=== PATIENT | female | born 1965 ===

== ENCOUNTER 2020-09-26 15:46 | Emergency (ER) | payer MEDICAID, SELFPAY ==
--- NOTE | 2020-09-26 16:50 | XR_ITS ---
EXAMINATION: XR CHEST CLINICAL INFORMATION: Shortness of breath and cough COMPARISON: 09/20/2015 TECHNIQUE: Frontal view of the chest was obtained. FINDINGS: Since the prior study the cardiac silhouette has decreased in size and the heart is now borderline in size. A left chest wall bipolar pacemaker has been placed with one lead in the atria the other near the right ventricular apex. The lungs are clear without effusions, infiltrates or masses. XR/XR chest 1V IMPRESSION: No acute intrathoracic disease.
[2020-09-26 17:06] VITALS: BP 108/60; PULSE 62; RESP 16; TEMP 36.4; O2SAT 100; BMI 37.4
--- NOTE | 2020-09-26 17:07 | ED.GENADULT ---
HPI - General Adult General Chief complaint: Upper Respiratory Symptoms Stated complaint: covid symptoms Time Seen by Provider: 09/26/20 16:33 Source: patient Mode of arrival: ambulatory History of Present Illness HPI narrative: 55-year-old female with a past medical history of hyperlipidemia, hypertension, hypothyroid presenting to the ED complaining of nasal congestion/rhinorrhea, sore throat, dry cough, myalgias/body aches, and SOB times a couple days. Denies chest pain, fever, recent travel, LE edema, sick contacts Onset (ago): day(s) Related Data Previous Rx's Medication Instructions Recorded albuterol sulfate 2 puff INHALATION Q4-6H PRN #6.7 g 09/26/20 benzonatate [Tessalon Perles] 100 mg PO TID PRN #10 cap 09/26/20 Allergies Allergy/AdvReac Type Severity Reaction Status Date / Time No Known Allergies Allergy Unverified 06/01/20 18:51 [No Known Allergies*] lactose Allergy Unknown nausea and Uncoded 10/27/19 00:00 vomiting Review of Systems Review of Systems: Constitutional: No Weight loss, No Fever, + Chills, No Night Sweats, + Fatigue, No Malaise ENT/Mouth: No Hearing loss, No Ear Pain, + Nasal Congestion, No Sinus Pain, No Hoarseness, + sore throat, + Rhinorrhea, No Swallowing Difficulty Cardiovascular: No Chest Pain, + SOB, No Palpitations Respiratory: + Cough, No Sputum, No Wheezing Gastrointestinal: No Nausea, No Vomiting, + Diarrhea, No Constipation, No Abdominal pain Musculoskeletal: No joint pain, + Myalgias, No Joint Swelling Skin: No Skin Lesions, No rash Neuro: No Weakness, No Dizziness, + Headache Yes all other systems are reviewed and are negative [facility] Past Medical History Attestation statement: The following information was validated with the patient. Social History Social History Advance Directives: No Advance Directives Information Provided: Yes Physical Exam Vital Signs: Vital Signs: Last Vital Signs Temp 97.5 F 09/26/20 17:06 Pulse 62 09/26/20 17:06 Resp 16 09/26/20 17:06 BP 108/60 09/26/20 17:06 Pulse Ox 100 09/26/20 17:06 Body Mass Index 37.4 Const: General: cooperative, healthy appearing, comfortable and no acute distress Orientation/consciousness: patient oriented x3 Limitations: no limitations HENMT: Head: Yes normal to inspection Ears: hearing grossly normal bilaterally General nose exam: Normal external nose present Face and sinus: Yes normal facial exam Eyes: General: appearance normal, both eyes and all related structures EOM: EOMs intact bilaterally Neck: Neck: Yes normal visual inspection and Yes no meningeal signs Resp: Effort & Inspection: normal respiratory effort Auscultation: clear to auscultation bilaterally, no rales, no rhonchi and no wheezes Cardio: Rate: regular rate Heart sounds: S1 normal heart sound present and S2 normal heart sound present GI: Inspection: Yes normal to inspection Palpation (GI): Soft to palpation, nontender, no guarding and not rigid Skin: Rashes: no rashes Wounds: no wounds Neuro: General: patient oriented x3 and no meningeal signs Gait exam (Neuro): Normal gait present Extrem: Other: No LE edema or calf tenderness General: Yes normal to inspection Course Course Course Narrative: -1800- ED care transferrd to [place] Bill pending CXR and COVID-19/influenza/RSV Medical Decision Making [facility] Narrative Medical decision making narrative: On exam VSS, NAD/well-appearing, lungs CTA, no LE edema or calf tenderness. Concern for viral syndrome/COVID-19. Low concern for pneumonia/ACS/PE Plan: CXR, COVID-19/influenza/RSV testing Discharge Plan Discharge Clinical Impression: Upper respiratory infection Qualifiers: URI type: unspecified URI Qualified Code(s): J06.9 - Acute upper respiratory infection, unspecified Patient Disposition: Home, Self-Care Instructions: Viral Syndrome (ED) Additional Instructions: Your x-ray was unremarkable You need to stay hydrated at home Albuterol inhaler is for shortness of breath and wheezing Tessalon Perles or for cough, take as needed You need to rest, and stay self isolated Call your doctor for follow-up, if her symptoms persist or worsen, you have fever unresolved with Tylenol or Motrin at home, constant worsening chest pain/shortness of breath return to the ED CDC Guidelines for home isolation: - Stay away from others - WEAR A MASK if you are sick AND STAY HOME - Cover your mouth and nose with a tissue when you cough or sneeze. Dispose of tissues in a lined trash can and wash your hands immediately with soap and water for at least 20 seconds. If soap and water are not available, clean hands with alcohol-based hand director [employer] that contains at least 60% alcohol. - Clean your hands often with soap and water for at least 20 seconds - Avoid touching your eyes, nose and mouth with unwashed hands - Do not share dishes, drinking glasses, cups, eating utensils, towels, or bedding with other people in your home. After using these items, wash them thoroughly with soap and water or put in the design transferrer. - Clean high-touch surfaces in your isolation area ( sick room and bathroom) every day; let a caregiver clean and disinfect high-touch surfaces in other areas of the home. Clean the area or item with soap and water or another detergent if it is dirty. Then, use a household disinfectant. - Limit contact with pets and animals: If you must care for a pet, wash your hands before and after interacting with them) Prescriptions: New albuterol sulfate 90 mcg/actuation HFA aerosol inhaler 2 puff inhalation Q4-6H PRN (Reason: shortness of breath or wheezing) Qty: 6.7 RF: 0 benzonatate [Tessalon Perles] 100 mg capsule 100 mg PO TID PRN (Reason: cough) Qty: 10 RF: 0 Referrals: Physician,Unknown [Primary Care Provider] - 2 days Print Language: Luxembourgish
[2020-09-26 18:51] LABS: Influenza A PCR NEGATIVE (Negative); Influenza B PCR NEGATIVE (Negative); Resp Syncy Virus RNA Qual PCR NEGATIVE (Negative); SARS COV2 PCR INHOUSE NEGATIVE (Negative)
== END 2020-09-26 20:26 | disposition home or self-care (01) ==
PROVIDERS: Physician Assistant; Emergency Provider Internal Medicine
DX: R05 Cough (principal); M79.10 Myalgia, unspecified site; Z20.828 Contact with and (suspected) exposure to other viral communicable diseases
CPT/HCPCS: 0241U; 36415; 71045; 99283; 99284

== ENCOUNTER 2020-09-29 11:54 | Emergency (ER) | payer MEDICAID, SELFPAY ==
--- NOTE | 2020-09-29 12:06 | ED_ITS ---
HPI - URI/Sore Throat General Chief Complaint: General Medical Stated Complaint: covid symptoms Time Seen by Provider: 09/29/20 12:04 Source: patient Mode of arrival: ambulatory Limitations: language barrier History of Present Illness HPI Narrative: 55 yo female with HTN, HLD, hx PPM, and hypothyroidism presenting back to the ER with continued URI symptoms. She reports all over body pain/aches, along with intermittent diarrhea, chest soreness and productive cough. She now has a productive cough with white/yellowish phlegm. She took Tylenol this morning with no improvement in the body pains. She denies SOB, dif ficulty breathing. She has not taken her temperature at home. She was seen here on 09/26 - had a negative Viral PCR and CXR. She was discharged with Tessalon and PRN albuterol MDI. MD elicited complaint: cough and other (body aches) Onset (ago): day(s) (5) Consistency: constant Severity: severe Description of mucous: clear and yellow Able to tolerate fluids by mouth: Yes Exacerbating factors: exertion and deep breaths Relieving factors: nothing Associated symptoms: chills, myalgias, headache, nasal congestion, cough, chest pain, nausea and diarrhea Treatments prior to arrival: acetaminophen Related Data Previous Rx's Medication Instructions Recorded albuterol sulfate 2 puff INHALATION Q4-6H PRN #6.7 g 09/26/20 benzonatate [Tessalon Perles] 100 mg PO TID PRN #10 cap 09/26/20 azithromycin [Zithromax Z-Andre] See Rx Instructions .ROUTE 09/29/20 .COMPLEX #6 tab prednisone 40 mg PO DAILY #10 tab 09/29/20 Allergies Allergy/AdvReac Type Severity Reaction Status Date / Time No Known Allergies Allergy Verified 09/29/20 12:24 [No Known Allergies*] lactose Allergy Unknown nausea and Uncoded 10/27/19 00:00 vomiting Review of Systems Review of Systems: Constitutional: No Fever, + Chills ENT/Mouth: + sore throat, + Rhinorrhea, No Swallowing Difficulty Eyes: No Eye Pain, No Swelling, No Redness Cardiovascular: + Chest Pain, No SOB, No Orthopnea, No Edema Respiratory: + Cough, + Sputum, No Wheezing, No dyspnea Gastrointestinal: + Nausea, No Vomiting, + Diarrhea, No abdominal Pain, No Hematochezia, No Melena Genitourinary: No Dysuria, No Urinary Frequency, No Hematuria Musculoskeletal: No joint pain, + Myalgias Skin: No Skin Lesions, No rash Neuro: + Weakness, No Numbness, No Dizziness, + Headache Psych: + Anxiety/Panic, No Depression Heme/Lymph: No Bruising, No Lymphadenopathy Endocrine: No Polyuria, No Polydipsia PMFSH Past Medical History Attestation statement: The following information was validated with the patient. Medical History High cholesterol HTN (hypertension) Hypothyroid Pacemaker Tumor cells, benign Social History Social History Alcohol intake: never Smoking Status: Never smoker Smoked in Last 30 Days: No Use of substances other than those prescribed or required for medical reasons: No Advance Directives: No Advance Directives Information Provided: No Physical Exam Vital Signs: Vital Signs: Last Vital Signs Temp 98.7 F 09/29/20 14:32 Pulse 78 09/29/20 14:32 Resp 18 09/29/20 14:32 BP 137/89 09/29/20 14:32 Pulse Ox 99 09/29/20 14:33 Body Mass Index 37.4 Appearance: Alert. Oriented X3. Tearful Eyes: Pupils equal, round and reactive to light. ENT: Pharynx normal. Neck: Normal inspection. Neck supple. CVS: Normal heart rate and rhythm. Pulses normal. Respiratory: No respiratory distress. Breath sounds normal. No rhonchi or wheezing. Abdomen: Soft and nontender. +BS x4 Skin: Skin warm and dry. Normal skin color. Normal skin turgor. No rashes. Extremities: No lower extremity edema. Negative Kyra's sign Neuro: Oriented X 3. Non-focal. Steady gait Course Course Course Narrative: 55 y/o presenting with flu/COVID symptoms - seen here 09/26 for the same. Symptoms persist. VSS and lungs are clear, no distress. Given this is her 2nd presentation we will check basic labs to assess for metabolic derangements. Will repeat CXR and Viral PCR given her symptoms are likely viral in etiology. Suspect COVID-19. Reevaluation(s) Reevaluation #1: Viral PCR negative for Flu, COVID and RSV. Lab workup unremarkable including negative troponin, normal electrolytes and procal. She remains hemodynamically stable with no hypoxia or respiratory distress. Body aches and headache slightly improved with Motrin. Patient was counseled on her results and symptomatic management. She is stable for discharge with plan to f/u with her PCP on Friday. MDM - URI/Sore Throat Lab Data Result diagrams: 09/29/20 13:12 09/29/20 13:12 Labs: Lab Results 09/29/20 09/29/20 09/29/20 Range/Units 13:09 13:12 13:12 WBC 10.2 (4.8-10.8) X10*3/uL RBC 5.05 (4.20-5.50) X10*6/uL Hgb 12.4 (12.0-16.0) g/dl Hct 40.8 (37-47) % MCV 80.8 (80-98) fL MCH 24.6 L (27.0-33.0) pg MCHC 30.4 L (31.0-35.0) g/dl RDW 16.3 H (11.0-16.0) % Plt Count 376 (160-400) X10*3/uL MPV 10.4 (9.4-12.3) fL Immature Gran % (Auto) 0.4 (0.0-0.4) % Neut % (Auto) 64.9 (45-73) % Lymph % (Auto) 25.1 (20-40) % Person % (Auto) 6.7 (2-11) % Eos % (Auto) 2.3 (0-4) % Baso % (Auto) 0.6 (0-2) % Lymph # (Auto) 2.6 (1.2-4.9) X10*3/uL Person # (Auto) 0.7 (0.1-1.2) X10*3/uL Eos # (Auto) 0.2 (0.0-0.4) X10*3/uL Baso # (Auto) 0.1 (0.0-0.2) X10*3/uL Abs Immat Gran (auto) 0.04 H (0.00-0.03) X10*3/uL Absolute Neuts (auto) 6.6 (2.0-8.3) X10*3/uL Absolute Nucleated RBC 0.000 (0.0-0.012) X10*3/uL Nucleated RBC % (auto) 0.0 (0.0-0.2) /100WBC Sodium 141 (135-145) mmol/L Potassium 3.5 (3.3-5.1) mmol/l Chloride 102 (96-108) mmol/L Carbon Dioxide 28 (22-29) mmol/L Anion Gap 15 (12-20) BUN 6 L (9-16) mg/dL Creatinine 0.83 (0.5-1.4) mg/dL Estim Creat Clear Calc 89.5 Estimated GFR > 60 Random Glucose 130 H (60-115) mg/dL Calcium 9.6 (8.4-10.2) mg/dL Magnesium 2.0 (1.6-2.6) mg/dL Troponin I High Sens (<3.5-17.0) ng/L Procalcitonin ng/mL Coronavirus (PCR) NEGATIVE (Negative) Influenza Type A (PCR) NEGATIVE (Negative) Influenza Type B (PCR) NEGATIVE (Negative) RSV RNA Qual (PCR) NEGATIVE (Negative) 09/29/20 09/29/20 Range/Units 13:12 13:54 WBC (4.8-10.8) X10*3/uL RBC (4.20-5.50) X10*6/uL Hgb (12.0-16.0) g/dl Hct (37-47) % MCV (80-98) fL MCH (27.0-33.0) pg MCHC (31.0-35.0) g/dl RDW (11.0-16.0) % Plt Count (160-400) X10*3/uL MPV (9.4-12.3) fL Immature Gran % (Auto) (0.0-0.4) % Neut % (Auto) (45-73) % Lymph % (Auto) (20-40) % Person % (Auto) (2-11) % Eos % (Auto) (0-4) % Baso % (Auto) (0-2) % Lymph # (Auto) (1.2-4.9) X10*3/uL Person # (Auto) (0.1-1.2) X10*3/uL Eos # (Auto) (0.0-0.4) X10*3/uL Baso # (Auto) (0.0-0.2) X10*3/uL Abs Immat Gran (auto) (0.00-0.03) X10*3/uL Absolute Neuts (auto) (2.0-8.3) X10*3/uL Absolute Nucleated RBC (0.0-0.012) X10*3/uL Nucleated RBC % (auto) (0.0-0.2) /100WBC Sodium (135-145) mmol/L Potassium (3.3-5.1) mmol/l Chloride (96-108) mmol/L Carbon Dioxide (22-29) mmol/L Anion Gap (12-20) BUN (9-16) mg/dL Creatinine (0.5-1.4) mg/dL Estim Creat Clear Calc Estimated GFR Random Glucose (60-115) mg/dL Calcium (8.4-10.2) mg/dL Magnesium (1.6-2.6) mg/dL Troponin I High Sens < 3.5 (<3.5-17.0) ng/L Procalcitonin 0.06 ng/mL Coronavirus (PCR) (Negative) Influenza Type A (PCR) (Negative) Influenza Type B (PCR) (Negative) RSV RNA Qual (PCR) (Negative) ECG Data Attestation: I personally reviewed and interpreted this ECG as follows: ECG interpretation date: 09/29/20 ECG interpretation time: 13:50 Prior ECG tracings: available for review Interpretation: atrial paced rhythm, HR 70 bpm, non-specific t-wave inversions in lead I, aVL, V2-V5 which are new from prior ECG in 2019 Discharge Plan Discharge Clinical Impression: Acute viral syndrome Patient Disposition: Home, Self-Care Instructions: Acute Bronchitis (ED), Viral Syndrome (ED) Additional Instructions: Your lab workup was normal. Your chest x-ray was normal. Your COVID, influenza and RSV tests were NEGATIVE. Take the prescribed medications for possible bronchitis. Take over the counter cold/flu medications as needed for your symptoms. Alternate Motrin and Tylenol every 4 hours as needed for body aches and fevers. Rest and drink plenty of water. Follow up with your doctor on Friday. If your symptoms worsen come back to the ER for further evaluation. Prescriptions: New prednisone 20 mg tablet 40 mg PO DAILY Qty: 10 RF: 0 azithromycin [Zithromax Z-Andre] 250 mg tablet See Rx Instructions .ROUTE .COMPLEX Qty: 6 RF: 0 No Action albuterol sulfate 90 mcg/actuation HFA aerosol inhaler 2 puff inhalation Q4-6H PRN (Reason: shortness of breath or wheezing) Qty: 6.7 RF: 0 benzonatate [Tessalon Perles] 100 mg capsule 100 mg PO TID PRN (Reason: cough) Qty: 10 RF: 0
[2020-09-29 12:12] VITALS: BP 137/74; PULSE 62; RESP 18; TEMP 37.2; O2SAT 99; BMI 37.4
--- NOTE | 2020-09-29 12:28 | ECG_ITS ---
Test Reason : SOB,CP Blood Pressure : / mmHG Vent. Rate : 070 BPM Atrial Rate : 070 BPM P-R Int : 200 ms QRS Dur : 118 ms QT Int : 444 ms P-R-T Axes : 021 058 113 degrees QTc Int : 479 ms Atrial-paced rhythm Inferior infarct , age undetermined ST & T wave abnormality, consider lateral ischemia Abnormal ECG When compared with ECG of 14-NOV-2018 09:21, Electronic atrial pacemaker has replaced Sinus rhythm Vent. rate has increased BY 24 BPM T wave inversion now evident in Anterolateral leads QT has lengthened Referred By: Ira Alcantara Electronically Signed By:KYLAH AGUAYO MD
--- NOTE | 2020-09-29 12:28 | XR_ITS ---
EXAMINATION: XR CHEST CLINICAL INFORMATION: Shortness of breath and cough COMPARISON: Previous chest x-rays most recent 09/26/2020 TECHNIQUE: Frontal view of the chest was obtained. FINDINGS: The cardiac and mediastinal contours are stable. There is a left subclavian dual chamber pacemaker that appears unchanged. Hilar and mediastinal contours are unremarkable. The lungs are clear. There is no pleural effusion or pneumothorax. Bony structures are unremarkable. XR/XR chest 1V IMPRESSION: No evidence for acute disease in the chest.
[2020-09-29 13:39] LABS: MANUAL DIFF FLAG NO
[2020-09-29 13:47] LABS: Basophils Absolute Auto 0.1 X10*3/uL (0.0-0.2); Basophils Percent Auto 0.6 % (0-2); Eosinophils Absolute Auto 0.2 X10*3/uL (0.0-0.4); Eosinophils Percent Auto 2.3 % (0-4); Hematocrit 40.8 % (37-47); Hemoglobin 12.4 g/dl (12.0-16.0); Imm Gran Abs Auto 0.04 X10*3/uL (0.00-0.03); Imm Gran Pct Auto 0.4 % (0.0-0.4); Lymphocytes Absolute Auto 2.6 X10*3/uL (1.2-4.9); Lymphocytes Percent Auto 25.1 % (20-40); Mean Corpuscular HGB Conc 30.4 g/dl (31.0-35.0); Mean Corpuscular Hemoglobin 24.6 pg (27.0-33.0); Mean Corpuscular Volume 80.8 fL (80-98); Mean Platelet Volume 10.4 fL (9.4-12.3); Monocytes Absolute Auto 0.7 X10*3/uL (0.1-1.2); Monocytes Percent Auto 6.7 % (2-11); Neutrophils Absolute Auto 6.6 X10*3/uL (2.0-8.3); Neutrophils Percent Auto 64.9 % (45-73); Platelet Count 376 X10*3/uL (160-400); Red Blood Count 5.05 X10*6/uL (4.20-5.50); Red Cell Distribution Width 16.3 % (11.0-16.0); White Blood Count 10.2 X10*3/uL (4.8-10.8)
[2020-09-29 14:07] LABS: Anion Gap 15 (12-20); Blood Urea Nitrogen 6 mg/dL (9-16); Calcium 9.6 mg/dL (8.4-10.2); Carbon Dioxide 28 mmol/L (22-29); Chloride 102 mmol/L (96-108); Creatinine Clr Calc Pharmacy 89.5; Estimated Glomerular Filt Rate > 60; Glucose Random 130 mg/dL (60-115); Potassium 3.5 mmol/l (3.3-5.1); Sodium 141 mmol/L (135-145)
[2020-09-29] MEDS: Ibuprofen 600 MG TABLET PO (14:30)
[2020-09-29 14:31] LABS: Procalcitonin 0.06 ng/mL
[2020-09-29 14:32] VITALS: BP 137/89; PULSE 78; RESP 18; TEMP 37.1; O2SAT 99
[2020-09-29 14:33] VITALS: O2SAT 99
[2020-09-29 14:58] LABS: Influenza A PCR NEGATIVE (Negative); Influenza B PCR NEGATIVE (Negative); Resp Syncy Virus RNA Qual PCR NEGATIVE (Negative); SARS COV2 PCR INHOUSE NEGATIVE (Negative)
[2020-09-29 15:21] LABS: Troponin-I High Sensitivity < 3.5 ng/L (<3.5-17.0)
== END 2020-09-29 16:00 | disposition home or self-care (01) ==
PROVIDERS: Physician Assistant; Emergency Provider Emergency Medicine
DX: B34.9 Viral infection, unspecified (principal); Z20.822 Contact with and (suspected) exposure to COVID-19; J20.9 Acute bronchitis, unspecified; I10 Essential (primary) hypertension; Z95.0 Presence of cardiac pacemaker
CPT/HCPCS: 0241U; 36415; 71045; 80048; 83735; 84145; 84484; 85025; 93005; 99283; 99285

== ENCOUNTER 2021-04-12 10:05 | Outpatient (REF) | payer MEDICAID, SELFPAY ==
--- NOTE | 2021-04-12 10:10 | EMG_ITS ---
Right median and ulnar motor and sensory studies were performed. Right radial sensory study was performed and paraspinal muscles were tested. IMPRESSION: [id number] right median neuropathy across carpal tunnel. MD CLEO Mcintyre/KEVIN / [id number]
== END 2021-04-12 10:06 | disposition home or self-care (01) ==
LOC: HO.NEURO 10:05
PROVIDERS: PCP Internal Medicine; Visit Provider Internal Medicine
DX: Z13.89 Encounter for screening for other disorder (principal)

== ENCOUNTER 2021-07-17 13:08 | Outpatient (REF) | payer MEDICAID, SELFPAY ==
--- NOTE | ~2021-07-17 | MM_ITS ---
EXAMINATION: MM DIAGNOSTIC DIGITAL BREAST TOMOSYNTHESIS, BILATERAL US DIAGNOSTIC ULTRASOUND BREAST, LEFT CLINICAL INFORMATION: Left-sided breast pain greatest upper outer quadrant. No mass, no discharge. Due for yearly. The lifetime risk of breast cancer based on the Tyrer-Cuzick Model is 17%. COMPARISON: Mammography: 02/17/2018, 02/03/2017 TECHNIQUE: Digital breast tomosynthesis is performed in both the craniocaudal and mediolateral oblique views along with computer-aided detection (CAD). Synthesized 2D images are generated from the tomosynthesis. Additional left MLO view is provided. Ultrasound left breast is targeted to the area of clinical concern 12:00 through 4:00 position. Grayscale imaging and color Doppler are performed without and with harmonics. FINDINGS: There are scattered areas of fibroglandular density (ACR BI-RADS breast composition Category b). Parenchymal pattern is similar to prior studies. There is no developing density or interval mass or architectural abnormality. No skin thickening or coarsening of the Woody's ligaments. No interval duct ectasia or abnormal calcifications. The axilla are unremarkable. Mild nipple inversion is chronic finding similar to prior studies. No significant changes. Ultrasound demonstrates no cystic or solid mass or architectural abnormality. No focal duct ectasia. No skin thickening or edema tracking in soft tissue planes. Results are discussed with the patient at time of visit. MM/MM tomosynthesis diagnostic BI IMPRESSION: No mammographic evidence of malignancy or inflammatory changes. Unremarkable targeted left breast ultrasound. ASSESSMENT: BI-RADS 2: Benign RECOMMENDATION: 1. Patient's left breast pain should be managed based on the clinical impression. 2. Otherwise, routine annual screening mammography. This patient's information was entered into a reminder system with a target due date for their next mammogram.
== END 2021-07-17 13:09 | disposition home or self-care (01) ==
LOC: HO.MAMMO 13:08
PROVIDERS: Visit Provider Internal Medicine
DX: N64.4 Mastodynia (principal)
CPT/HCPCS: 76642; 77062; 77066

== ENCOUNTER 2021-09-20 11:59 | Outpatient (REF) | payer MEDICAID, SELFPAY ==
[2021-09-20 15:40] LABS: Binax Now Covid-19 Ag Negative (Negative)
[2021-09-20 15:41] LABS: Binax Internal Control QC Valid
== END 2021-09-20 12:00 | disposition home or self-care (01) ==
LOC: HO.LAB 11:59
PROVIDERS: Visit Provider Internal Medicine
DX: Z20.822 Contact with and (suspected) exposure to COVID-19 (principal)
CPT/HCPCS: 36415; C9803

== ENCOUNTER 2022-05-16 10:34 | Outpatient (REF) | payer MEDICAID, SELFPAY ==
[2022-05-16 15:37] LABS: CT PCR NOT DETECTED (Not Detect.); NG PCR NOT DETECTED (Not Detect.)
[2022-05-17 14:28] LABS: BV Int Neg Control Negative (Negative); BV Int Pos Control Positive (Positive)
== END 2022-05-16 10:35 | disposition home or self-care (01) ==
LOC: HO.LAB 10:34
PROVIDERS: Visit Provider Advanced Practice Midwife
DX: Z11.3 Encounter for screening for infections with a predominantly sexual mode of transmission (principal); R10.2 Pelvic and perineal pain; N89.8 Other specified noninflammatory disorders of vagina
CPT/HCPCS: 87480; 87491; 87510; 87591; 87624; 87660; 88142

== ENCOUNTER 2022-05-16 15:38 | Outpatient (REF) | payer MEDICAID, SELFPAY ==
[2022-05-22 00:37] LABS: HPV mRNA E6/E7 rflx Not Detected (Not Detected)
== END 2022-05-16 15:39 | disposition home or self-care (01) ==
LOC: HO.LNP 15:38
PROVIDERS: Visit Provider Advanced Practice Midwife
DX: Z01.419 Encounter for gynecological examination (general) (routine) without abnormal findings (principal)
CPT/HCPCS: 87624; 88142

== ENCOUNTER 2022-07-02 13:37 | Outpatient (REF) | payer MEDICAID, SELFPAY ==
--- NOTE | ~2022-07-02 | US_ITS ---
EXAMINATION: US PELVIS CLINICAL INFORMATION: Pain COMPARISON: Previous CT of the abdomen and pelvis most recent January 2019 TECHNIQUE: Ultrasound of the pelvis is performed using both transabdominal and transvaginal transducers along with Doppler. Transvaginal imaging is performed due to inadequate visualization transabdominally. FINDINGS: The uterus is anteverted and measures 4.1 x 2.6 x 3.7 cm in dimension. No focal uterine lesion. Endometrial thickness is normal measuring 0.4 cm. The ovaries are not seen. No adnexal mass. No fluid in the pelvis. US/US pelvic and transvaginal IMPRESSION: Normal-appearing uterus. Ovaries not seen.
== END 2022-07-02 13:38 | disposition home or self-care (01) ==
LOC: HO.US 13:37
PROVIDERS: Visit Provider Advanced Practice Midwife
DX: R10.2 Pelvic and perineal pain (principal)
CPT/HCPCS: 76830; 76856

== ENCOUNTER 2022-07-17 14:56 | Outpatient (REF) | payer MEDICAID, SELFPAY ==
[2022-07-23 20:52] LABS: HPV mRNA E6/E7 rflx Not Detected (Not Detected)
== END 2022-07-17 14:57 | disposition home or self-care (01) ==
LOC: HO.LNP 14:56
PROVIDERS: Visit Provider Advanced Practice Midwife
DX: Z01.419 Encounter for gynecological examination (general) (routine) without abnormal findings (principal); Z11.51 Encounter for screening for human papillomavirus (HPV); R87.615 Unsatisfactory cytologic smear of cervix; Z71.2 Person consulting for explanation of examination or test findings
CPT/HCPCS: 87624; 88142; 99212

== ENCOUNTER 2023-03-21 14:19 | Outpatient (REF) | payer MEDICAID, SELFPAY ==
--- NOTE | ~2023-03-21 | CT_ITS ---
EXAMINATION: CT CHEST SCREENING CLINICAL INFORMATION: Former smoker. Quit 1 year ago. 40 pack year history. COMPARISON: None available. TECHNIQUE: Multidetector volumetric CT imaging of the chest is performed without contrast using low dose technique. Additional 2D coronal and sagittal reformatted images and axial 3D maximum intensity projection (MIP) images are generated on the CT workstation. This CT examination was performed using dose optimization techniques as appropriate, variously including the following: *Automated exposure control *Adjustment of mA and/or kV according to patient size (this includes techniques or standardized protocols for targeted exams where dose is matched to indication/reason for exam; i.e. extremities or head) *Use of iterative reconstruction technique DLP: 60 mGy-cm FINDINGS: LUNGS: Mild emphysema. MEDIASTINUM: Normal heart size. No pericardial effusion. Left subclavian dual chamber pacemaker with leads projecting over the right atrium and right ventricle. No enlarged hilar or mediastinal lymph nodes. CORONARY ARTERY CALCIFICATION: Mild PLEURA: There is no pleural effusion. No pleural mass or thickening. AXILLA: No lymphadenopathy. UPPER ABDOMEN: Fatty infiltration of the liver. The gallbladder has been removed. OSSEOUS STRUCTURES: Degenerative changes of the spine. CT/CT lung screening IMPRESSION: Mild emphysema. Mild coronary artery calcification. ASSESSMENT: Lung-RADS category 1: Negative RECOMMENDATION: Annual low-dose chest CT follow-up recommended
== END 2023-03-21 14:20 | disposition home or self-care (01) ==
LOC: HO.CT 14:19
PROVIDERS: PCP Internal Medicine; Visit Provider Physician Assistant Medical
DX: Z12.2 Encounter for screening for malignant neoplasm of respiratory organs (principal); Z87.891 Personal history of nicotine dependence
CPT/HCPCS: 71271; G0296

== ENCOUNTER 2023-12-30 10:59 | Outpatient (REF) | payer MEDICAID, SELFPAY ==
[2023-12-30 14:28] LABS: MANUAL DIFF FLAG NO
[2023-12-30 14:42] LABS: Basophils Absolute Auto 0.1 X10*3/uL (0.0-0.2); Basophils Percent Auto 0.7 % (0-2); Eosinophils Absolute Auto 0.1 X10*3/uL (0.0-0.4); Eosinophils Percent Auto 1.3 % (0-4); Hematocrit 41.7 % (37.0-47.0); Hemoglobin 12.6 g/dl (12.0-16.0); Imm Gran Abs Auto 0.05 X10*3/uL (0.00-0.03); Imm Gran Pct Auto 0.6 % (0.0-0.4); Lymphocytes Absolute Auto 2.1 X10*3/uL (1.2-4.9); Lymphocytes Percent Auto 24.1 % (20-40); Mean Corpuscular HGB Conc 30.2 g/dl (31.0-35.0); Mean Corpuscular Hemoglobin 23.8 pg (27.0-33.0); Mean Corpuscular Volume 78.8 fL (80.0-98.0); Mean Platelet Volume 11.4 fL (9.4-12.3); Monocytes Absolute Auto 0.5 X10*3/uL (0.1-1.2); Monocytes Percent Auto 5.7 % (2-11); Neutrophils Absolute Auto 5.8 x10*3/uL (2.0-8.3); Neutrophils Percent Auto 67.6 % (45-73); Platelet Count 332 X10*3/uL (160-400); Red Blood Count 5.29 X10*6/uL (4.20-5.50); Red Cell Distribution Width 17.4 % (11.0-16.0); White Blood Count 8.6 X10*3/uL (4.8-10.8)
[2023-12-30 15:20] LABS: Alanine Aminotransferase 26 U/L (0-31); Albumin Level 3.7 g/dL (3.5-5.0); Alkaline Phosphatase 106 U/L (39-117); Anion Gap 11 (12-20); Aspartate Amino Transferase 21 U/L (5-31); Bilirubin Total 0.4 mg/dL (0.0-1.0); Blood Urea Nitrogen 13 mg/dL (9-16); Calcium 9.4 mg/dL (8.4-10.2); Carbon Dioxide 27 mmol/L (22-29); Chloride 106 mmol/L (96-108); Cholesterol 206 mg/dL (<200); Estimated Glomerular Filt Rate > 60; Glucose Random 86 mg/dL (60-115); HDL Cholesterol 40 mg/dL (>40); LDL Cholesterol Calculated 118 mg/dL (<100); Potassium 3.4 mmol/L (3.3-5.1); Sodium 141 mmol/L (135-145); Total Protein 6.7 g/dL (6.5-8.0); Triglycerides 242 mg/dL (<150)
[2023-12-31 08:29] LABS: ~Hepatitis C Antibody Nonreactive (Nonreactive)
[2024-01-03 08:44] LABS: HIV RNA PCR Qn Copies Not Detected Copies/mL; HIV RNA PCR Qn Log Copies Not Detected Log cps/mL
== END 2023-12-30 11:00 | disposition home or self-care (01) ==
LOC: HO.CHCLDS 10:59
PROVIDERS: Visit Provider Internal Medicine
DX: Z11.59 Encounter for screening for other viral diseases (principal); Z11.4 Encounter for screening for human immunodeficiency virus [HIV]; D35.2 Benign neoplasm of pituitary gland
CPT/HCPCS: 36415; 80053; 80061; 85025; 86803; 87536; 87900

== ENCOUNTER 2024-02-12 | Outpatient (REF) | payer MEDICAID, SELFPAY | END 2024-02-12 00:01 | disposition home or self-care (01) | LOC: CF | PROVIDERS: PCP Internal Medicine; Visit Provider Nurse Practitioner Family | DX: R19.7 Diarrhea, unspecified (principal); K59.00 Constipation, unspecified; K21.9 Gastro-esophageal reflux disease without esophagitis; K59.04 Chronic idiopathic constipation; K58.9 Irritable bowel syndrome, unspecified; R14.0 Abdominal distension (gaseous); R10.13 Epigastric pain; R10.9 Unspecified abdominal pain; R15.9 Full incontinence of feces | CPT/HCPCS: 36415; 86140; 99212 ==

== ENCOUNTER 2024-02-12 14:18 | Outpatient (AMB) | payer MEDICAID, SELFPAY ==
--- NOTE | 2024-02-12 14:26 | MHC.OFFVIS ---
Vital Signs 02/12/24 14:39 Height 5 ft 4 in Weight 210 lb 12.191 oz BMI 36.2 BP 128/70 Pulse 62 Pulse Source Pulse Oximeter Pulse Oximetry (%) 99 Oxygen Delivery Method Room Air Intake Visit Reasons: Colonoscopy/ Diarrhea Intake Note: Sharmila reports to the office today for a colo screening with associated diarrhea CC; Pt reports sx associated with the diarrhea including; constipation. Pt reports onset within the last approximate 4 mos. Pt does report having intermittent dark brown stools. Pt reports having b/l upper quadrant pain. Business Transformation Manager Required: Yes Business Transformation Manager Name: Dwight [id number] Allergies No Known Allergies [No Known Allergies*] Allergy (Verified 02/12/24 14:35) lactose Allergy (Unknown, Uncoded 02/12/24 14:35) nausea and vomiting HPI HPI Colonoscopy/ Diarrhea: Details: 58 year old? female with past medical history of pituitary adenoma, hyperthyroidism, hypertension, hypercholesteremia is here today for pre colonoscopy screening.? Patient was sent to us by her PCP.? Last colonoscopy with Dr. Magdaleno in 2018. Patient had diagnostic colonoscopy as she got admitted to the hospital for colitis. ?Patient reports altered needing stool with diarrhea and constipation. Patient does admit that she has more frequent diarrhea. Reports abdominal bloating. Patient reports that the bloating is there all the time she does not feel like food makes it worse. Patient also reports epigastric pain postprandially. Occasional nausea without vomiting. Patient reports that even though she would have diarrhea few times a day she still feels very full. Patient also reports feeling very gassy. Denies any melena, hematochezia. [facility] Medical History Personal history of nicotine dependence History of pituitary adenoma ERIKA (obstructive sleep apnea) GERD (gastroesophageal reflux disease) History of cancer chemotherapy Pre-diabetes Pacemaker Hypothyroid High cholesterol HTN (hypertension) Surgical History History of pacemaker History of brain surgery History of cholecystectomy History of appendectomy History of colonoscopy Family History Mother Diabetes HTN (hypertension) Father Heart attack Sister HTN (hypertension) Paternal Grandmother Breast cancer Social History Household Members: Spouse Household Members Other:: daughter Housing: House Alcohol intake: former Patient Tobacco Use Status: Former Tobacco user Years Smoked: (onset 11yo, 1-2ppd x 45yrs, 60pyh - quit 2021) Substance Use Type: Crack/Cocaine and Marijuana service: No Current occupational status: unemployed Sexual orientation: Straight/Heterosexual Gender identity: Female Physical Exam Vital Signs: Last Vital Signs Pulse 62 02/12/24 14:39 BP 128/70 02/12/24 14:39 Pulse Ox 99 02/12/24 14:39 Oxygen Delivery Method Room Air 02/12/24 14:39 BMI result Body Mass Index 36.2 Const General: healthy appearing, no acute distress and well developed Nutritional Appearance: well nourished Orientation/consciousness: patient oriented x3 Resp Effort & Inspection: normal respiratory effort, able to speak in complete sentences, no tracheal deviation and symmetric chest movement Auscultation: clear to auscultation bilaterally Cardio Rate: regular rate GI Inspection: Yes normal to inspection and Yes distended Palpation (GI): Soft to palpation, not firm and nontender Auscultation: Hypoactive bowel sounds present General: Yes no CVA tenderness Back/Spine/Pelvis Back: no CVA tenderness Skin General skin exam: elasticity normal, turgor normal and dry skin Neuro General: patient oriented x3 Psych Appearance: grossly normal Mental Status: mental status grossly normal Assessment & Plan Assessment & Plan (1) Screen for colon cancer: Code(s): Z12.11 - Encounter for screening for malignant neoplasm of colon (2) GERD (gastroesophageal reflux disease): Code(s): K21.9 - Gastro-esophageal reflux disease without esophagitis Qualifiers: Esophagitis presence: esophagitis presence not specified Qualified Code(s): K21.9 - Gastro-esophageal reflux disease without esophagitis (3) Constipation: Code(s): K59.00 - Constipation, unspecified Qualifiers: Constipation type: chronic idiopathic constipation Qualified Code(s): K59.04 - Chronic idiopathic constipation (4) Abdominal bloating: Code(s): R14.0 - Abdominal distension (gaseous) (5) Postprandial epigastric pain: Code(s): R10.13 - Epigastric pain Plan Patient was encouraged to avoid dietary triggers and late night snacking. Will be started on pantoprazole in the morning half an hour before breakfast. Avoid laying down for minimum 3 hours after meals. Patient will start to take Citrucel to help her bulk stools and Senokot 2 tablets in the evening to how with constipation. Hypoactive bowels sounds throughout the abdomen, distended abdomen without tenderness. Will send patient for abdominal ultrasound. Will rule out IBD. Check for H pylori and rule out pancreatic insufficiency. Discussed with patient low FODMAP diet. List of food recommended as well as list of food to avoid given to patient. Patient will return in the office in 2 months, sooner on as needed basis. Orders: Orders C Reactive Protein Today K58.9 - Irritable bowel syndrome without diarrhea Pancreatic Elastase-1 Today R10.9 - Unspecified abdominal pain H pylori Ag Stool Today K21.9 - Gastro-esophageal reflux disease without esophagitis Calprotectin, Fecal Today R15.9 - Full incontinence of feces US abdomen complete Today R10.9 - Unspecified abdominal pain Medications: New methylcellulose (laxative) (Citrucel) take it with full glass of water 500 mg PO DAILY 30 tabs 2RF K59.00 - Constipation, unspecified pantoprazole take one tablet half an hour before breakfast 40 mg PO DAILY 30 tabs 2RF K21.9 - Gastro-esophageal reflux disease without esophagitis sennosides (Natural Senna Laxative) 17.2 mg (2 x 8.6 mg) PO BEDTIME 60 tabs 3RF constipation K59.00 - Constipation, unspecified Coding Level of Care Code New Pt Level 4 (78571) Diagnoses Screen for colon cancer Z12.11 Gastroesophageal reflux disease, unspecified whether esophagitis present K21.9 Esophagitis presence: esophagitis presence not specified Chronic idiopathic constipation K59.04 Constipation type: chronic idiopathic constipation Abdominal bloating R14.0 Postprandial epigastric pain R10.13 Time Spent (min) 45 Comment 30 minutes spent with patient and additional 10 minutes spent reviewing her records
[2024-02-12 14:39] VITALS: BP 128/70; PULSE 62; O2SAT 99; BMI 36.2
== END 2024-02-12 15:08 | disposition home or self-care (01) ==
PROVIDERS: PCP Internal Medicine; Visit Provider Nurse Practitioner Family
DX: Z12.11 Encounter for screening for malignant neoplasm of colon (principal); K21.9 Gastro-esophageal reflux disease without esophagitis; K59.04 Chronic idiopathic constipation; R14.0 Abdominal distension (gaseous); R10.13 Epigastric pain; Z01.818 Encounter for other preprocedural examination
CPT/HCPCS: 99204

== ENCOUNTER 2024-02-12 15:15 | Outpatient (REF) | payer MEDICAID, SELFPAY ==
[2024-02-12 16:41] LABS: C Reactive Protein 4.52 mg/dL (< or = 0.50)
== END 2024-02-12 15:16 | disposition home or self-care (01) ==
LOC: HO.LAB 15:15
PROVIDERS: PCP Internal Medicine; Visit Provider Nurse Practitioner Family
DX: K58.9 Irritable bowel syndrome, unspecified (principal)
CPT/HCPCS: 36415; 86140

== ENCOUNTER 2024-03-05 08:48 | Outpatient (REF) | payer MEDICAID, SELFPAY ==
--- NOTE | ~2024-03-05 | US_ITS ---
EXAMINATION: US ABDOMEN COMPLETE CLINICAL INFORMATION: Unspecified abdominal pain. COMPARISON: CT abdomen and pelvis 02/05/2019. Ultrasound abdomen complete 09/20/2015. TECHNIQUE: Real-time imaging of the abdominal viscera. Limited visualization due to bowel gas. FINDINGS: PANCREAS: Limited visualization of pancreatic tail and head. Imaged portion of pancreatic body is unremarkable. ABDOMINAL AORTA: Limited visualization. INFERIOR VENA CAVA: Visualized portions are normal. LIVER: Hepatomegaly, 18.4 cm. Increased hepatic parenchymal heterogeneity and echogenicity could be associated with hepatocellular disease/hepatic steatosis and severely limits visualization. Correlation with liver function tests and clinical exam recommended to determine further management. GALLBLADDER: Surgically absent. COMMON BILE DUCT: Normal in caliber measuring 0.5 cm in diameter. RIGHT KIDNEY: No hydronephrosis. No renal calculi. Limited visualization. The kidney measures 12.5 cm in maximum dimension. LEFT KIDNEY: No hydronephrosis. No renal calculi. Limited visualization. The kidney measures 12.6 cm in maximum dimension. SPLEEN: Normal. The spleen measures 8.7 cm in maximum dimension. FREE FLUID: None. US/US abdomen complete IMPRESSION: 1. Hepatomegaly, 18.4 cm. Increased hepatic parenchymal heterogeneity and echogenicity could be associated with hepatocellular disease/hepatic steatosis and severely limits visualization. Correlation with liver function tests and clinical exam recommended to determine further management. 2. Gallbladder surgically absent.
== END 2024-03-05 08:49 | disposition home or self-care (01) ==
LOC: HO.US 08:48
PROVIDERS: PCP Internal Medicine; Visit Provider Nurse Practitioner Family
DX: R10.9 Unspecified abdominal pain (principal)
CPT/HCPCS: 76700

== ENCOUNTER 2024-04-04 13:56 | Outpatient (REF) | payer MEDICAID, SELFPAY ==
[2024-04-13 19:09] LABS: Pancreatic Elastase-1 >500 mcg/g
[2024-04-14 21:33] LABS: Calprotectin, Fecal 69 mcg/g
== END 2024-04-04 13:57 | disposition home or self-care (01) ==
LOC: HO.LNP 13:56
PROVIDERS: Visit Provider Nurse Practitioner Family
DX: K21.9 Gastro-esophageal reflux disease without esophagitis (principal); R15.9 Full incontinence of feces; R10.9 Unspecified abdominal pain
CPT/HCPCS: 82656; 83993; 87338

== ENCOUNTER → 2024-04-20 11:02 | Outpatient (BNVA) | payer MEDICAID, SELFPAY | PROVIDERS: PCP Internal Medicine; Visit Provider Nurse Practitioner Family | DX: Z12.11 Encounter for screening for malignant neoplasm of colon (principal); K21.9 Gastro-esophageal reflux disease without esophagitis; K59.01 Slow transit constipation; R14.0 Abdominal distension (gaseous); R10.13 Epigastric pain | CPT/HCPCS: 99212 ==

== ENCOUNTER 2024-04-20 11:03 | Outpatient (AMB) | payer MEDICAID, SELFPAY ==
--- NOTE | 2024-04-20 11:07 | MHC.OFFVIS ---
Vital Signs 04/20/24 11:10 Height 5 ft 4 in Weight 205 lb 0.478 oz BMI 35.2 BP 148/78 H Blood Pressure Location Lt brachial Position Sitting Pulse 88 Intake Visit Reasons: 2 month f/u GERD, discuss colo and lab results Intake Note: Sharmila presents in the office as a 2 month follow up for GERD. CC: Here today to discuss lab results and having colonoscopy. She is not having any concerns at this time. Gluing Machine Feeder Required: Yes Gluing Machine Feeder Name: Daughter Allergies No Known Allergies [No Known Allergies*] Allergy (Verified 04/20/24 11:08) lactose Allergy (Unknown, Uncoded 04/20/24 11:08) nausea and vomiting HPI HPI 2 month f/u GERD, discuss colo and lab results: Details: LAST VISIT: Screen for colon cancer GERD (gastroesophageal reflux disease) Constipation Abdominal bloating Postprandial epigastric pain Plan Patient was encouraged to avoid dietary triggers and late night snacking. Will be started on pantoprazole in the morning half an hour before breakfast. Avoid laying down for minimum 3 hours after meals. Patient will start to take Citrucel to help her bulk stools and Senokot 2 tablets in the evening to how with constipation. Hypoactive bowels sounds throughout the abdomen, distended abdomen without tenderness. Will send patient for abdominal ultrasound. Will rule out IBD. Check for H pylori and rule out pancreatic insufficiency. Discussed with patient low FODMAP diet. List of food recommended as well as list of food to avoid given to patient. Patient will return in the office in 2 months, sooner on as needed basis. Orders Orders C Reactive Protein Today K58.9 Pancreatic Elastase-1 Today R10.9 H pylori Ag Stool Today K21.9 Calprotectin, Fecal Today R15.9 US abdomen complete Today R10.9 Medications New methylcellulose (laxative) (Citrucel) take it with full glass of water 500 mg PO DAILY 30 tabs 2RF K59.00 pantoprazole take one tablet half an hour before breakfast 40 mg PO DAILY 30 tabs 2RF K21.9 sennosides (Natural Senna Laxative) 17.2 mg (2 x 8.6 mg) PO BEDTIME 60 tabs 3RF constipation K59.00 TODAY'S VISIT: Patient is here today for follow-up and to discuss going for colonoscopy as well as discussed lab results and ultrasound results. Patient denies any melena, hematochezia, unintentional weight loss or ribbon like stools. Patient reports to be feeling well. No issues with anesthesia in the past. Patient is not on any anticoagulation medication. No history of sleep apnea. Reports that she takes Citrucel in the morning and senna at night time and she is moving her bowels better now. Patient reports that pantoprazole has been working and she no longer has acid reflux. However patient admits that occasionally depending on what she eats she will have epigastric discomfort. Patient reports improvement in postprandial abdominal bloating. [facility] Medical History Personal history of nicotine dependence History of pituitary adenoma ERIKA (obstructive sleep apnea) GERD (gastroesophageal reflux disease) History of cancer chemotherapy Pre-diabetes Pacemaker Hypothyroid High cholesterol HTN (hypertension) Surgical History History of pacemaker History of brain surgery History of cholecystectomy History of appendectomy History of colonoscopy Family History Mother Diabetes HTN (hypertension) Father Heart attack Sister HTN (hypertension) Paternal Grandmother Breast cancer Social History Household Members: Spouse Household Members Other:: daughter Housing: House Alcohol intake: former Patient Tobacco Use Status: Former Tobacco user Years Smoked: (onset 11yo, 1-2ppd x 45yrs, 60pyh - quit 2021) Substance Use Type: Crack/Cocaine and Marijuana service: No Current occupational status: unemployed Sexual orientation: Straight/Heterosexual Gender identity: Female Review of Systems Const Denies weight gain and Denies weight loss ENT Reports no additional complaints, Denies dysphagia and Denies odynophagia Card Reports no additional complaints Resp Reports no additional complaints GI Denies abdominal pain, Denies belching, Denies melena, Denies bloating, Denies change in bowel habits, Denies dysphagia, Denies excessive flatus, Denies dyspepsia, Denies heartburn, Denies diarrhea, Denies loose stools, Denies nausea, Denies odynophagia and Denies vomiting Musc Reports no additional complaints Neuro Reports no additional complaints Psych Reports no additional complaints Endo Reports no additional complaints Physical Exam Vital Signs: Last Vital Signs Pulse 88 04/20/24 11:10 BP 148/78 H 04/20/24 11:10 BMI result Body Mass Index 35.2 Const General: healthy appearing and no acute distress Nutritional Appearance: obese Orientation/consciousness: patient oriented x3 Resp Effort & Inspection: normal respiratory effort, able to speak in complete sentences, no tracheal deviation and symmetric chest movement Auscultation: clear to auscultation bilaterally Cardio Rate: regular rate GI Inspection: Yes normal to inspection, Yes distended and Yes obesity Palpation (GI): Soft to palpation, not firm and nontender Auscultation: Hypoactive bowel sounds present General: Yes no CVA tenderness Back/Spine/Pelvis Back: no CVA tenderness Skin General skin exam: elasticity normal, turgor normal and dry skin Neuro General: patient oriented x3 Psych Appearance: grossly normal Mental Status: mental status grossly normal Results Reviewed Results Reviewed: Laboratory Tests 02/12/24 04/04/24 15:44 16:50 C-Reactive Protein 4.52 H Stool Calprotectin 69 Stool Pancreat Elastase >500 Laboratory Tests 12/30/23 11:01 AST 21 ALT 26 Alkaline Phosphatase 106 Triglycerides 242 H Cholesterol 206 H LDL Cholesterol, Calc 118 H HDL Cholesterol 40 L ABDOMINAL ULTRASOUND FINDINGS: PANCREAS: Limited visualization of pancreatic tail and head. Imaged portion of pancreatic body is unremarkable. ABDOMINAL AORTA: Limited visualization. INFERIOR VENA CAVA: Visualized portions are normal. LIVER: Hepatomegaly, 18.4 cm. Increased hepatic parenchymal heterogeneity and echogenicity could be associated with hepatocellular disease/hepatic steatosis and severely limits visualization. Correlation with liver function tests and clinical exam recommended to determine further management. GALLBLADDER: Surgically absent. COMMON BILE DUCT: Normal in caliber measuring 0.5 cm in diameter. RIGHT KIDNEY: No hydronephrosis. No renal calculi. Limited visualization. The kidney measures 12.5 cm in maximum dimension. LEFT KIDNEY: No hydronephrosis. No renal calculi. Limited visualization. The kidney measures 12.6 cm in maximum dimension. SPLEEN: Normal. The spleen measures 8.7 cm in maximum dimension. FREE FLUID: None. US/US abdomen complete IMPRESSION: 1. Hepatomegaly, 18.4 cm. Increased hepatic parenchymal heterogeneity and echogenicity could be associated with hepatocellular disease/hepatic steatosis and severely limits visualization. Correlation with liver function tests and clinical exam recommended to determine further management. 2. Gallbladder surgically absent. Assessment & Plan Assessment & Plan (1) Screen for colon cancer: Code(s): Z12.11 - Encounter for screening for malignant neoplasm of colon (2) GERD (gastroesophageal reflux disease): Code(s): K21.9 - Gastro-esophageal reflux disease without esophagitis Qualifiers: Esophagitis presence: esophagitis presence not specified Qualified Code(s): K21.9 - Gastro-esophageal reflux disease without esophagitis (3) Constipation: Code(s): K59.00 - Constipation, unspecified Qualifiers: Constipation type: slow transit constipation Qualified Code(s): K59.01 - Slow transit constipation (4) Abdominal bloating: Code(s): R14.0 - Abdominal distension (gaseous) (5) Postprandial epigastric pain: Code(s): R10.13 - Epigastric pain Plan What to expect before during and after procedure discussed with patient. Patient will continue Citrucel and senna. Stop Citrucel few days before the procedure. History of pacemaker no issues with anesthesia in the past. Patient denies any cardiac or respiratory symptoms. Not on any anticoagulation medication. Continue pantoprazole. Patient will be sent for upper endoscopy to rule out gastritis, duodenitis, esophagitis, Mcgregor's. What to expect before during and after procedure discussed with patient. Stressed the importance of good bowel prep and clear liquid diet day before procedure. Both patient and her daughter are agreeable to this plan and verbalizes understanding of instructions. They were given the opportunity to ask questions and all questions answered. Thank you for allowing me to participate in her care Medications: New bisacodyl (Dulcolax (bisacodyl)) take 4 tabs at noon the day before your colonoscopy 20 mg (4 x 5 mg) PO ONCE 1 day PRN 4 tabs 0RF constipation Z12.11 - Encounter for screening for malignant neoplasm of colon polyethylene glycol 3350 (Miralax) As directed by gastroenterology department at [facility] 238 grams PO ONCE 238 grams 0RF Z12.11 - Encounter for screening for malignant neoplasm of colon Refilled sennosides (Natural Senna Laxative) 17.2 mg (2 x 8.6 mg) PO BEDTIME 60 tabs 3RF constipation K59.00 - Constipation, unspecified pantoprazole take one tablet half an hour before breakfast 40 mg PO DAILY 30 tabs 2RF K21.9 - Gastro-esophageal reflux disease without esophagitis pantoprazole take one tablet half an hour before breakfast 40 mg PO DAILY 30 tabs 2RF K21.9 - Gastro-esophageal reflux disease without esophagitis sennosides (Natural Senna Laxative) 17.2 mg (2 x 8.6 mg) PO BEDTIME 60 tabs 3RF constipation K59.00 - Constipation, unspecified Coding Level of Care Code Est Pt Level 4 (78557) Diagnoses Screen for colon cancer Z12.11 Gastroesophageal reflux disease, unspecified whether esophagitis present K21.9 Esophagitis presence: esophagitis presence not specified Slow transit constipation K59.01 Constipation type: slow transit constipation Abdominal bloating R14.0 Postprandial epigastric pain R10.13 Time Spent (min) 35 Comment 20 minutes spent with patient and additional 15 minutes spent reviewing her records
[2024-04-20 11:10] VITALS: BP 148/78; PULSE 88; BMI 35.2
== END 2024-04-20 11:54 | disposition home or self-care (01) ==
PROVIDERS: PCP Internal Medicine; Visit Provider Nurse Practitioner Family
DX: Z12.11 Encounter for screening for malignant neoplasm of colon (principal); K21.9 Gastro-esophageal reflux disease without esophagitis; K59.01 Slow transit constipation; R14.0 Abdominal distension (gaseous); R10.13 Epigastric pain; Z01.818 Encounter for other preprocedural examination
CPT/HCPCS: 99214

== ENCOUNTER 2024-05-24 11:06 | Day surgery (SDC) | payer MEDICAID, SELFPAY ==
[2024-05-24 12:31] VITALS: BP 125/60; PULSE 64; RESP 18; TEMP 36.6; O2SAT 97; BMI 34.8
--- NOTE | 2024-05-24 12:54 | MHC.SHP ---
Pre-Procedural Eval Section A - 24 Hr Update-Section A only Date of Service: 05/24/24 The patient is an INPATIENT: No The patient has been examined within 24 hours of the surgical procedure. The History & Physical has been completed within 30 days and I have reviewed it.: No Section B - Complete if H&P > 30 days Chief Complaint: Colon cancer screening, GERD Relevant Family History (Specify if Yes): No Relevant Social History: Tobacco Use (Former smoker) Present Medications: see Short Stay Collaborative assessment Medical History: Significant History (History of pituitary adenoma ERIKA (obstructive sleep apnea) GERD (gastroesophageal reflux disease) History of cancer chemotherapy Pre-diabetes Pacemaker Hypothyroid High cholesterol HTN (hypertension)) History of Previous Operations: Relevant previous surgery/procedure and date(s) (History of pacemaker History of brain surgery History of cholecystectomy History of appendectomy History of colonoscopy) Allergies: Allergies Allergy/AdvReac Type Severity Reaction Status Date / Time No Known Allergies Allergy Verified 04/20/24 11:08 [No Known Allergies*] lactose Allergy Unknown nausea and Uncoded 04/20/24 11:08 vomiting Review of Systems Sugical H&P ROS: Negative: Constitution, Cardiovascular, Respiratory and Gastrointestinal Exam Surgical H&P Exam: Normal: Heart, Normal: Lungs, Normal: Extremities and Normal: Abdomen Plan Diagnosis/Plan: Unchanged I have reviewed the history and physical and performed a pertinent physical examination on my patient. No changes have occurred unless specified. Time Spent With Patient Time: Total time managing care of this patient today ____ minutes.
--- NOTE | 2024-05-24 13:01 | HO.ANESPROP2 ---
COUNTS INCLUDE 234 BEDS AT THE [facility] Active Problems Active Problems: All Active Problems Personal history of nicotine dependence (Acute) History of pituitary adenoma (Acute) Pacemaker (Acute) Pelvic pain in female (Acute) Past Medical History Medical History Personal history of nicotine dependence History of pituitary adenoma ERIKA (obstructive sleep apnea) GERD (gastroesophageal reflux disease) History of cancer chemotherapy Pre-diabetes Pacemaker Hypothyroid High cholesterol HTN (hypertension) Family History Family History Mother Diabetes HTN (hypertension) Father Heart attack Sister HTN (hypertension) Paternal Grandmother Breast cancer Family history of problems with anesthesia: No Surgical History Surgical History History of pacemaker History of brain surgery History of cholecystectomy History of appendectomy History of colonoscopy History of Problems with Anesthesia: No Social History Social History Household Members: Spouse Household Members Other:: daughter Housing: House Do you presently have visiting nurse or other home services: No Alcohol intake: former Patient Tobacco Use Status: Former Tobacco user Years Smoked: (onset 11yo, 1-2ppd x 45yrs, 60pyh - quit 2021) Use of substances other than those prescribed or required for medical reasons: No Substance Use Type: Crack/Cocaine and Marijuana Have you been hit, kicked, punched, or otherwise hurt by someone within the past year? If so, by whom?: No Are you DNR?: No Advance Directives: No Advance Directives Information Provided: Yes Recently lost weight without trying: No service: No Current occupational status: unemployed Sexual orientation: Straight/Heterosexual Gender identity: Female Meds Allergies Allergy/AdvReac Type Severity Reaction Status Date / Time No Known Allergies Allergy Verified 04/20/24 11:08 [No Known Allergies*] lactose Allergy Unknown nausea and Uncoded 04/20/24 11:08 vomiting Home Medications ?Medication ?Instructions ?Recorded ?Confirmed ?Last Taken ?Type buspirone 5 mg tablet 5 mg PO TID 05/16/22 Unknown History clonazepam 1 mg tablet 1 mg PO DAILY PRN anxiety 05/16/22 Unknown History clonidine HCl 0.1 mg tablet 0.1 mg PO BID 05/16/22 Unknown History hydrocortisone 10 mg tablet 0 mg PO 05/16/22 Unknown History levothyroxine 150 mcg tablet 150 mcg PO DAILY 05/16/22 Unknown History metoprolol tartrate 100 mg tablet 100 mg PO BID 05/16/22 Unknown History quetiapine 50 mg tablet 50 mg PO BID PRN 05/16/22 Unknown History rosuvastatin 40 mg tablet 40 mg PO DAILY 05/16/22 Unknown History tramadol 50 mg tablet 50 mg PO Q12H PRN 05/16/22 Unknown History losartan 25 mg tablet 25 mg PO QAM 02/12/24 Unknown History calcium polycarbophil 625 mg 625 mg PO DAILY 04/20/24 Unknown History tablet (Fiber (calcium polycarbophil)) hydrocortisone 5 mg tablet mg PO DAILY 04/20/24 Unknown History venlafaxine 37.5 mg 37.5 mg PO DAILY 04/20/24 Unknown History capsule,extended release 24 hr Exam Height,Weight and Vital Signs: Height 5 ft 4 in Weight 92.079 kg Last Vital Signs Temp 97.9 F 05/24/24 12:31 Pulse 64 05/24/24 12:31 Resp 18 05/24/24 12:31 BP 125/60 05/24/24 12:31 Pulse Ox 97 05/24/24 12:31 O2 Del Method Room Air 05/24/24 12:31 Airway Mallampati Class: III (caps top) TM Dist: >3cm Neck ROM: Full Partial: Lower Heart: rrr Lungs: cta Assessment and Plan Assessment Anesthesia Assessment: Anesthesia Plan Discussed and Chart Reviewed Final Anesthetic Review Family History of Problems with Anesthesia: No History of Problems with Anesthesia: No NPO: Yes ASA Class: III Final Preanesthetic Review: No Changes in Pt Med Stat, Meds/Allgs Chart Reviewed and Consent Obtained/Reviewed Patient Risk: Intermediate Anesthetic Plan Anesthetic Plan: MAC: Disposition: Standard PACU
[2024-05-24] MEDS: Lactated Ringers 1,000 ML 100 ML IVCONT (13:10)
--- NOTE | 2024-05-24 14:06 | P.OPN-COLO_ITS ---
Colonoscopy Operative Note Operative Note Date of Service: 05/24/24 Narrative: FLEXIBLE TRANSORAL UPPER GASTROINTESTINAL ENDOSCOPY WITH BIOPSIES AND COLONOSCOPY TILL CECUM WITH BIOPSIES AND SNARE POLYPECTOMY Pre-op diagnosis: Colon cancer screening, GERD Post-op diagnosis: GERD, Gastritis, Colon Polyps, Diverticulosis, hemorrhoids Endoscopist:? Librado Mcneal MD Anesthesia:?MAC UPPER ENDOSCOPY Consent: Indications for the procedure and potential complications of bleeding, perforation, reaction to medications and missed diagnosis were discussed with the patient and informed consent was obtained. Instrument: Olympus GIF H 190 mid size upper endoscope Monitoring: Vital signs and clinical assessment, continuous EKG monitoring, Pulse oximetry, Carbon Dioxide monitoring and blood pressure monitoring were done throughout the procedure. Procedure: The patient was placed in the left lateral decubitis position and pre-procedure medications were administered and a bite block was placed. The endoscope was inserted into the mouth and advanced under direct vision to the third part of duodenum. A careful inspection was made as the upper endoscope was withdrawn including a retroflexed examination of the proximal stomach; Findings and interventions are described below. Findings: Larynx: Normal Esophagus: GE junction at 36 cms. No esophagitis or Mcgregor's. Stomach: Moderate diffuse gastric erythema with a few superficial antral erosions - biopsies were obtained from the gastric body and antrum. Grade 2 flap valve on retroflexed examination of the cardia. Duodenum: Normal bulb and descending duodenum Biopsies were obtained from descending duodenum to check for celiac sprue Intervention: Biopsies as noted above COLONOSCOPY PROCEDURE NOTE Instrument: Olympus CF H 190 L variable stiffness adult colonoscope Monitoring: Vital signs and clinical assessment, intermittent blood pressure monitoring, continuous EKG monitoring, Pulse oximetry and Carbon Dioxide monitoring were done throughout the procedure. Please see anesthesia flowsheet. Colon withdrawl time was 15 minutes. Procedure: The patient was placed in the left lateral decubitis position and pre-procedure medications were administered. After a digital rectal examination of the ano-rectum, the video colonoscope was inserted into the rectum and advanced through the colon to the cecum. The colonoscope was slowly withdrawn in a retrograde panoramic fashion and the colon mucosa was carefully examined including a retroflexed view of the rectum. Findings and interventions are described below. Procedure Difficulty: without difficulty Findings: Terminal Ileum: Not evaluated Cecum: Normal Ascending Colon: Normal Transverse Colon: A 15 mm flat polyp at 70 cms. Polyp was raised with 3 cc of Eleview and removed with a hot snare. Polypectomy site was closed with 1 hemoclip Descending Colon: Moderate diverticulosis Sigmoid Colon: Severe diverticulosis with luminal narrowing Rectum: Normal Ano-rectum: Small internal hemorrhoids Colon preparation: Good after copious irrigation. [place] Bowel Preparation Scale Right colon; 2 Transverse colon: 2 Left colon; 2 (0 = Unprepared colon segment with mucosa not seen due to solid stool that cannot be cleared. 1 = Portion of mucosa of the colon segment seen, but other areas of the colon segment not well seen due to staining, residual stool and/or opaque liquid. 2 = Minor amount of residual staining, small fragments of stool and/or opaque liquid, but mucosa of colon segment seen well. 3 = Entire mucosa of colon segment seen well with no residual staining, small fragments of stool or opaque liquid) Impression and Post Procedure Diagnosis: Endoscopy Findings: ESOPHAGUS: Normal STOMACH: Moderate diffuse gastric erythema with a few superficial antral erosions. DUODENUM: Normal - biopsied to check for celiac sprue Colonoscopy Findings: One medium sized polyp was removed Moderate to severe diverticulosis seen in the left colon small hemorrhoids on retroflexed exam. Plan: Pt has a FU appointment on 06/07/24 with Melissa Donis NP Repeat Colonoscopy in 3-5 years if polyps are adenomatous and 10 year if polyps are hyperplastic. Above findings were reviewed with the patient and relevant handouts were given and the discharge area. BIOPSIES SHOWED: A. Small bowel, biopsy: Small intestinal mucosa within normal limits; negative for celiac disease. B. Stomach, antrum, biopsy: Antral-type mucosa with mild chronic inactive inflammation; no Helicobacter organisms seen. C. Stomach, body, biopsy: Oxyntic mucosa with mild chronic inactive inflammation; no Helicobacter organisms seen. D. Colon, transverse, polypectomy: Fragments of tubular adenoma; negative for high-grade dysplasia or carcinoma Letter sent to the patient advising repeat colonoscopy in [address] aced on the colonoscopy recall list.
[2024-05-24 14:38] VITALS: BP 102/51; PULSE 61; RESP 18; TEMP 36.8; O2SAT 99
[2024-05-24 14:53] VITALS: BP 124/61; PULSE 60; RESP 18; O2SAT 99
[2024-05-24 15:08] VITALS: BP 122/53; PULSE 60; RESP 18; TEMP 36.5; O2SAT 98
== END 2024-05-24 15:34 | disposition home or self-care (01) ==
PROVIDERS: PCP Internal Medicine; Visit Provider Internal Medicine Gastroenterology
PROC: (CPT 45385; principal; 2024-05-24 11:50)
DX: Z12.11 Encounter for screening for malignant neoplasm of colon (principal); D12.3 Benign neoplasm of transverse colon; K57.30 Diverticulosis of large intestine without perforation or abscess without bleeding; K64.8 Other hemorrhoids; K59.04 Chronic idiopathic constipation; K21.9 Gastro-esophageal reflux disease without esophagitis; K29.50 Unspecified chronic gastritis without bleeding; I10 Essential (primary) hypertension; E78.00 Pure hypercholesterolemia, unspecified; R73.03 Prediabetes; E03.9 Hypothyroidism, unspecified; G47.33 Obstructive sleep apnea (adult) (pediatric); Z85.841 Personal history of malignant neoplasm of brain; Z92.21 Personal history of antineoplastic chemotherapy; Z79.899 Other long term (current) drug therapy; Z87.891 Personal history of nicotine dependence; Z56.0 Unemployment, unspecified
CPT/HCPCS: 45385; 45380; 45381; 43239; 88305; 88313; 88342; J1596; J2704

== ENCOUNTER → 2024-05-24 11:06 | Outpatient (BNV) | payer MEDICAID, SELFPAY | PROVIDERS: PCP Internal Medicine; Visit Provider Internal Medicine Gastroenterology | DX: Z12.11 Encounter for screening for malignant neoplasm of colon (principal); D12.3 Benign neoplasm of transverse colon; K57.90 Diverticulosis of intestine, part unspecified, without perforation or abscess without bleeding; K64.8 Other hemorrhoids; K21.9 Gastro-esophageal reflux disease without esophagitis; K29.70 Gastritis, unspecified, without bleeding | CPT/HCPCS: 43239; 45385 ==

== ENCOUNTER 2024-06-07 09:38 | Outpatient (AMB) | payer MEDICAID, SELFPAY ==
--- NOTE | 2024-06-07 09:53 | A.OFFVIS_ITS ---
Vital Signs 06/07/24 09:56 Height 5 ft 4 in Weight 208 lb 15.971 oz BMI 35.9 BP 142/90 H Blood Pressure Location Lt brachial Position Sitting Pulse 72 Pulse Source Pulse Oximeter Pulse Oximetry (%) 99 Oxygen Delivery Method Room Air Intake Visit Reasons: s/p egd/colon Intake Note: Sharmila presents in office today for a scheduled s/p FUV. CC; Pt had double procedure. Pt reports that the procedure went as planned and denies any complications or new concerns. Pt did have questions about the clip card that they had received from Dr. Mcneal. Advised pt that it was due to the polypectomy that they had done and that it was not something that they would be aware of the presence of on a day to day basis. Pt is reassured with this information. Pediatric Oncology Nurse Required: Yes Pediatric Oncology Nurse Services: Pediatric Oncology Nurse Offered & Declined Pediatric Oncology Nurse Name: Family Information Interpreted: non-clinical & clinical Accompanied by: Family/Other Allergies lactose Adverse Reaction (Intermediate, Verified 06/07/24 09:55) Gastrointestinal Upset HPI HPI s/p egd/colon: Details: LAST VISIT: Screen for colon cancer GERD (gastroesophageal reflux disease) Constipation Abdominal bloating Postprandial epigastric pain Plan What to expect before during and after procedure discussed with patient. Patient will continue Citrucel and senna. Stop Citrucel few days before the procedure. History of pacemaker no issues with anesthesia in the past. Patient denies any cardiac or respiratory symptoms. Not on any anticoagulation medication. Continue pantoprazole. Patient will be sent for upper endoscopy to rule out gastritis, duodenitis, esophagitis, Mcgregor's. What to expect before during and after procedure discussed with patient. Stressed the importance of good bowel prep and clear liquid diet day before procedure. Both patient and her daughter are agreeable to this plan and verbalizes understanding of instructions. They were given the opportunity to ask questions and all questions answered. ? Thank you for allowing me to participate in her care Medications New bisacodyl (Dulcolax (bisacodyl)) take 4 tabs at noon the day before your colonoscopy 20 mg (4 x 5 mg) PO ONCE 1 day PRN 4 tabs 0RF constipation Z12.11 polyethylene glycol 3350 (Miralax) As directed by gastroenterology department at [facility] 238 grams PO ONCE 238 grams 0RF Z12.11 Refilled sennosides (Natural Senna Laxative) 17.2 mg (2 x 8.6 mg) PO BEDTIME 60 tabs 3RF constipation K59.00 pantoprazole take one tablet half an hour before breakfast 40 mg PO DAILY 30 tabs 2RF K21.9 pantoprazole take one tablet half an hour before breakfast 40 mg PO DAILY 30 tabs 2RF K21.9 sennosides (Natural Senna Laxative) 17.2 mg (2 x 8.6 mg) PO BEDTIME 60 tabs 3RF constipation K59.00 UPPER ENDOSCOPY AND COLONOSCOPY Findings: Larynx: Normal Esophagus: GE junction at 36 cms. No esophagitis or Mcgregor's. Stomach: Moderate diffuse gastric erythema with a few superficial antral erosions - biopsies were obtained from the gastric body and antrum. Grade 2 flap valve on retroflexed examination of the cardia. Duodenum: Normal bulb and descending duodenum Biopsies were obtained from descending duodenum to check for celiac sprue Intervention: Biopsies as noted above Procedure Difficulty: without difficulty Findings: Terminal Ileum: Not evaluated Cecum: Normal Ascending Colon: Normal Transverse Colon: A 15 mm flat polyp at 70 cms. Polyp was raised with 3 cc of Eleview and removed with a hot snare. Polypectomy site was closed with 1 hemoclip Descending Colon: Moderate diverticulosis Sigmoid Colon: Severe diverticulosis with luminal narrowing Rectum: Normal Ano-rectum: Small internal hemorrhoids Colon preparation: Good after copious irrigation. [place] Bowel Preparation Scale Right colon; 2 Transverse colon: 2 Left colon; 2 (0 = Unprepared colon segment with mucosa not seen due to solid stool that cannot be cleared. 1 = Portion of mucosa of the colon segment seen, but other areas of the colon segment not well seen due to staining, residual stool and/or opaque liquid. 2 = Minor amount of residual staining, small fragments of stool and/or opaque liquid, but mucosa of colon segment seen well. 3 = Entire mucosa of colon segment seen well with no residual staining, small fragments of stool or opaque liquid) Impression and Post Procedure Diagnosis: Endoscopy Findings: ESOPHAGUS: Normal STOMACH: Moderate diffuse gastric erythema with a few superficial antral erosions. DUODENUM: Normal - biopsied to check for celiac sprue Colonoscopy Findings: One medium sized polyp was removed Moderate to severe diverticulosis seen in the left colon small hemorrhoids on retroflexed exam. Plan: Repeat Colonoscopy in 3-5 years if polyps are adenomatous and 10 year if polyps are hyperplastic. Above findings were reviewed with the patient and relevant handouts were given and the discharge area. BIOPSIES SHOWED: A. Small bowel, biopsy: Small intestinal mucosa within normal limits; negative for celiac disease. B. Stomach, antrum, biopsy: Antral-type mucosa with mild chronic inactive inflammation; no Helicobacter organisms seen. C. Stomach, body, biopsy: Oxyntic mucosa with mild chronic inactive inflammation; no Helicobacter organisms seen. D. Colon, transverse, polypectomy: Fragments of tubular adenoma; negative for high-grade dysplasia or carcinoma TODAY'S VISIT Patient is here today for follow-up and to discuss upper endoscopy and col onoscopy. Patient denies any ill effects from the prep, anesthesia or procedure itself patient reports that she continues to have epigastric pain no matter what she eats. Sometimes pain is there even before eating a meal. Frequent epigastric pain and reflux at night time. Patient denies eating late at night. Patient is taking senna and reports that her bowels movements got better. Patient denies melena, hematochezia. Upper endoscopy and colonoscopy results as well as biopsy results discussed with patient. One tubular adenoma without high-grade dysplasia or carcinoma found. Colonoscopy will be repeated in 3 years, sooner if clinically necessary. Upper endoscopy shows small mild inactive inflammation without H pylori. [facility] Medical History Personal history of nicotine dependence History of pituitary adenoma ERIKA (obstructive sleep apnea) GERD (gastroesophageal reflux disease) History of cancer chemotherapy Pre-diabetes Pacemaker Hypothyroid High cholesterol HTN (hypertension) Surgical History History of pacemaker History of brain surgery History of cholecystectomy History of appendectomy History of colonoscopy Family History Mother Diabetes HTN (hypertension) Father Heart attack Sister HTN (hypertension) Paternal Grandmother Breast cancer Social History Household Members: Spouse Household Members Other:: daughter Housing: House Do you presently have visiting nurse or other home services: No Alcohol intake: former Patient Tobacco Use Status: Former Tobacco user Years Smoked: (onset 11yo, 1-2ppd x 45yrs, 60pyh - quit 2021) Substance Use Type: Crack/Cocaine and Marijuana service: No Current occupational status: unemployed Sexual orientation: Straight/Heterosexual Gender identity: Female Review of Systems Const Denies weight gain and Denies weight loss ENT Reports no additional complaints, Denies dysphagia and Denies odynophagia Card Reports no additional complaints Resp Reports no additional complaints GI Reports abdominal pain (Epigastric), Denies belching, Denies melena, Reports bloating, Denies change in bowel habits, Denies dysphagia, Denies excessive flatus, Denies dyspepsia, Reports heartburn, Denies diarrhea, Denies loose stools, Denies nausea, Denies odynophagia and Denies vomiting Reports no additional complaints Musc Reports no additional complaints Neuro Reports no additional complaints Psych Reports no additional complaints Endo Reports no additional complaints Physical Exam Vital Signs: Last Vital Signs Pulse 72 06/07/24 09:56 BP 142/90 H 06/07/24 09:56 Pulse Ox 99 06/07/24 09:56 Oxygen Delivery Method Room Air 06/07/24 09:56 BMI result Body Mass Index 35.9 Const General: healthy appearing and no acute distress Nutritional Appearance: obese Orientation/consciousness: patient oriented x3 Resp Effort & Inspection: normal respiratory effort, able to speak in complete sentences, no tracheal deviation and symmetric chest movement Auscultation: clear to auscultation bilaterally Cardio Rate: regular rate GI Inspection: Yes normal to inspection, Yes distended and Yes obesity Palpation (GI): Soft to palpation, not firm and nontender Auscultation: Hypoactive bowel sounds present General: Yes no CVA tenderness Back/Spine/Pelvis Back: no CVA tenderness Skin General skin exam: elasticity normal, turgor normal and dry skin Neuro General: patient oriented x3 Psych Appearance: grossly normal Mental Status: mental status grossly normal Assessment & Plan Assessment & Plan (1) GERD (gastroesophageal reflux disease): Code(s): K21.9 - Gastro-esophageal reflux disease without esophagitis Qualifiers: Esophagitis presence: without esophagitis Qualified Code(s): K21.9 - Gastro-esophageal reflux disease without esophagitis (2) Constipation: Code(s): K59.00 - Constipation, unspecified Qualifiers: Constipation type: slow transit constipation Qualified Code(s): K59.01 - Slow transit constipation (3) Abdominal bloating: Code(s): R14.0 - Abdominal distension (gaseous) (4) Postprandial epigastric pain: Code(s): R10.13 - Epigastric pain (5) Status post colonoscopy: Code(s): Z98.890 - Other specified postprocedural states (6) Tubular adenoma of colon: Code(s): D12.6 - Benign neoplasm of colon, unspecified Plan Tubular adenoma in transverse colon without high-grade dysplasia or carcinoma. Patient denies any melena, hematochezia, unintentional weight loss or ribbon like stools. Patient will follow-up in 3 years for colonoscopy, sooner if clinically necessary. Patient continues to have epigastric pain and no matter what she eats will change PPI to Nexium and will add famotidine at bedtime. Discussed with patient avoiding dietary triggers and late night snacking. Staying upright for minimum 3 hours after meals discussed with patient. Patient will follow-up in 3 months, sooner on as needed basis. She is agreeable to this plan and verbalizes understanding of instructions. She was given the opportunity to ask questions and all questions answered. Thank you for allowing me to participate in her care Medications: New esomeprazole magnesium (Nexium) 40 mg PO DAILY 30 caps 5RF K21.9 - Gastro-esop hageal reflux disease without esophagitis famotidine (Pepcid) 20 mg PO BEDTIME 30 tabs 3RF K21.9 - Gastro-esophageal reflux disease without esophagitis Discontinued metronidazole Take with food, Avoid alcohol and vinegar products Discontinued Reason: Patient no longer taking 500 mg PO BID 7 days 14 tabs 0RF pantoprazole take one tablet half an hour before breakfast Discontinued Reason: Doctor's Order 40 mg PO DAILY 30 tabs 2RF K21.9 - Gastro-esophageal reflux disease without esophagitis Coding Level of Care Code Est Pt Level 4 (75918) Diagnoses Gastroesophageal reflux disease without esophagitis K21.9 Esophagitis presence: without esophagitis Slow transit constipation K59.01 Constipation type: slow transit constipation Abdominal bloating R14.0 Postprandial epigastric pain R10.13 Status post colonoscopy Z98.890 Tubular adenoma of colon D12.6 Time Spent (min) 35 Comment 20 minutes spent with patient and additional 15 minutes spent reviewing her records
[2024-06-07 09:56] VITALS: BP 142/90; PULSE 72; O2SAT 99; BMI 35.9
== END 2024-06-07 10:31 | disposition home or self-care (01) ==
PROVIDERS: PCP Internal Medicine; Visit Provider Nurse Practitioner Family
DX: K21.9 Gastro-esophageal reflux disease without esophagitis (principal); K59.01 Slow transit constipation; D12.3 Benign neoplasm of transverse colon
CPT/HCPCS: 99214

== ENCOUNTER → 2024-06-07 09:38 | Outpatient (BNVA) | payer MEDICAID, SELFPAY | PROVIDERS: PCP Internal Medicine; Visit Provider Nurse Practitioner Family | DX: K21.9 Gastro-esophageal reflux disease without esophagitis (principal); R14.0 Abdominal distension (gaseous); K59.01 Slow transit constipation; R10.13 Epigastric pain; D12.6 Benign neoplasm of colon, unspecified; Z98.890 Other specified postprocedural states | CPT/HCPCS: 99212 ==

== ENCOUNTER 2024-07-21 14:32 | Outpatient (REF) | payer MEDICAID, SELFPAY | END 2024-07-21 14:33 | disposition home or self-care (01) | LOC: HO.CT 14:32 | PROVIDERS: PCP Internal Medicine; Visit Provider Physician Assistant Medical | DX: Z12.2 Encounter for screening for malignant neoplasm of respiratory organs (principal); Z87.891 Personal history of nicotine dependence | CPT/HCPCS: 71271 ==

== ENCOUNTER 2024-09-06 11:43 | Outpatient (AMB) | payer MEDICAID, SELFPAY ==
[2024-09-06 11:46] VITALS: BP 144/82; PULSE 88; O2SAT 97; BMI 35.8
--- NOTE | 2024-09-06 11:46 | A.OFFVIS_ITS ---
Vital Signs 09/06/24 11:46 Height 5 ft 4 in Weight 208 lb 8.917 oz BMI 35.8 BP 144/82 H Blood Pressure Location Rt brachial Position Sitting Pulse 88 Pulse Source Pulse Oximeter Pulse Oximetry (%) 97 Oxygen Delivery Method Room Air Intake Visit Reasons: 3 month follow up Intake Note: ESTABLISHED PATIENT Sharmila presents in office today for a scheduled 3 mos FUV. Meds and Allergies reviewed? Y No recent or relevant surgeries? N Any significant concerns or new changes? Pt has been having GI upset and pain as well as bloating and abd distention regardless of what is consumed. Pharmacy verified? [facility] Information Systems Architect Required: Yes Information Systems Architect Services: Information Systems Architect Present Information Systems Architect Name: Willa Adames Information Interpreted: non-clinical & clinical Accompanied by: Self / Same As Patient Allergies lactose Adverse Reaction (Intermediate, Verified 09/07/24 11:02) Gastrointestinal Upset HPI HPI 3 month follow up: Details: LAST VISIT GERD (gastroesophageal reflux disease) Constipation Abdominal bloating Postprandial epigastric pain Status post colonoscopy Tubular adenoma of colon Plan Tubular adenoma in transverse colon without high-grade dysplasia or carcinoma. Patient denies any melena, hematochezia, unintentional weight loss or ribbon like stools. Patient will follow-up in 3 years for colonoscopy, sooner if clinically necessary. Patient continues to have epigastric pain and no matter what she eats will change PPI to Nexium and will add famotidine at bedtime. Discussed with patient avoiding dietary triggers and late night snacking. Staying upright for minimum 3 hours after meals discussed with patient. Patient will follow-up in 3 months, sooner on as needed basis. She is agreeable to this plan and verbalizes understanding of instructions. She was given the opportunity to ask questions and all questions answered. ? Thank you for allowing me to participate in her care Medications New esomeprazole magnesium (Nexium) 40 mg PO DAILY 30 caps 5RF K21.9 famotidine (Pepcid) 20 mg PO BEDTIME 30 tabs 3RF K21.9 Discontinued metronidazole Take with food, Avoid alcohol and vinegar products Discontinued Reason: Patient no longer taking 500 mg PO BID 7 days 14 tabs 0RF pantoprazole take one tablet half an hour before breakfast Discontinued Reason: Doctor's Order 40 mg PO DAILY 30 tabs 2RF K21.9 TODAY'S VISIT Patient is here today for follow-up. Patient reports that she continues to have abdominal bloating postprandially. Patient reports that does not matter what she eats she feels bloated. Reports epigastric pain postprandially. Patient takes senna on as-needed basis. Patient does admit to feel constipated at times. Currently patient is taking Nexium in the morning and famotidine at bedtime. Patient is not following any particular diet,mostly eats Turkmen food. Patient denies any nausea or vomiting. Denies dyspepsia, dysphagia or odynophagia. Denies melena, hematochezia. Denies diarrhea or rectal discharge. [facility] Medical History Personal history of nicotine dependence History of pituitary adenoma ERIKA (obstructive sleep apnea) GERD (gastroesophageal reflux disease) History of cancer chemotherapy Pre-diabetes Pacemaker Hypothyroid High cholesterol HTN (hypertension) Surgical History History of pacemaker History of brain surgery History of cholecystectomy History of appendectomy History of colonoscopy Family History Mother Diabetes HTN (hypertension) Father Heart attack Sister HTN (hypertension) Paternal Grandmother Breast cancer Social History Household Members: Spouse Household Members Other:: daughter Housing: House Do you presently have visiting nurse or other home services: No Alcohol intake: former Patient Tobacco Use Status: Former Tobacco user Years Smoked: (onset 11yo, 1-2ppd x 45yrs, 60pyh - quit 2021) Substance Use Type: Crack/Cocaine and Marijuana service: No Current occupational status: unemployed Sexual orientation: Straight/Heterosexual Gender identity: Female Review of Systems Const Denies weight gain and Denies weight loss ENT Reports no additional complaints, Denies dysphagia and Denies odynophagia Card Reports no additional complaints Resp Reports no additional complaints GI Reports abdominal pain (Epigastric), Denies belching, Denies melena, Reports bloating, Denies change in bowel habits, Reports constipation, Denies dysphagia, Denies excessive flatus, Denies dyspepsia, Reports heartburn, Denies diarrhea, Denies loose stools, Denies nausea, Denies odynophagia and Denies vomiting Reports no additional complaints Musc Reports no additional complaints Neuro Reports no additional complaints Psych Reports no additional complaints Endo Reports no additional complaints Physical Exam Vital Signs: Last Vital Signs Pulse 88 09/06/24 11:46 BP 144/82 H 09/06/24 11:46 Pulse Ox 97 09/06/24 11:46 Oxygen Delivery Method Room Air 09/06/24 11:46 BMI result Body Mass Index 35.8 Const General: healthy appearing and no acute distress Nutritional Appearance: obese Orientation/consciousness: patient oriented x3 Resp Effort & Inspection: normal respiratory effort, able to speak in complete sentences, no tracheal deviation and symmetric chest movement Auscultation: clear to auscultation bilaterally Cardio Rate: regular rate GI Inspection: Yes normal to inspection, Yes distended and Yes obesity Palpation (GI): Soft to palpation, not firm and nontender Auscultation: Hypoactive bowel sounds present General: Yes no CVA tenderness Back/Spine/Pelvis Back: no CVA tenderness Skin General skin exam: elasticity normal, turgor normal and dry skin Neuro General: patient oriented x3 Psych Appearance: grossly normal Mental Status: mental status grossly normal Assessment & Plan Assessment & Plan (1) GERD (gastroesophageal reflux disease): Code(s): K21.9 - Gastro-esophageal reflux disease without esophagitis Qualifiers: Esophagitis presence: esophagitis presence not specified Qualified Code(s): K21.9 - Gastro-esophageal reflux disease without esophagitis (2) Constipation: Code(s): K59.00 - Constipation, unspecified Qualifiers: Constipation type: slow transit constipation Qualified Code(s): K59.01 - Slow transit constipation (3) Abdominal bloating: Code(s): R14.0 - Abdominal distension (gaseous) (4) Postprandial epigastric pain: Code(s): R10.13 - Epigastric pain (5) Tubular adenoma of colon: Code(s): D12.6 - Benign neoplasm of colon, unspecified Plan Fib 4 score is 0.71. Encouraged patient to lose weight. Avoid food high in fat, high salt, carb diet include protein in her diet. Continue Nexium in the morning and famotidine at bedtime. Patient will avoid dietary triggers and late night snacking. Staying upright for minimum 3 hours after meals discussed with patient. Low FODMAP diet discussed with her. List of food recommended as well as list of food to avoid given to patient. Patient will take senna. Increase fluid intake and activity to promote better bowel motility. Patient will get liver enzymes last ALT mildly elevated. Patient will follow-up in 6 months, sooner on as needed basis. She is agreeable to this plan and verbalizes understanding of instructions. She was given the opportunity to ask questions and all questions answered. Thank you for allowing me to participate in her care Orders: Orders Liver Panel 09/06/24 R74.01 - Elevation of levels of liver transaminase levels Medications: Refilled famotidine (Pepcid) 20 mg PO BEDTIME 90 tabs 3RF K21.9 - Gastro-esophageal reflux disease without esophagitis esomeprazole magnesium (Nexium) 40 mg PO DAILY 90 caps 2RF K21.9 - Gastro- esophageal reflux disease without esophagitis sennosides (Natural Senna Laxative) 17.2 mg (2 x 8.6 mg) PO BEDTIME 180 tabs 3RF constipation K59.00 - Constipation, unspecified Coding Level of Care Code Est Pt Level 3 (73798) Diagnoses Gastroesophageal reflux disease, unspecified whether esophagitis present K21.9 Esophagitis presence: esophagitis presence not specified Slow transit constipation K59.01 Constipation type: slow transit constipation Abdominal bloating R14.0 Postprandial epigastric pain R10.13 Tubular adenoma of colon D12.6 Time Spent (min) 30 Comment 20 minutes spent with patient and additional 10 minutes spent reviewing her records
== END 2024-09-06 13:03 | disposition home or self-care (01) ==
PROVIDERS: PCP Internal Medicine; Visit Provider Nurse Practitioner Family
DX: K21.9 Gastro-esophageal reflux disease without esophagitis (principal); K59.01 Slow transit constipation; R14.0 Abdominal distension (gaseous); R10.13 Epigastric pain; D12.6 Benign neoplasm of colon, unspecified
CPT/HCPCS: 99213

== ENCOUNTER 2024-09-06 11:43 | Outpatient (REF) | payer MEDICAID, SELFPAY ==
[2024-09-06 14:11] LABS: Alanine Aminotransferase 30 U/L (0-31); Alkaline Phosphatase 105 U/L (39-117); Aspartate Amino Transferase 23 U/L (5-31); Bilirubin Direct 0.2 mg/dL (0.0-0.5); Bilirubin Total 0.6 mg/dL (0.0-1.0)
== END 2024-09-06 11:44 | disposition home or self-care (01) ==
LOC: HO.LAB 11:43
PROVIDERS: PCP Internal Medicine; Visit Provider Nurse Practitioner Family
DX: R74.01 Elevation of levels of liver transaminase levels (principal); K21.9 Gastro-esophageal reflux disease without esophagitis; K59.01 Slow transit constipation; R14.0 Abdominal distension (gaseous); R10.10 Upper abdominal pain, unspecified; D12.6 Benign neoplasm of colon, unspecified
CPT/HCPCS: 36415; 80076; 99212

== ENCOUNTER 2024-09-07 10:54 | Outpatient (AMB) | payer MEDICAID, SELFPAY ==
[2024-09-07 11:02] VITALS: BP 122/70; BMI 36.0
--- NOTE | 2024-09-07 11:02 | MHC.OFFVIS ---
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 Information Interpreted: clinical only Wash Tank Tender: Wash Tank Tender Present Allergies lactose Adverse Reaction (Intermediate, Verified 09/07/24 11:02) Gastrointestinal Upset Medication List - Last Reconciled 09/07/24 by Annelise Bagley CNM albuterol sulfate 90 mcg/actuation 2 puffs inhalation Q4-6H PRN buspirone 5 mg PO TID calcium polycarbophil (Fiber (calcium polycarbophil)) 625 mg PO DAILY clonazepam 1 mg PO DAILY PRN clonidine HCl 0.1 mg PO BID esomeprazole magnesium (Nexium) 40 mg PO DAILY famotidine (Pepcid) 20 mg PO BEDTIME hydrocortisone mg PO DAILY levothyroxine 150 mcg PO DAILY losartan 100 mg PO DAILY methylcellulose (laxative) (Citrucel) 500 mg PO DAILY metoprolol tartrate 100 mg PO BID quetiapine 50 mg PO BID PRN rosuvastatin 40 mg PO DAILY sennosides (Natural Senna Laxative) 17.2 mg (2 x 8.6 mg) PO BEDTIME tramadol 50 mg PO Q12H PRN venlafaxine ER 150 mg PO DAILY Is last menstrual period known: No Post menopausal: Yes HPI Comments Details: 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 She has a history of a pituitary adenoma that was treated with chemotherapy and also radiation and surgery 30 years ago she said she stopped getting her periods then and she lost the vision in her right eye she is currently on hydrocortisone pills. She is sexually active with her sometimes. She does complain of a vaginal odor for the last month she would to get checked. It does not cause her any itching or anything else. [facility] Medical History Personal history of nicotine dependence History of pituitary adenoma ERIKA (obstructive sleep apnea) GERD (gastroesophageal reflux disease) History of cancer chemotherapy Pre-diabetes Pacemaker Hypothyroid High cholesterol HTN (hypertension) Surgical History History of pacemaker History of brain surgery History of cholecystectomy History of appendectomy History of colonoscopy Family History Mother Diabetes HTN (hypertension) Father Heart attack Sister HTN (hypertension) Paternal Grandmother Breast cancer Social History Household Members: Spouse Household Members Other:: daughter Housing: House Do you presently have visiting nurse or other home services: No Alcohol intake: former Patient Tobacco Use Status: Former Tobacco user Years Smoked: (onset 11yo, 1-2ppd x 45yrs, 60pyh - quit 2021) Substance Use Type: Crack/Cocaine and Marijuana service: No Current occupational status: unemployed Sexual orientation: Straight/Heterosexual Gender identity: Female Female Reproductive History Menstrual Age of Menarche: 11 control method: none Total pregnancies: 7 Full term: 7 Date of last pap smear: 07/17/22 (negative) History of abnormal pap smear: No Date of Mammogram: 07/17/21 Physical Exam Vital Signs: Last Vital Signs BP 122/70 09/07/24 11:02 BMI result Body Mass Index 36.0 Const General: healthy appearing, comfortable, no acute distress, well developed and alert Nutritional Appearance: average body habitus Orientation/consciousness: patient oriented x3 Limitations: no limitations HEENT Head: Yes normocephalic Eyes Other: Patient has says she has no vision her right eye sclera slightly reddened. Neck Neck: Yes normal visual inspection Chest Chest palpation & inspection: normal inspection of the chest Breast/axilla inspection: normal inspection of the breasts and normal inspection of the axillae Breast/axilla palpation: normal palpation of the breasts and normal palpation of the axillae Resp Effort & Inspection: normal respiratory effort GI Inspection: Yes normal to inspection, No Abdominal wall edema and No distended Palpation (GI): Soft to palpation and nontender Other: Postmenopausal changes evident vagina is atrophic thinned mucosa slightly reddened cervix mobile nontender difficult to fully visualize but smooth. Vagina narrowed. No organomegaly perceived nontender good muscle tone with Kegel. General: Yes bladder normal to palpation External Female Exam: normal external appearance and normal appearance of the urethra Speculum Exam - Vagina: normal appearance of the vagina, normal palpation and normal vaginal discharge Speculum Exam - Cervix: normal appearance of the cervix, normal palpation and nontender Bimanual exam- vagina & uterus: normal bimanual exam, normal palpation, uterine size normal, bladder normal to palpation, consistency normal, normal palpation, uterine mobility normal, uterine shape normal, No Cervical tenderness present, non-tender and no cervical motion tenderness Bimanual Exam- Adnexa, other: normal adnexae, no masses, normal and No adnexal tenderness Neuro General: patient oriented x3 Assessment & Plan Assessment & Plan (1) History of pituitary adenoma: Comment: (completed temozolomide, s/p adenomectomy) Code(s): Z86.018 - Personal history of other benign neoplasm Category: Medical (2) Encounter for annual routine gynecological examination: Code(s): Z01.419 - Encounter for gynecological examination (general) (routine) without abnormal findings Category: Medical (3) Cervical cancer screening: Code(s): Z12.4 - Encounter for screening for malignant neoplasm of cervix Category: Medical (4) Vaginal odor: Code(s): N89.8 - Other specified noninflammatory disorders of vagina Category: Medical Plan -----Discussed in this visit the following: healthy balanced diet, regular and consistent exercise, getting recommended health screens, doing the best she can for her particular health concerns, kegel exercises, pap smear screening and followup recommendations, mammography screening and SBE, normal changes in cycles in her life stage--- . Discussed the postmenopausal changes that occur in are normal and she was quite aware as she has been has essentially amenorrheic for 30 years because of her pituitary adenoma . Testing done for gonorrhea chlamydia trichomoniasis bacterial vaginosis and yeast. Normal postmenopausal atrophic changes noted and discussed with her. We will await to see if Gardnerella/bacterial vaginosis is noted and if so we can offer her treatment whether she prefers gel or pills. She says she remembered being treated by pills for this issue but it was through [facility] in the past and she did not remember much else about it. She said her doctor has ordered her mammogram but she just has to schedule it, so reminded her to do so Orders: Orders CT NG by PCR Today N89.8 - Other specified noninflammatory disorders of vagina, Z20.2 - Contact with and (suspected) exposure to infections with a predominantly sexual mode of transmission Bacterial Vaginosis Panel Today N89.8 - Other specified noninflammatory disorders of vagina Coding Level of Care Code Est Pt Prev Care 40-64y(20571) Diagnoses History of pituitary adenoma Z86.018 Encounter for annual routine gynecological examination Z01.419 Cervical cancer screening Z12.4 Vaginal odor N89.8
== END 2024-09-07 11:55 | disposition home or self-care (01) ==
PROVIDERS: PCP Internal Medicine; Visit Provider Advanced Practice Midwife
DX: Z01.419 Encounter for gynecological examination (general) (routine) without abnormal findings (principal); N89.8 Other specified noninflammatory disorders of vagina
CPT/HCPCS: 99396; 99459

== ENCOUNTER 2024-09-07 10:54 | Outpatient (REF) | payer MEDICAID, SELFPAY ==
[2024-09-07 18:24] LABS: Bacterial Vaginosis PCR POSITIVE (Negative); Candida Group PCR NOT DETECTED (Not Detect); Candida glab krusei PCR NOT DETECTED (Not Detect); Trichomonas vaginalis PCR NOT DETECTED (Not Detect)
[2024-09-07 18:55] LABS: CT PCR NOT DETECTED (Not Detect.); NG PCR NOT DETECTED (Not Detect.)
== END 2024-09-07 10:55 | disposition home or self-care (01) ==
LOC: HO.LAB 10:54
PROVIDERS: PCP Internal Medicine; Visit Provider Advanced Practice Midwife
DX: Z01.419 Encounter for gynecological examination (general) (routine) without abnormal findings (principal); N89.8 Other specified noninflammatory disorders of vagina; Z86.018 Personal history of other benign neoplasm; Z20.2 Contact with and (suspected) exposure to infections with a predominantly sexual mode of transmission
CPT/HCPCS: 0352U; 87491; 87591; 99396; 99459

== ENCOUNTER 2024-10-11 10:56 | Outpatient (REF) | payer MEDICAID, SELFPAY ==
--- OUTSIDE RECORDS SUMMARY | 2024-10-11 15:48 | XMS_ITS | Encounter Summary ---
Author Organization [employer] Address [address] [place] [address] Care Team Providers Care Rail Grinder Name Role Phone Albert Iglesias MD Primary Care Prov ider Encounter Details Date Type Department Care Team (Late st Contact Info) Description 12/26/2023 Orders Only [facility] MEDICINE [address] [place] [address] ProviderFlaco MD Social History Tobacco Use Types Packs/Day Years Used Date Smoking Tobacco: Former Cigarettes 0.5 30 1 992 - 2021 Smokeless Tobacco: Never Alcohol Use Standard Drinks/Week Comments Never 0 (1 standard drink = 0.6 oz pur e alcohol) Depression Answer Date Recorded Patient Health Questionnaire-9 Score 9 12/23/2022 Housing Stability Answer Date Recorded What is your housing situation today? I have rod jensen 07/01/[address] you li ve. Do you have problems with any of the following? None of the above 07/01/2023 Food Insecurity Answer Date Recorded Within the past 12 months, y ou worried that your food would run out before you got money to buy more: Never True 07/01/2023 Within the past 12 months,th e food you bought just didn't last and you didn't have enough money to get more: Never True Transportation Answer Date Recorded In the past 12 months, has l ack of transportation kept you from medical appts, meetings, work or from getting things needed for daily living? No 07/01/2023 Utilities Answer Date Recorded In the past 12 months, has t he electric, gas, oil or water company threatened to shut off services in your home? No 07/01/2023 Depression Answer Date Recorded Patient Health Questionnaire-2 Score 6 12/23/2022 Comments Unknown Sex and Gender Information Value Date Recorded Sex Assigned at Female 07/15/2022 10:24 AM EDT Legal Sex Female 10:24 AM EDT Gender Identity Choose not to disclose 10:24 AM EDT Sexual Orientation Choose not to disclose 2021 10:24 AM EDT documented as of this encounter Plan of Treatment Upcoming Encounters Date Type Department Care Team (Late st Contact Info) Description 11/03/2024 2:45 PM EST Clinical Support [facility] & PEDS [address] [place] [address] Liliane Thomas RN [address] [place] [address] 11/10/2024 3:00 PM EST Office Visit [facility] ADULT DENTAL [address] [place] [address] Eula Arias documented as of this encounter Procedures Procedure Name Priority Date/Time Associated Diagnosis Comments HM COLONOSCOPY Routine 04/03/2017 2:43 PM EDT documented in this encounter Results * Hm Colonoscopy (04/03/2017 2:43 PM EDT) Historical Provider HEALTH MAINTENANCE Final Result documented in this encounter Visit Diagnoses Not on filedocumented in this encounter Additional Health Concerns Assessment Noted Time PHQ-9 Depression Total Score: 9 12/24/19 23 10:49 AM EDT documented as of this encounter Care Teams Rail Grinder Relationship Specialty Start Date End Date Albert Iglesias MD [address] [place] [address] PCP - General Internal Medicine 02/13/20 Panchito Cole Supervisor Sterile ProcessingBit Grinder 06/11/24 documented as of this encounter
--- OUTSIDE RECORDS SUMMARY | 2024-10-11 15:49 | XMS_ITS | Clinical Summary ---
Author Organization [employer] Address [address] [facility] [address] [place] [address] Care Team Providers Care Adhesion Tester Name Role Phone Albert Iglesias MD Primary Care Prov ider Allergies Active Allergy Reactions Criticality Noted Date Comments Lactose 06/12/2022 Medications Emollient (CeraVe Moisturizing) cream apply to affected area BID 09/18/19 22 Active clonazePAM (KlonoPIN) 1 MG tablet take 1 tablet by oral route once daily as needed for severe anxiety Active hydrocortisone (Cortef) 10 MG tablet Tale 1.5 tablets QAM 0.5 QNoon 0.5 Q3PM May take 2-3 times usual daily dose if mild to moderately ill. Active metoprolol tartrate (Lopressor) 100 MG tablet take 1 tablet by oral route 2 times every day with meals Active QUEtiapine (SEROquel) 50 MG tablet take 1 tablet by oral route 2 times every day as needed Active traZODone (Desyrel) 50 MG tablet Take 1 tablet by mouth if needed at bedtime. Active venlafaxine XR (Effexor XR) 150 MG 24 hr tablet take 1 tablet by oral route every day in the morning at the same time each day with food Active Blood Pressure kit Apply 1 not specified by [facility]. ( Non-drug; combo) route every day Active cloNIDine (Catapres) 0.1 MG tabletIndications :Benign essential hypertension TAKE ONE TABLET TWICE DAILY 180 tablet 11 12/05/19 24 Active levothyroxine (Synthroid, Levoxyl) 150 MCG tablet Take 1 tablet (150 mcg) by mouth in the morning. 90 tablet 12/30/19 24 Active omeprazole (PriLOSEC) [address] capsuleIndication s:Gastroesophagea l reflux disease with esophagitis without hemorrhage Take 1 capsule (20 mg) by mouth 2 times daily. 60 capsule 11 12/30/19 24 Active losartan (Cozaar) 100 MG tablet Take 1 tablet (100 mg) by mouth Once per day. 90 tablet 3 01/21/20 24 025 Active rosuvastatin (Crestor) 40 MG tablet Take 1 tablet (40 mg) by mouth Once per day. 90 tablet 1 01/21/20 24 Active acetaminophen (Tylenol) 325 MG tablet Take 650 mg by mouth every 6 (six) hours if needed. 01/24/20 23 Active albuterol 108 (90 Base) MCG/ACT inhaler Inhale 2 puffs every 6 (six) hours if needed. Active Calcium Polycarbophil (fiber) 625 MG tablet TAKE ONE TABLET DAILY WITH WATER 04/16/20 24 Active celecoxib (CeleBREX) 200 MG capsule TOME 1 CAPSULA POR VIA ORAL TODOS [place] 01/08/20 24 Active citalopram (CeleXA) 20 MG tablet Take 20 mg by mouth Once per day. Active cyclobenzaprine (Flexeril) 10 MG tablet TOME RADHA TABLETA POR V A ORAL EN LA NOCHE CUANDO SEA NECESARIO 12/23/19 24 Active dexAMETHasone (Decadron) 1 MG tablet PLEASE SEE ATTACHED FOR DETAILED DIRECTIONS Active dexAMETHasone (Decadron) 2 MG tablet PLEASE SEE ATTACHED FOR DETAILED DIRECTIONS 10/02/19 24 Active Docusate Sodium (DSS) 100 MG capsule Take 100 mg by mouth 2 times daily. 01/24/20 23 Active pantoprazole (ProtoNix) 40 MG EC tablet TAKE ONE TABLET DAILY 30 MINUTES BEFORE BREAKFAST 02/12/20 24 Active senna (Senokot) 8.6 MG tablet TAKE TWO TABLETS AT BEDTIME FOR CONSTIPATION 04/16/20 24 Active Bisacodyl EC 5 MG EC tablet TAKE 4 TABLETS BY MOUTH ONCE AT NOON THE DAY BEFORE YOUR COLONOSCOPY NEEDED FOR CONSTIPATION 05/20/20 24 Active GaviLAX 17 GM/SCOOP powder PLEASE SEE ATTACHED FOR DETAILED DIRECTIONS 04/20/20 24 Active amLODIPine (Norvasc) 5 MG tablet Take 1 tablet (5 mg) by mouth Once per day. 30 tablet 11 06/21/20 24 025 Active traMADol (Ultram) 50 MG tabletIndications :Pituitary adenoma (CMS/HCC) Take 1 tablet (50 mg) by mouth every 12 (twelve) hours if needed for severe pain. 56 tablet 08/09/20 24 Active busPIRone (Buspar) 5 MG tabletIndications :Cognitive disorder TAKE ONE TABLET THREE TIMES DAILY 90 tablet 5 08/17/20 24 Active Active Problems Problem Noted Date Diagnosed Date Dental calculus 05/07/2024 Periodontal disease 05/07/2024 Dental plaque 05/07/2024 Midsternal chest pain 01/21/2024 Assessment & Plan (01/21/2024 3:18 PM EDT): EKG done, no acute st changes, she is following with cardiology, pain was reproducilble to palpation Chronic diarrhea 12/30/2023 Assessment & Plan (12/30/2023 12:29 PM EDT): Patient refer that for over 4 months has been having diarrhea just after having her meal, will refer to GI for evaluation Needle exposure 12/30/2023 Assessment & Plan (12/30/2023 12:34 PM EDT): Refers she accidentally exposed to a needle she was using for her daughter which has a hepatic disease, she could not tell me if she had hepatitis, this occurred 2 days ago, will order hep c titers although is too early, will need to be monitored Physical exam 09/27/2023 Assessment & Plan (09/28/2024 12:47 PM EST): Unremarkable physicla examination, she is being followed for the pituitary adenoma, will send blood work Hospital discharge follow-up 06/03/2023 Assessment & Plan (06/04/2023 9:38 PM EDT): Seen at [facility] on 05/29 with complain of headache. Ct scan was done found with no intracranial bleeding. Neuro onco from [facility] was contacted and plan was to follow up at clinic. Patient headaches has remained although improved, told to contact neurology for further evaluation Cervical radiculopathy 04/21/2023 Assessment & Plan (06/04/2023 9:34 PM EDT): MRI not performed, she continue with cervical pain, will refer to ortho for evaluation Assessment & Plan (04/21/2023 2:26 PM EDT): Patient complkains of upper extremity numbness and pain for the past month, physical exam today was unremarkable, will order a MRI and will refer to ortho Encounter for screening mamm ogram for malignant neoplasm of breast 12/23/2022 Screening for colon cancer 12/23/2022 Assessment & Plan (09/27/2023 2:48 PM EST): Will send cologuard, risk vs benefits discussed Assessment & Plan (12/23/2022 12:28 PM EDT): Patient had colonoscopy done on 2017, per note due in 5 years will refer to GI in [place] for follow up Smoker 09/24/2022 Assessment & Plan (09/24/2022 5:46 PM EST): Will refer for lung cancer screening Cardiac pacemaker in situ 08/28/2022 Cognitive disorder 08/28/2022 Congestive heart failure 08/28/2022 History of cholecystectomy 08/28/2022 Obstructive sleep apnea syndrome 08/28/2022 Prolonged QT interval 08/28/2022 History of surgery 08/28/2022 Overview (08/28/2022): S/p selective transsphenoidal pituitary adeno per previous EHR Acquired hypothyroidism 05/13/2018 Assessment & Plan (09/27/2023 2:50 PM EST): Followed by endocrinology, no clinical sign of hypo/hyperthyroidism Assessment & Plan (09/24/2022 12:56 PM EST): Followed by endocrinology, on oral replacement therapy, clinically euthyroid, no changes will be made Benign essential hypertension 05/13/2018 Assessment & Plan (09/28/2024 12:48 PM EST): Repeated, controlled, at home has remained stable, continue same treatment, continue low sodium diet and exercise as tolerated Assessment & Plan (06/21/2024 2:25 PM EDT): Not at target, will add amlodipine 5mg, continue losartan, keep bp log, target <140/90, follow up in 1 month with new labs Assessment & Plan (01/21/2024 3:16 PM EDT): Not at target, will increase losartan to 100mg, continue bp monitoring, keep low sodiumd diet, follow up in 1 month Assessment & Plan (12/30/2023 12:28 PM EDT): Elevated, will start on losartan 25mg, keep low sodium diet, keep bp log, will follow up in 1 month Dural arteriovenous malformation 05/13/2018 Gastro-esophageal reflux disease with esophagiti s 05/13/2018 Hyperlipidemia 05/13/2018 Assessment & Plan (09/24/2022 12:56 PM EST): On statin therapy, will order new labs for guidance of therapy Obesity 05/13/2018 Pituitary adenoma 05/13/2018 Assessment & Plan (09/27/2023 2:50 PM EST): Followed by neurology and neurosurgery, Assessment & Plan (12/23/2022 12:26 PM EDT): Patient will undergo 4th procedure on january by neurosurgery, will follow up reccomendations Assessment & Plan (09/24/2022 12:57 PM EST): Patient completed temozolomide, has appointment with oncologist and Mri next week to decide plan of action. Encounters Date Type Department Care Team Description 09/28/2024 10:45 AM EST Office Visit [facility] [address] [place] [address] Albert Iglesias MD Mixed hyperlipidemia (Primary Dx); Dietary counseling; Exercise counseling; Benign essential hypertension; Pituitary adenoma (CMS/HCC); Chronic systolic congestive heart failure (CMS/HCC); Dural arteriovenous malformation (CMS/HCC); Physical exam 09/28/2024 Travel 09/21/2024 Patient Outreach [facility] [address] [place] [address] Albert Iglesias MD Pre-visit Planning ([facility] unable to reach [facility]) 09/21/2024 Telephone [facility] [address] [place] [address] Liliane Thomas, VIN 09/21/2024 Travel 09/07/2024 Orders Only GENERIC EXTERNAL DATA DEPARTMENT Provider, Generic External Data 09/06/2024 Orders Only GENERIC EXTERNAL DATA DEPARTMENT Provider, Generic External Data 08/17/2024 Telephone [facility] [address] [place] [address] Liliane Thomas RN 08/15/2024 Refill [facility] [address] [place] [address] Albert Iglesias MD Cognitive disorder 08/06/2024 Refill [facility] [address] [place] [address] Albert Iglesias MD Pituitary adenoma ([facility]) 07/22/2024 Telephone [facility] [address] [place] [address] Albert Iglesias MD APPOINTMENT CX 07/21/2024 10:00 AM EST Office Visit [facility] [address] [place] [address] Hallie Bauman DDS 07/21/2024 Orders Only [facility] External Provider, [facility] 07/19/2024 Telephone [facility] [address] [place] [address] Albert Iglesias MD chart prep 07/19/2024 Telephone [facility] [address] [place] [address] Albert Iglesias MD Care Coordination ([facility]) from Last 3 Months Immunizations Name Administration Dates Next Due Hep B, adult 07/19/2020 Influenza injectable quadriv alent IIV4 with preservative 09/24/2022,06/23/2018,07/15/2017,06/25 Influenza injectable quadriv alent preservative free 05/30/2020,06/08/2019 Influenza, IIV3, injectable 08/20/2014, 2,09/13/2011 PPD Test 09/17/2013 Pneumococcal Polysaccharide PPSV23 10/17/2017, Tdap 06/25/2016,06/03/2007 Zoster, Recombinant 06/15/2019 Social History Tobacco Use Types Packs/Day Years Used Date Smoking Tobacco: Former Cigarettes 0.5 30 1 - 2021 Smokeless Tobacco: Never Tobacco Cessation:Counseling Given: Not Answered Alcohol Use Standard Drinks/Week Comments Never 0 (1 standard drink = 0.6 oz pur e alcohol) Depression Answer Date Recorded Patient Health Questionnaire-9 Score 5 09/28/2024 Patient Health Questionnaire-9 Score 5 09/28/2024 Last PHQ-9: Questionnaire Data Not on file 0 09/28/2024 Housing Stability Answer Date Recorded What is your housing situation today? I have rod jensen 09/28/[address] you li ve. Do you have problems with any of the following? None of the above 09/28/2024 Food Insecurity Answer Date Recorded Within the past 12 months, y ou worried that your food would run out before you got money to buy more: Never True 09/28/2024 Within the past 12 months,th e food you bought just didn't last and you didn't have enough money to get more: Never True Transportation Answer Date Recorded In the past 12 months, has l ack of transportation kept you from medical appts, meetings, work or from getting things needed for daily living? No 09/28/2024 Utilities Answer Date Recorded In the past 12 months, has t he electric, gas, oil or water company threatened to shut off services in your home? No 09/28/2024 Depression Answer Date Recorded Patient Health Questionnaire-2 Score 4 09/28/2024 Internet Access Answer Date Recorded Internet Access Q1 Yes 09/28/2024 Internet Access Q2 Not on file 09/28/2024 Comments Unknown Sex and Gender Information Value Date Recorded Sex Assigned at Female 07/15/2022 10:24 AM EDT Legal Sex Female 10:24 AM EDT Gender Identity Choose not to disclose 10:24 AM EDT Sexual Orientation Choose not to disclose 2021 10:24 AM EDT Last Filed Vital Signs Vital Sign Reading Time Taken Comments Blood Pressure 132/76 09/28/2024 10:56 AM EST Pulse 84 09/28/2024 10:56 AM EST Temperature 36.6 ??C (97.9 ??F) 09/28/2024 10:[address] Respiratory Rate 20 09/28/2024 10:56 AM EST Oxygen Saturation 99% 01/13/2023 10:49 AM EDT Inhaled Oxygen Concentration - - Weight 93.4 kg (206 lb) 09/28/2024 10:56 AM EST Height 160 cm (5' 3 ) 09/28/2024 10:56 AM EST Body Mass Index 36.49 09/28/2024 10:56 AM EST Plan of Treatment Upcoming Encounters Date Type Department Care Team (Late st Contact Info) Description 11/03/2024 2:45 PM EST Clinical Support [facility] [address] [place] [address] Liliane Thomas, RN [address] [place] [address] 11/10/2024 3:00 PM EST Office Visit [facility] [address] [place] [address] Eula Arias Health Maintenance Due Date Last Done Comments CT Colonography 1967 FIT 1967 FOBT 1967 Sigmoidoscopy 1967 Pneumococcal Vaccine: Pediatrics (0 to 5 Years) and At-Risk Patients (6 to 64 Years) (2 of 2 - PCV) 10/17/2018 10/17/2017, 02/26/2011 Zoster Vaccines (2 of 2) 08/10/2019 06/15/2019 Hepatitis B Vaccines (2 of 3 - 19+ 3-dose series) 08/16/2020 07/19/2020 Mammogram 07/17/2023 07/17/2021, 02/19/2018 COVID-19 Vaccine (3 - season) 2024 05/07/2021, 04/09/2021 Influenza Vaccine (#1) 2024 , 05/30/2020, 06/08/2019, Additional history exists Dental Oral Exam 11/08/2024 05/07/2024, , 12/03/2017, Additional history exists Dental Prophylaxis 11/08/2024 05/07/2024, 0 03/05/2019, 04/15/2018, Additional history exists Dental X-Ray: Bitewings 05/08/2025 05/07/20 24, 04/19/2024, 04/15/2018, Additional history exists Tobacco Screening 07/21/2025 07/21/2024 Alcohol/Substance Use Screening 09/28/2025 09/28/2024 Depression Screening 09/28/2025 09/28/2024, 09/28/19 SDOH Screening 09/28/2025 09/28/2024 DTaP/Tdap/Td Vaccines (3 - Td or Tdap) 06/25/2026 06/25/2016, 06/03/2007 FIT DNA/Cologuard 10/20/2026 10/20/2023 Colonoscopy 04/03/2027 04/03/2017 Colorectal Cancer Screening 04/03/2027 Dental X-Ray: Full Mouth 05/08/2027 05/07/2024, 06/17 Cervical Cancer Screening 07/17/2027 HPV/Cotest 07/17/2027 07/17/2022, 10/2021, 2022, Additional history exists Pap Smear 07/17/2027 07/17/2022, 2022 Lipid Panel 09/28/2029 09/28/2024, 0402/2024, 10/09/2022, Additional history exists RSV Patients and Patients Aged 60 years or older (1 - 1-dose 75+ series) 2042 HIV Screening Completed 06/14/2020 Hepatitis C Screening Completed 12/30/2023, 020 HIB Vaccines Aged Out No longer eligi ble based on patient's age to complete this topic HPV Vaccines Aged Out No longer eligi ble based on patient's age to complete this topic Hepatitis A Vaccines Aged Out No long er eligible based on patient's age to complete this topic IPV Vaccines Aged Out No longer eligi ble based on patient's age to complete this topic Meningococcal Vaccine Aged Out No lorna kobe eligible based on patient's age to complete this topic RSV under 20 months Aged Out No longe r eligible based on patient's age to complete this topic Rotavirus Vaccines Aged Out No longer eligible based on patient's age to complete this topic Procedures Procedure Name Priority Date/Time Associated Diagnosis Comments LIPID PANEL, STANDARD Routine 09/28/2024 11:38 AM EST Benign essential hypertension COMPREHENSIVE METABOLIC PANEL Routine 09/28/2024 11:38 AM EST Benign essential hypertension CBC WITH AUTO DIFFERENTIAL Routine 09/28/2024 11:38 AM EST Benign essential hypertension CHLAMYDIA/N. GONORRHOEAE RNA, TMA, UROGENITAL Routine 09/07/2024 12:00 AM EST BACTERIAL VAGINOSIS PANEL Routine 09/07/2024 12:00 AM EST HEPATIC FUNCTION PANEL Routine 09/06/2024 12:31 PM EST LDCT LUNG SCREENING Routine 07/21/2024 2 :47 PM EST 15 EXTRACTION, ERUPTED TOOTH OR EXPOSED ROOT (ELEVATION AND/OR FORCEPS REMOVAL) Routine 07/21/2024 10:00 AM EST 18 EXTRACTION, ERUPTED TOOTH OR EXPOSED ROOT (ELEVATION AND/OR FORCEPS REMOVAL) Routine 07/21/2024 10:00 AM EST PROPHYLAXIS - ADULT Routine 05/07/2024 9 :30 AM EDT DIAGNOSTIC - DIAGNOSTIC IMAGING - INTRAORAL - COMPREHENSIVE SERIES OF RADIOGRAPHIC IMAGES Routine 05/07/2024 9:30 AM EDT PERIODIC ORAL EVALUATION - ESTABLISHED PATIENT Routine 05/07/2024 9:30 AM EDT HEPATITIS C AB W/REFL TO HCV RNA, QN, PCR Routine 12/30/2023 11:01 AM EDT Need for hepatitis C screening test LAB COLOGUARD?? COLON CANCER SCREEN Routine 10/20/2023 10:51 AM EST Screening for colon cancer VERONICA HISTORICAL HPV E6/E7 RFLX KARISSA 16 18/45 Routine 07/17/2022 2:56 PM EDT HM PAP/HPV Routine 07/17/2022 MAMMOGRAM GENERIC Routine 07/17/2021 1:3 0 PM EDT HIV 1/2 ANTIGEN/ANTIBODY, FOURTH GENERATION W/RFL Routine 06/14/2020 10:13 AM EDT HM COLONOSCOPY Routine 04/03/2017 2:43 PM EDT from Last 3 Months or Most Recently Relevant to Health Maintenance Results * (ABNORMAL) CBC auto differential (09/28/2024 11:38 AM EST) White Blood Count 10.3 4.8 - 10.8 X10*3/uL [facility] Red Blood Count 5.36 4.20 - 5.50 X10*6/uL [facility] Hemoglobin 13.8 12.0 - 16.0 g/dl [facility] Hematocrit 43.8 37.0 - 47.0 % [facility] Mean Corpuscular Volume 81.7 80.0 - 98.0 fL [facility] Mean Corpuscular Hemoglobin 25.7(L) 27.0 - 33.0 pg [facility] Mean Corpuscular HGB Conc 31.5 31.0 - 35.0 g/dl [facility] Red Cell Distribution Width 19.5(H) 11.0 - 16.0 % [facility] Platelet Count 317 160 - 400 X10*3/uL [facility] Mean Platelet Volume 10.9 9.4 - 12.3 fL [facility] Neutrophils Percent Auto 72.0 45 - 73 % [facility] Imm Gran Pct Auto 0.7(H) 0.0 - 0.4 % [facility] Lymphocytes Percent Auto 21.0 20 - 40 % [facility] Monocytes Percent Auto 4.6 2 - 11 % [facility] Eosinophils Percent Auto 1.0 0 - 4 % [facility] Basophils Percent Auto 0.7 0 - 2 % [facility] NRBC Pct Auto 0.0 0.0 - 0.2 /100WBC [facility] Neutrophils Absolute Auto 7.4 2.0 - 8.3 x10*3/uL [facility] Imm Gran Abs Auto 0.07(H) 0.00 - 0.03 X10*3/uL [facility] Lymphocytes Absolute Auto 2.2 1.2 - 4.9 X10*3/uL [facility] Monocytes Absolute Auto 0.5 0.1 - 1.2 X10*3/uL [facility] Eosinophils Absolute Auto 0.1 0.0 - 0.4 X10*3/uL [facility] Basophils Absolute Auto 0.1 0.0 - 0.2 X10*3/uL [facility] NRBC Abs Auto 0.000 0.0 - 0.012 X10*3/uL [facility] Blood Venous blood specimen / Unknown 09/28/2024 11:38 AM EST 09/28/2024 1:57 PM EST us Albert Castro MD LAB BLOOD ORDERABL ES Final Result Performing Organization Address City/State/[facility] Co de Phone Number [facility] [address] [place] [phone] * (ABNORMAL) Lipid Panel, Standard (09/28/2024 11:38 AM EST) Triglycerides 200(H) <150 mg/dL [facility] Comment:Desirable Triglyceri de: less than 150 mg/dLBorderline High Triglyceride 150-199 mg/dLHigh Triglyceride: 200-499 mg/dLVery High Triglyceride: greater than or equal to 5OO mg/dL Cholesterol 201(H) <200 mg/dL [facility] Comment:Desirable Cholestero l: less than 200 mg/dLBorderline High Cholesterol: 200-239 mg/dLHigh Cholesterol: greater than 239 mg/dL LDL Cholesterol Calculated 103(H) <100 mg/dL [facility] Comment:Desirable LDL: less than 100 mg/dLNear Optimal/Above Optimal LDL: 110- 129 mg/dLBorderline High LDL: 130-159 mg/dLHigh LDL: 160-189 mg/dLVery High LDL: greater than or equal to 190 mg/dL HDL Cholesterol 58 >40 mg/dL [facility] Comment:Desirable HDL: great er than 40 mg/dL Note: This HDL assay may give artificially low results in patients with liver disease. Blood Venous blood specimen / Unknown 09/28/2024 11:38 AM EST 09/28/2024 1:57 PM EST us Albert Castro MD LAB BLOOD ORDERABL ES Final Result [facility] [address] [place] [address] [phone] * (ABNORMAL) Comprehensive Metabolic Panel (09/28/2024 11:38 AM EST) Sodium 142 135 - 145 mmol/L [facility] Potassium 4.0 3.3 - 5.1 mmol/L [facility] Chloride 106 96 - 108 mmol/L [facility] Carbon Dioxide 32(H) 22 - 29 mmol/L [facility] Anion Gap 8(L) 12 - 20 [facility] Urea Nitrogen (BUN) 11 9 - 16 mg/dL [facility] Creatinine, Serum 1.11 0.5 - 1.4 mg/dL [facility] Estimated Glomerular Filt Rate 51 [facility] Comment:Chronic Kidney Disea se: Estimated GFR < 60 mL/min/[id number] Kidney Disease: Estimated GFR < 15 mL/min/1.73m2 Glucose 83 60 - 115 mg/dL [facility] Calcium 9.6 8.4 - 10.2 mg/dL [facility] Bilirubin, Total 0.6 0.0 - 1.0 mg/dL [facility] Aspartate Amino Transferase 25 5 - 31 U/L [facility] Alanine Aminotransferase 26 0 - 31 U/L [facility] Total Protein 7.5 6.5 - 8.0 g/dL [facility] Albumin Level 4.3 3.5 - 5.0 g/dL [facility] Alkaline Phosphatase 94 39 - 117 U/L [facility] Blood Venous blood specimen / Unknown 09/28/2024 11:38 AM EST 09/28/2024 1:57 PM EST Albert Castro MD LAB BLOOD ORDERABL ES Final Result Performing Organization Address [facility] Co de Phone Number [facility] [address] [place] [phone] * (ABNORMAL) Bacterial Vaginosis (09/07/2024 12:00 AM EST) Pathologist [facility] TRICHOMONAS VAGINALIS DETECTION BY PCR NOT DETECTED Not Detect [facility] BACTERIAL VAGINOSIS DETECTION BY PCR POSITIVE(A) Negative [facility] Comment:The BV organism targ ets of the Xpert Xpress MVP test can becommensal in women; Xpert Xpress MVP positive results forbacterial vaginosis should be considered in conjunction withother clinical and patient information to determine thedisease status. Organisms that are not detected by the XpertXpress MVP test have also been reported to be associatedwith BV and aerobic vaginitis.The Xpert Xpress MVP test performance has not been evaluatedin patients under the age of 14. KIYA GROUP DETECTION BY PCR NOT DETECTED Not Detect [facility] Kiya glab krusei PCR NOT DETECTED Not Detect [facility] 09/07/2024 09/07/2024 us Generic External Data Provider LAB MICROBIOLOGY - GENERAL ORDERABLES Final Result Performing Organization Address [facility] Co de Phone Number [facility] [address] [place] [phone] * Chlamydia/N. Gonorrhoeae RNA, TMA, Urogenitial (09/07/2024 12:00 AM EST) CT PCR NOT DETECTED Not Detect. [facility] Comment:A not detected test result does not exclude the possibilityof infection because test results can be affected byimproper specimen collection, concurrent antibiotic therapy,or the number of organisms in the specimen which may bebelow the sensitivity of the test. As with many diagnostictests, results from the Xpert CT/NG assay should beinterpreted in conjunction with other laboratory andclinical data available to the clinician.Xpert CT/NG performance has not been evaluated in patientsless than 14 years of age. The assay should not be used forthe evaluationof suspected sexual abuse or for other medico-legalindications. Additional testing is recommended in anycircumstance when false positive or false negative resultscould lead to adverse medical, social or psychologicalconsequences. NG PCR NOT DETECTED Not Detect. [facility] Comment:A not detected test result does not exclude the possibilityof infection because test results can be affected byimproper specimen collection, concurrent antibiotic therapy,or the number of organisms in the specimen which may bebelow the sensitivity of the test. As with many diagnostictests, results from the Xpert CT/NG assay should beinterpreted in conjunction with other laboratory andclinical data available to the clinician.Xpert CT/NG performance has not been evaluated in patientsless than 14 years of age. The assay should not be used forthe evaluationof suspected sexual abuse or for other medico-legalindications. Additional testing is recommended in anycircumstance when false positive or false negative resultscould lead to adverse medical, social or psychologicalconsequences. 09/07/2024 09/07/2024 Narrative [facility] - 09/07/2024 6:55 PM EST Vaginal us Generic External Data Provider LAB MICROBIOLOGY - GENERAL ORDERABLES Final Result [facility] [address] [place] [phone] * Hepatic Function Panel (09/06/2024 12:31 PM EST) Bilirubin, Total 0.6 0.0 - 1.0 mg/dL [facility] Bilirubin, Direct 0.2 0.0 - 0.5 mg/dL [facility] Aspartate Amino Transferase 23 5 - 31 U/L [facility] Alanine Aminotransferase 30 0 - 31 U/L [facility] Total Protein 7.0 6.5 - 8.0 g/dL [facility] Albumin Level 4.0 3.5 - 5.0 g/dL [facility] Alkaline Phosphatase 105 39 - 117 U/L [facility] 09/06/2024 12:3 1 PM EST 09/06/2024 12:31 PM EST us Generic External Data Provider LAB BLOOD ORDERAB LES Final Result [facility] [address] [place] [address] [phone] * CT Lung Screening Low dose (07/21/2024 2:47 PM EST) Anatomical Region Laterality Modality Lung Computed Tomogra phy 07/21/2024 2:47 PM EST Narrative 09/03/2024 5:45 PM EST ? [facility] ?[address] ?[place] [address] ? CT Scan Report ? Signed ? Patient: Sharmila Xiao ?MR#: [id number] ?? [id number] ? : 1965 ?Acct:[id number] ? Age/Sex: 59 / F ?ADM Date: 07/21/24 ? Loc: HO.CT ? Attending Dr: Toshia Kilgore PA-C ? Ordering Physician: Toshia Kilgore PA-C ?? Date of Service: 07/21/24 ?? Procedure(s): CT lung screening ?? Accession Number(s): [id number] ? cc: Albert Iglesias MD; Toshia Kilgore PA-C ? EXAMINATION: ?? CT LOW-DOSE SCREENING CHEST WITHOUT CONTRAST ? CLINICAL INFORMATION: ?? Personal history of nicotine dependence. Former smoker. The patient has ?? a 90 pack-year history of smoking, having quit 2 years ago. ? COMPARISON: ?? CT chest March 21, 2023. X-ray chest September 29, 2020. ? TECHNIQUE: ?? Multidetector volumetric CT imaging of the chest is performed on a ?? Siemens SOMATOM Definition scanner without contrast using low dose ?? technique. Additional 2D coronal and sagittal reformatted images and ?? axial 3D maximum intensity projection (MIP) images are generated on the ?? CT workstation. ? This CT examination was performed using dose optimization techniques as ?? appropriate, variously including the following: ?? *Automated exposure control ?? *Adjustment of mA and/or kV according to patient size (this includes ?? techniques or standardized protocols for targeted exams where dose is ?? matched to indication/reason for exam; i.e. extremities or head) ?? *Use of iterative reconstruction technique ? TOTAL EXAM DLP: ?? 55 mGy-cm. ? CTDIvol: ?? 1.69 mGy. ? FINDINGS: ? PULMONARY NODULES: No suspicious pulmonary nodules. ? LUNGS: Lungs bilaterally symmetrically expanded. There is minimal ?? emphysema and bronchial thickening without bronchiectasis. No effusion ?? or pneumothorax. Central airways patent. ? MEDIASTINUM: No mediastinal, hilar or axillary adenopathy or free fluid ?? collection. ? CORONARY ARTERY CALCIFICATION: None visualized on this study. ? THYROID GLAND: Unremarkable to the extent seen. ? CARDIOVASCULAR STRUCTURES: There is a left chest wall dual-lead ?? pacemaker. Aortic and heart size normal. No pericardial effusion. ? CHEST WALL/AXILLA: Unremarkable. ? UPPER ABDOMEN: There is hepatic steatosis. Status post cholecystectomy. ? OSSEOUS STRUCTURES: No suspicious focal findings. ? CT/CT lung screening ?? IMPRESSION: ?? 1. ??No evidence of pulmonary malignancy. ?? 2. ??Incidental note made of minimal emphysema, hepatic steatosis and ?? cholecystectomy. ? ASSESSMENT: ?? 1. Lung-RADS Category 1: Negative. There are no nodules or there are ?? definitely benign nodules. N/A ? 2. Lung-RADS Category S: Negative. There are no clinically significant ?? or potentially clinically significant findings not related to the lungs ?? requiring urgent additional evaluation. ? RECOMMENDATION: ?? Continued routine annual low-dose CT lung screening in 1 year is ?? recommended. An order for CT CHEST LOW DOSE CANCER SCREENING ([id number]) ?? can be placed. ? Electronically signed by: ??Dion Posey MD ??09/03/2024 05:42 PM EST ?? RP ? Dictated By: ?Dion Posey MD ? Signed By: ?<Electronically signed by Dion Posey MD in OV> ? 09/03/24 1742 ? DD/ 1447 ? TD/TT: 07/21/24 1455 ? Fiberglass Product Tester: SS ? Procedure Note D[facility], Image - 09/03/[address] [address] [address] Scan Report Signed Patient: Stevie Xiao#: [id number] : 1965Acct:[id number] Age/Sex: 59 / FADM Date: 07/21/24 Loc: HO.CT Attending Dr: Toshia Kilgore PA-C Ordering Physician: Toshia Kilgore PA-C Date of Service: 07/21/24 Procedure(s): CT lung screening Accession Number(s): [id number] cc: Albert Iglesias MD; Toshia Kilgore PA-C EXAMINATION: CT LOW-DOSE SCREENING CHEST WITHOUT CONTRAST CLINICAL INFORMATION: Personal history of nicotine dependence. Former smoker. The patient has a 90 pack-year history of smoking, having quit 2 years ago. COMPARISON: CT chest March 21, 2023. X-ray chest September 29, 2020. TECHNIQUE: Multidetector volumetric CT imaging of the chest is performed on a Siemens SOMATOM Definition scanner without contrast using low dose technique. Additional 2D coronal and sagittal reformatted images and axial 3D maximum intensity projection (MIP) images are generated on the CT workstation. This CT examination was performed using dose optimization techniques as appropriate, variously including the following: *Automated exposure control *Adjustment of mA and/or kV according to patient size (this includes techniques or standardized protocols for targeted exams where dose is matched to indication/reason for exam; i.e. extremities or head) *Use of iterative reconstruction technique TOTAL EXAM DLP: 55 mGy-cm. CTDIvol: 1.69 mGy. FINDINGS: PULMONARY NODULES: No suspicious pulmonary nodules. LUNGS: Lungs bilaterally symmetrically expanded. There is minimal emphysema and bronchial thickening without bronchiectasis. No effusion or pneumothorax. Central airways patent. MEDIASTINUM: No mediastinal, hilar or axillary adenopathy or free fluid collection. CORONARY ARTERY CALCIFICATION: None visualized on this study. THYROID GLAND: Unremarkable to the extent seen. CARDIOVASCULAR STRUCTURES: There is a left chest wall dual-lead pacemaker. Aortic and heart size normal. No pericardial effusion. CHEST WALL/AXILLA: Unremarkable. UPPER ABDOMEN: There is hepatic steatosis. Status post cholecystectomy. OSSEOUS STRUCTURES: No suspicious focal findings. CT/CT lung screening IMPRESSION: 1. No evidence of pulmonary malignancy. 2. Incidental note made of minimal emphysema, hepatic steatosis and cholecystectomy. ASSESSMENT: 1. Lung-RADS Category 1: Negative. There are no nodules or there are definitely benign nodules. N/A 2. Lung-RADS Category S: Negative. There are no clinically significant or potentially clinically significant findings not related to the lungs requiring urgent additional evaluation. RECOMMENDATION: Continued routine annual low-dose CT lung screening in 1 year is recommended. An order for CT CHEST LOW DOSE CANCER SCREENING ([id number]) can be placed. Electronically signed by: Dion Posey MD 09/03/2024 05:42 PM [facility] Dictated By: Dion Posey MD Signed By: <Electronically signed by Dion Posey MD in OV> 09/03/24 1742 DD/ 1447 TD/TT: 07/21/24 1455 Fiberglass Product Tester: SS [facility] External Provider IMG CT PROCEDURES Final Result * Hepatitis C Antibody with Reflex to HCV, RNA, Quantitative, Real-Time PCR (12/30/2023 11:01 AM EDT) Hepatitis C Antibody Nonreactive Nonreactive [facility] Comment:Antibodies to HCV no t detected; does not exclude early acuteHCV infection. Blood Venous blood specimen / Unknown 12/30/2023 11:01 AM EDT 12/30/2023 2:26 PM EDT Albert Castro MD LAB BLOOD ORDERABL ES Final Result [facility] [address] [place] [address] [phone] * Cologuard?? colon cancer screening (10/20/2023 10:51 AM EST) Cologuard Result Negative Negative 10/31/19 1:56 AM EST [facility] (CLIA #:[id number]) Comment: NEGATIVE TEST RESULT. A negative Cologuard result indicates a low likelihood that a colorectal cancer (CRC) or advanced adenoma (adenomatous polyps with more advanced pre-malignant features) ??is present. The chance that a person with a negative Cologuard test has a colorectal cancer is less than 1 in 1500 (negative predictive value >99.9%) or has an ??advanced adenoma is less than ??5.3% (negative predictive value 94.7%). These data are based on a prospective cross-sectional study of 10,000 individuals at average risk for colorectal cancer who were screened with both Cologuard and colonoscopy. (Nasir Prince et al, N Engl J Med 2014;370(14):1286- 1297) The normal value (reference range) for this assay is negative. COLOGUARD RE-SCREENING RECOMMENDATION: Periodic colorectal cancer screening is an important part of preventive healthcare for asymptomatic individuals at average risk for colorectal cancer. ??Following a negative Cologuard result, the [place] [employer] and U.S. Multi-Society Task Force screening guidelines recommend a Cologuard re-screening interval of 3 years. References: [place] [employer] Guideline for Colorectal Cancer Screening: https://www.cancer.org/cancer/heykj-ovpyhr-xnvvqs/eqdilmsmu-krqjaycpn-lchwfkb/ac s-rec ommendations.html.; Endy DK, Regino CR, Austen DeckerK, Colorectal Cancer Screening: Recommendations for Physicians and Patients from the U.S. Multi-Society Task Force on Colorectal Cancer Screening , Am J Gastroenterology 2017; 112:0641-3710. TEST DESCRIPTION: Composite algorithmic analysis of stool DNA-biomarkers with hemoglobin immunoassay. ?? Quantitative values of individual biomarkers are not reportable and are not associated with individual biomarker result reference ranges. Cologuard is intended for colorectal cancer screening of adults of either sex, 45 years or older, who are at average-risk for colorectal cancer (CRC). Cologuard has been approved for use by the U.S. FDA. The performance of Cologuard was established in a cross sectional study of average-risk adults aged 50-84. Cologuard performance in patients ages 45 to 49 years was estimated by sub-group analysis of near-age groups. Colonoscopies performed for a positive result may find as the most clinically significant lesion: colorectal cancer [4.0%], advanced adenoma (including sessile serrated polyps greater than or equal to 1cm diameter) [20%] or non- advanced adenoma [31%]; or no colorectal neoplasia [45%]. These estimates are derived from a prospective cross-sectional screening study of 10,000 individuals at average risk for colorectal cancer who were screened with both Cologuard and colonoscopy. (Nasir Prince et al, N Engl J Med 2014;370(14):2703-8874.) Cologuard may produce a false negative or false positive result (no colorectal cancer or precancerous polyp present at colonoscopy follow up). A negative Cologuard test result does not guarantee the absence of CRC or advanced adenoma (pre-cancer). The current Cologuard screening interval is every 3 years. ([place] [employer] and U.S. Multi-Society Task Force). Cologuard performance data in a 10,000 patient pivotal study using colonoscopy as the reference method can be accessed at the following location: www.[employer]/results. Additional description of the Cologuard test process, warnings and precautions can be found at www.[employer]Gesplan[employer].com. Stool specimen (specimen) 10/20/2023 10:51 AM EST 10/22/2023 2:46 PM EST Albert Castro MD LAB MOLECULAR DIAG NOSTICS ORDERABLES Final Result [facility] (CLIA #:[id number]) [place] [address], * HPV E6/E7 RFLX KARISSA 16 18/45 (07/17/2022 2:56 PM EDT) HPV mRNA E6/E7 rflx Not Detected Not Detected [facility] Comment: Methodology: Door Framer-Mediated Amplification This assay detects E6/E7 viral messenger RNA (mRNA) from 14 high-risk HPV types (16,18,31,33,35,39,45,51,52,56,58,59,66,68). Cervical sources are required for HPV testing. If a vaginal source from a patient who has had a total hysterectomy with removal of cervix was submitted, please contact the testing laboratory for alternative testing options. For additional information, please refer to http://education.[employer]/faq/ECG603e6 (This link if provided for information/ educational purposes only.) THIS TEST WAS PERFORMED AT: Note [address] [place] [address],[address] [place], [place] ??[phone] MELANIA WASHBURN MD 07/17/2022 2:56 PM EDT Kelsea Smith HISTORICAL/NON ORDERABLE LABS Fi nal Result [facility] * Hm Pap Smear (07/17/2022) Historical Provider HEALTH MAINTENANCE Final Result * Mammography Report 1 (07/17/2021 1:30 PM EDT) Anatomical Region Laterality Modality Breast Bilateral Mammography 07/17/2021 1:30 PM EDT Narrative 07/18/2021 8:37 AM EDT Refer to the Notes tab for result details [facility] Procedure: Mammography Report 1 Procedure Note Provider, MD Flaco - 12/08/2022 Refer to the Notes tab for result details [facility] Procedure: Mammography Report 1 Albert Castro MD IMG BI PROCEDURES Final Result * HIV 1/2 ANTIGEN/ANTIBODY,FOURTH GENERATION W/RFL (06/14/2020 10:13 AM EDT) Pathologist [facility] HIV-1/2 ANTIGEN AND ANTIBODIES, 4TH GENERATION W/ REFLEX NON-REACT [facility] NON-REACT [facility] Comment: HIV-1 antigen and HIV-1/HIV-2 antibodies were not detected. There is no laboratory evidence of HIV infection. ?? PLEASE NOTE: This information has been disclosed to you from records whose confidentiality may be protected by state law. ??If your state requires such protection, then the state law prohibits you from making any further disclosure of the information without the specific written consent of the person to whom it pertains, or as otherwise permitted by law. A general authorization for the release of medical or other information is NOT sufficient for this purpose. ? For additional information please refer to http://[employer]/faq/INZ968 (This link is being provided for informational/ educational purposes only.) ? The performance of this assay has not been clinically validated in patients less than 2 years old. ?? HIV-1/2 ANTIGEN AND ANTIBODIES, 4TH GENERATION W/ REFLEX NON-REACT [facility] NON-REACT [facility] Comment: HIV-1 antigen and HIV-1/HIV-2 antibodies were not detected. There is no laboratory evidence of HIV infection. ?? PLEASE NOTE: This information has been disclosed to you from records whose confidentiality may be protected by state law. ??If your state requires such protection, then the state law prohibits you from making any further disclosure of the information without the specific written consent of the person to whom it pertains, or as otherwise permitted by law. A general authorization for the release of medical or other information is NOT sufficient for this purpose. ? For additional information please refer to http://[employer]/faq/BCQ589 (This link is being provided for informational/ educational purposes only.) ? The performance of this assay has not been clinically validated in patients less than 2 years old. ?? HIV-1/2 ANTIGEN AND ANTIBODIES, 4TH GENERATION W/ REFLEX NON-REACT [facility] NON-[facility]ACT [facility] Comment: HIV-1 antigen and HIV-1/HIV-2 antibodies were not detected. There is no laboratory evidence of HIV infection. ?? PLEASE NOTE: This information has been disclosed to you from records whose confidentiality may be protected by state law. ??If your state requires such protection, then the state law prohibits you from making any further disclosure of the information without the specific written consent of the person to whom it pertains, or as otherwise permitted by law. A general authorization for the release of medical or other information is NOT sufficient for this purpose. ? For additional information please refer to http://[employer]/faq/RWS683 (This link is being provided for informational/ educational purposes only.) ? The performance of this assay has not been clinically validated in patients less than 2 years old. ?? 06/14/2020 10:1 3 AM EDT Romelia ADDISON LAB BLOOD ORDERABLES Shelby pollard Result Performing Organization Address City/State/[facility] [place] Phone Number [facility] [address] * Hm Colonoscopy (04/03/2017 2:43 PM EDT) Historical Provider HEALTH MAINTENANCE Final Result from Last 3 Months or Most Recently Relevant to Health Maintenance Insurance [facility] [id number] [facility]ENT[facility] MEDICAID STAND ADULT Care Teams Adhesion Tester Relationship Specialty Start Date End Date Albert Iglesias MD [address] [place] [address] PCP - General Internal Medicine 02/13/20 Panchito Cole TowermanMachine Operator Assistant 06/11/24
--- OUTSIDE RECORDS SUMMARY | 2024-10-11 15:49 | XMS_ITS | Encounter Summary ---
Author Organization [employer] Address [address] [facility] [address] [place] [address] Care Team Providers Care Imagery Intelligence Name Role Phone Albert Iglesias MD Primary Care Prov ider Encounter Details Date Type Department Care Team (Latest Contact Info) Description 09/28/2024 10:45 AM EST Office Visit [facility] MED & PEDS [address] [place] [address] Albert Iglesias MD [address] [place] [address] Mixed hyperlipidemia (Primary Dx); Dietary counseling; Exercise counseling; Benign essential hypertension; Pituitary adenoma (CMS/HCC); Chronic systolic congestive heart failure (CMS/HCC); Dural arteriovenous malformation (CMS/HCC); Physical exam Social History Tobacco Use Types Packs/Day Years Used Date Smoking Tobacco: Former Cigarettes 0.5 30 1 - 2021 Smokeless Tobacco: Never Alcohol Use [...] AM EDT documented as of this encounter Last Filed Vital Signs Vital Sign Reading Time Taken Comments Blood Pressure 132/76 09/28/2024 10:56 AM EST Pulse 84 09/28/2024 10:56 AM EST Temperature 36.6 ??C (97.9 ??F) 09/28/2024 10:[address] Respiratory Rate 20 09/28/2024 10:56 AM EST Oxygen Saturation - - Inhaled Oxygen Concentration - - Weight 93.4 kg (206 lb) 09/28/2024 10:56 AM EST Height 160 cm (5' 3 ) 09/28/2024 10:56 AM EST Body Mass Index 36.49 09/28/2024 10:56 AM EST documented in this encounter Progress Notes * Albert Castro MD - 09/28/2024 10:45 AM EST Subjective Patient ID: Sharmila Ceballos is a 59 y.o. adult who presents for No chief complaint on file.. Hypertension This is a chronic problem. Pertinent negatives include no chest pain, headaches, palpitations or shortness of breath. Review of Systems Respiratory: Negative for shortness of breath. Cardiovascular: Negative for chest pain and palpitations. Neurological: Negative for headaches. Objective Physical Exam Constitutional: Appearance: Normal appearance. HENT: Right Ear: Tympanic membrane, ear canal and external ear normal. There is no impacted cerumen. Left Ear: Tympanic membrane, ear canal and external ear normal. There is no impacted cerumen. Cardiovascular: Rate and Rhythm: Normal rate and regular rhythm. Pulmonary: Effort: Pulmonary effort is normal. No respiratory distress. Breath sounds: No stridor. No wheezing or rhonchi. Abdominal: General: Abdomen is flat. There is no distension. Palpations: There is no mass. Tenderness: There is no abdominal tenderness. Hernia: No hernia is present. Musculoskeletal: General: Normal range of motion. Cervical back: Normal range of motion. No rigidity or tenderness. Lymphadenopathy: Cervical: No cervical adenopathy. Neurological: General: No focal deficit present. Mental Status: Sharmila is alert and oriented to person, place, and time. Psychiatric: Mood and Affect: Mood normal. Behavior: Behavior normal. Assessment/Plan Problem List Items Addressed This Visit Benign essential hypertension Repeated, controlled, at home has remained stable, continue same treatment, continue low sodium diet and exercise as tolerated Relevant Orders CBC auto differential Comprehensive Metabolic Panel Lipid Panel, Standard Congestive heart failure (CMS/HCC) Dural arteriovenous malformation (CMS/HCC) Hyperlipidemia - Primary Pituitary adenoma (CMS/HCC) Physical exam Unremarkable physicla examination, she is being followed for the pituitary adenoma, will send bloodwork Other Visit Diagnoses Dietary counseling Exercise counseling documented in this encounter Miscellaneous Notes * Assessment & Plan Note - Albert Castro MD - 09/28/2024 12:48 PM ESTAssociated Problem(s): Benign essential hypertension Repeated, controlled, at home has remained stable, continue same treatment, continue low sodium diet and exercise as tolerated * Assessment & Plan Note - Albert Castro MD - 09/28/2024 12:47 PM ESTAssociated Problem(s): Physical exam Unremarkable physicla examination, she is being followed for the pituitary adenoma, will send bloodwork documented in this encounter Plan of Treatment Upcoming Encounters Date Type Department Care Team (Late st Contact Info) Description 11/03/2024 2:45 PM EST Clinical Support [facility] MED & PEDS [address] [place] [address] Liliane Thomas, RN [address] [place] [address] 11/10/2024 3:00 PM EST Office Visit [facility] ADULT DENTAL [address] [place] [address] Eula Arias documented as of this encounter Procedures Procedure Name Priority Date/Time Associated Diagnosis Comments CBC WITH AUTO DIFFERENTIAL Routine 09/28/2024 11:38 AM EST Benign essential hypertension LIPID PANEL, STANDARD Routine 09/28/2024 11:38 AM EST Benign essential hypertension COMPREHENSIVE METABOLIC PANEL Routine 09/28/2024 11:38 AM EST Benign essential hypertension documented in this encounter Results * (ABNORMAL) Lipid Panel, Standard (09/28/2024 11:38 AM EST) Triglycerides 200(H) <150 mg/dL [facility] Comment:Desirable Triglyceri de: less than 150 mg/dLBorderline High Triglyceride 150-199 mg/dLHigh Triglyceride: 200-499 mg/dLVery High Triglyceride: greater than or equal to 5OO mg/dL Cholesterol 201(H) <200 mg/dL [facility] Comment:Desirable Cholestero l: less than 200 mg/dLBorderline High Cholesterol: 200-239 mg/dLHigh Cholesterol: greater than 239 mg/dL LDL Cholesterol Calculated 103(H) <100 mg/dL [facility] Comment:Desirable LDL: less than 100 mg/dLNear Optimal/Above Optimal LDL: 110- 129 mg/dLBorderline High LDL: 130-159 mg/dLHigh LDL: 160-189 mg/dLVery High LDL: greater than or equal to 190 mg/dL HDL Cholesterol 58 >40 mg/dL [facility] Comment:Desirable HDL: great er than 40 mg/dL Note: This HDL assay may give artificially low results in patients with liver disease. Blood Venous blood specimen / Unknown 09/28/2024 11:38 AM EST 09/28/2024 1:57 PM EST us Albert Castro MD LAB BLOOD ORDERABL ES Final Result [facility] [address] [place] [address] [phone] * (ABNORMAL) Comprehensive Metabolic Panel (09/28/2024 11:38 AM EST) Sodium 142 135 - 145 mmol/L [facility] Potassium 4.0 3.3 - 5.1 mmol/L [facility] Chloride 106 96 - 108 mmol/L [facility] Carbon Dioxide 32(H) 22 - 29 mmol/L [facility] Anion Gap 8(L) 12 - 20 [facility] Urea Nitrogen (BUN) 11 9 - 16 mg/dL [facility] Creatinine, Serum 1.11 0.5 - 1.4 mg/dL [facility] Estimated Glomerular Filt Rate 51 [facility] Comment:Chronic Kidney Disea se: Estimated GFR < 60 mL/min/[id number] Kidney Disease: Estimated GFR < 15 mL/min/1.73m2 Glucose 83 60 - 115 mg/dL [facility] Calcium 9.6 8.4 - 10.2 mg/dL [facility] Bilirubin, Total 0.6 0.0 - 1.0 mg/dL [facility] Aspartate Amino Transferase 25 5 - 31 U/L [facility] Alanine Aminotransferase 26 0 - 31 U/L [facility] Total Protein 7.5 6.5 - 8.0 g/dL [facility] Albumin Level 4.3 3.5 - 5.0 g/dL [facility] Alkaline Phosphatase 94 39 - 117 U/L [facility] Blood Venous blood specimen / Unknown 09/28/2024 11:38 AM EST 09/28/2024 1:57 PM EST us Albert Castro MD LAB BLOOD ORDERABL ES Final Result [facility] [address] [place] [phone] [phone] * (ABNORMAL) CBC auto differential (09/28/2024 11:38 AM EST) White Blood Count 10.3 4.8 - 10.8 X10*3/uL [facility] Red Blood Count 5.36 4.20 - 5.50 X10*6/uL [facility] Hemoglobin 13.8 12.0 - 16.0 g/dl [facility] Hematocrit 43.8 37.0 - 47.0 % [facility] Mean Corpuscular Volume 81.7 80.0 - 98.0 fL [facility] Mean Corpuscular Hemoglobin 25.7(L) 27.0 - 33.0 pg [facility] Mean Corpuscular HGB Conc 31.5 31.0 - 35.0 g/dl [facility] Red Cell Distribution Width 19.5(H) 11.0 - 16.0 % [facility] Platelet Count 317 160 - 400 X10*3/uL [facility] Mean Platelet Volume 10.9 9.4 - 12.3 fL [facility] Neutrophils Percent Auto 72.0 45 - 73 % [facility] Imm Gran Pct Auto 0.7(H) 0.0 - 0.4 % [facility] Lymphocytes Percent Auto 21.0 20 - 40 % [facility] Monocytes Percent Auto 4.6 2 - 11 % [facility] Eosinophils Percent Auto 1.0 0 - 4 % [facility] Basophils Percent Auto 0.7 0 - 2 % [facility] NRBC Pct Auto 0.0 0.0 - 0.2 /100WBC [facility] Neutrophils Absolute Auto 7.4 2.0 - 8.3 x10*3/uL [facility] Imm Gran Abs Auto 0.07(H) 0.00 - 0.03 X10*3/uL [facility] Lymphocytes Absolute Auto 2.2 1.2 - 4.9 X10*3/uL [facility] Monocytes Absolute Auto 0.5 0.1 - 1.2 X10*3/uL [facility] Eosinophils Absolute Auto 0.1 0.0 - 0.4 X10*3/uL [facility] Basophils Absolute Auto 0.1 0.0 - 0.2 X10*3/uL [facility] NRBC Abs Auto 0.000 0.0 - 0.012 X10*3/uL [facility] Blood Venous blood specimen / Unknown 09/28/2024 11:38 AM EST 09/28/2024 1:57 PM EST Albert Castro MD LAB BLOOD ORDERABL ES Final Result [facility] [address] [place] [phone] [phone] documented in this encounter Visit Diagnoses Diagnosis Mixed hyperlipidemia- Primary Dietary counseling Dietary surveillance and counseling Exercise counseling Benign essential hypertension Essential hypertension, benign Pituitary adenoma (CMS/HCC) Benign 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) Chronic systolic congestive heart failure (CMS/HCC) Dural arteriovenous malformation (CMS/HCC) Other specified congenital anomalies of brain Physical exam Unspecified general medical examination documented in this encounter Additional Health Concerns Assessment Noted Time PHQ-9 Depression Total Score: 5 09/28/19 25 10:57 AM EST documented as of this encounter Care Teams Imagery Intelligence Relationship Specialty Start Date End Date Albert Iglesias MD [address] [place] [id number] PCP - General Internal Medicine 02/13/20 Panchito Cole Automation Application EngineerDie Cast Operator 06/11/24 documented as of this encounter
--- OUTSIDE RECORDS SUMMARY | 2024-10-11 15:49 | XMS_ITS | Encounter Summary ---
Author Organization [employer] [facility] Address [address] [place] [address] [address] [place] [address] Care Team Providers Care International Controller Name Role Phone Albert Igelsias MD Primary Care Prov ider Encounter Details Date Type Department Care Team (Latest Contact Info) Description 03/05/2019 Abstract [facility] CONVERSIONS Dental, Provider, DDS Social History Tobacco Use Types Packs/Day Years Used Date Smoking Tobacco: Never Assessed Comments Unknown Sex and Gender Information Value [facility] [address] [place] [address] Liliane Thomas RN [address] [place] [address] 11/10/2024 3:00 PM EST Office Visit [facility] ADULT DENTAL [address] [place] [address] Eula Arias documented as of this encounter Visit Diagnoses Not on filedocumented in this encounter Care Teams International Controller Relationship Specialty Start Date End Date Albert Iglesias MD [address] [place] [address] PCP - General Internal Medicine 02/13/20 Panchito Cole Service CleanerReducing Salon Attendant 06/11/24 documented as of this encounter
--- OUTSIDE RECORDS SUMMARY | 2024-10-11 15:49 | XMS_ITS | Encounter Summary ---
Author Organization [employer] Address [address] [facility] [address] [place] [address] Care Team Providers Care Construction Operations Manager Name Role Phone Albert Iglesias MD Primary Care Prov ider Encounter Details Date Type Department Care Team (Latest Contact Info) Description 09/21/2024 Travel Social History Tobacco Use Types Packs/Day Years [...] Description 11/03/2024 2:45 PM EST Clinical Support [facility] MED & PEDS [address] [place] [address] Liliane Thomas, V[place] [address] [place] [address] 11/10/2024 3:00 PM EST Office Visit [facility] ADULT DENTAL [address] [place] [address] Eula rAias documented as of this encounter Visit Diagnoses Not on filedocumented in this encounter Additional Health Concerns Assessment Noted Time PHQ-9 Depression Total Score: 9 12/24/19 23 10:49 AM EDT documented as of this encounter Care Teams Construction Operations Manager Relationship Specialty Start Date End Date Albert Iglesias MD [address] [place] [address] PCP - General Internal Medicine 02/13/20 Panchito Cole Leno SewerChoker Setter 06/11/24 documented as of this encounter
--- OUTSIDE RECORDS SUMMARY | 2024-10-11 15:49 | XMS_ITS | Clinical Summary ---
Author Organization [address] [place] [address] [place] [phone] Phone Care Team Providers Care Support Manager Name Role Phone Ewelina Juan MD Primary Care Prov ider Allergies Active Allergy Reactions Criticality Noted Date Comments Lactose 08/24/2024 Other reaction(s): intolerance Medications Medication Sig Dispensed Refills Start Date End Date Status ibuprofen (ADVIL,MOTRIN) 800 mg tablet Take 1 tablet (800 mg total) by mouth every 8 (eight) hours if needed (PAIN). 10/09/2015 Active busPIRone (BUSPAR) 5 mg tablet 1 tablet (5 mg total) 1 (one) time each day. Active clonazePAM (KlonoPIN) 1 mg tablet Take 1 tablet (1 mg total) by mouth 1 (one) time each day if needed. Max Daily Amount: 1 mg Active cloNIDine (CATAPRES) 0.1 mg tablet Take 1 tablet (0.1 mg total) by mouth 2 (two) times a day. Active hydrocortisone (CORTEF) 10 mg tablet 1 (one) time each day. Active hydrocortisone (CORTEF) 5 mg tablet Take 1 tablet (5 mg total) by mouth 2 (two) times a day. Daily at 1200 and 1500 Active levothyroxine (SYNTHROID, LEVOTHROID) 150 mcg tablet 1 (one) time each day. Active omeprazole (PriLOSEC) [address] capsule Take 1 capsule (20 mg total) by mouth 2 (two) times a day. 10/08/2022 Active pantoprazole (PROTONIX) 20 mg EC tablet Take 1 tablet (20 mg total) by mouth 1 (one) time each day. Active QUEtiapine (SEROquel) 50 mg tablet Take 1 tablet (50 mg total) by mouth 2 (two) times a day. Active rosuvastatin (CRESTOR) 40 mg tablet Take 1 tablet (40 mg total) by mouth 1 (one) time each day. 04/27/2024 Active traMADoL (ULTRAM) 50 mg tablet Take 1 tablet (50 mg total) by mouth every 8 (eight) hours. Max Daily Amount: 150 mg Active venlafaxine XR (EFFEXOR-XR) 150 mg 24 hr capsule Take 1 capsule (150 mg total) by mouth 1 (one) time each day. 08/07/2020 Active metoprolol tartrate (LOPRESSOR) 100 mg tablet Take 1 tablet (100 mg total) by mouth 2 (two) times a day. 180 tablet 3 09/03/2024 Active Active Problems Problem Noted Date Diagnosed Date Sinoatrial node dysfunction 07/31/2022 Overview (08/24/2024): Last Assessment & Plan: Sinus bradycardia treated with a Medtronic dual-chamber permanent pacemaker programmed at 60 bpm. Underlying rhythm is sinus bradycardia in the 40s. She has 10 years of battery longevity remaining an excellent capture thresholds, sensing and lead impedances from and interrogation done today in the office. For her upcoming pituitary surgery I would simply place a magnet over the device in the operating room to force pacing and avoid any inhibition with cautery. Alternatively, she could have short cautery used as she has a clear underlying rhythm. The device would not need to be reprogrammed necessarily. SOB (shortness of breath) 07/31/2022 Adrenal insufficiency 07/30/2022 Anxiety 07/30/2022 Prolonged Q-T interval on ECG 07/30/2022 Pre-syncope 12/18/2020 Nonischemic congestive cardiomyopathy 10/19/2020 Overview (08/24/2024): Nonischemic congestive cardiomyopathy Chest pain at rest 08/23/2020 Lightheadedness 08/23/2020 Overview (08/24/2024): Last Assessment & Plan: Etiology unclear. BP stable. Longstanding history of lightheadness. Will continue to monitor and f/u on holter results. Nonischemic cardiomyopathy 08/23/2020 Overview (08/24/2024): Last Assessment & Plan: LVEF has normalized and she is not having active heart failure symptoms. Continue metoprolol and pacemaker with remote monitoring. I encouraged her to continue a low carbohydrate diet to lower her triglycerides. We talked about possible fish oil supplementation. Palpitations 08/23/2020 Overview (08/24/2024): History of VT in the setting of acute electrolyte disturbances, psychiatric medications, prolonged QT Last Assessment & Plan: She does have a history of VT in the setting of acute electrolyte disturbances and psychiatric medications at the time and intolerant of higher dose beta margie ultimately requiring pacemaker implant. Her QTc is stable on EKG today. She has not had a high burden of PVCs recently on remote device monitoring and no tachy alerts on device interrogation today.PVC burden <0.1 per hour. Previously 0.3 per hour. She is quite symptomatic, however, so I will go ahead and order a 24 hour holter monitor to further assess and correlate symptoms. Continue current b margie dose. Pedal edema 08/23/2020 Overview (08/24/2024): Last Assessment & Plan: She does have mild leg edema on exam today but does not appear to be overtly volume overloaded on exam today. And she has had a slow weight gain this year vs rapid weight gain so I'm not convinced weight gain is related to any CHF. However, it sounds like she did respond to recent short course of lasix 20 mg daily and she does have a history of cardiomyopathy so, in addition to checking echo, I am also sending her for lab work to include a BNP today. If elevated will restart lasix 20 mg daily again. I reviewed CHF education/ lifestyle modifications. Patient will call if any worsening dyspnea or edema or increased weight or abdominal girth. Reviewed importance of a low sodium diet. Will call if weight increases by 2-3 pounds in a 24 hour period or 3-5 pounds in a 5-7 day period. Ventricular tachycardia 08/23/2020 Overview (08/24/2024): Last Assessment & Plan: As below. C. difficile colitis 09/25/2015 Obstructive sleep apnea hypopnea, mild 5 RLS (restless legs syndrome) 05/17/2015 Hypopituitarism 05/08/2015 Multiple pulmonary nodules 03/05/2015 Depression 12/01/2014 H. pylori infection 07/20/2013 Overview (08/24/2024): Positive CLOtest on upper endoscopy in 2005. Successfully treated with a Helidac treatment. Followup stool testing 2007 was negative. Lactose intolerance 07/20/2013 Nonulcer dyspepsia 07/20/2013 Overview (08/24/2024): EGD 2005 - mild gastritis, + H. 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 no improvement after treatment. 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 Kim 1999, post-operative radiation therapy. Hypopituitarism. Reoperation by Dr. Rascon on 07/21/2012. Essential hypertension, benign 10/04/2005 Overview (08/24/2024): Last Assessment & Plan: Hypertension is well-controlled on current medicines and diet. I did encourage a low-sodium diet is much as possible. Hyperlipidemia 08/20/2005 Overview (08/24/2024): Last Assessment & Plan: Currently on Crestor with reasonable LDL based on her absence of coronary disease. Her triglycerides are elevated and encouraged low carbohydrate diet possible eating more oily fish such as salmon or tuna. I generally not a big fan of fish oil supplements but would consider them if she does not enjoy the fish in her diet. No need for pharmacologic suppression. Encounters Date Type Department Care Team Description 08/31/2024 12:05 PM EST Ancillary Procedure [facility] [address] [facility] [address] [place] [address] from Last 3 Months Immunizations Name Administration Dates Next Due Influenza trivalent, 0.5mL, preservative free (Fluarix; FluLaval; Fluzone) ages 6mo and older (Afluria) 3 years and older 08/20/2014,07/23/2012,09/13/2011 Pneumococcal polysaccharide 23 valent (Pneumovax 23) 2yo and older 02/26/2011 Tdap Tetanus diptheria acell ular pertussis (Boostrix; Adacel) 7yo and older 06/03/2007 Surgical History Surgery Date Site/Laterality Comments APPENDECTOMY PROCEDURE: HISTORICAL APPENDECTOMY ESOPHAGOGASTRODUODENOSCOPY 06/10/06 PROCEDURE: WI EGD TRANSORAL BIOPSY SINGLE/MULTIPLE; COMMENT: Normal esophagus, stomach and duodenum on this examination. Meghan+(treated with helidac) FLEXIBLE SIGMOIDOSCOPY 09/21/03 PROCEDURE: WI SIGMOIDOSCOPY FLX DX W/COLLJ SPEC BR/WA IF PFRMD; COMMENT: Normal ESOPHAGOGASTRODUODENOSCOPY 08/29/2010 PROCEDURE: WI EGD TRANSORAL BIOPSY SINGLE/MULTIPLE; COMMENT: gastritis. Duodenal bx: nl. Gastric bx: nl, esophageal biopsy::intraepithelial eosinophils COLONOSCOPY W/ BIOPSIES 08/29/2010 PROCEDURE: WI COLONOSCOPY STOMA W/BIOPSY SINGLE/MULTIPLE; COMMENT: Normal. colon biopsy normal Medical History Medical History Date Comments Other and unspecified hyperlipidemia 08/20/2005 DX:Other and unspecified hyperlipidemia Essential hypertension, benign 10/04/2005 D X:Essential hypertension, benign Benign 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) (CMS/HCC) 10/04/2005 DX:Benign neoplasm of pituit jailyn gland and craniopharyngeal duct (pouch) (HCC) Abdominal pain, epigastric 06/06/2006 DX:Ab dominal pain, epigastric; COMMENT: EGD normal 06.06.2006 Unspecified hypothyroidism 03/25/2007 DX:Un specified hypothyroidism Reactive airway disease 07/17/2012 DX:React alanis airway disease Carpal tunnel syndrome 12/11/2012 DX:Carpal tunnel syndrome Neck pain 02/26/2013 DX:Neck pain Nonulcer dyspepsia 07/20/2013 DX:Nonulcer d yspepsia Lactose intolerance 07/20/2013 DX:Lactose i ntolerance H. pylori infection 07/20/2013 DX:H. pylori infection Family History Medical History Relation Name Comments Other: gallstones Daughter Arthritis Mother Breast cancer Paternal Grandmother 50s Relation Name Status Comments Daughter Mother Paternal Grandmother 50s Social History Tobacco Use Types Packs/Day Years Used Date Smoking Tobacco: Former Cigarettes Q uit: 04/06/2010 Smokeless Tobacco: Former Alcohol Use Standard Drinks/Week Comments No 0 (1 standard drink = 0.6 oz pur e alcohol) Sex and Gender Information Value Date Recorded Sex Assigned at Not on file Gender Identity Not on file Sexual Orientation Not on file Obstetrics History Last Filed Vital Signs Vital Sign Reading Time Taken Comments Blood Pressure 112/70 04/27/2024 10:33 AM EDT Pulse 61 04/27/2024 10:33 AM EDT Temperature - - Respiratory Rate - - Oxygen Saturation - - Inhaled Oxygen Concentration - - Weight 93.9 kg (207 lb) 04/27/2024 10:33 AM EDT Height 162.6 cm (5' 4 ) 04/27/2024 10:33 AM EDT Body Mass Index 35.53 04/27/2024 10:33 AM EDT Plan of Treatment Upcoming Encounters Date Type Department Care Team (Late st Contact Info) Description 12/02/2024 9:30 AM EDT Ancillary Procedure [facility] - [facility] [address] [facility] [address] [place] [address] Health Maintenance Due Date Last Done Comments Pneumococcal Vaccine: Pediatrics (0 to 5 Years) and At-Risk Patients (6 to 64 Years) (2 of 2 - PCV) 10/17/2018 10/17/2017, 02/26/2011 Cervical Cancer Screening: Pap Smear 10/23/2018 10/23/2015, 10/23/2015 Zoster Vaccines (2 of 2) 08/10/2019 06/15/2019 Hepatitis B Vaccines (2 of 3 - 19+ 3-dose series) 08/16/2020 07/19/2020 Social Influencers of Health Screening 08/24/2022 Breast Cancer Screening 07/17/2023 07/17/2021 Depression Screening 12/24/2023 12/23/2022 COVID-19 Vaccine (3 - season) 2024 05/07/2021, 04/09/2021 Influenza Vaccine (#1) 2024 , 05/30/2020, 06/08/2019, Additional history exists Hypertension/CHF/CAD Annual BMP Blood Test 12/29/2024 12/30/2023, 01/17/2023, 10/16/2022, Additional history exists DTaP,Tdap,and Td Vaccines (3 - Td or Tdap) 06/25/2026 06/25/2016, 06/03/2007 Colorectal Cancer Screening: FIT-DNA (Cologuard) 10/20/2026 10/20/2023, 10/20/2023 Cholesterol Screening (Lipid Panel) 12/29/2028 12/30/2023, 12/30/2023, 10/09/2022 HIV Screening Completed 12/30/2023, 06/14/2020 Hepatitis C Screening Completed 12/30/2023, 024 HIB Vaccines Aged Out No longer eligi [...] on patient's age to complete this topic MMR Vaccines Aged Out No longer eligi ble based on patient's age to complete this topic Meningococcal ACWY Vaccine Aged Out N o longer eligible based on patient's age to complete this topic RSV Immunization Patients Under 20 months Aged Out No longer eligible based on patient's age to complete this topic Varicella Vaccines Aged Out No longer eligible based on patient's age to complete this topic Medical Devices Implanted Type Area Director Of Physical Therapy Device Identifier Shelf Expiration Date Model / Serial / Lot Medt-Card Alex Xt Dr Tovar [id number] Implanted:03/2020 (Quantity not on file) Cardiac Pacemaker MEDTRONIC - CARDIAC RHYTH-CRDM ALEX XT DR TOVAR [id number] / [id number] / Procedures Procedure Name Priority Date/Time Associated Diagnosis Comments CARDIAC DEVICE CHECK- REMOTE- MURJ Routine 08/31/2024 12:02 PM EST HEPATITIS C SCREENING Routine 12/30/2023 HIV SCREENING Routine 12/30/2023 ANNUAL BMP BLOOD TEST Routine 12/30/2023 LIPID PANEL Routine 12/30/2023 FIT-DNA Routine 10/20/2023 HPV Routine 10/23/2015 from Last 3 Months or Most Recently Relevant to Health Maintenance Results * Cardiac device check - Remote- MURJ (08/31/2024 12:02 PM EST) Date Time Interrogation Session [id number] CV DEVICE CHECK Type Interrogation Session Remote CV DEVICE CHECK Implantable Pulse Generator Director Of Physical Therapy MDT CV DEVICE CHECK Implantable Pulse Generator Type IPG CV DEVICE CHECK Implantable Pulse Generator Model Alex XT DR TOVAR [id number] CV DEVICE CHECK Implantable Pulse Generator Serial Number [id number] CV DEVICE CHECK Implantable Pulse Generator Implant Date 20191022 CV DEVICE CHECK Battery Remaining Longevity 104.0 CV DEVICE CHECK Battery Voltage 2.990 CV D EVICE CHECK Battery FIRE TECHNOLOGY INSTRUCTOR Trigger 2.625 CV DEVICE CHECK Battery Status Middle of Service CV DEVICE CHECK Дмитрий Statistic RA Percent Paced 99.63 CV DEVICE CHECK Дмитрий Statistic RV Percent Paced 0.04 CV DEVICE CHECK Atrial Tachy Statistic AT/AF [place] Percent 0.00 CV DEVICE CHECK Lead Channel Sensing Intrinsic Amplitude 1.375 CV DEVICE CHECK Lead Channel Setting Sensing Sensitivity 0.45 CV DEVICE CHECK Lead Channel Impedance Value 399 CV DEVICE CHECK Lead Channel Pacing Threshold Amplitude 0.500 CV DEVICE CHECK Lead Channel Pacing Threshold Pulse Width 0.4 CV DEVICE CHECK Lead Channel RA Pacing Threshold Date 2024-08-29 CV DEVICE CHECK Lead Channel Setting Pacing Amplitude 1.500 CV DEVICE CHECK Lead Channel Setting Pacing Pulse Width 0.4 CV DEVICE CHECK Lead Channel Sensing Intrinsic Amplitude 11.500 CV DEVICE CHECK Lead Channel Setting Sensing Sensitivity 0.90 CV DEVICE CHECK Lead Channel Impedance Value 855 CV DEVICE CHECK Lead Channel Pacing Threshold Amplitude 0.500 CV DEVICE CHECK Lead Channel Pacing Threshold Pulse Width 0.4 CV DEVICE CHECK Lead Channel RV Pacing Threshold Date 2024-08-29 CV DEVICE CHECK Lead Channel Setting Pacing Amplitude 2.000 CV DEVICE CHECK Lead Channel Setting Pacing Pulse Width 0.4 CV DEVICE CHECK Дмитрий Setting Mode (NBG Code) AAIR<=>DDDR CV DEVICE CHECK Дмитрий Setting Lower Rate Limit 60 CV DEVICE CHECK Дмитрий Setting AT Mode Switch Rate 150 CV DEVICE CHECK Дмитрий Setting Maximum Tracking Rate 130 CV DEVICE CHECK Дмитрий Setting Maximum Sensor Rate 130 CV DEVICE CHECK Дмитрий Setting PAV Delay 180 CV DEVICE CHECK Дмитрий Setting NICOLAS Delay 150 CV DEVICE CHECK Zone Setting Type Category AT/AF CV DEVICE CHECK Rate 150 CV DEVICE CHECK Therapies All Rx On CV DEVICE CHECK Zone Setting Status Monitor CV DEVICE CHECK Zone ID 2 CV DEVICE CHECK Zone Setting Type Category VT CV DEVICE CHECK Rate 150 CV DEVICE CHECK Zone Setting Status ENABLED CV DEVICE CHECK Zone ID 6 CV DEVICE CHECK Date of Service 2024-09-10 CV DEVICE CHECK Anatomical Region Laterality Modality Device Interroga tion 08/30/2024 12:5 4 AM EST Impressions 08/31/2024 11:56 AM EST Normal Remote: No Events * Normal Device Function * Alerts or events: None * Battery: OK, 8.67 yrs * Sensing, impedance and thresholds reviewed * Programmed parameters reviewed * Presenting rhythm: AP - VS 60 bpm * Heart Rate Histograms reviewed * No significant changes noted Narrative Procedure Note Fuentes Andrade MD - 08/31/2024 IMPRESSION: Normal Remote: No Events * Normal Device Function * Alerts or events: None * Battery: OK, 8.67 yrs * Sensing, impedance and thresholds reviewed * Programmed parameters reviewed * Presenting rhythm: AP - VS 60 bpm * Heart Rate Histograms reviewed * No significant changes noted Fuentes Andrade MD CV IMPLANTABLE CAR DIAC DEVICE PROCEDURES * Annual BMP Blood Test (12/30/2023) [facility] Annual BMP Blood Test Abstracted Historical Provider [facility] * HIV Screening (12/30/2023) [facility] HIV Screening Abstracted [facility] Provider [facility] * Hepatitis C Screening (12/30/2023) [facility] Hepatitis C Screening Abstracted Historical Provider [facility] * Lipid panel (12/30/2023) [facility] LDL/HDL Ratio 0 Comment:No interpretation, a bstracted Triglycerides 0 mg/dL Comment:No interpretation, a bstracted Cholesterol 0 mg/dL Comment:No interpretation, a bstracted HDL 0 mg/dL Comment:No interpretation, a bstracted LDL Cholesterol 0 mg/dL Comment:No interpretation, a bstracted Blood Venous blood specimen / Unknown Historical Provider LAB BLOOD ORDERAB LES * FIT-DNA (Cologuard) (10/20/2023) [facility] Colorectal Cancer Screening: FIT-DNA (Cologuard) No interpretation , abstracted Historical Provider [facility] * Cervical Cancer Screening: HPV (10/23/2015) [facility] Cervical Cancer Screening: HPV Negative, abstracted Historical Provider [facility] from Last 3 Months or Most Recently Relevant to Health Maintenance Advance Directives Documents on File Type Date Recorded Patient Senior Program Planner Expl anation Health Care Decision (hx) 05/05/2021 AD RILEY DIRECTIVE Health Care Decision (hx) 05/05/2021 AD RILEY DIRECTIVE Health Care Decision (hx) 05/05/2021 AD RILEY DIRECTIVE Health Care Decision (hx) 05/05/2021 AD RILEY DIRECTIVE Health Care Decision (hx) 05/05/2021 AD RILEY DIRECTIVE Health Care Decision (hx) 05/05/2021 AD RILEY DIRECTIVE Health Care Decision (hx) 05/05/2021 AD RILEY DIRECTIVE Health Care Decision (hx) 05/05/2021 AD RILEY DIRECTIVE Health Care Decision (hx) 05/05/2021 AD RILEY DIRECTIVE Health Care Decision (hx) 05/05/2021 AD RILEY DIRECTIVE Health Care Decision (hx) 05/05/2021 AD RILEY DIRECTIVE Health Care Decision (hx) 05/05/2021 AD RILEY DIRECTIVE Health Care Decision (hx) 05/05/2021 AD RILEY DIRECTIVE Health Care Decision (hx) 10/15/2019 AD RILEY DIRECTIVE Health Care Decision (hx) 10/15/2019 AD RILEY DIRECTIVE Health Care Decision (hx) 10/15/2019 AD RILEY DIRECTIVE Health Care Decision (hx) 10/15/2019 AD RILEY DIRECTIVE Health Care Decision (hx) 10/15/2019 AD RILEY DIRECTIVE Health Care Decision (hx) 10/15/2019 AD RILEY DIRECTIVE Health Care Decision (hx) 10/15/2019 AD RILEY DIRECTIVE Health Care Decision (hx) 10/15/2019 AD RILEY DIRECTIVE Health Care Decision (hx) 10/15/2019 AD RILEY DIRECTIVE Health Care Decision (hx) 10/15/2019 AD RILEY DIRECTIVE Health Care Decision (hx) 10/15/2019 AD RILEY DIRECTIVE Health Care Decision (hx) 10/15/2019 AD RILEY DIRECTIVE Health Care Decision (hx) 10/15/2019 AD RILEY DIRECTIVE Health Care Decision (hx) 10/15/2019 AD RILEY DIRECTIVE Health Care Decision (hx) 10/15/2019 AD RILEY DIRECTIVE Health Care Decision (hx) 10/15/2019 AD RILEY DIRECTIVE Health Care Decision (hx) 10/15/2019 AD RILEY DIRECTIVE Health Care Decision (hx) 10/15/2019 AD RILEY DIRECTIVE Health Care Decision (hx) 10/15/2019 AD RILEY DIRECTIVE Health Care Decision (hx) 10/15/2019 AD RILEY DIRECTIVE Health Care Decision (hx) 10/15/2019 AD RILEY DIRECTIVE Health Care Decision (hx) 10/15/2019 AD RILEY DIRECTIVE Health Care Decision (hx) 10/15/2019 AD RILEY DIRECTIVE Health Care Decision (hx) 10/15/2019 AD RILEY DIRECTIVE Care Teams Support Manager Relationship Specialty Start Date End Date Ewelina Juan MD PCP - General Internal Medicine 09/03/21
--- OUTSIDE RECORDS SUMMARY | 2024-10-11 15:49 | XMS_ITS | Encounter Summary ---
Author Organization [employer] Address [address] [facility] [address] [address] Care Team Providers Care Resin Filterer Name Role Phone Albert Iglesias MD Primary Care Prov ider Reason for Visit * Reason Comments Pre-visit Planning SDOH unable to reach LVM Encounter Details Date Type Department Care Team ([facility] st Contact Info) Description 09/21/2024 Patient Outreach [facility] [address] [place] [address] Albert Iglesias MD [address] [place] [address] Pre-visit Planning (SDOH unable to reach LVM) Social History Tobacco Use Types Packs/Day Years [...] AM EDT documented as of this encounter Progress Notes * Shelby Somers - 09/21/2024 2:17 PM EST CC Shelby Cabral placed outbound call to patient to complete pre-visit planning. No answer at this time. Patient name and were not confirmed. CC left voicemail requesting return call. Direct contactinformation provided. documented in this encounter Plan of Treatment Upcoming Encounters Date Type Department Care Team ([facility] st Contact Info) Description 11/03/2024 2:45 PM EST Clinical Support [facility] [address] [place] [address] Liliane Thomas RN [address] [place] [address] 11/10/2024 3:00 PM EST Office Visit [facility] [address] [place] [address] Eula Arias documented as of this encounter Visit Diagnoses Not on filedocumented in this encounter Additional Health Concerns Assessment Noted Time PHQ-9 Depression Total Score: 9 12/24/19 23 10:49 AM EDT documented as of this encounter Care Teams Resin Filterer Relationship Specialty Start Date End Date Albert Iglesias MD [address] [place] [address] PCP - General Internal Medicine 02/13/20 Panchito Cole Eth[employer] TeacherAssistant Teaching Professor 06/11/24 documented as of this encounter
--- OUTSIDE RECORDS SUMMARY | 2024-10-11 15:49 | XMS_ITS | Encounter Summary ---
Author Organization [employer] Address [address] [place] [address] 7t [place] [address] Care Team Providers Care Shingler Name Role Phone Albert Iglesias MD Primary Care Prov ider Encounter Details Date Type Department Care Team (Late Contact Info) Description 06/12/2023 Orders Only [facility] MEDICINE [address] [place], [place] [phone] Provider, MD Flaco Social History Tobacco Use Types Packs/Day Years Used Date Smoking Tobacco: Former Cigarettes 0.5 30 1 992 - 2021 Smokeless Tobacco: Never Alcohol Use Standard Drinks/Week Comments Never 0 (1 standard drink = 0.6 oz pur e alcohol) Depression Answer Date Recorded Patient Health Questionnaire-9 Score 9 12/23/2022 Depression Answer Date Recorded Patient Health Questionnaire-2 [...] Description 11/03/2024 2:45 PM EST Clinical Support [facility] MED & PEDS [address] [place] [address] Liliane Thomas, VIN [address] [place] [address] 11/10/2024 3:00 PM EST Office Visit [facility] ADULT DENTAL [address] [place], [place] [phone] Eula Arias documented as of this encounter Procedures Procedure Name Priority Date/Time Associated Diagnosis Comments PAP/HPV Routine 07/17/2022 PAP/HPV Routine 2022 documented in this encounter Results * Pap Smear (07/17/2022) us Historical Provider HEALTH MAINTENANCE Final Result * Pap Smear (2022) Historical Provider HEALTH MAINTENANCE Final Result documented in this encounter Visit Diagnoses Not on filedocumented in this encounter Additional Health Concerns Assessment Noted Time PHQ-9 Depression Total Score: 9 12/24/19 23 10:49 AM EDT documented as of this encounter Care Teams Shingler Relationship Specialty Start Date End Date Albert Iglesias MD [address] [place] [address] PCP - General Internal Medicine 02/13/20 Panchito Cole Escort PatientsLead Etl Developer 06/11/24 documented as of this encounter
--- OUTSIDE RECORDS SUMMARY | 2024-10-11 15:49 | XMS_ITS | Encounter Summary ---
Author Organization [employer] Address [address] [facility] [address]t [place] [address] Care Team Providers Care Medical Billing And Coding Specialist Name Role Phone Albert Iglesias MD Primary Care Prov ider Encounter Details Date Type Department Care Team (Latest Contact Info) Description 09/28/2024 Travel Social History Tobacco Use Types Packs/Day [...] Upcoming Encounters Date Type Department Care Team ([facility] st Contact Info) Description 11/03/2024 2:45 PM EST Clinical Support [facility] MED & PEDS [address] [place] [address] Liliane Thomas RN [address] [place] [address] 11/10/2024 3:00 PM EST Office Visit [facility] ADULT DENTAL [address] [place] [address] Eula Arias documented as of this encounter Visit Diagnoses Not on filedocumented in this encounter Additional Health Concerns Assessment Noted Time PHQ-9 Depression Total Score: 5 09/28/19 25 10:57 AM EST documented as of this encounter Care Teams Medical Billing And Coding Specialist Relationship Specialty Start Date End Date Albert Iglesias MD [address] [place] [address] PCP - General Internal Medicine 02/13/20 Panchito Cole De Icer Kit AssemblerBlanket Inspector 06/11/24 documented as of this encounter
--- OUTSIDE RECORDS SUMMARY | 2024-10-11 15:49 | XMS_ITS | Encounter Summary ---
Author Organization [employer] Address [address] [facility] 7t [place] [address] Care Team Providers Care Recruitment Officer Name Role Phone Albert Iglesias MD Primary Care Prov ider Encounter Details Date Type Department Care Team ([facility] st Contact Info) Description 09/21/2024 Telephone C [facility]EDS [address] [place] [address] Liliane Thomas, RN [address] [place] [address] Social History Tobacco Use Types Packs/Day Years [...] AM EDT documented as of this encounter Miscellaneous Notes * Telephone Encounter - Liliane Thomas RN - 09/21/2024 1:58 PM EST Pt NCNS to initial GAMING [employer] [place] today. TC to pt via S ID# [id number]. Appt r/s to 11/03/24 @2:45pm. documented in this encounter Plan of Treatment Upcoming Encounters Date Type Department Care Team (Late st Contact Info) Description 11/03/2024 2:45 PM EST Clinical Support [facility] MED & PEDS [address] [place] [address] Liliane Thomas, VIN [address] [place] [address] 11/10/2024 3:00 PM EST Office Visit [facility] ADULT DENTAL [address] [place] [address] Eula Arias documented as of this encounter Visit Diagnoses Not on filedocumented in this encounter Additional Health Concerns Assessment Noted Time PHQ-9 Depression Total Score: 9 12/24/19 23 10:49 AM EDT documented as of this encounter Care Teams Recruitment Officer Relationship Specialty Start Date End Date Albert Iglesias MD [address] [place] [address] PCP - General Internal Medicine 02/13/20 Panchito Cole Director Of Spa And Guest ExperienceShift Mechanic 06/11/24 documented as of this encounter
--- OUTSIDE RECORDS SUMMARY | 2024-10-11 15:50 | XMS_ITS | Encounter Summary ---
Author Organization [employer] Address [address] [facility] [address]t [place] [address] Care Team Providers Care Application Counselor Name Role Phone Albert Iglesias MD Primary Care Prov ider Encounter Details Date Type Department Care Team ([facility] st Contact Info) Description 05/21/2023 Telephone C [facility] [address] [place] [address] Albert Iglesias MD [address] [place] [address] Social History Tobacco Use Types Packs/Day Years [...] encounter Miscellaneous Notes * Telephone Encounter - Leydi Krause - 05/21/2023 2:34 PM EDT Tc from Kimberli from [facility] department requesting to speak with someone . Best contact # [phone] documented in this encounter Plan of Treatment Upcoming Encounters Date Type Department Care Team (Late st Contact Info) Description 11/03/2024 2:45 PM EST Clinical Support [facility] MED & PEDS [address] [place] [address] Liliane Thomas, RN [address] [place] [address] 11/10/2024 3:00 PM EST Office Visit [facility] ADULT DENTAL [address] [place] [address] Eula Arias documented as of this encounter Visit Diagnoses Not on filedocumented in this encounter Additional Health Concerns Assessment Noted Time PHQ-9 Depression Total Score: 9 12/24/19 23 10:49 AM EDT documented as of this encounter Care Teams Application Counselor Relationship Specialty Start Date End Date Albert Iglesias MD [address] [place] [address] PCP - General Internal Medicine 02/13/20 Panchito Cole Pneudraulic Systems MechanicBig Data Developer 06/11/24 documented as of this encounter
--- OUTSIDE RECORDS SUMMARY | 2024-10-11 15:50 | XMS_ITS | Encounter Summary ---
Author Organization [employer] Address [address] [facility] [address] [place] [address] Care Team Providers Care Cutting Machine Offbearer Name Role Phone Albert Iglesias MD Primary Care Prov ider Encounter Details Date Type Department Care Team ([facility] st Contact Info) Description 04/19/2024 Orders Only [facility] MED & PEDS [address] [place] [address] Albert Iglesias MD [address] [place] [address] Social History Tobacco Use Types Packs/Day Years [...] [facility] [address] [place] [address] Liliane Thomas RN [address] [place] [address] 11/10/2024 3:00 PM EST Office Visit [facility] ADULT [facility] [address] [place] [address] Eula Arias documented as of this encounter Visit Diagnoses Not on filedocumented in this encounter Additional Health Concerns Assessment Noted Time PHQ-9 Depression Total Score: 9 12/24/19 23 10:49 AM EDT documented as of this encounter Care Teams Cutting Machine Offbearer Relationship Specialty Start Date End Date Albert Iglesias MD [address] [place] [address] PCP - General Internal Medicine 02/13/20 Panchito Cole Optical Systems EngineerShank Cementer Hand 06/11/24 documented as of this encounter
--- OUTSIDE RECORDS SUMMARY | 2024-10-11 15:50 | XMS_ITS | Encounter Summary ---
Author Organization [employer] Address [address] [facility] 7t [place] [address] Care Team Providers Care Syrup Blender Name Role Phone Albert Iglesias MD Primary Care Prov ider Reason for Visit * Reason Comments Med Refill Encounter Details Date Type Department Care Team ([facility] Contact Info) Description 12/05/2022 Refill [facility] & [facility]EDS [address] [place] [address] Albert Iglesias MD [address] [place] [address] Social History Tobacco Use Types Packs/Day Years Used Date Smoking Tobacco: Former Cigarettes 0.5 30 1 2021 Smokeless Tobacco: Never Alcohol Use Standard Drinks/Week Comments Never 0 (1 standard drink = 0.6 oz pur e alcohol) Comments Unknown Sex and Gender Information Value Date Recorded Sex Assigned at Female 07/15/2022 10:24 AM EDT Legal Sex Female 10:24 AM EDT Gender Identity Choose not to disclose 10:24 AM EDT Sexual Orientation Choose not to disclose 2021 10:24 AM EDT documented as of this encounter Plan of Treatment Upcoming Encounters Date Type Department Care Team (Late Contact Info) Description 11/03/2024 2:45 PM EST Clinical Support [facility] MED & PEDS [address] [place] [address] Liliane Thomas RN [address] [place], [place] [phone] 11/10/2024 3:00 PM EST Office Visit [facility] ADULT DENTAL [address] [place] [address] Eula Arias documented as of this encounter Visit Diagnoses Not on filedocumented in this encounter Care Teams Syrup Blender Relationship Specialty Start Date End Date Albert Iglesias MD [address] [place] [address] PCP - General Internal Medicine 02/13/20 Panchito Cole Monkey BreederSalesperson Art Objects 06/11/24 documented as of this encounter
== END 2024-10-11 10:57 | disposition home or self-care (01) ==
LOC: HO.MAMMO 10:56
PROVIDERS: PCP Internal Medicine; Visit Provider Internal Medicine
DX: Z12.31 Encounter for screening mammogram for malignant neoplasm of breast (principal)
CPT/HCPCS: 77063; 77067

== ENCOUNTER → 2024-10-11 11:30 | Outpatient (BNV) | payer MEDICAID, SELFPAY | PROVIDERS: PCP Internal Medicine; Visit Provider Internal Medicine | DX: Z12.31 Encounter for screening mammogram for malignant neoplasm of breast (principal) | CPT/HCPCS: 77063; 77067 ==

== ENCOUNTER 2025-07-13 13:33 | Inpatient (IN) | payer MEDICAID, SELFPAY ==
--- OUTSIDE RECORDS SUMMARY | 2025-07-12 18:51 | XMS_ITS | Encounter Summary ---
[facility] Address [address] [place] [address] Care Team Providers Care Front End Engineer Name Role Phone Albert Iglesias Primary Care Provide r Reason for Visit * Reason Comments Abdominal Pain X2 days with back pa in Encounter Details Date Type Department Care Team (Late st Contact Info) Description 07/12/2025 6:51 PM EDT - 07/12/2025 11:13 PM EDT Emergency [facility] Emergency [address] [place] [address] Acute bilateral low back pain without sciatica (Primary Dx) Discharge Disposition: Home or Self Care Social History Tobacco Use Types Packs/Day Years Used Date Smoking Tobacco: Former Cigarettes Q uit: 04/06/2010 Smokeless Tobacco: Former Alcohol Use Standard Drinks/Week Comments No 0 (1 standard drink = 0.6 oz pur e alcohol) Comments Unknown Sex and Gender Information Value Date Recorded Sex Assigned at Not on file Legal Sex Female 9:05 AM EST Gender Identity Not on file Sexual Orientation Not on file documented as of this encounter Last Filed Vital Signs Vital Sign Reading Time Taken Comments Blood Pressure 102/65 07/12/2025 11:11 PM EDT Pulse 63 07/12/2025 11:11 PM EDT Temperature 37.2 C (99 F) 07/12/2025 11:11 PM EDT Respiratory Rate 18 07/12/2025 11:11 PM EDT Oxygen Saturation 96% 07/12/2025 11:11 PM EDT Inhaled Oxygen Concentration - - Weight - - Height - - Body Mass Index - - documented in this encounter Functional Status * Calculated C-SSRS Risk Score (Lifetime/Recent) Answer Date of Assessment Author No Risk Indicated 07/12/2025 10:11 PM EDT Isela Yang RN * [place] Suicide Severity Rating Scale (Screener/Recent Self-Report) Question Answer Date of Assessment Author 1. Wish to be (Past 1 Month) No 025 10:11 PM EDT Isela Yang RN 2. Non-Specific Active Suici michaela Thoughts (Past 1 Month) No 07/12/2025 10:11 PM EDT Ann Yang RN 6. Suicidal Behavior (Lifetime) No 10:11 PM EDT Isela Yang RN documented as of this encounter Discharge Instructions * Discharge Instructions* LIZETH Lee - 07/12/2025 10:56 PM EDT Take Toradol for pain. Add Tylenol as needed for additional pain control ice the area of discomfort. Return to the emergency department fevers inability to control urine numbness of groin new or concerning symptoms * Attachments The following attachments cannot be sent through Care Everywhere. * Back Pain Needs Time - Activity - and Medicine: Video (Guatemalan) documented in this encounter Medications at Time of Discharge busPIRone (BUSPAR) 5 mg tablet 1 tablet (5 mg total) 1 (one) time each day. clonazePAM (KlonoPIN) 1 mg tablet Take 1 tablet (1 mg total) by mouth 1 (one) time each day if needed. cloNIDine (CATAPRES) 0.1 mg tablet Take 1 tablet (0.1 mg total) by mouth 2 (two) times a day. hydrocortisone (CORTEF) 10 mg tablet 1 (one) time each day. hydrocortisone (CORTEF) 5 mg tablet Take 1 tablet (5 mg total) by mouth 2 (two) times a day. Daily at 1200 and 1500 ibuprofen (ADVIL,MOTRIN) 800 mg tablet Take 1 tablet (800 mg total) by mouth every 8 (eight) hours if needed (PAIN). 10/09/2015 ketorolac (TORADOL) 10 mg tablet Take 1 tablet (10 mg total) by mouth every 6 (six) hours if needed for moderate pain for up to 5 days. 20 tablet 07/12/2025 07/17/2025 levothyroxine (SYNTHROID, LEVOTHROID) 150 mcg tablet 1 (one) time each day. metoprolol tartrate (LOPRESSOR) 100 mg tablet Take 1 tablet (100 mg total) by mouth 2 (two) times a day. 180 tablet 3 09/03/2024 omeprazole (PriLOSEC) [address] capsule Take 1 capsule (20 mg total) by mouth 2 (two) times a day. 10/08/2022 pantoprazole (PROTONIX) 20 mg EC tablet Take 1 tablet (20 mg total) by mouth 1 (one) time each day. QUEtiapine (SEROquel) 50 mg tablet Take 1 tablet (50 mg total) by mouth 2 (two) times a day. rosuvastatin (CRESTOR) 40 mg tablet TOME 1 TABLETA POR VIA ORAL TODOS [place] 90 tablet 3 05/25/2025 traMADoL (ULTRAM) 50 mg tablet Take 1 tablet (50 mg total) by mouth every 8 (eight) hours. venlafaxine XR (EFFEXOR-XR) 150 mg 24 hr capsule Take 1 capsule (150 mg total) by mouth 1 (one) time each day. 08/07/2020 documented as of this encounter Ordered Prescriptions Prescription Sig Dispense Quantity Refills Last Filled Start Date End Date ketorolac (TORADOL) 10 mg tablet Take 1 tablet (10 mg total) by mouth every 6 (six) hours if needed for moderate pain for up to 5 days. 20 tablet 07/12/2025 documented in this encounter Discharge Disposition Disposition Code Departure Means Destination Comment s Home or Self Care Pt provided with discharge instructions, as well as new prescription education. Agreed to plan of care and verbalized understanding. Left ED with even steady gait, picked up by friend. documented in this encounter Progress Notes * Germaine Colmenares RN - 07/12/2025 6:52 PM EDT Patient BIBA from home for left abdominal and back pain x2 days. Denies nausea and vomiting. Reports dark stool. Abdomen rigid per EMS and tender to touch. Mid back swollen. Denies injury and thinners. A&Ox4. * LIZETH Lee - 07/12/2025 6:46 PM EDT HPI Chief Complaint Patient presents with Abdominal Pain X2 days with back pain Patient 60-year-old female past medical history hypertension hyperlipidemia, lactose intolerance H.pylori presents emergency department by ambulance for evaluation of left-sided abdominal pain and back pain over the past 2 days, onset after bending over and lifting heavy item. Patient without nausea vomiting. Patient without diarrhea fevers chills. Patient denies history of urinary symptoms hematuria nephrolithiasis. History provided by: Patient lang interpreter used: No Yaritza Coma Scale Score: 15 Patient History Medical History[1] Surgical History[2] Family History[3] Social History Tobacco Use Smoking status: Former Current packs/day: 0.00 Types: Cigarettes Quit date: 04/06/2010 Years since quittin.2 Smokeless tobacco: Former Substance Use Topics Alcohol use: No Drug use: No Review of Systems Review of Systems All other systems reviewed and are negative. Physical Exam ED Triage Vitals Temp Heart Rate Resp BP 07/12/25190907/12/25190907/12/25190907/12/251909 37 ??C (98.6 ??F) 60 25 116/70 SpO2 Temp src Heart Rate Source Patient Position 07/12/251909 -- 07/12/25201207/12/252012 97 % Monitor Sitting BP Location FiO2 (%) 07/12/252012 -- Right arm Physical Exam Vitals and nursing note reviewed. Constitutional: General: She is not in acute distress. Appearance: Normal appearance. She is normal weight. She is not toxic-appearing or diaphoretic. HENT: Head: Normocephalic and atraumatic. Nose: Nose normal. Mouth/Throat: Mouth: Mucous membranes are moist. Pharynx: No oropharyngeal exudate or posterior oropharyngeal erythema. Eyes: General: No scleral icterus. Extraocular Movements: Extraocular movements intact. Conjunctiva/sclera: Conjunctivae normal. Cardiovascular: Rate and Rhythm: Normal rate and regular rhythm. Pulses: Normal pulses. Heart sounds: Normal heart sounds. Pulmonary: Effort: Pulmonary effort is normal. Breath sounds: Normal breath sounds. Abdominal: Palpations: Abdomen is soft. Tenderness: There is generalized abdominal tenderness. There is no right CVA tenderness, left CVA tenderness, guarding or rebound. Musculoskeletal: General: Normal range of motion. Cervical back: Normal range of motion and neck supple. Skin: General: Skin is warm and dry. Capillary Refill: Capillary refill takes less than 2 seconds. Neurological: General: No focal deficit present. Mental Status: She is alert. Cranial Nerves: No cranial nerve deficit. Motor: No weakness. Gait: Gait normal. ED Course & MDM ED Course as of 07/13/25 0136 [facility] Jul 12, [id number] CBC and differential(!) No clinically significant abnormality. No leukocytosis leukopenia acute anemia platelet abnormality. [AW] 2002 Lactate, with Reflex(!) Mildly elevated, IV fluids ordered [AW] 2002 Magnesium(!) Mildly decreased, replenishment ordered [AW] 2002 Comprehensive Metabolic Panel (CMP)(!) No metabolic derangement, no acidemia, no evidence of hepatic or renal injury Mild hyperglycemia no acidemia [AW] 2002 Lipase Normal [AW] 2226 CT Abdomen Pelvis w Contrast IMPRESSION: 1. Fatty infiltration of the liver. 2. Small hiatal hernia. 3. Fat containing umbilical hernia. This document has been electronically signed by: Indio North MD on 07/12/2025 22:21:24 [AW] 2226 Urinalysis with reflex microscopic ([id number])(!) Leuks present with trace blood suggestive of acute cystitis. [AW] 2244 Lactate, with reflex(!) [AW] 2246 Lactate, Whole Blood(!): 2.7 [MZ] 2255 Attending physician evaluated patient in room. Patient has no abdominal pain. Unclear etiologyfor her elevated lactic however further emergent workup not clinically indicated. [AW] ED Course User Index [AW] LIZETH Lee [MZ] Chaz Black MD Clinical Impressions as of 07/13/25 0136 Acute bilateral low back pain without sciatica Medical Decision Making Differential diagnosis includes biliary tree pathology pancreatitis gastritis gastroenteritis appendicitis. Low suspicion obstruction ischemic bowel. Workup pursued to assess for sepsis severe sepsis. He reported heart abdomen by EMS. Given patient's age, lactic was pursued at initial assessment and elevated. Patient was given IV fluids however mild increase in lactic. CT abdomen pelvis was negative for any acute surgical abnormality or infectious etiology. Given elevated lactic and exam, attending physician evaluated patient in room. See ED course. 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 pylori infection 07/20/2013 DX:H. pylori infection Lactose intolerance 07/20/2013 DX:Lactose intolerance Neck pain 02/26/2013 DX:Neck pain Nonulcer dyspepsia 07/20/2013 DX:Nonulcer dyspepsia Other and unspecified hyperlipidemia 08/20/2005 DX:Other and unspecified hyperlipidemia Reactive airway disease 07/17/2012 DX:Reactive airway disease Unspecified hypothyroidism 03/25/2007 DX:Unspecified hypothyroidism [2] Past Surgical History: Procedure Laterality Date APPENDECTOMY PROCEDURE: HISTORICAL APPENDECTOMY COLONOSCOPY W/ BIOPSIES 08/29/2010 PROCEDURE: [place] COLONOSCOPY STOMA W/BIOPSY SINGLE/MULTIPLE; COMMENT: Normal. colon biopsy normal ESOPHAGOGASTRODUODENOSCOPY 06/10/06 PROCEDURE: [place] EGD TRANSORAL BIOPSY SINGLE/MULTIPLE; COMMENT: Normal esophagus, stomach and duodenumon this examination. Meghan+(treated with helidac) ESOPHAGOGASTRODUODENOSCOPY 08/29/2010 PROCEDURE: [place] EGD TRANSORAL BIOPSY SINGLE/MULTIPLE; COMMENT: gastritis. Duodenal bx: nl. Gastric bx: nl, esophageal biopsy::intraepithelial eosinophils FLEXIBLE SIGMOIDOSCOPY 09/21/03 PROCEDURE: [place] SIGMOIDOSCOPY FLX DX W/COLLJ SPEC BR/WA IF PFRMD; COMMENT: Normal [3] Family History Problem Relation Name Age of Onset Breast cancer Paternal Grandmother 50s Arthritis Mother Other (Other: gallstones) Daughter LIZETH Lee 07/13/25 0136 Cosigned by Chaz Black MD at 07/13/2025 2:53 PM EDT documented in this encounter Plan of Treatment Upcoming Encounters Date Type Department Care Team (Late st Contact Info) Description 12/05/2025 9:30 AM EDT Ancillary Procedure [facility] [address] [facility] [address] [place] [address] documented as of this encounter Procedures Procedure Name Priority Date/Time Associated Diagnosis Comments LACTATE, WITH REFLEX Timed 07/12/2025 10:03 PM EDT URINALYSIS WITH REFLEX MICROSCOPIC STAT 07/12/2025 10:01 PM EDT URINALYSIS WITH REFLEX MICROSCOPIC STAT 07/12/2025 10:[address] ABDOMEN PELVIS W CONTRAST STAT 07/12/2025 9:17 PM EDT LACTATE, WITH REFLEX STAT 07/12/2025 7:32 PM EDT CBC WITH AUTO DIFFERENTIAL STAT 07/12/2025 7:23 PM EDT CBC AND DIFFERENTIAL STAT 07/12/2025 7:23 PM EDT HCG, SERUM, QUALITATIVE STAT Add-on 07/12/2025 7:23 PM EDT MAGNESIUM STAT 07/12/2025 7:23 PM EDT LIPASE STAT 07/12/2025 7:23 PM EDT COMPREHENSIVE METABOLIC PANEL STAT 07/12/2025 7:23 PM EDT GARZA URINE CULTURE TUBE Routine 07/12/2025 12:00 AM EDT EXTRA TUBES Routine 07/12/2025 12:00 AM EDT documented in this encounter Results * (ABNORMAL) Lactate, with reflex (07/12/2025 10:03 PM EDT) Pathologist [facility] LACTIC ACID 2.7(H) 0.4 - 2.0 mmol/L LAB CHEMISTRY METHOD 07/12/2025 10:33 PM EDT [facility] Blood Venous blood specimen / Unknown Venipuncture / Unknown 07/12/2025 10:03 PM EDT 07/12/2025 10:10 PM EDT us Toshia STANLEY LAB BLOOD ORDERABLES Fin al Result [facility] [address] [place] [address], * (ABNORMAL) Urinalysis with reflex microscopic (07/12/2025 10:01 PM EDT) [facility] Specific [place] Urine >1.045(H) 1.003 - 1.030 LAB URINALYSIS - AUTOMATED METHOD 07/12/2025 10:26 PM [facility] pH, Urine 8.0 5.0 - 8.0 pH LAB URINALYSIS - AUTOMATED METHOD 07/12/2025 10:26 PM [facility] Leukocytes, Urine Trace(A) Negative LAB URINALYSIS - AUTOMATED METHOD 07/12/2025 10:26 PM [facility] Nitrite, Urine Negative Negative LAB URINALYSIS - AUTOMATED METHOD 07/12/2025 10:26 PM [facility] Protein, Urine Negative <=Trace mg/dL LAB URINALYSIS - AUTOMATED METHOD 07/12/2025 10:26 PM [facility] Glucose, Urine Negative Negative mg/dL LAB URINALYSIS - AUTOMATED METHOD 07/12/2025 10:26 PM [facility] Ketones, Urine Negative Negative mg/dL LAB URINALYSIS - AUTOMATED METHOD 07/12/2025 10:26 PM T [facility] Urobilinogen , Urine 1.0 0.2 - 1.0 mg/dL LAB URINALYSIS - AUTOMATED METHOD 07/12/2025 10:26 PM [facility] Bilirubin, Urine Negative Negative LAB URINALYSIS - AUTOMATED METHOD 07/12/2025 10:26 PM EDT [facility] Blood, Urine Trace(A) Negative LAB URINALYSIS - AUTOMATED METHOD 07/12/2025 10:26 PM [facility] RBC, Urine 1.1 0 - 4 /HPF LAB URINALYSIS - AUTOMATED METHOD 07/12/2025 10:26 PM [facility] WBC, Urine 2.8 0 - 4 /HPF LAB URINALYSIS - AUTOMATED METHOD 07/12/2025 10:26 PM [facility] Squamous Epithelial, Urine 30 0 - 60 /LPF LAB URINALYSIS - AUTOMATED METHOD 07/12/2025 10:26 PM [facility] Bacteria, Urine Negative Negative /HPF LAB URINALYSIS - AUTOMATED METHOD 07/12/2025 10:26 PM [facility] Hyaline Casts, Urine 0.0 0 - 3 /LPF LAB URINALYSIS - AUTOMATED METHOD 07/12/2025 10:26 PM [facility] Urine Urine specimen obtained by clean catch procedure / Unknown Non-blood Collection / Unknown 07/12/2025 10:01 PM EDT 07/12/2025 10:07 PM EDT us Toshia STANLEY LAB URINE ORDERABLES Fin al Result [facility] [address] [place] [address], * CT Abdomen Pelvis w Contrast (07/12/2025 9:17 PM EDT) Anatomical Region Laterality Modality Body Computed Tomogra phy 07/12/2025 10:2 1 PM EDT Impressions 07/12/2025 10:21 PM EDT 1. Fatty infiltration of the liver. 2. Small hiatal hernia. 3. Fat containing umbilical hernia. This document has been electronically signed by: Indio North MD on 07/12/2025 22:21:24 Narrative 07/12/2025 10:21 PM EDT INDICATION: abdominal pain CT abdomen and pelvis with contrast Comparison: None provided Findings: Small hiatal hernia. Fatty infiltration of the liver. Status post cholecystectomy. The spleen, pancreas, adrenals, kidneys are unremarkable. No bowel obstruction, pneumoperitoneum, or pneumatosis. Fat containing umbilical hernia. Pelvic contents unremarkable. Normal appendix. No acute fracture. Procedure Note Indio North MD - 07/12/2025 INDICATION: abdominal pain CT abdomen and pelvis with contrast Comparison: None provided Findings: Small hiatal hernia. Fatty infiltration of the liver. Status post cholecystectomy. The spleen, pancreas, adrenals, kidneys are unremarkable. No bowel obstruction, pneumoperitoneum, or pneumatosis. Fat containing umbilical hernia. Pelvic contents unremarkable. Normal appendix. No acute fracture. IMPRESSION: 1. Fatty infiltration of the liver. 2. Small hiatal hernia. 3. Fat containing umbilical hernia. This document has been electronically signed by: Indio North MD on 07/12/2025 22:21:24 Toshia STANLEY [facility] CT PROCEDURES Final Result * (ABNORMAL) Lactate, with Reflex (07/12/2025 7:32 PM EDT) LACTIC ACID 2.5(H) 0.4 - 2.0 mmol/L LAB CHEMISTRY METHOD 07/12/2025 7:58 PM EDT [facility] Blood Venous blood specimen / Unknown Venipuncture / Unknown 07/12/2025 7:32 PM EDT 07/12/2025 7:35 PM EDT Toshia STANLEY LAB BLOOD ORDERABLES Fin al Result Performing Organization Address City/[facility]/ZIP Co de Phone Number [facility] [address] [place] [address], [place] [phone] * hCG Qualitative (07/12/2025 7:23 PM EDT) [facility] hCG Qual Negative Negative 07/12/2025 8:01 PM EDT [facility] Blood Venous blood specimen / Unknown Venipuncture / Unknown 07/12/2025 7:23 PM EDT 07/12/2025 7:35 PM EDT Toshia STANLEY LAB BLOOD ORDERABLES Fin al Result Performing Organization Address [facility] de Phone Number [facility] [address] [place] [address], [place] [phone] * (ABNORMAL) CBC auto differential (07/12/2025 7:23 PM EDT) [facility] WBC 10.1 4.8 - 10.8 K/mcL LAB HEMETOLOGY METHOD 07/12/2025 7:41 PM T [facility] RBC 5.00(H) 3.80 - 4.80 M/mcL LAB HEMETOLOGY METHOD 07/12/2025 7:41 PM EDT [facility] Hemoglobin 12.3 11.5 - 16.0 g/dL LAB HEMETOLOGY METHOD 07/12/2025 7:41 PM EDT [facility] Hematocrit 39.7 35.0 - 47.0 % LAB HEMETOLOGY METHOD 07/12/2025 7:41 PM T [facility] MCV 80.0 79.0 - 98.0 FL LAB HEMETOLOGY METHOD 07/12/2025 7:41 PM EDT [facility] MCH 24.8(L) 27.0 - 32.0 pcg LAB HEMETOLOGY METHOD 07/12/2025 7:41 PM [facility] MCHC 31.0(L) 32.0 - 37.0 g/dL LAB HEMETOLOGY METHOD 07/12/2025 7:41 PM [facility] RDW 17.3(H) 11.0 - 15.0 % LAB HEMETOLOGY METHOD 07/12/2025 7:41 PM [facility] Platelets 334 130 - 400 K/mcL LAB HEMETOLOGY METHOD 07/12/2025 7:41 PM [facility] MPV 10.7 7.0 - 11.0 FL LAB HEMETOLOGY METHOD 07/12/2025 7:41 PM [facility] NRBC 0.0 <1.0 % LAB HEMETOLOGY METHOD 07/12/2025 7:41 PM [facility] NRBC Absolute 0.00 <0.10 K/mcL LAB HEMETOLOGY METHOD 07/12/2025 7:41 PM [facility] Neutrophils Relative 71.0 % LAB HEMETOLOGY METHOD 07/12/2025 7:41 PM [facility] Lymphocytes Relative 22.1 % LAB HEMETOLOGY METHOD 07/12/2025 7:41 PM [facility] Monocytes Relative 4.9 % LAB HEMETOLOGY METHOD 07/12/2025 7:41 PM [facility] Eosinophils Relative 1.0 % LAB HEMETOLOGY METHOD 07/12/2025 7:41 PM [facility] Basophils Relative 0.6 % LAB HEMETOLOGY METHOD 07/12/2025 7:41 PM [facility] Immature Granulocytes Relative 0.4 % LAB HEMETOLOGY METHOD 07/12/2025 7:41 PM [facility] Neutrophils Absolute 7.15(H) 1.50 - 7.00 K/mcL LAB HEMETOLOGY METHOD 07/12/2025 7:41 PM EDT [facility] Lymphocytes Absolute 2.23 1.00 - 5.00 K/mcL LAB HEMETOLOGY METHOD 07/12/2025 7:41 PM EDT [facility] Monocytes Absolute 0.49 0.20 - 1.00 K/mcL LAB HEMETOLOGY METHOD 07/12/2025 7:41 PM EDT [facility] Eosinophils Absolute 0.10 0.00 - 0.50 K/[facility] LAB HEMETOLOGY METHOD 07/12/2025 7:41 PM EDT [facility] Basophils Absolute 0.06 0.00 - 0.20 K/mcL LAB HEMETOLOGY METHOD 07/12/2025 7:41 PM EDT [facility] Immature Granulocytes Absolute 0.04(H) 0.00 - 0.03 K/[facility] LAB HEMETOLOGY METHOD 07/12/2025 7:41 PM EDT [facility] Blood Venous blood specimen / Unknown Venipuncture / Unknown 07/12/2025 7:23 PM EDT 07/12/2025 7:35 PM EDT Toshia STANLEY LAB BLOOD ORDERABLES Fin al Result [facility] [address] [place] [address], * (ABNORMAL) Magnesium (07/12/2025 7:23 PM EDT) Magnesium 1.8(L) 1.9 - 2.6 mg/dL LAB CHEMISTRY METHOD 07/12/2025 7:58 PM EDT [facility] Blood Venous blood specimen / Unknown Venipuncture / Unknown 07/12/2025 7:23 PM EDT 07/12/2025 7:35 PM EDT Toshia STANLEY LAB BLOOD ORDERABLES Fin al Result [facility] [address] [place] [address], [place] [phone] * Lipase (07/12/2025 7:23 PM EDT) Pathologist [facility] Lipase 29 13 - 75 unit/L LAB CHEMISTRY METHOD 07/12/2025 7:58 PM EDT [facility] Blood Venous blood specimen / Unknown Venipuncture / Unknown 07/12/2025 7:23 PM EDT 07/12/2025 7:35 PM EDT Toshia STANLEY LAB BLOOD ORDERABLES Fin al Result Performing Organization Address City/[facility]/ZIP Co de Phone Number [facility] [address] [place] [address], [place] [phone] * (ABNORMAL) Comprehensive Metabolic Panel (CMP) (07/12/2025 7:23 PM EDT) Pathologist [facility] Sodium 140 133 - 145 mmol/L LAB CHEMISTRY METHOD 07/12/2025 7:58 PM EDT [facility] Potassium 3.7 3.5 - 5.5 mmol/L LAB CHEMISTRY METHOD 07/12/2025 7:58 PM EDT [facility] Chloride 106 96 - 110 mmol/L LAB CHEMISTRY METHOD 07/12/2025 7:58 PM T [facility] CO2 27 21 - 32 mmol/L LAB CHEMISTRY METHOD 07/12/2025 7:58 PM EDT [facility] Anion Gap 7 3 - 11 LAB CHEMISTRY METHOD 07/12/2025 7:58 PM EDT [facility] Glucose 142(H) 70 - 100 mg/dL LAB CHEMISTRY METHOD 07/12/2025 7:58 PM EDT [facility] BUN 7 5 - 25 mg/dL LAB CHEMISTRY METHOD 07/12/2025 7:58 PM [facility] Creatinine 1.01 0.50 - 1.10 mg/dL LAB CHEMISTRY METHOD 07/12/2025 7:58 PM [facility] eGFR 65 >=60 mL/min/1. 73m2 LAB CHEMISTRY METHOD 07/12/2025 7:58 PM [facility] Comment:Calculation based on the Chronic Kidney Disease Epidemiology Collaboration (CKD-EPI) equation refit without adjustment for race. BUN/Creatinine Ratio 6.9 LAB CHEMISTRY METHOD 07/12/2025 7:58 PM [facility] Calcium 9.5 8.5 - 10.5 mg/dL LAB CHEMISTRY METHOD 07/12/2025 7:58 PM [facility] AST (SGOT) 26 10 - 42 unit/L LAB CHEMISTRY METHOD 07/12/2025 7:58 PM [facility] ALT (SGPT) 29 10 - 60 unit/L LAB CHEMISTRY METHOD 07/12/2025 7:58 PM [facility] Alkaline Phosphatase 101 42 - 121 unit/L LAB CHEMISTRY METHOD 07/12/2025 7:58 PM [facility] Total Protein 6.9 6.0 - 8.0 g/dL LAB CHEMISTRY METHOD 07/12/2025 7:58 PM [facility] Albumin 3.5 3.2 - 5.0 g/dL LAB CHEMISTRY METHOD 07/12/2025 7:58 PM [facility] Total Bilirubin 0.3 0.0 - 1.4 mg/dL LAB CHEMISTRY METHOD 07/12/2025 7:58 PM [facility] Blood Venous blood specimen / Unknown Venipuncture / Unknown 07/12/2025 7:23 PM EDT 07/12/2025 7:35 PM EDT us Toshia STANLEY LAB BLOOD ORDERABLES Fin al Result Performing Organization Address [facility]/ZIP Co de Phone Number [facility] [address] [place] [address], [place] [phone] * Garza urine culture tube (07/12/2025 12:00 AM EDT) Extra Tube Hold for add-ons. 07/13/2025 12:02 AM EDT [facility] Comment:Auto resulted. Urine Urine specimen obtained by clean catch procedure / Unknown 07/12/2025 07/12/2025 10:09 PM EDT Toshia STANLEY LAB URINE ORDERABLES Fin al Result Performing Organization Address [facility] de Phone Number [facility] [address] [place] [address], [place] [phone] documented in this encounter Visit Diagnoses Diagnosis Acute bilateral low back pain without sciatica- Primary Encounter for adjustment or management of cardiac device documented in this encounter Administered Medications Inactive Administered Medications - up to 3 most recent administrations Medication Order MAR Action Action Date Dose Rate Site fentaNYL (PF) (SUBLIMAZE) injection 100 mcg 100 mcg, intravenous, Once, On Fri07/12/25 at 2212, For 1 dose Given 07/12/2025 10:25 PM EDT 100 mcg HYDROmorphone (DILAUDID) injection 1 mg 1 mg, intravenous, Once, On Fri07/12/25 at 2022, For 1 dose Given 07/12/2025 8:34 PM EDT 1 mg iopamidoL (ISOVUE-370) 370 mg iodine /mL (76 %) injection 90 mL 90 mL, intravenous, Once in imaging, Starting on Fri07/12/25 at 2110, For 1 dose Given 07/12/2025 9:12 PM EDT 90 mL ketorolac (TORADOL) injection 15 mg 15 mg, intravenous, Once, On Fri07/12/25 at 3, For 1 dose Given 07/12/2025 10:27 PM EDT 15 mg magnesium sulfate 2 gram/50 mL (4 %) IVPB 2 g 2 g, intravenous, at 25 mL/hr, Administer over 2 Hours, Once, On Fri07/12/25 at 2003, For 1 dose New Bag 07/12/2025 8:10 PM EDT 2 g 25 mL/hr morphine injection 4 mg 4 mg, intravenous, Once, On Fri07/12/25 at 1914, For 1 dose Given 07/12/2025 7:28 PM EDT 4 mg ondansetron (PF) (ZOFRAN) injection 4 mg 4 mg, intravenous, Once, On Fri07/12/25 at 1914, For 1 dose Given 07/12/2025 7:28 PM EDT 4 mg sodium chloride 0.9 % bolus 1,000 mL 1,000 mL, intravenous, at 1,000 mL/hr, Administer over 1 Hours, Once, On Fri07/12/25 at 2003, For 1 dose New Bag 07/12/2025 8:12 PM EDT 1,000 mL 1000 mL/hr sodium chloride 0.9 % bolus 1,000 mL 1,000 mL, intravenous, at 1,000 mL/hr, Administer over 1 Hours, Once, On Fri07/12/25 at 2236, For 1 dose New Bag 07/12/2025 10:38 PM EDT 1,000 mL 1000 mL/hr sodium chloride 0.9 % flush 10 mL 10 mL, intravenous, Once, On Fri07/12/25 at 2111, For 1 dose Given 07/12/2025 9:12 PM EDT 10 mL documented in this encounter Active and Recently Administered Medications Times are shown in EDT. Scheduled Medication Order 07/10/2025 07/11/2025 07/12/2025 fentaNYL (PF) (SUBLIMAZE) injection 100 mcg (COMPLETED) 100 mcg, intravenous, Once, On Fri07/12/25 at 2212, For 1 dose 2224 (Given - Provid er: Isela Yang RN) HYDROmorphone (DILAUDID) injection 1 mg (COMPLETED) 1 mg, intravenous, Once, On Fri07/12/25 at 2022, For 1 dose 2033 (Given - Provid er: Isela Yang RN) iopamidoL (ISOVUE-370) 370 mg iodine /mL (76 %) injection 90 mL (COMPLETED) 90 mL, intravenous, Once in imaging, Starting on Fri07/12/25 at 2110, For 1 dose 2111 (Given - Provid er: Nash Yepez) ketorolac (TORADOL) injection 15 mg (COMPLETED) 15 mg, intravenous, Once, On Fri07/12/25 at 2213, For 1 dose 2226 (Given - Provid er: Isela Yang RN) magnesium sulfate 2 gram/50 mL (4 %) IVPB 2 g (COMPLETED) 2 g, intravenous, at 25 mL/hr, Administer over 2 Hours, Once, On Fri07/12/25 at 2003, For 1 dose 2009 (New Bag - Prov ider: Isela Yang RN)2121 (Stopped - Provider: Isela Yang RN) morphine injection 4 mg (COMPLETED) 4 mg, intravenous, Once, On Fri07/12/25 at 1914, For 1 dose 1927 (Given - Provid er: Isela Yang RN) ondansetron (PF) (ZOFRAN) injection 4 mg (COMPLETED) 4 mg, intravenous, Once, On Fri07/12/25 at 1914, For 1 dose 1927 (Given - Provid er: Isela Yang RN) sodium chloride 0.9 % bolus 1,000 mL (COMPLETED) 1,000 mL, intravenous, at 1,000 mL/hr, Administer over 1 Hours, Once, On Fri07/12/25 at 2003, For 1 dose 2011 (New Bag - Prov ider: Isela Yang RN)2206 (Stopped - Provider: Isela Yang RN) sodium chloride 0.9 % bolus 1,000 mL (COMPLETED) 1,000 mL, intravenous, at 1,000 mL/hr, Administer over 1 Hours, Once, On Fri07/12/25 at 223, For 1 dose 2237 (New Bag - Prov ider: Isela Yang RN)2299 (Stopped - Provider: Isela Yang RN) sodium chloride 0.9 % flush 10 mL (COMPLETED) 10 mL, intravenous, Once, On Fri07/12/25 at 2111, For 1 dose 2111 (Given - Provid er: Nash Yepez) documented in this encounter Orders Medications Ordered That Js ht Not Have Been Administered Count Last Ordered Date First Ordered Date fentaNYL (PF) (SUBLIMAZE) 50 mcg/mL injection - ADS Override Pull 1 07/12/2025 ketorolac (TORADOL) 15 mg/mL injection - ADS Override Pull 1 07/12/2025 sodium chloride 0.9 % infusi on - ADS Override Pull 1 07/12/2025 sodium chloride 0.9% preserv ative free injection - ADS Override Pull 1 07/12/2025 documented in this encounter Care Teams Front End Engineer Relationship Specialty Start Date End Date Albert Iglesias [address] [place] [id number] PCP - General Internal Medicine 04/18/25 documented as of this encounter
--- NOTE | ~2025-07-13 | CT_ITS ---
EXAMINATION: CT ABDOMEN PELVIS WITH IV CONTRAST HISTORY: L abdominal pain, known hernia, R/O incarceration COMPARISON: [facility] CT of the abdomen and pelvis most recent January 2019 TECHNIQUE: CT scan of the abdomen and pelvis was performed following administration of 85 mL Omnipaque 350 using standard departmental protocol. Coronal and sagittal reformatted images were generated and reviewed. This CT exam was performed with one or more of the following dose reduction techniques: automated exposure control, adjustment of the mA and/or kV according to patient size, use of iterative reconstruction technique. DLP: 700 mGy-cm FINDINGS: LOWER CHEST: The visualized lung bases are clear. There is no pleural effusion. CARDIOVASCULATURE: The heart is normal in size. Partially visualized pacemaker leads in the right atrium and right ventricle. There is no pericardial effusion. LIVER: Fatty liver. The liver is highly enlarged right lobe measuring 19 cm in length. The liver is normal in contour. No liver mass is identified. 2The hepatic and portal veins are patent. GALLBLADDER / BILE DUCTS: Cholecystectomy. There is no intra or extrahepatic biliary ductal dilatation. SPLEEN: The spleen is normal in size. 4 mm low-attenuation lesion in the spleen axial image 19 series 3. This is difficult to characterize due to small size but may represent a cyst. PANCREAS: The pancreas is unremarkable in appearance. ADRENAL GLANDS: Within normal limits. KIDNEYS/RETROPERITONEUM: No renal calculi are identified. There is no hydronephrosis. Small bilateral low-attenuation renal lesions. Largest measures 9 mm in the lower pole of the left kidney compatible with a cyst. Smaller lesions difficult to accurately characterize due to small size but may represent small cysts as well. LYMPH NODES: No abdominal or pelvic lymphadenopathy. VASCULATURE: Atherosclerotic disease. No aneurysm.: Varices, left greater than right. MESENTERY/PERITONEUM: No free fluid. No masses. There is no free intraperitoneal gas. STOMACH: Normal SMALL BOWEL: The small bowel is normal in caliber. COLON: Diverticulosis. No evidence of diverticulitis. The colon is otherwise unremarkable. APPENDIX: The appendix is not seen, however no inflammatory changes are seen adjacent to the cecum. URINARY BLADDER/PELVIC ORGANS: The urinary bladder is unremarkable. Uterus and adnexa are unremarkable. There are pelvic varices. BONES / SOFT TISSUES: No suspicious bony or soft tissue abnormalities. Tiny umbilical hernia containing fat. No evidence of inflammation. Mild degenerative changes of the spine and hips. Stable 1 cm lucent lesion in the L1 vertebral body probably representing a benign hemangioma. Stable small sclerotic density in the right superior acetabulum probably representing a bone island. CT/CT abdomen pelvis w IV con IMPRESSION: Tiny umbilical hernia containing fat. No evidence of inflammation. No other hernia seen. Mild diverticulosis of the colon. No evidence of diverticulitis. Small low-attenuation bilateral renal and splenic lesions. These are difficult to characterize due to small size but probably represent small cysts. Slightly enlarged fatty liver. Pelvic varices. Electronically signed by: Darshana Parker MD 07/13/2025 04:31 PM EDT
[2025-07-13 13:37] VITALS: BP 166/90; PULSE 67; O2SAT 98
[2025-07-13 13:43] VITALS: BP 140/74; PULSE 70; RESP 18; TEMP 36.6; O2SAT 98; BMI 36.4
--- NOTE | 2025-07-13 14:40 | ED.ABDPAIN ---
HPI - Abdominal Pain General Chief Complaint: Abdominal Pain Stated Complaint: lower back pain x3 days Time Seen by Provider: 07/13/25 14:28 Source: patient Mode of arrival: ambulatory Limitations: no limitations History of Present Illness ED Provider: DR. Zendejas HPI narrative: 60-year-old female came in for 4 days of left flank/left side abdominal pain, pain is getting severe now it is 10/10 without radiation, no nausea, no vomiting, +nonbloody watery diarrhea, +frequency urination, no dysuria, no hematuria. No fever, no chills, no history of starting new medication. + history of cholecystectomy, +history of appendectomy. Related Data Home Medications ?Medication ?Instructions ?Recorded ?Confirmed buspirone 5 mg tablet 5 mg PO TID 05/16/22 07/13/25 clonazepam 1 mg tablet 1 mg PO DAILY PRN anxiety 05/16/22 07/13/25 clonidine HCl 0.1 mg tablet 0.1 mg PO BID 05/16/22 07/13/25 levothyroxine 150 mcg tablet 150 mcg PO DAILY 05/16/22 07/13/25 metoprolol tartrate 100 mg tablet 100 mg PO BID 05/16/22 07/13/25 quetiapine 50 mg tablet 50 mg PO BID PRN Sleep 05/16/22 07/13/25 rosuvastatin 40 mg tablet 40 mg PO DAILY 05/16/22 07/13/25 tramadol 50 mg tablet 50 mg PO Q12H PRN Pain 05/16/22 07/13/25 hydrocortisone 5 mg tablet 5 mg PO BID@1200,1700 04/20/24 07/13/25 losartan 100 mg tablet 100 mg PO DAILY 06/07/24 07/13/25 venlafaxine 150 mg 150 mg PO DAILY 06/07/24 07/13/25 capsule,extended release 24 hr amlodipine 5 mg tablet 5 mg PO DAILY 07/13/25 07/13/25 cariprazine 1.5 mg capsule 1.5 mg PO QAM 07/13/25 07/13/25 (Vraylar) hydrocortisone 5 mg tablet 15 mg PO DAILY@0800 07/13/25 07/13/25 venlafaxine 37.5 mg 37.5 mg PO DAILY 07/13/25 07/13/25 capsule,extended release 24 hr Previous Rx's ?Medication ?Instructions ?Recorded albuterol sulfate 90 mcg/actuation 2 puff inhalation Q4-6H PRN 09/26/20 aerosol inhaler shortness of breath or wheezing #6.7 grams famotidine 20 mg tablet (Pepcid) 20 mg PO BEDTIME #90 tabs 09/06/24 esomeprazole magnesium 40 mg 40 mg PO DAILY #90 caps 06/20/25 capsule,delayed release cefuroxime axetil 500 mg tablet 500 mg PO BID #20 tabs 07/13/25 Allergies Allergy/AdvReac Type Severity Reaction Status Date / Time lactose AdvReac Intermediate Gastrointestinal Verified 07/13/25 13:48 Upset Review of Systems Review of Systems All other systems are reviewed and are negative Constitutional: Reports as per HPI and Reports no additional constitutional complaints Eyes: Reports as per HPI and Reports no additional eye complaints Reports system reviewed and no additional complaints, except as documented Cardiovascular: Reports as per HPI and Reports no additional cardiovascular complaints Respiratory: Reports as per HPI and Reports no additional respiratory complaints Gastrointestinal: Reports as per HPI and Reports no additional gastrointestinal complaints Genitourinary: Reports no additional female genitourinary complaints Musculoskeletal: Reports no additional musculoskeletal complaints Skin/Breast: Reports system reviewed and no additional complaints, except as docu Psychiatric: Reports no additional psychiatric complaints Endocrine: Reports no additional endocrine complaints Hematologic/Lymphatic: Reports no additional hematologic/lymphatic complaints Allergic/Immunologic: Reports no additional allergic/immunologic complaints Reports system reviewed and no additional complaints, except as documented and Reports Abnormal speech present [facility] Past Medical History Medical History Personal history of nicotine dependence History of pituitary adenoma ERIKA (obstructive sleep apnea) GERD (gastroesophageal reflux disease) History of cancer chemotherapy Pre-diabetes Pacemaker Hypothyroid High cholesterol HTN (hypertension) Surgical History History of pacemaker History of brain surgery History of cholecystectomy History of appendectomy History of colonoscopy Family History Family History Mother Diabetes HTN (hypertension) Father Heart attack Sister HTN (hypertension) Paternal Grandmother Breast cancer Social History Social History Household Members: Spouse Household Members Other:: daughter Housing: House Do you presently have visiting nurse or other home services: No Unable to assess alcohol history related to: Unknown Alcohol intake: former Patient Tobacco Use Status: Former Tobacco user Years Smoked: (onset 11yo, 1-2ppd x 45yrs, 60pyh - quit 2021) Smoked in Last 30 Days: No Use of substances other than those prescribed or required for medical reasons: Unknown Substance Use Type: Crack/Cocaine and Marijuana Advance Directives: No Advance Directives Information Provided: Yes service: No Current occupational status: unemployed Sexual orientation: Straight/Heterosexual Gender identity: Female Physical Exam ED Vital Signs: Vital Signs - 24 hr 07/13/25 13:43 07/13/25 18:00 Temperature 98 F 98.3 F Pulse Rate 70 89 Respiratory Rate 18 16 Blood Pressure 140/74 H 148/71 H Pulse Oximetry 98 99 Oxygen Delivery Method Room Air Room Air BMI result Body Mass Index 36.4 Vital signs have been reviewed and appear to be correct. Blood pressure elevated. Heart rate normal. Respiratory rate normal. Temperature normal. Oxygen saturation normal. Appearance: Alert. Oriented X3. No acute distress. Head: Normal external exam. Normocephalic. Atraumatic. No Benton signs noted. No raccoon eyes noted Eyes: PERRLA. EOMI. Conjunctiva and sclera normal. Eyelids normal. ENT: TM's Normal. Pharynx normal. Uvula midline. Moist mucous membranes. No trismus noted. No drooling noted. No muffled voice noted. Neck: Normal inspection. Neck supple. FROM. No adenopathy. Thyroid Normal. No meningeal signs. No neck mass noted. CVS: Normal heart rate and rhythm. Heart sound normal. No murmurs noted. Pulses normal throughout. Respiratory: No respiratory distress. Painless inspiration. Breath sounds normal. No wheezes/rales/rhonchi noted. Chest nontender. No accessory muscle usage noted or decreased air movement noted. Abdomen: Soft and nontender. Bowel sounds normal in all 4 quadrants. No distention noted. No organomegaly noted. No visible injury noted. Back: Left CVA tenderness. Full range of motion noted. Skin: Skin warm and dry. Normal skin color. Normal skin turgor. No rashes/lesions/lacerations noted. Extremities: No lower extremity edema. Extremities exhibit normal range of motion. Extremities nontender. Neuro: Oriented X 3. Cranial nerve exam: II-XII are grossly intact No motor deficit. No sensory deficit. Reflexes normal. Course Reevaluation(s) Reevaluation #1: CT abdomen pelvis showing no obstructive uropathy. UTI with no severe sepsis or septic shock, received varus dose of IV ceftriaxone will continue with cefuroxime orally b.i.d. for 10 days as an out. Patient was instructed to drink plenty of fluids. CT abdomen pelvis is showing a small umbilical hernia containing fat with no bowel with no concern of strangulation. Time: 17:52 Reevaluation #2: Repeat lactic acid went from 2.1-4.1, patient do not meet SIRS criteria no sepsis or septic shock., will hydrate and repeat lactic acid. Time: 18:42 Reevaluation #3: Repeat lactic acid is 3.7 after 1 L of Ringer's lactate IV hydration, patient do not meet criteria for SIRS or septic shock, will admit for further IV hydration and serial lactic acid.lactic acidosis is not suspected to secondary to septic shock espically patient didn't roll in SIRS initially, preferable reseon for lactic asidosis is dehydration specially with improvement LC from 4.1 to 3.7 after hydration and expected to improve with more gentle hydration and hospitalization. Time: 20:43 Medical Decision Making Differential Diagnosis Differential Diagnoses: The differential diagnosis associated with the presentation includes (Pyelonephritis, obstructive uropathy, colitis, diverticulitis, pancreatitis, UTI, electrolyte derangement, severe anemia.) Admission/Observation Consideration of admission/observation: Escalation of care including admission/observation considered Lab Data MDM Lab Attestation statement: I reviewed the patient's lab results. 07/13/25 14:50 07/13/25 14:50 Labs: Lab Results 07/13/25 07/13/25 07/13/25 Range/Units 14:50 17:01 18:04 WBC 7.3 (4.8-10.8) X10*3/uL RBC 4.80 (4.20-5.50) X10*6/uL Hgb 12.2 (12.0-16.0) g/dl Hct 39.2 (37.0-47.0) % MCV 81.7 (80.0-98.0) fL MCH 25.4 L (27.0-33.0) pg MCHC 31.1 (31.0-35.0) g/dl RDW 17.4 H (11.0-16.0) % Plt Count 311 (160-400) X10*3/uL MPV 10.8 (9.4-12.3) fL Immature Gran % (Auto) 0.6 H (0.0-0.4) % Neut % (Auto) 57.1 (45-73) % Lymph % (Auto) 33.8 (20-40) % Rock % (Auto) 6.2 (2-11) % Eos % (Auto) 1.5 (0-4) % Baso % (Auto) 0.8 (0-2) % Lymph # (Auto) 2.5 (1.2-4.9) X10*3/uL Rock # (Auto) 0.5 (0.1-1.2) X10*3/uL Eos # (Auto) 0.1 (0.0-0.4) X10*3/uL Baso # (Auto) 0.1 (0.0-0.2) X10*3/uL Abs Immat Gran (auto) 0.04 H (0.00-0.03) X10*3/uL Absolute Neuts (auto) 4.2 (2.0-8.3) x10*3/uL Absolute Nucleated RBC 0.000 (0.0-0.012) X10*3/uL Nucleated RBC % (auto) 0.0 (0.0-0.2) /100WBC Sodium 141 (135-145) mmol/L Potassium 3.4 (3.3-5.1) mmol/L Chloride 107 (96-108) mmol/L Carbon Dioxide 27 (22-29) mmol/L Anion Gap 10 L (12-20) BUN 7 L (9-16) mg/dL Creatinine 0.79 (0.5-1.4) mg/dL Estim Creat Clear Calc 87.3 Estimated GFR > 60 Random Glucose 105 (60-115) mg/dL Lactic Acid 2.1 H* (0.5-2.0) mmol/L Lactic Acid F/U @ 2Hr 4.1 H* (0.5-2.0) mmol/L Lactic Acid F/U @ 4Hr (0.5-2.0) mmol/L Calcium 9.0 D (8.4-10.2) mg/dL Total Bilirubin 0.5 (0.0-1.0) mg/dL Direct Bilirubin 0.2 (0.0-0.5) mg/dL AST 46 H (5-31) U/L ALT 33 H (0-31) U/L Alkaline Phosphatase 101 (39-117) U/L Troponin I High Sens < 2.7 (<3.5-17.0) ng/L Total Protein 6.5 (6.5-8.0) g/dL Albumin 4.0 (3.5-5.0) g/dL Lipase 18 (8-78) U/L Urine Color Yellow Urine Appearance Clear Urine pH 7.5 (5.0-9.0) Ur Specific Cushing 1.020 (1.005-1.025) Urine Protein Negative (Neg-Trace) mg/dL Urine Glucose (UA) Negative (Negative) mg/dL Urine Ketones Negative (Negative) mg/dL Urine Blood Trace H (Negative) Urine Nitrite Negative (Negative) Ur Leukocyte Esterase Moderate (2+) H (Negative) Urine RBC 3-5 H (0-2) /HPF Urine WBC >50 H (0-5) /HPF Ur Squamous Epith Cells 0-2 (0-2) /HPF Urine Bacteria None Seen (None Seen) Hyaline Casts 0-2 (0-2) /LPF 07/13/ Range/Units 20:20 WBC (4.8-10.8) X10*3/uL RBC (4.20-5.50) X10*6/uL Hgb (12.0-16.0) g/dl Hct (37.0-47.0) % MCV (80.0-98.0) fL MCH (27.0-33.0) pg MCHC (31.0-35.0) g/dl RDW (11.0-16.0) % Plt Count (160-400) X10*3/uL MPV (9.4-12.3) fL Immature Gran % (Auto) (0.0-0.4) % Neut % (Auto) (45-73) % Lymph % (Auto) (20-40) % Rock % (Auto) (2-11) % Eos % (Auto) (0-4) % Baso % (Auto) (0-2) % Lymph # (Auto) (1.2-4.9) X10*3/uL Rock # (Auto) (0.1-1.2) X10*3/uL Eos # (Auto) (0.0-0.4) X10*3/uL Baso # (Auto) (0.0-0.2) X10*3/uL Abs Immat Gran (auto) (0.00-0.03) X10*3/uL Absolute Neuts (auto) (2.0-8.3) x10*3/uL Absolute Nucleated RBC (0.0-0.012) X10*3/uL Nucleated RBC % (auto) (0.0-0.2) /100WBC Sodium (135-145) mmol/L Potassium (3.3-5.1) mmol/L Chloride (96-108) mmol/L Carbon Dioxide (22-29) mmol/L Anion Gap (12-20) BUN (9-16) mg/dL Creatinine (0.5-1.4) mg/dL Estim Creat Clear Calc Estimated GFR Random Glucose (60-115) mg/dL Lactic Acid (0.5-2.0) mmol/L Lactic Acid F/U @ 2Hr (0.5-2.0) mmol/L Lactic Acid F/U @ 4Hr 3.7 H* (0.5-2.0) mmol/L Calcium (8.4-10.2) mg/dL Total Bilirubin (0.0-1.0) mg/dL Direct Bilirubin (0.0-0.5) mg/dL AST (5-31) U/L ALT (0-31) U/L Alkaline Phosphatase (39-117) U/L Troponin I High Sens (<3.5-17.0) ng/L Total Protein (6.5-8.0) g/dL Albumin (3.5-5.0) g/dL Lipase (8-78) U/L Urine Color Urine Appearance Urine pH (5.0-9.0) Ur Specific Cushing (1.005-1.025) Urine Protein (Neg-Trace) mg/dL Urine Glucose (UA) (Negative) mg/dL Urine Ketones (Negative) mg/dL Urine Blood (Negative) Urine Nitrite (Negative) Ur Leukocyte Esterase (Negative) Urine RBC (0-2) /HPF Urine WBC (0-5) /HPF Ur Squamous Epith Cells (0-2) /HPF Urine Bacteria (None Seen) Hyaline Casts (0-2) /LPF Independent Interpretation I performed an independent interpretation of an: CT Scan (Abdomen pelvis:Tiny umbilical hernia containing fat. No evidence of inflammation. No other hernia seen. Mild diverticulosis of the colon. No evidence of diverticulitis. Small low-attenuation bilateral renal and splenic lesions. These are difficult to characterize due to small size but probably) Radiology Impression Discussion of test interpretation with radiology: I have reviewed the radiologist's reading. Medications Administered Generic Name Dose Route Start Last Admin Trade Name Freq PRN Reason Stop Dose Admin Lactated Ringer's 1,000 mls @ 100 mls/hr 07/13/25 21:15 07/13/25 21:15 Lr IVCONT 07/14/25 07:14 100 mls/hr .Q10H TITI Administration Discontinued Medications Generic Name Dose Route Start Last Admin Trade Name Freq PRN Reason Stop Dose Admin Hydromorphone HCl 1 mg 07/13/25 21:02 07/13/25 21:15 Hydromorphone Hcl 1 Mg/Ml Syringe IVPUSH 07/13/25 21:03 1 mg ONCE STA Administration Protocol Lactated Ringer's 1,000 mls @ 999 mls/hr 07/13/25 15:30 07/13/25 16:39 Lr IV 07/13/25 16:30 Infused .Q1H1M TITI Infusion Ceftriaxone Sodium 1 gm/ 50 mls @ 100 mls/hr 07/13/25 17:51 07/13/25 18:46 Sodium Chloride IV 07/13/25 18:20 Infused ONCE ONE Infusion Sodium Chloride 1,000 mls @ 999 mls/hr 07/13/25 18:41 07/13/25 20:13 Ns IV 07/13/25 19:41 Infused .Q1H1M ONE Infusion Iohexol 100 ml 07/13/25 15:57 07/13/25 15:57 Iohexol 350 Mg/Ml 100 Ml Infus..Btl IV 07/13/25 15:58 85 ml ONCE ONE Administration Ketorolac Tromethamine 15 mg 07/13/25 14:38 07/13/25 14:58 Ketorolac Tromethamine 15 Mg/Ml Vial IVPUSH 07/13/25 14:39 15 mg ONCE ONE Administration Ketorolac Tromethamine 30 mg 07/13/25 21:02 07/13/25 21:15 Ketorolac Tromethamine 30 Mg/Ml Vial IVPUSH 07/13/25 21:03 30 mg ONCE STA Administration Discharge Plan Discharge Clinical Impression: Acute lactic acidosis UTI (urinary tract infection) Qualifiers: Urinary tract infection type: acute pyelonephritis Qualified Code(s): N10 - Acute pyelonephritis Patient Disposition: Admitted As Inpatient
[2025-07-13 14:55] LABS: MANUAL DIFF FLAG NO
[2025-07-13 15:00] LABS: Hematocrit 39.2 % (37.0-47.0); Hemoglobin 12.2 g/dl (12.0-16.0); Imm Gran Abs Auto 0.04 X10*3/uL (0.00-0.03); Imm Gran Pct Auto 0.6 % (0.0-0.4); Lymphocytes Absolute Auto 2.5 X10*3/uL (1.2-4.9); Mean Corpuscular HGB Conc 31.1 g/dl (31.0-35.0); Mean Corpuscular Hemoglobin 25.4 pg (27.0-33.0); Mean Corpuscular Volume 81.7 fL (80.0-98.0); NRBC Abs Auto 0.000 X10*3/uL (0.0-0.012); NRBC Pct Auto 0.0 /100WBC (0.0-0.2); Platelet Count 311 X10*3/uL (160-400); Red Blood Count 4.80 X10*6/uL (4.20-5.50); White Blood Count 7.3 X10*3/uL (4.8-10.8)
[2025-07-13 15:17] LABS: Alanine Aminotransferase 33 U/L (0-31); Albumin Level 4.0 g/dL (3.5-5.0); Alkaline Phosphatase 101 U/L (39-117); Anion Gap 10 (12-20); Aspartate Amino Transferase 46 U/L (5-31); Blood Urea Nitrogen 7 mg/dL (9-16); Calcium 9.0 mg/dL (8.4-10.2); Carbon Dioxide 27 mmol/L (22-29); Chloride 107 mmol/L (96-108); Creatinine Clr Calc Pharmacy 87.3; Estimated Glomerular Filt Rate > 60; Lipase 18 U/L (8-78); Potassium 3.4 mmol/L (3.3-5.1); Sodium 141 mmol/L (135-145); Total Protein 6.5 g/dL (6.5-8.0)
[2025-07-13 15:24] LABS: Troponin-I High Sensitivity < 2.7 ng/L (<3.5-17.0)
[2025-07-13] MEDS: Lactated Ringers 1,000 ML 999 ML IV (15:37)
[2025-07-13] MEDS: iohexoL 350 MG/ML 100 ML INFUS..BTL IV (15:57)
[2025-07-13 16:55] LABS: Reflex Lactate? Lactic Acid Added
[2025-07-13 17:09] LABS: Appearance Urine Clear; Glucose Urine UA Negative (Negative); PH 7.5 (5.0-9.0); Specific Gravity - Urine 1.020 (1.005-1.025); UMIC TRIGGER UACC YES
[2025-07-13 17:12] LABS: UACC Culture Trigger YES
[2025-07-13 18:00] VITALS: BP 148/71; PULSE 89; RESP 16; TEMP 36.8; O2SAT 99
--- OUTSIDE RECORDS SUMMARY | 2025-07-13 18:11 | XMS_ITS | Encounter Summary ---
Author Organization [facility] Address [address] [place] [address] Phone Care Team Providers Care Clinical Research Scientist Name Role Phone Balaji Kim MD Unavailable [phone] Lorri Wick MD Unavailable Albert Iglesias MD Primary Care Prov ider Encounter Details Date Type Department Care Team (Late Contact Info) Description 05/24/2022 Ancillary Orders [facility] [address], [address], [address] [place] [address] Lola Davidson MD, PhD [address] [place] [address] [email or web address] Pituitary adenoma Social History Tobacco Use Types Packs/Day Years Used Date Smoking Tobacco: Former Cigarettes 1 30 0 09/15/1970 - 09/15/2000 Smokeless Tobacco: Never Alcohol Use Standard Drinks/Week Comments No 0 (1 standard drink = 0.6 oz pur e alcohol) Comments No Sex and Gender Information Value Date Recorded Sex Assigned at Not on file Legal Sex Female 2:02 PM EDT Gender Identity Not on file Sexual Orientation Not on file documented as of this encounter Plan of Treatment Upcoming Encounters Date Type Department Care Team (Late Contact Info) Description 09/12/2025 3:40 PM EST Office Visit [facility] Endocrinology [place] [address] [place] [address] Lorri Wick MD [address] [address] [email or web address] documented as of this encounter Visit Diagnoses Diagnosis Pituitary adenoma Benign 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) documented in this encounter Additional Health Concerns Assessment Noted Time PHQ-2 Depression Total Score: 0 09/22/19 21 11:06 AM EST documented as of this encounter Care Teams Clinical Research Scientist Relationship Specialty Start Date End Date Albert Iglesias MD [address] [place] [id number] PCP - General Internal Medicine 03/24/21 Balaji Kim MD [address] [place] [address] Drive [address] [place] [address] Neurosurgery 04/12/16 Lorri Wick MD [address] [address] [email or web address] Medicine 11/06/16 documented as of this encounter Additional Source Comments The information contained in this document represents components of the legal health record. It is not the complete legal health record.[facility]
--- OUTSIDE RECORDS SUMMARY | 2025-07-13 18:11 | XMS_ITS | Encounter Summary ---
Author Organization [facility] Address [address] [place] [address] Care Team Providers Care Lead Programmer Analyst Name Role Phone Suleiman Belle MD Unavailable [phone] Krystin Borjas PA-C Unavailable Juan Juan MD Primary Care Provider [phone] Encounter Details Date Type Department Care Team Description 11/07/2022 [facility] [address] [place] [address] Abstract, Provider Social History Tobacco Use Types Packs/Day Years Used Date Smoking Tobacco: Former Cigarettes 0.3 Q uit: 04/06/2010 Smokeless Tobacco: Former Alcohol Use Standard Drinks/Week Comments No 0 (1 standard drink = 0.6 oz pur e alcohol) Physical Activity Answer Date Recorded On average, how many days pe r week do you engage in moderate to strenuous exercise (like walking fast, running, jogging, dancing, swimming, biking, or other activities that cause a light or heavy sweat)? 0 days 08/22/2020 On average, how many minutes do you engage in exercise at this level? 0 min 08/22/2020 Sex Assigned at Date Recorded Not on file Job Start Date Occupation Industry Not on file Not on file Not on file documented as of this encounter Plan of Treatment Not on file documented as of this encounter Procedures Procedure Name Priority Date/Time Associated Diagnosis Comments OUTSIDE LAB Routine 11/07/2022 documented in this encounter Results * OUTSIDE LAB (11/07/2022) Provider Abstract LAB documented in this encounter Visit Diagnoses Not on filedocumented in this encounter Care Teams Lead Programmer Analyst Relationship Specialty Start Date End Date Juan Juan MD [address] [place] [address] PCP - General Internal Medicine 09/03/21 Suleiman Belle MD Specialist Cardiology 09/22/20 Krystin Borjas PA-C Specialist Cardiology 09/22/20 documented as of this encounter
--- OUTSIDE RECORDS SUMMARY | 2025-07-13 18:11 | XMS_ITS | Clinical Summary ---
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 60 capsule 11 12/30/19 24 Active rosuvastatin (Crestor) 40 MG tablet Take [...] per day. 30 tablet 11 06/21/20 24 Active levothyroxine (Synthroid, Levoxyl) 150 MCG tablet TAKE 1 TABLET BY MOUTH EVERY MORNING 90 tablet 3 01/13/20 25 Active cloNIDine (Catapres) 0.1 MG tabletIndications :Benign essential hypertension TAKE ONE TABLET TWICE DAILY 180 tablet 3 01/20/20 25 Active losartan (Cozaar) 100 MG tablet TAKE ONE TABLET DAILY 90 tablet 3 03/11/20 25 Active naloxone (Narcan) 4 mg/0.1 mL nasal spray Administer 1 spray (4 mg) into affected nostril(s) if needed for opioid reversal. May repeat every 2-3 minutes if needed, alternating nostrils, until medical assistance becomes available. 2 each 2 04/11/20 25 026 Active busPIRone (Buspar) 5 MG tabletIndications :Cognitive disorder TAKE ONE TABLET THREE TIMES DAILY 90 tablet 5 05/04/20 25 Active traMADol (Ultram) 50 MG tabletIndications :Pituitary adenoma (CMS/HCC) (HCC) TAKE ONE TABLET EVERY TWELVE HOURS NEEDED FOR SEVERE PAIN 56 tablet 06/10/20 25 Active Active Problems Problem Noted Date Diagnosed Date Long-term current use of opiate analgesic 2024 Dental calculus 05/07/2024 Periodontal disease 05/07/2024 Dental [...] Plan (06/04/2023 9:38 PM EDT): Seen at [facility] ER on 05/29 with complain of headache. Ct scan was done found with no intracranial bleeding. 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 Gastro-esophageal reflux disease with esophagiti s 05/13/2018 Hyperlipidemia 05/13/2018 Assessment & Plan (09/24/2022 12:56 PM EST): On statin therapy, will order new labs for guidance of therapy Obesity 05/13/2018 Pituitary adenoma (CMS/HCC) 05/13/2018 Assessment & Plan (09/27/2023 2:50 PM EST): Followed by neurology and neurosurgery, Assessment & Plan (12/23/2022 12:26 PM EDT): Patient will undergo 4th procedure on january by neurosurgery, will follow up reccomendations Assessment & Plan (09/24/2022 12:57 PM EST): Patient completed temozolomide, has appointment with oncologist and Mri next week to decide plan of action. Encounters Date Type Department Care Team Description 07/13/2025 Patient Outreach [address] [address] Albert Iglesias MD Care Coordination (C3/W Amari Dutton, initial outreach_requested call back ) 07/13/2025 Orders Only GENERIC EXTERNAL DATA DEPARTMENT Provider, Generic External Data 07/13/[address] [address] Albert Iglesias MD Nurse Triage; ER Follow-up 07/13/2025 Patient Outreach [address] [address] Albert Iglesias MD Care Coordination (C3/W Amari Dutton, Chart review ) 07/13/2025 Patient Outreach [facility] [address] [place] [address] Albert Iglesias MD Care Coordination (C3CM- chart review) 07/13/2025 Patient Outreach [address] [address] Albert Iglesias MD 07/07/2025 Telephone [facility] [address] [place] [address] Liliane Thomas, V[place] 07/05/2025 [facility] Health Information Management [address] [place] [address] Albert Iglesias MD 07/05/2025 Telephone [facility] [address] [place] [address] Jaja Bennett, RN 06/23/2025 2:30 PM EDT Office Visit [facility] [address] [place] [address] Bo Mckeon DDS 06/21/2025 1:30 PM EDT Office Visit [facility] [address] [place] [address] Bo Mckeon DDS 06/08/2025 Refill [facility] [address] [place] [address] Albert Iglesias MD Pituitary adenoma ([facility]) 06/07/2025 Telephone [facility] [address] [place], [place] [phone] Albert Iglesias MD Referral 05/06/2025 2:00 PM EDT Office Visit [facility] [address] [place] [address] Bo Mckeon DDS 05/05/2025 2:30 PM EDT Clinical Support [facility] [address] [place] [address] Liliane Thomas RN MCC (current) use of opiate analgesic 05/05/2025 Travel 05/02/2025 Refill [facility] [address] [place] [address] Albert Iglesias MD Cognitive disorder 04/21/2025 2:30 PM EDT Office Visit [facility] [address] [place] [address] Bo Mckeon DDS 04/12/2025 2:00 PM EDT Office Visit [facility] [address] [place] [address] Bo Mckeon DDS from Last 3 Months Immunizations Immunization Administration Dates Next Due Hep B, adult 07/19/2020 Influenza injectable quadriv alent IIV4 with preservative 09/24/2022,06/23/2018,07/15/2017,06/25 Influenza injectable quadriv alent preservative free 05/30/2020,06/08/2019 Influenza, IIV3, injectable 08/20/2014, 2,09/13/2011 PPD Test 09/17/2013 Pneumococcal Polysaccharide PPSV23 10/17/2017, Tdap 06/25/2016,06/03/2007 Zoster, Recombinant 06/15/2019 Social History Tobacco Use Types Packs/Day Years Used Date Smoking Tobacco: Former Cigarettes 0.5 30 1 992 - 2021 Smokeless Tobacco: Never Tobacco Cessation:Counseling [...] Sign Reading Time Taken Comments Blood Pressure 130/80 05/06/2025 2:19 PM EDT Pulse 84 09/28/2024 10:56 AM EST Temperature 36.6 C (97.9 F) 09/28/2024 10:56 AM EST Respiratory Rate 20 09/28/2024 10:56 AM EST Oxygen Saturation 99% 01/13/2023 10:49 AM EDT Inhaled Oxygen Concentration - - Weight 93.4 kg (206 lb) 09/28/2024 10:56 AM EST Height 160 cm (5' 3 ) 09/28/2024 10:56 AM EST Body Mass Index 36.49 09/28/2024 10:56 AM EST Plan of Treatment Upcoming Encounters Date Type Department Care Team ([facility] st Contact Info) Description 08/03/2025 3:15 PM EST Clinical Support [facility] [address] [place] [address] Liliane Thomas, RN [address] [facility] [place] [address] Health Maintenance Due Date Last Done Comments CT Colonography 1965 FIT 1965 Sigmoidoscopy 1965 Disability Screening 1965 Pneumococcal Vaccine: 50+ Years (2 of 2 - PCV) 10/17/2018 10/17/2017, 02/26/2011 Zoster Vaccines (2 of 2) 08/10/2019 06/15/2019 Hepatitis B Vaccines (2 of 3 - 19+ 3-dose series) 08/16/2020 07/19/2020 FOBT 10/20/2024 10/20/2023 Dental Oral Exam 11/08/2024 05/07/2024, , 12/03/2017, Additional history exists Dental X-Ray: Bitewings 05/08/2025 05/07/20 24, 04/19/2024, 04/15/2018, Additional history exists Dental Prophylaxis 05/11/2025 11/10/2024, 0 05/07/2024, 03/05/2019, Additional history exists COVID-19 Vaccine ( season) 2025 05/07/2021, 04/09/2021 Influenza Vaccine (#1) 2025 , 05/30/2020, 06/08/2019, Additional history exists Alcohol/Substance Use Screening 09/28/2025 09/28/2024 Depression Screening 09/28/2025 09/28/2024, 09/28/19 25 SDOH Screening 09/28/2025 09/28/2024 Tobacco Screening 06/23/2026 06/23/2025 DTaP/Tdap/Td Vaccines (3 - Td or Tdap) 06/25/2026 06/25/2016, 06/03/2007 Mammogram 10/11/2026 10/11/2024, 110 10/2020, 02/19/2018 FIT DNA/Cologuard 10/20/2026 10/20/2023 Colonoscopy 04/03/2027 04/03/2017 Colorectal Cancer Screening 04/03/2027 Dental X-Ray: Full Mouth 05/08/2027 05/07/2024, 1009/2015 Cervical Cancer Screening 07/17/2027 HPV/Cotest 07/17/2027 07/17/2022, 10/2021, 2022, Additional history exists Pap Smear 07/17/2027 07/17/2022, 2022 Lipid Panel 09/28/2029 09/28/2024, 12/14, 10/09/2022, Additional history exists RSV Patients and [...] patient's age to complete this topic Meningococcal B Vaccine Aged Out No l onger eligible based on patient's age to complete [...] Procedure Name Priority Date/Time Associated Diagnosis Comments URINALYSIS, COMPLETE, WITH REFLEX TO CULTURE Routine 07/13/2025 5:[address] ABDOMEN PELVIS W CONTRAST Routine 07/13/2025 3:53 PM EDT HIGH SENSITIVITY TROPONIN I Routine 07/13/2025 2:50 PM EDT LACTIC ACID Routine 07/13/2025 2:50 PM EDT LIPASE Routine 07/13/2025 2:50 PM EDT BASIC METABOLIC PANEL Routine 07/13/2025 2:50 PM EDT HEPATIC FUNCTION PANEL Routine 07/13/2025 2:50 PM EDT CBC WITH AUTO DIFFERENTIAL Routine 07/13/2025 2:50 PM EDT DENTURE FOLLOWUP Routine 06/23/2025 2:30 PM EDT CASE PRESENTATION, DETAILED AND EXTENSIVE TREATMENT PLANNING Routine 06/21/2025 1:30 PM EDT 3,5,15 MAXILLARY PARTIAL DENTURE - RESIN BASE (INCLUDING, RETENTIVE/CLASPING MATERIALS, RESTS, AND TEETH) Routine 06/21/2025 1:30 PM EDT 31,29,23,24,25,26,20, 19 MANDIBULAR PARTIAL DENTURE - RESIN BASE (INCLUDING, RETENTIVE/CLASPING MATERIALS, RESTS, AND TEETH) Routine 06/21/2025 1:30 PM EDT WAX TRY IN Routine 05/06/2025 2:00 PM EDT CASE PRESENTATION, DETAILED AND EXTENSIVE TREATMENT PLANNING Routine 05/06/2025 2:00 PM EDT POCT KIARRA-14 URINE DRUG SCREEN Routine 05/05/2025 2:25 PM EDT 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 BITE REGISTRATION Routine 04/21/2025 2:3 0 PM EDT CASE PRESENTATION, DETAILED AND EXTENSIVE TREATMENT PLANNING Routine 04/21/2025 2:30 PM EDT CASE PRESENTATION, DETAILED AND EXTENSIVE TREATMENT PLANNING Routine 04/12/2025 2:00 PM EDT DENTURE IMPRESSION Routine 04/12/2025 2: 00 PM EDT PROPHYLAXIS - ADULT Routine 11/10/2024 3 :00 PM EST BI MAMMOGRAM SCREENING TOMOSYNTHESIS BILATERAL Routine 10/11/2024 11:30 AM EST LIPID PANEL, STANDARD Routine 09/28/2024 11:38 AM EST Benign essential hypertension INTRAORAL - COMPLETE SERIES OF RADIOGRAPHIC IMAGES Routine 05/07/2024 9:30 AM EDT PERIODIC ORAL EVALUATION - ESTABLISHED PATIENT Routine 05/07/2024 9:30 AM EDT HEPATITIS C AB W/REFL TO HCV RNA, QN, PCR Routine 12/30/2023 11:01 AM EDT Need for hepatitis C screening test LAB COLOGUARD COLON CANCER SCREEN Routine 10/20/2023 10:51 AM EST Screening for colon cancer ZZZ HISTORICAL HPV E6/E7 RFLX KARISSA 16 18/45 Routine 07/17/2022 2:56 PM EDT HM PAP/HPV Routine 07/17/2022 HIV 1/2 ANTIGEN/ANTIBODY, FOURTH GENERATION W/RFL Routine 06/14/2020 10:13 AM EDT HM COLONOSCOPY Routine 04/03/2017 2:43 PM EDT from Last 3 Months or Most Recently Relevant to Health Maintenance Results * (ABNORMAL) Urinalysis, Complete, with Reflex to Culture (07/13/2025 5:01 PM EDT) Color Urine Yellow [facility] Appearance Urine Clear [facility] PH 7.5 5.0 - 9.0 [facility] Glucose Urine UA Negative Negative mg/dL [facility] Urine Blood Trace(A) Negative [facility] Specific [place] - Urine 1.020 1.005 - 1.025 [facility] Urine Protein Negative Neg-Trace mg/dL [facility] Urine Ketones Negative Negative mg/dL [facility] Nitrite Urine Negative Negative [facility] Leukocyte Esterase Urine Moderate (2+)(A) Negative [facility] RBC Urine 3-5(A) 0 - 2 /HPF [facility] Urine WBC >50(A) 0 - 5 /HPF [facility] Urine Squamous Epithelial Cell 0-2 0 - 2 /HPF [facility] Urine Bacteria None Seen None Seen [facility] Hyaline Casts, Urine 0-2 0 - 2 /LPF [facility] 07/13/2025 5:01 PM EDT 07/13/2025 5:05 PM EDT Narrative [facility] - 07/13/2025 5:14 PM EDT [id number], Clean Catch us Generic External Data Provider LAB URINE ORDERAB LES Final Result Performing Organization Address City/State/[facility] Co de Phone Number [facility] [address] [place] [phone] * CT Abdomen Pelvis w/ Contrast (07/13/2025 3:53 PM EDT) Anatomical Region Laterality Modality Body, Pelvis, Abdomen Computed T omography 07/13/2025 3:53 PM EDT Narrative 07/13/2025 4:34 PM EDT [address] [address] [address] Scan Report Signed Patient: Sharmila Xiao MR#: [id number] : 1965 Acct:[id number] Age/Sex: 60 / F ADM Date: 07/13/25 Loc: HO.ED Attending Dr: Ordering Physician: Mino Zendejas MD Date of Service: 07/13/25 Procedure(s): CT abdomen pelvis w IV con Accession Number(s): [id number] cc: Albert Iglesias MD; Mino Zendejas MD Report Number: [id number]: Total DLP = 700.00 mGy-cm Reason for Exam: L abdominal pain, known hernia, R/O incarceration EXAMINATION: CT ABDOMEN PELVIS WITH IV CONTRAST HISTORY: L abdominal pain, known hernia, R/O incarceration COMPARISON: ReVia CT of the abdomen and pelvis most recent January 2019 TECHNIQUE: CT scan of the abdomen and pelvis was performed following administration of 85 mL Omnipaque 350 using standard departmental protocol. Coronal and sagittal reformatted images were generated and reviewed. This CT exam was performed with one or more of the following dose reduction techniques: automated exposure control, adjustment of the mA and/or kV according to patient size, use of iterative reconstruction technique. DLP: 700 mGy-cm FINDINGS: LOWER CHEST: The visualized lung bases are clear. There is no pleural effusion. CARDIOVASCULATURE: The heart is normal in size. Partially visualized pacemaker leads in the right atrium and right ventricle. There is no pericardial effusion. LIVER: Fatty liver. The liver is highly enlarged right lobe measuring 19 cm in length. The liver is normal in contour. No liver mass is identified. 2The hepatic and portal veins are patent. GALLBLADDER / BILE DUCTS: Cholecystectomy. There is no intra or extrahepatic biliary ductal dilatation. SPLEEN: The spleen is normal in size. 4 mm low-attenuation lesion in the spleen axial image 19 series 3. This is difficult to characterize due to small size but may represent a cyst. PANCREAS: The pancreas is unremarkable in appearance. ADRENAL GLANDS: Within normal limits. KIDNEYS/RETROPERITONEUM: No renal calculi are identified. There is no hydronephrosis. Small bilateral low-attenuation renal lesions. Largest measures 9 mm in the lower pole of the left kidney compatible with a cyst. Smaller lesions difficult to accurately characterize due to small size but may represent small cysts as well. LYMPH NODES: No abdominal or pelvic lymphadenopathy. VASCULATURE: Atherosclerotic disease. No aneurysm.: Varices, left greater than right. MESENTERY/PERITONEUM: No free fluid. No masses. There is no free intraperitoneal gas. STOMACH: Normal SMALL BOWEL: The small bowel is normal in caliber. COLON: Diverticulosis. No evidence of diverticulitis. The colon is otherwise unremarkable. APPENDIX: The appendix is not seen, however no inflammatory changes are seen adjacent to the cecum. URINARY BLADDER/PELVIC ORGANS: The urinary bladder is unremarkable. Uterus and adnexa are unremarkable. There are pelvic varices. BONES / SOFT TISSUES: No suspicious bony or soft tissue abnormalities. Tiny umbilical hernia containing fat. No evidence of inflammation. Mild degenerative changes of the spine and hips. Stable 1 cm lucent lesion in the L1 vertebral body probably representing a benign hemangioma. Stable small sclerotic density in the right superior acetabulum probably representing a bone island. CT/CT abdomen pelvis w IV con IMPRESSION: Tiny umbilical hernia containing fat. No evidence of inflammation. No other hernia seen. Mild diverticulosis of the colon. No evidence of diverticulitis. Small low-attenuation bilateral renal and splenic lesions. These are difficult to characterize due to small size but probably represent small cysts. Slightly enlarged fatty liver. Pelvic varices. 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 Procedure Note Donotuseinterpreter, Image - 07/13/[address] [address] [address] Scan Report Signed Patient: Stevie Xiao#: [id number] : 1965Acct:[id number] Age/Sex: 60 / FADM Date: 07/13/25 Loc: HO.ED Attending Dr: Ordering Physician: Mino Zendejas MD Date of Service: 07/13/25 Procedure(s): CT abdomen pelvis w IV con Accession Number(s): [id number] cc: Albert Iglesias MD; Mino Zendejas MD Report Number: [id number]: Total DLP = 700.00 mGy-cm Reason for Exam: L abdominal pain, known hernia, R/O incarceration EXAMINATION: CT ABDOMEN PELVIS WITH IV CONTRAST HISTORY: L abdominal pain, known hernia, R/O incarceration COMPARISON: ReVia CT of the abdomen and pelvis most recent January 2019 TECHNIQUE: CT scan of the abdomen and pelvis was performed following administration of 85 mL Omnipaque 350 using standard departmental protocol. Coronal and sagittal reformatted images were generated and reviewed. This CT exam was performed with one or more of the following dose reduction techniques: automated exposure control, adjustment of the mA and/or kV according to patient size, use of iterative reconstruction technique. DLP: 700 mGy-cm FINDINGS: LOWER CHEST: The visualized lung bases are clear. There is no pleural effusion. CARDIOVASCULATURE: The heart is normal in size. Partially visualized pacemaker leads in the right atrium and right ventricle. There is no pericardial effusion. LIVER: Fatty liver. The liver is highly enlarged right lobe measuring 19 cm in length. The liver is normal in contour. No liver mass is identified. 2The hepatic and portal veins are patent. GALLBLADDER / BILE DUCTS: Cholecystectomy. There is no intra or extrahepatic biliary ductal dilatation. SPLEEN: The spleen is normal in size. 4 mm low-attenuation lesion in the spleen axial image 19 series 3. This is difficult to characterize due to small size but may represent a cyst. PANCREAS: The pancreas is unremarkable in appearance. ADRENAL GLANDS: Within normal limits. KIDNEYS/RETROPERITONEUM: No renal calculi are identified. There is no hydronephrosis. Small bilateral low-attenuation renal lesions. Largest measures 9 mm in the lower pole of the left kidney compatible with a cyst. Smaller lesions difficult to accurately characterize due to small size but may represent small cysts as well. LYMPH NODES: No abdominal or pelvic lymphadenopathy. VASCULATURE: Atherosclerotic disease. No aneurysm.: Varices, left greater than right. MESENTERY/PERITONEUM: No free fluid. No masses. There is no free intraperitoneal gas. STOMACH: Normal SMALL BOWEL: The small bowel is normal in caliber. COLON: Diverticulosis. No evidence of diverticulitis. The colon is otherwise unremarkable. APPENDIX: The appendix is not seen, however no inflammatory changes are seen adjacent to the cecum. URINARY BLADDER/PELVIC ORGANS: The urinary bladder is unremarkable. Uterus and adnexa are unremarkable. There are pelvic varices. BONES / SOFT TISSUES: No suspicious bony or soft tissue abnormalities. Tiny umbilical hernia containing fat. No evidence of inflammation. Mild degenerative changes of the spine and hips. Stable 1 cm lucent lesion in the L1 vertebral body probably representing a benign hemangioma. Stable small sclerotic density in the right superior acetabulum probably representing a bone island. CT/CT abdomen pelvis w IV con IMPRESSION: Tiny umbilical hernia containing fat. No evidence of inflammation. No other hernia seen. Mild diverticulosis of the colon. No evidence of diverticulitis. Small low-attenuation bilateral renal and splenic lesions. These are difficult to characterize due to small size but probably represent small cysts. Slightly enlarged fatty liver. Pelvic varices. 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 07/13/2025 2:50 PM EDT 07/13/2025 2:54 PM EDT Generic External Data Provider LAB BLOOD ORDERAB LES Final Result Performing Organization Address City/State/[facility] Co de Phone Number [facility] [address] [place] [phone] * (ABNORMAL) CBC auto differential (07/13/2025 2:50 PM EDT) [facility] White Blood Count 7.3 4.8 - 10.8 X10*3/uL [facility] Red Blood Count 4.80 4.20 - 5.50 X10*6/uL [facility] Hemoglobin 12.2 12.0 - 16.0 g/dl [facility] Hematocrit 39.2 37.0 - 47.0 % [facility] Mean Corpuscular Volume 81.7 80.0 - 98.0 fL [facility] Mean Corpuscular Hemoglobin 25.4(L) 27.0 - 33.0 pg [facility] Mean Corpuscular HGB Conc 31.1 31.0 - 35.0 g/dl [facility] Red Cell Distribution Width 17.4(H) 11.0 - 16.0 % [facility] Platelet Count 311 160 - 400 X10*3/uL [facility] Mean Platelet Volume 10.8 9.4 - 12.3 fL [facility] Neutrophils Percent Auto 57.1 45 - 73 % [facility] Imm Gran Pct Auto 0.6(H) 0.0 - 0.4 % [facility] Lymphocytes Percent Auto 33.8 20 - 40 % [facility] Monocytes Percent Auto 6.2 2 - 11 % [facility] Eosinophils Percent Auto 1.5 0 - 4 % [facility] Basophils Percent Auto 0.8 0 - 2 % [facility] NRBC Pct Auto 0.0 0.0 - 0.2 /100WBC [facility] Neutrophils Absolute Auto 4.2 2.0 - 8.3 x10*3/uL [facility] Imm Gran Abs Auto 0.04(H) 0.00 - 0.03 X10*3/uL [facility] Lymphocytes Absolute Auto 2.5 1.2 - 4.9 X10*3/uL [facility] Monocytes Absolute Auto 0.5 0.1 - 1.2 X10*3/uL [facility] Eosinophils Absolute Auto 0.1 0.0 - 0.4 X10*3/uL [facility] Basophils Absolute Auto 0.1 0.0 - 0.2 X10*3/uL [facility] NRBC Abs Auto 0.000 0.0 - 0.012 X10*3/uL [facility] 07/13/2025 2:50 PM EDT 07/13/2025 2:54 PM EDT us Generic External Data Provider LAB BLOOD ORDERAB LES Final Result [facility] [address] [place] [phone] * Lipase (07/13/2025 2:50 PM EDT) Lipase 18 8 - 78 U/L [facility] 07/13/2025 2:50 PM EDT 07/13/2025 2:54 PM EDT Generic External Data Provider LAB BLOOD ORDERAB LES Final Result Performing Organization Address [facility] de Phone Number [facility] [address] [place] [phone] * (ABNORMAL) Lactic Acid (07/13/2025 2:50 PM EDT) Pathologist [facility] Lactic Acid 2.1(HH) 0.5 - 2.0 mmol/L [facility] Comment:Critical value for t est(s): LACTA Results called to preet back by: DAXA Person calling: [email or web address] Date: 07/13/25Time:1519 07/13/2025 2:50 PM EDT 07/13/2025 2:54 PM EDT Generic External Data Provider LAB BLOOD ORDERAB LES Final Result Performing Organization Address [facility] de Phone Number [facility] [address] [place] [phone] * (ABNORMAL) Hepatic Function Panel (07/13/2025 2:50 PM EDT) Pathologist [facility] Bilirubin, Total 0.5 0.0 - 1.0 mg/dL [facility] Bilirubin, Direct 0.2 0.0 - 0.5 mg/dL [facility] Aspartate Amino Transferase 46(H) 5 - 31 U/L [facility] Alanine Aminotransferase 33(H) 0 - 31 U/L [facility] Total Protein 6.5 6.5 - 8.0 g/dL [facility] Albumin Level 4.0 3.5 - 5.0 g/dL [facility] Alkaline Phosphatase 101 39 - 117 U/L [facility] 07/13/2025 2:50 PM EDT 07/13/2025 2:54 PM EDT Generic External Data Provider LAB BLOOD ORDERAB LES Final Result Performing Organization Address [facility]/ZIP Co de Phone Number [facility] [address] [place] [address] [phone] * (ABNORMAL) Basic Metabolic Panel (07/13/2025 2:50 PM EDT) Pathologist [facility] Sodium 141 135 - 145 mmol/L [facility] Potassium 3.4 3.3 - 5.1 mmol/L [facility] Chloride 107 96 - 108 mmol/L [facility] Carbon Dioxide 27 22 - 29 mmol/L [facility] Anion Gap 10(L) 12 - 20 [facility] Urea Nitrogen (BUN) 7(L) 9 - 16 mg/dL [facility] Creatinine, Serum 0.79 0.5 - 1.4 mg/dL [facility] Creatinine Clr Calc Pharmacy 87.3 [facility] Comment:Provided height and weight: 162.56 cm,96.162 kg.eGFR (calculated from the MDRD study equation) and eCrCl(calculated from the Cockcroft-Gault equation) are based ondifferent parameters and may not yield comparable results.If eCrCl result is absurd, please check patient'sheight/weight. Estimated Glomerular Filt Rate >60 [facility] Comment:Chronic Kidney Disea se: Estimated GFR < 60 mL/min/1.81w4Nknqvr Kidney Disease: Estimated GFR < 15 mL/min/1.73m2 Glucose 105 60 - 115 mg/dL [facility] Calcium 9.0 8.4 - 10.2 mg/dL [facility] 07/13/2025 2:50 PM EDT 07/13/2025 2:54 PM EDT us Generic External Data Provider LAB BLOOD ORDERAB LES Final Result Performing Organization Address [facility]/ZIP Co de Phone Number [facility] [address] [place] [address] [phone] * POCT KIARRA-14 Urine Drug Screen (05/05/2025 2:25 PM EDT) THC Negative Negative Cocaine Screen, Urine Negative Negative Opiate Screen, Urine Negative Negative Methamphetamine Screen Urine Negative Negative Amphetamine Screen, Urine Negative Negative Benzodiazepines Screen, Urine Negative Negative Barbiturate Screen, Urine Negative Negative Methadone Screen, Urine Negative Negative Buprenophine Screen, Urine Negative Negative TCA, Urine Negative Negative MDMA Urine Negative Negative ng/mL Oxycodone Screen, Urine Negative Negative Phencyclidine (PCP), Urine Negative Negative Propoxyphene, Urine Negative Negative Fentanyl, Urine Negative Negative Urine Urine specimen obtained by clean catch procedure / Unknown 05/05/2025 2:25 PM EDT Narrative Liliane Thomas, RN - 05/05/2025 2:25 PM EDT Internal Pass Control Lot# [id number] Exp: 07-15-26 Albert Castro MD POINT OF CARE TEST ENTER/EDIT ORDERABLES Final Result * BI Mammogram Screening Tomosynthesis Bilateral (10/11/2024 11:30 AM EST) Anatomical Region Laterality Modality Breast Bilateral Mammography 10/11/2024 11:3 0 AM EST Narrative 10/19/2024 4:42 PM EST [facility] [address] [place] [address] Mammography Report Signed Patient: Sharmila Xiao MR#: [id number] : 1965 Acct:[id number] Age/Sex: 59 / F ADM Date: 10/11/24 Loc: HO.MAMMO Attending Dr: Albert Castro MD Ordering Physician: Albert Iglesias MD Res ults: 1Negative Date of Service: 10/11/24 Follow Up: 1 Year From [facility] Mammogram Procedure(s): MM tomosynthesis screening BI Accession Number(s): [id number] cc: Albert Iglesias MD EXAMINATION: MM SCREENING DIGITAL BREAST TOMOSYNTHESIS, BILATERAL CLINICAL INFORMATION: Screening. Asymptomatic. COMPARISON: Mammography: Comparison is made with available priors TECHNIQUE: Digital breast mammography with tomosynthesis is performed in both the craniocaudal and mediolateral oblique views along with computer-aided detection (CAD). FINDINGS: There are scattered areas of fibroglandular density (ACR BI-RADS breast composition Category b). There are no significant masses, abnormal calcifications, or other abnormalities. MM/MM tomosynthesis screening BI IMPRESSION: No mammographic evidence of malignancy. ASSESSMENT: BI-RADS BI-RADS 1 - Negative RECOMMENDATION: Routine annual mammography screening. 1 year F/U This examination should not preclude the clinical evaluation of a suspicious palpable abnormality. This patient's information was entered into a reminder system with a target due date for their next mammogram. Electronically signed by: Verena Harrison DO 10/19/2024 04:39 PM EST Dictated By: Verena Harrison DO Signed By: <Electronically signed by Verena Harrison DO in OV> 10/19/24 1639 DD/ 1130 TD/TT: 10/11/24 1142 Concrete Pipe Making Machine Operator: Procedure Note Donotuseinterpreter, Image - 10/19/2024 [facility] [address] [place] [address] Mammography Report Signed Patient: Sharmila Xiao#: [id number] : 1965Acct:[id number] Age/Sex: 59 / FADM Date: 10/11/24 Loc: HO.MAMMO Attending Dr: Albert Castro MD Ordering Physician: Albert Iglesias ults: 1Negative Date of Service: 10/11/24Follow Up: 1 Year From Orig inal Mammogram Procedure(s): MM tomosynthesis screening BI Accession Number(s): [id number] cc: Albert Iglesias MD EXAMINATION: MM SCREENING DIGITAL BREAST TOMOSYNTHESIS, BILATERAL CLINICAL INFORMATION: Screening. Asymptomatic. COMPARISON: Mammography: Comparison is made with available priors TECHNIQUE: Digital breast mammography with tomosynthesis is performed in both the craniocaudal and mediolateral oblique views along with computer-aided detection (CAD). FINDINGS: There are scattered areas of fibroglandular density (ACR BI-RADS breast composition Category b). There are no significant masses, abnormal calcifications, or other abnormalities. MM/MM tomosynthesis screening BI IMPRESSION: No mammographic evidence of malignancy. ASSESSMENT: BI-RADS BI-RADS 1 - Negative RECOMMENDATION: Routine annual mammography screening. 1 year F/U This examination should not preclude the clinical evaluation of a suspicious palpable abnormality. This patient's information was entered into a reminder system with a target due date for their next mammogram. Electronically signed by: Verena Harrison DO 10/19/2024 04:39 PM EST Dictated By: Verena Harrison DO Signed By: <Electronically signed by Verena Harrison DO in OV> 10/19/24 1639 DD/ 1130 TD/TT: 10/11/24 1142 Concrete Pipe Making Machine Operator: Albert Castro MD IMG BI PROCEDURES Final Result * (ABNORMAL) Lipid Panel, Standard (09/28/2024 11:38 AM EST) Triglycerides 200(H) <150 mg/dL [facility] Comment:Desirable Triglyceri de: less than 150 mg/dLBorderline High Triglyceride 150-199 mg/dLHigh Triglyceride: 200-499 mg/dLVery High Triglyceride: greater than or equal to 5OO mg/dL Cholesterol 201(H) <200 mg/dL [facility] Comment:Desirable Cholestero l: less than 200 mg/dLBorderline High Cholesterol: 200-239 mg/dLHigh Cholesterol: greater than 239 mg/dL LDL Cholesterol Calculated 103(H) <100 mg/dL [facility] Comment:Desirable LDL: less than 100 mg/dLNear Optimal/Above Optimal LDL: 110- 129 mg/dLBorderline High LDL: 130-159 mg/dLHigh LDL: 160-189 mg/dLVery High LDL: greater than or equal to 190 mg/dL HDL Cholesterol 58 >40 mg/dL [facility] Comment:Desirable HDL: great er than 40 mg/dL Note: This HDL assay may give artificially low results in patients with liver disease. Blood Venous blood specimen / Unknown 09/28/2024 11:38 AM EST 09/28/2024 1:57 PM EST Albert Castro MD LAB BLOOD ORDERABL ES Final Result Performing Organization Address [facility] Co de Phone Number [facility] [address] [place] [phone] * Hepatitis C Antibody with Reflex to HCV, RNA, Quantitative, Real-Time PCR (12/30/2023 11:01 AM EDT) Pathologist [facility] Hepatitis C Antibody Nonreactive Nonreactive [facility] Comment:Antibodies to HCV no t detected; does not exclude early acuteHCV infection. Blood Venous blood specimen / Unknown 12/30/2023 11:01 AM EDT 12/30/2023 2:26 PM EDT Albert Castro MD LAB BLOOD ORDERABL ES Final Result Performing Organization Address [facility] de Phone Number [facility] [address] [place] [phone] * Cologuard?? colon cancer screening (10/20/2023 10:51 AM EST) Cologuard Result Negative Negative 10/31/19 1:56 AM EST [facility] (CLIA #:[id number]) Comment: NEGATIVE TEST RESULT. A negative Cologuard result indicates a low likelihood that a colorectal cancer (CRC) or advanced adenoma (adenomatous polyps with more advanced pre-malignant features) is present. The chance that a person with a negative Cologuard test has a colorectal cancer is less than 1 in 1500 (negative predictive value >99.9%) or has an advanced adenoma is less than 5.3% (negative predictive value 94.7%). These data are based on a prospective cross-sectional study of 10,000 individuals at average risk for colorectal cancer who were screened with both Cologuard and colonoscopy. (Nasir Cheung al, N Engl J Med 2014;370(14):8867-1193) The normal value (reference range) for this assay is negative. COLOGUARD RE-SCREENING RECOMMENDATION: Periodic colorectal cancer screening is an important part of preventive healthcare for asymptomatic individuals at average risk for colorectal cancer. Following a negative Cologuard result, the [place] Cancer Society and U.S. Multi-Society Task Force screening guidelines recommend a Cologuard re-screening interval of 3 years. References: [place] [employer] Society Guideline for Colorectal Cancer Screening: https://www.cancer.org/cancer/sejgd-bwzcjl-ifhkro/fubvgffyp-fwwmddpwu-dghlwum/ac s-rec ommendations.html.; Endy DK, Regino COREY, Austen DeckerK, Colorectal Cancer Screening: Recommendations for Physicians and Patients from the U.S. Multi-Society Task Force on Colorectal Cancer Screening , Am J Gastroenterology 2017; 112:0303-5846. TEST DESCRIPTION: Composite algorithmic analysis of stool DNA-biomarkers with hemoglobin immunoassay. Quantitative values of individual biomarkers are not [...] screened with both Cologuard and colonoscopy. (Nasir Cheung al, N Engl J Med 2014;370(14):0986-3720.) Cologuard may produce a false negative or false positive result (no colorectal cancer or precancerous polyp present at colonoscopy follow up). A negative Cologuard test result does not guarantee the absence of CRC or advanced adenoma (pre-cancer). The current Cologuard screening interval is every 3 years. ([place] Cancer Society and U.S. Multi-Society Task Force). Cologuard performance data in a 10,000 patient pivotal study using colonoscopy as the reference method can be accessed at the following location: www.[employer].Element Works/results. Additional description of the Cologuard test process, warnings and precautions can be found at www.cologuard.com. Stool specimen (specimen) 10/20/2023 10:51 AM EST 10/22/2023 2:46 PM EST Albert Castro MD LAB MOLECULAR DIAG NOSTICS ORDERABLES Final Result [facility] (CLIA #:[id number]) [place] [address], * HPV E6/E7 RFLX KARISSA 16 18/45 (07/17/2022 2:56 PM EDT) HPV mRNA E6/E7 rflx Not Detected Not Detected [facility] Comment: Methodology: Watershed Tender-Mediated Amplification This assay detects E6/E7 viral messenger RNA (mRNA) from 14 high-risk HPV types (16,18,31,33,35,39,45,51,52,56,58,59,66,68). Cervical sources are required for HPV testing. If a vaginal source from a patient who has had a total hysterectomy with removal of cervix was submitted, please contact the testing laboratory for alternative testing options. For additional information, please refer to http://education.[employer].Element Works/faq/PTI545p0 (This link if provided for information/ educational purposes only.) THIS TEST WAS PERFORMED AT: [facility] [address] [place] [address],[place] [address] MELANIA WASHBURN MD 07/17/2022 2:56 PM EDT Kelsea Smith HISTORICAL/NON ORDERABLE LABS Fi nal Result [facility] * Hm Pap Smear (07/17/2022) us Historical Provider HEALTH MAINTENANCE Final Result * HIV 1/2 ANTIGEN/ANTIBODY,FOURTH GENERATION W/RFL (06/14/2020 10:13 AM EDT) HIV-1/2 ANTIGEN AND ANTIBODIES, 4TH GENERATION W/ REFLEX NON-REACT [facility] Comment: HIV-1 antigen and HIV-1/HIV-2 antibodies were not detected. There is no laboratory evidence of HIV infection. PLEASE NOTE: This information has been disclosed to you from records whose confidentiality may be protected by state law. If your state requires such protection, then the state law prohibits you from making any further disclosure of the information without the specific written consent of the person to whom it pertains, or as otherwise permitted by law. A general authorization for the release of medical or other information is NOT sufficient for this purpose. For additional information please refer to http://[employer].Global Grind/faq/DDD125 (This link is being provided for informational/ educational purposes only.) The performance of this assay has not been clinically validated in patients less than 2 years old. HIV-1/2 ANTIGEN AND ANTIBODIES, 4TH GENERATION W/ REFLEX NON-REACT [facility]ACT [facility] Comment: HIV-1 antigen and HIV-1/HIV-2 antibodies were not detected. There is no laboratory evidence of HIV infection. PLEASE NOTE: This information has been disclosed to you from records whose confidentiality may be protected by state law. If your state requires such protection, then the state law prohibits you from making any further disclosure of the information without the specific written consent of the person to whom it pertains, or as otherwise permitted by law. A general authorization for the release of medical or other information is NOT sufficient for this purpose. For additional information please refer to http://[employer]ogy.[employer].Element Works/faq/EMT707 (This link is being provided for informational/ educational purposes only.) The performance of this assay has not been clinically validated in patients less than 2 years old. HIV-1/2 ANTIGEN AND ANTIBODIES, 4TH GENERATION W/ REFLEX NON-REACT [facility]ACT [facility] Comment: HIV-1 antigen and HIV-1/HIV-2 antibodies were not detected. There is no laboratory evidence of HIV infection. PLEASE NOTE: This information has been disclosed to you from records whose confidentiality may be protected by state law. If your state requires such protection, then the state law prohibits you from making any further disclosure of the information without the specific written consent of the person to whom it pertains, or as otherwise permitted by law. A general authorization for the release of medical or other information is NOT sufficient for this purpose. For additional information please refer to http://education.[employer] Gr[employer]/faq/BCC313 (This link is being provided for informational/ educational purposes only.) The performance of this assay has not been clinically validated in patients less than 2 years old. 06/14/2020 10:1 3 AM EDT Romelia ADDISON LAB BLOOD ORDERABLES Shelby pollard Result Performing Organization Address City/State/[facility] Co or Phone Number [facility] Anywhere [address] * Hm Colonoscopy (04/03/2017 2:43 PM EDT) Historical Provider HEALTH MAINTENANCE Final Result from Last 3 Months or Most Recently Relevant to Health Maintenance Insurance [facility] C[place] AD[place] Care Teams Auto Damage Insurance Appraiser Relationship Specialty Start Date End Date Albert Iglesias MD [address] [place] [address] PCP - General Internal Medicine 02/13/20 Robert Ramirez, RN [address] [place] [address] Registered Nurse Family Medicine 07/13/25 Amari Dutton 07/13/25 [employer] Sales RepresentativeBaby Formula Worker 06/11/24
--- OUTSIDE RECORDS SUMMARY | 2025-07-13 18:11 | XMS_ITS | Encounter Summary ---
Author Organization [facility] Address [address] [place] [address] Care Team Providers Care Communications Program Manager Name Role Phone Eunice Laureano MD Primary Care Provider Suleiman Hutchison MD Unavailable [phone] Krystin Borjas PA-C Unavailable [facility], Pcp Primary Care Provider Ewelina Juan Ch MD Primary Care Provider [phone] Encounter Details Date Type Department Care Team Description 11/18/2019 [facility] [address] [place] [address] Krystin Borjas PA-C [address] [place] [address] Social History Tobacco Use Types Packs/Day Years Used Date Smoking Tobacco: Former Cigarettes 0.5 Q uit: 04/06/2010 Smokeless Tobacco: Former Alcohol [...] on file documented as of this encounter Visit Diagnoses Not on filedocumented in this encounter Care Teams Communications Program Manager Relationship Specialty Start Date End Date Eunice Laureano MD PCP - General 02/18/19 06/27/21 [facility], [facility] PCP - General Internal Medicine 06/28/21 09/02/21 Juan Juan MD [address] [place] [address] PCP - General Internal Medicine 09/03/21 Suleiman Belle MD Specialist Cardiology 09/22/20 Krystin Borjas PA-C Specialist Cardiology 09/22/20 documented as of this encounter
--- OUTSIDE RECORDS SUMMARY | 2025-07-13 18:11 | XMS_ITS | Encounter Summary ---
Author Organization [facility] Address [address] [place] [address] Care Team Providers Care Import Manager Name Role Phone Eunice Laureano MD Primary Care Provider Suleiman Hutchison MD Unavailable [phone] Krystin Borjas PA-C Unavailable [facility], Pcp Primary Care Provider Ewelina Juan Ch MD Primary Care Provider [phone] Encounter Details Date Type Department Care Team Description 10/22/2019 Hospital Cardio PVC POC [phone] [facility] [address] [place] [address] [facility] Social History Tobacco Use Types Packs/Day Years [...] on filedocumented in this encounter Care Teams Import Manager Relationship Specialty Start Date End Date Eunice Laureano MD PCP - General 02/18/19 06/27/21 [facility], Pcp PCP - General Internal Medicine 06/28/21 09/02/21 Juan Juan, [address] [place] [address] PCP - General Internal Medicine 09/03/21 Suleiman Belle MD Specialist Cardiology 09/22/20 Krystin Borjas PA-C Specialist Cardiology 09/22/20 documented as of this encounter
--- OUTSIDE RECORDS SUMMARY | 2025-07-13 18:11 | XMS_ITS | Encounter Summary ---
Author Organization [facility] Address [address] [place] [address] Phone Care Team Providers Care Senior Mobile Developer Name Role Phone Balaji Kim MD Unavailable [phone] Lorri Wick MD Unavailable Albert Iglesias MD Primary Care Prov ider Encounter Details Date Type Department Care Team (Late Contact Info) Description 05/17/2022 Ancillary Orders [facility] [address] [facility], 9th Floor, [address] [place] [address] Heena Cárdenas, RN [address] [place] [address] [email or web address] Pituitary adenoma Social History Tobacco Use Types [...] Description 09/12/2025 3:40 PM EST Office Visit [facility] Endocrinology [address] [place] [phone] Lorri Wick MD [address] [address] [email or web address] documented as of this encounter Visit Diagnoses Diagnosis Pituitary adenoma Benign 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) documented in this encounter Additional Health Concerns Assessment Noted Time PHQ-2 Depression Total Score: 0 09/22/19 21 11:06 AM EST documented as of this encounter Care Teams Senior Mobile Developer Relationship Specialty Start Date End Date Albert Iglesias MD [address] [place] [address] PCP - General Internal Medicine 03/24/21 Balaji Kim MD [address] [place] [address] Drive [address] [place] [address] Neurosurgery 04/12/16 Lorri Wick MD [address] [address] [email or web address] Internal Medicine 11/06/16 documented as of this encounter Additional Source Comments The information contained in this document represents components of the legal health record. It is not the complete legal health record.[facility]
--- OUTSIDE RECORDS SUMMARY | 2025-07-13 18:11 | XMS_ITS | Encounter Summary ---
Author Organization [facility] Address [address] [place] [address] Care Team Providers Care [place] Name Role Phone Eunice Laureano MD Primary Care Provider Suleiman Hutchison MD Unavailable [phone] Krystin Borjas PA-C Unavailable [facility], Pcp Primary Care Provider Ewelina Juan Ch MD Primary Care Provider [phone] Encounter Details Date Type Department Care Team Description 05/04/2020 [facility] [address] [place] [address] Abstract, Provider Social History Tobacco Use Types [...] on filedocumented in this encounter Care Teams [place] Relationship Specialty Start Date End Date Eunice Laureano MD PCP - General 02/18/19 06/27/21 [facility], Pcp PCP - General Internal Medicine 06/28/21 09/02/21 Juan Juan, [address] [place] [address] PCP - General Internal Medicine 09/03/21 Suleiman Belle MD Specialist Cardiology 09/22/20 Krystin Borjas PA-C Specialist Cardiology 09/22/20 documented as of this encounter
--- OUTSIDE RECORDS SUMMARY | 2025-07-13 18:11 | XMS_ITS | Encounter Summary ---
Author Organization [facility] Address [address] [place] [address] Phone Care Team Providers Care Email Marketing Specialist Name Role Phone Balaji Kim MD Unavailable [phone] Lorri Wick MD Unavailable Albert Iglesias MD Primary Care Prov ider Encounter Details Date Type Department Care Team (Late Contact Info) Description 05/31/2022 Ancillary Orders [facility] [address] [facility], 9th Floor, [address] [place] [address] Heena Cárdenas, RN [address] [place] [address] [email or web address] Pituitary adenoma Social History Tobacco Use Types [...] Description 09/12/2025 3:40 PM EST Office Visit [facility] Endocrinology [address] [place] [phone] Lorri Wick MD [address] [address] [email or web address] documented as of this encounter Visit Diagnoses Diagnosis Pituitary adenoma Benign 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) documented in this encounter Additional Health Concerns Assessment Noted Time PHQ-2 Depression Total Score: 0 09/22/19 21 11:06 AM EST documented as of this encounter Care Teams Email Marketing Specialist Relationship Specialty Start Date End Date Albert Iglesias MD [address] [place] [address] PCP - General Internal Medicine 03/24/21 Balaji Kim MD [address] [place] [address] Drive [address] [place] [address] Neurosurgery 04/12/16 Lorri Wick MD [address] [address] [email or web address] Internal Medicine 11/06/16 documented as of this encounter Additional Source Comments The information contained in this document represents components of the legal health record. It is not the complete legal health record.[facility]
--- OUTSIDE RECORDS SUMMARY | 2025-07-13 18:11 | XMS_ITS | Encounter Summary ---
Author Organization [facility] Address [address] [place] [address] Phone Care Team Providers Care Entry Level Project Coordinator Name Role Phone Balaji Kim MD Unavailable [phone] Lorri Wick MD Unavailable Albert Iglesias MD Primary Care Prov ider Encounter Details Date Type Department Care Team (Late Contact Info) Description 05/31/2022 Ancillary Orders [facility] Neuro Oncology [address] [facility], 9th Floor, [address] [place] [address] Lola Davidson MD, PhD 55 [facility] [address] [place] [address] [email or web address] Pituitary adenoma Social History Tobacco Use [...] Description 09/12/2025 3:40 PM EST Office Visit [facility] Endocrinology [place] [address] [place] [address] Lorri Wick MD [address] [address] [email or web address] documented as of this encounter Visit Diagnoses Diagnosis Pituitary adenoma Benign 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) documented in this encounter Additional Health Concerns Assessment Noted Time PHQ-2 Depression Total Score: 0 09/22/19 21 11:06 AM EST documented as of this encounter Care Teams Entry Level Project Coordinator Relationship Specialty Start Date End Date Albert Iglesias MD [address] [place] [address] PCP - General Internal Medicine 03/24/21 Balaji Kim MD [address] [place] [address] Drive [address] [place] [address] Neurosurgery 04/12/16 Lorri Wick MD [address] [address] [email or web address] Internal Medicine 11/06/16 documented as of this encounter Additional Source Comments The information contained in this document represents components of the legal health record. It is not the complete legal health record.[facility]
--- OUTSIDE RECORDS SUMMARY | 2025-07-13 18:11 | XMS_ITS | Encounter Summary ---
Author Organization [facility] Address [address] [place] [address] Phone Care Team Providers Care Java Developer With Security Clearance Name Role Phone Balaji Kmi MD Unavailable [phone] Lorri Wick MD Unavailable [phone] Albert Iglesias MD Primary Care Prov ider Encounter Details Date Type Department Care Team (Late Contact Info) Description 05/24/2022 Ancillary Orders [facility] Neuro Oncology [address] [facility], 9th Floor, [address] [place] [address] Heena Cárdenas, RN [address] [place] [address] [email or web address] Pituitary adenoma Social History Tobacco Use Types [...] Description 09/12/2025 3:40 PM EST Office Visit [facility] Endocrinology [address] [place] [id number] Lorri Wick MD [address] [address] [email or web address] documented as of this encounter Visit Diagnoses Diagnosis Pituitary adenoma Benign 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) documented in this encounter Additional Health Concerns Assessment Noted Time PHQ-2 Depression Total Score: 0 09/22/19 21 11:06 AM EST documented as of this encounter Care Teams Java Developer With Security Clearance Relationship Specialty Start Date End Date Albert Iglesias MD [address] [place] [address] PCP - General Internal Medicine 03/24/21 Balaji Kim MD [address] [place] [address] Drive [address] [place] [address] Neurosurgery 04/12/16 Lorri Wick MD [address] [address] [email or web address] Internal Medicine 11/06/16 documented as of this encounter Additional Source Comments The information contained in this document represents components of the legal health record. It is not the complete legal health record.[facility]
--- OUTSIDE RECORDS SUMMARY | 2025-07-13 18:11 | XMS_ITS | Encounter Summary ---
Author Organization [facility] Address [address] [place] [address] Care Team Providers Care Biomedical Repair Technician Name Role Phone Suleiman Belle MD Unavailable Krystin Borjas PA-C Unavailable Juan Juan MD Primary Care Provider [phone] Encounter Details Date Type Department Care Team Description 03/31/2023 Orders Only Medical Records [address] [place] [address] Abstract, Provider Social History Tobacco Use Types [...] Name Priority Date/Time Associated Diagnosis Comments OUTSIDE PLAIN FILM Routine 03/31/2023 documented in this encounter Results * OUTSIDE PLAIN FILM (03/31/2023) Provider Abstract RADIOLOGY documented in this encounter Visit Diagnoses Not on filedocumented in this encounter Care Teams Biomedical Repair Technician Relationship Specialty Start Date End Date Juan Juan MD [address] [place] [address] PCP - General Internal Medicine 09/03/21 Suleiman Belle MD Specialist Cardiology 09/22/20 Krystin Borjas PA-C Specialist Cardiology 09/22/20 documented as of this encounter
--- OUTSIDE RECORDS SUMMARY | 2025-07-13 18:11 | XMS_ITS | Encounter Summary ---
Author Organization [facility] Address [address] [place] [address] Phone Care Team Providers Care Supervisor Electric Motor Testing Name Role Phone Balaji Kim MD Unavailable [phone] Lorri Wick MD Unavailable [phone] Albert Iglesias MD Primary Care Prov ider Encounter Details Date Type Department Care Team (Late Contact Info) Description 06/07/2022 Ancillary Orders [facility] for Neuro Oncology 32 [facility], 9th Floor, [address] [place] [address] Lola Davidson MD, PhD 55 [facility] [address] [place] [address] [email or web address] Pituitary adenoma Social History Tobacco Use Types [...] Description 09/12/2025 3:40 PM EST Office Visit [facility] Endocrinology [place] [address] [place] [address] Lorri Wick MD [address] [address] [email or web address] documented as of this encounter Visit Diagnoses Diagnosis Pituitary adenoma Benign 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) documented in this encounter Additional Health Concerns Assessment Noted Time PHQ-2 Depression Total Score: 0 09/22/19 21 11:06 AM EST documented as of this encounter Care Teams Supervisor Electric Motor Testing Relationship Specialty Start Date End Date Albert Iglesias MD [address] [place] [address] PCP - General Internal Medicine 03/24/21 Balaji Kim MD [address] [place] [address] Drive [address] [place] [address] Neurosurgery 04/12/16 Lorri Wick MD [address] [address] [email or web address] Internal Medicine 11/06/16 documented as of this encounter Additional Source Comments The information contained in this document represents components of the legal health record. It is not the complete legal health record.[facility]
--- OUTSIDE RECORDS SUMMARY | 2025-07-13 18:11 | XMS_ITS | Encounter Summary ---
Author Organization [facility] Address [address] [place] [address] Care Team Providers Care First Assistant Manager Name Role Phone Suleiman Belle MD Unavailable [phone] Krystin Borjas PA-C Unavailable Juan Juan MD Primary Care Provider [phone] Encounter Details Date Type Department Care Team Description 11/07/2022 SCAN Medical Records [address] [place] [address] Abstract, Provider Social History Tobacco Use Types [...] on filedocumented in this encounter Care Teams First Assistant Manager Relationship Specialty Start Date End Date Juan Juan MD [address] [place] [address] PCP - General Internal Medicine 09/03/21 Suleiman Belle MD Specialist Cardiology 09/22/20 Krystin Borjas PA-C Specialist Cardiology 09/22/20 documented as of this encounter
--- OUTSIDE RECORDS SUMMARY | 2025-07-13 18:11 | XMS_ITS | Encounter Summary ---
Author Organization [facility] Address [address] [place] [address] Care Team Providers Care Speech And Language Assistant Name Role Phone Eunice Laureano MD Primary Care Provider Suleiman Hutchison MD Unavailable Krystin Borjas PA-C Unavailable [facility], Pcp Primary Care Provider Ewelina Juan Ch MD Primary Care Provider [phone] Encounter Details Date Type Department Care Team Description 06/15/2020 Cheesemaking Laborer Report Medical Records [address] [place] [address] Shonna Najera NP Social History Tobacco Use Types Packs/Day Years [...] on filedocumented in this encounter Care Teams Speech And Language Assistant Relationship Specialty Start Date End Date Eunice Laureano MD PCP - General 02/18/19 06/27/21 [facility], Pcp PCP - General Internal Medicine 06/28/21 09/02/21 Juan Juan, [address] [place] [address] PCP - General Internal Medicine 09/03/21 Suleiman Belle MD Specialist Cardiology 09/22/20 Krystin Borjas PA-C Specialist Cardiology 09/22/20 documented as of this encounter
--- OUTSIDE RECORDS SUMMARY | 2025-07-13 18:11 | XMS_ITS | Encounter Summary ---
Author Organization [email or web address] [facility] Address [address] [place] [address] Care Team Providers Care Concrete Engineer Name Role Phone Suleiman Belle MD Unavailable [phone] Krystin Borjas PA-C Unavailable Juan Juan MD Primary Care Provider [phone] Encounter Details Date Type Department Care Team Description 02/05/2022 SCAN Medical Records [address] [place] [address] Abstract, Provider Social History Tobacco Use Types Packs/Day Years Used Date Smoking Tobacco: Every Day Cigarettes 0.3 Last attempted to quit: 04/06/2010 Smokeless Tobacco: Former Alcohol Use Standard [...] Name Priority Date/Time Associated Diagnosis Comments OUTSIDE CT Routine 02/05/2022 documented in this encounter Results * OUTSIDE CT (02/05/2022) Provider Abstract RADIOLOGY documented in this encounter Visit Diagnoses Not on filedocumented in this encounter Care Teams Concrete Engineer Relationship Specialty Start Date End Date Juan Juan MD [address] [place] [address] PCP - General Internal Medicine 09/03/21 Suleiman Belle MD Specialist Cardiology 09/22/20 Krystin Borjas PA-C Specialist Cardiology 09/22/20 documented as of this encounter
--- OUTSIDE RECORDS SUMMARY | 2025-07-13 18:11 | XMS_ITS | Encounter Summary ---
Author Organization [facility] Address [address] [place] [address] Phone Care Team Providers Care Spinner Cap Frame Name Role Phone Balaji Kim MD Unavailable [phone] Lorri Wick MD Unavailable Albert Iglesias MD Primary Care Prov ider Encounter Details Date Type Department Care Team (Late Contact Info) Description 05/17/2022 Ancillary Orders [facility] Center for Neuro Oncology [address] [facility], 9th Floor, [address] [place] [address] Lola Davidson MD, PhD 55 [facility] [address] [place] [address] [email or web address] Pituitary adenoma Social History Tobacco Use [...] Description 09/12/2025 3:40 PM EST Office Visit [facility] Endocrinology [address] [address] Lorri Wick MD [address] [place] [address] [email or web address] documented as of this encounter Procedures Procedure Name Priority Date/Time Associated Diagnosis Comments COMPREHENSIVE METABOLIC PANEL Routine 05/22/2022 10:44 AM EDT Pituitary adenoma CBC AND DIFFERENTIAL Routine 05/22/2022 10:44 AM EDT Pituitary adenoma documented in this encounter Results * (ABNORMAL) Comprehensive metabolic panel (05/22/2022 10:44 AM EDT) Glucose 92 65 - 139 mg/dL [facility] Comment: Non-fasting reference interval Urea Nitrogen (BUN) 10 7 - 25 mg/dL [facility] Creatinine 0.82 0.50 - 1.03 mg/dL [facility] EGFR 84 > OR = 60 mL/min/1 .73m2 [facility] Comment: The eGFR is based on the CKD-EPI 2020 equation. To calculate the new eGFR from a previous Creatinine or Cystatin C result, go to https://www.kidney.org/professionals/ kdoqi/gfr%5Fcalculator BUN/Creatinine Ratio NOT APPLICABLE 6 - 22 (calc) [facility] Sodium 144 135 - 146 mmol/L [facility] Potassium 4.2 3.5 - 5.3 mmol/L [facility] Chloride 103 98 - 110 mmol/L [facility] Carbon Dioxide 34(H) 20 - 32 mmol/L [facility] Calcium 9.8 8.6 - 10.4 mg/dL [facility] Protein, Total 6.6 6.1 - 8.1 g/dL [facility] Albumin 3.9 3.6 - 5.1 g/dL [facility] Globulin 2.7 1.9 - 3.7 g/dL (calc) [facility] Albumin/Globuli n Ratio 1.4 1.0 - 2.5 (calc) [facility] Bilirubin, Total 0.3 0.2 - 1.2 mg/dL [facility] Alkaline Phosphatase 107 37 - 153 U/L [facility] AST 27 10 - 35 U/L [facility] ALT 35(H) 6 - 29 U/L [facility] Blood 05/22/2022 10:4 4 AM EDT 05/22/2022 10:45 AM EDT Narrative [facility] [[email or web address]] [employer] [facility]-[address] [place] [address] - 05/22/2022 10:11 PM EDT FASTING:NO FASTING: NO Lola Davidson MD, PhD LAB BLOOD KENNETH QUINN Final Result [employer] [address] [address], [facility] [employer] [address], [facility] [place] [address] * (ABNORMAL) CBC and differential (05/22/2022 10:44 AM EDT) WBC 7.8 3.8 - 10.8 Thousand/ uL [facility] Red Blood Cell 4.99 3.80 - 5.10 Million/u L [facility] Hemoglobin 12.2 11.7 - 15.5 g/dL [facility] Hematocrit 39.7 35.0 - 45.0 % [facility] MCV 79.6(L) 80.0 - 100.0 fL [facility] MCH 24.4(L) 27.0 - 33.0 pg [facility] [employer] [facility] MCHC 30.7(L) 32.0 - 36.0 g/dL [facility] RDW 15.6(H) 11.0 - 15.0 % [facility] Platelet Count 247 140 - 400 Thousand/ uL [facility] MPV 10.5 7.5 - 12.5 fL [facility] Absolute Neutrophils 4,267 1,500 - 7,800 cells/uL [facility] Absolute Lymphocytes 2,761 850 - 3,900 cells/uL [facility] Absolute Monocytes 585 200 - 950 cells/uL [facility] Absolute Eosinophils 148 15 - 500 cells/uL [facility] Absolute Basophils 39 0 - 200 cells/uL [facility] Neutrophils 54.7 % [facility] Lymphocytes 35.4 % [facility] Monocytes 7.5 % [facility] Eosinophils 1.9 % [facility] Basophils 0.5 % [facility] Blood 05/22/2022 10:4 4 AM EDT 05/22/2022 10:45 AM EDT Narrative [employer]-[address] [place] [address] - 05/22/2022 10:11 PM EDT FASTING:NO FASTING: NO us Lola Davidson MD, PhD LAB BLOOD KENNETH QUINN Final Result [employer] [facility] [address], [facility] [employer] [facility] [address] [place] [address], [place] [address] documented in this encounter Visit Diagnoses Diagnosis Pituitary adenoma Benign 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) documented in this encounter Additional Health Concerns Assessment Noted Time PHQ-2 Depression Total Score: 0 09/22/19 21 11:06 AM EST documented as of this encounter Care Teams Spinner Cap Frame Relationship Specialty Start Date End Date Albert Iglesias MD [address] [place] [address] PCP - General Internal Medicine 03/24/21 Balaji Kim MD [address] [place] [address] Drive [address] [place] [address] Neurosurgery 04/12/16 Lorri Wick MD [address] [place] [address] [email or web address] Internal Medicine 11/06/16 documented as of this encounter Additional Source Comments The information contained in this document represents components of the legal health record. It is not the complete legal health record.[facility]
--- OUTSIDE RECORDS SUMMARY | 2025-07-13 18:11 | XMS_ITS | Encounter Summary ---
Author Organization [facility] Address [address] [place] [address] Care Team Providers Care Combination Operator Name Role Phone Suleiman Belle MD Unavailable [phone] Krystin Borjas PA-C Unavailable Juan Juan MD Primary Care Provider [phone] Encounter Details Date Type Department Care Team Description 07/06/2022 Hospital Medical Records [address] [place], [place] [id number] [place] [address] Social History Tobacco Use Types Packs/Day Years [...] Date/Time Associated Diagnosis Comments OUTSIDE LAB Routine 07/07/2022 OUTSIDE LAB Routine 07/07/2022 OUTSIDE EKG Routine 07/06/2022 OUTSIDE PLAIN FILM Routine 07/06/2022 documented in this encounter Results * OUTSIDE LAB (07/07/2022) Provider Abstract LAB * OUTSIDE LAB (07/07/2022) Provider Abstract LAB * OUTSIDE PLAIN FILM (07/06/2022) Provider Abstract RADIOLOGY * OUTSIDE EKG (07/06/2022) Provider Abstract CARDIOLOGY documented in this encounter Visit Diagnoses Not on filedocumented in this encounter Care Teams Combination Operator Relationship Specialty Start Date End Date Juan Juan MD [facility] [place] [address] PCP - General Internal Medicine 09/03/21 Suleiman Belle MD Specialist Cardiology 09/22/20 Krystin Borjas PA-C Specialist Cardiology 09/22/20 documented as of this encounter
--- OUTSIDE RECORDS SUMMARY | 2025-07-13 18:11 | XMS_ITS | Encounter Summary ---
Author Organization [facility] Address [address] [place] [address] Care Team Providers Care Warehouse Insulation Worker Name Role Phone Doug Melendez MD Primary Care Provider Unavail [facility], Pcp Primary Care Provider Eunice Stein MD Primary Care Provider UnavailSuleiman Meehan MD Unavailable [phone] Krystin Borjas PA-C Unavailable [facility], Pcp Primary Care Provider Ewelina Juan Ch MD Primary Care Provider [phone] Encounter Details Date Type Department Care Team Description 01/06/2014 Building Custodian Report Medical Records [address] [place] [address] Dinora Doty MD Social History Tobacco Use Types Packs/Day [...] on filedocumented in this encounter Care Teams Warehouse Insulation Worker Relationship Specialty Start Date End Date Doug Melendez MD PCP - General 03/06/05 06/16/16 [facility], Pcp PCP - General Internal Medicine 06/17/16 02/17/19 Eunice Laureano MD PCP - General 02/18/19 06/27/21 [facility], Pcp PCP - General Internal Medicine 06/28/21 09/02/21 Juan Juan, [address] [place] [address] PCP - General Internal Medicine 09/03/21 Suleiman Belle MD Specialist Cardiology 09/22/20 Krystin Borjas PA-C Specialist Cardiology 09/22/20 documented as of this encounter
--- OUTSIDE RECORDS SUMMARY | 2025-07-13 18:11 | XMS_ITS | Encounter Summary ---
Author Organization [facility] Address [address] [place] [address] Care Team Providers Care Substitute Bus Driver Name Role Phone Suleiman Belle MD Unavailable [phone] Krystin Borjas PA-C Unavailable Juan Juan MD Primary Care Provider [phone] Encounter Details Date Type Department Care Team Description 12/01/2023 SCAN Medical Records [address] [place] [address] [facility] Social History Tobacco Use Types Packs/Day [...] on filedocumented in this encounter Care Teams Substitute Bus Driver Relationship Specialty Start Date End Date Juan Juan MD [address] [place] [address] PCP - General Internal Medicine 09/03/21 Suleiman Belle MD Specialist Cardiology 09/22/20 Krystin Borjas PA-C Specialist Cardiology 09/22/20 documented as of this encounter
--- OUTSIDE RECORDS SUMMARY | 2025-07-13 18:12 | XMS_ITS | Encounter Summary ---
Author Organization [facility] Address [address] [place] [address] Phone Care Team Providers Care Business Employment Specialist Name Role Phone Balaji Kim MD Unavailable [phone] Lorri Wick MD Unavailable Albert Iglesias MD Primary Care Prov ider Encounter Details Date Type Department Care Team (Late st Contact Info) Description 05/30/2025 Ancillary Orders [facility] [place] [address] [facility], 5th Floor, [address] [place] [address] Clay Degroot, LACTATION SPECIALIST, DNP [address] [address] [email or web address] Pituitary adenoma (Primary Dx) Social History Tobacco Use Types Packs/Day Years Used Date Smoking Tobacco: Former Cigarettes 1 30 0 09/15/1970 - 09/15/2000 Smokeless Tobacco: Never Alcohol Use Standard Drinks/Week Comments No 0 (1 standard drink = 0.6 oz pur e alcohol) Education Answer Date Recorded Are you interested in more education? Not on lionel e 01/10/2023 Are you concerned about learning? Not on file 01/10/2023 No 01/10/2023 No 01/10/2023 Digital Access Answer Date Recorded No 02/09/2023 No 02/09/2023 Reliable internet access at home? Not on file 02/09/2023 Device with a working camera? Not on file Intimate Partner Violence Answer Date R ecorded Are you denied basic needs s uch as food, clothing, or medical care? No 01/22/2023 In the past 12 months have y ou been in a relationship with a person who hurts, threatens, or tries to control you? No 01/22/2023 Are you denied basic needs s uch as food, clothing, or medical care? No 01/22/2023 In the past 12 months have y ou been in a relationship with a person who hurts, threatens, or tries to control you? No 01/22/2023 Comments No Sex and Gender Information Value Date Recorded Sex Assigned at Not on file Legal Sex Female 2:02 PM EDT Gender Identity Not on file Sexual Orientation Not on file documented as of this encounter Plan of Treatment Upcoming Encounters Date Type Department Care Team (Late st Contact Info) Description 09/12/2025 3:40 PM EST Office Visit [facility] Endocrinology [address] [id number] Lorri Wick MD [address] [place] [id number] [email or web address] documented as of this encounter Results * XR Neck Soft Tissue (05/30/2025 11:47 AM EDT) Anatomical Region Laterality Modality Neck Computed Radiogr aphy 05/30/2025 11:5 0 AM EDT Impressions 05/30/2025 11:52 AM EDT 1. Linear high attenuation material overlying the RIGHT posterior skull. No other metallic foreign body. Narrative 05/30/2025 11:52 AM EDT XR NECK SOFT TISSUE, XR SKULL COMPLETE 4 OR MORE VIEWS Referring clinician's provided indication for this examination in [facility]: * Pituitary adenoma, known or suspected COMPARISON: CT ANGIO HEAD WITH AND WITHOUT CONTRAST FINDINGS: Linear high attenuation material overlying the RIGHT posterior skull, unchanged from prior CT scan, likely embolization material or other postoperative change. No other metallic foreign body overlying the skull or neck. Mild degenerative changes in the cervical spine. Partially visualized pacemaker device. Procedure Note Ramon Worley MD - 05/30/2025 XR NECK SOFT TISSUE, XR SKULL COMPLETE 4 OR MORE VIEWS Referring clinician's provided indication for this examination in [facility]: *Pituitary adenoma, known or suspected COMPARISON: CT ANGIO HEAD WITH AND WITHOUT CONTRAST FINDINGS: Linear high attenuation material overlying the RIGHT posterior skull,unchanged from prior CT scan, likely embolization material or otherpostoperative change. No other metallic foreign body overlying the skullor neck. Mild degenerative changes in the cervical spine. Partiallyvisualized pacemaker device. IMPRESSION: 1. Linear high attenuation material overlying the RIGHT posterior skull.No other metallic foreign body. Clay Degroot LACTATION SPECIALIST, DNP IMG XR CHEST F inal Result documented in this encounter Visit Diagnoses Diagnosis Pituitary adenoma- Primary Benign 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) Pituitary adenoma Benign 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) documented in this encounter Additional Health Concerns Assessment Noted Time PHQ-2 Depression Total Score: 0 09/22/19 21 11:06 AM EST documented as of this encounter Care Teams Business Employment Specialist Relationship Specialty Start Date End Date [facility] Albert Castro MD [address] [place] [id number] PCP - General Internal Medicine 03/24/21 Balaji Kim MD [address] [place] [address] Neurosurgery 04/12/16 Lorri Wick MD [address] [address] [email or web address] Internal Medicine 11/06/16 documented as of this encounter Additional Source Comments The information contained in this document represents components of the legal health record. It is not the complete legal health record.[facility]
--- OUTSIDE RECORDS SUMMARY | 2025-07-13 18:12 | XMS_ITS | Encounter Summary ---
Author Organization [employer] Address [address] [place] [address] [address] [place] [address] Care Team Providers Care Payer Specialist Name Role Phone Albert Iglesias MD Primary Care Prov ider Robert Ramirez RN Unavailable [phone] Amari Dutton Unavailable Reason for Visit * Reason Comments Care Coordination C3CM- chart review Encounter Details Date Type Department Care Team (Latest Contact Info) Description 07/13/2025 Patient Outreach [facility] [address] [place] [address] Albert Iglesias MD [address] [place] [address] Care Coordination (C3CM- chart review) Social History Tobacco Use Types Packs/Day Years [...] your housing situation today? I have rod camila 09/28/[address] you li [...] as of this encounter Progress Notes * Robert Ramirez RN - 07/13/2025 8:15 AM EDT CM Robert Ramirez RN, performed chart review, in anticipation of initial assessment with patient, aspatient has stratified for C3 Adult Complex Care through the ADT feed. History significant for hypothyroidism, hypertension, cardiac pacemaker in situ, cognitive disorder, CHF, GERD w/ esophagitis, hy perlipidemia, obesity, ERIKA, pituitary adenoma, smoker, cervical radiculopathy, chronic diarrhea, periodontal disease. Specialists include GI, [facility] [place], [facility] [place], [facility] dental, [facility] MULTI OPERATION FORMING MACHINE SETTER, [facility] endocrinology, [facility] cardiology. ED visits within the last 12 months include [facility] 07/12/25. Last appointment in PCP office on 06/23/25 ([facility] dental). Next appointment scheduled for 08/03/25 ([employer] [place]). documented in this encounter Plan of Treatment Upcoming Encounters Date Type Department Care Team (Late st Contact Info) Description 08/03/2025 3:15 PM EST Clinical Support [facility] [address] [place] [address] Liliane Thomas, [place] [address] [place] [address] documented as of this encounter Visit Diagnoses Not on filedocumented in this encounter Additional Health Concerns Assessment Noted Time PHQ-9 Depression Total Score: 5 09/28/19 25 10:57 AM EST documented as of this encounter Care Teams Payer Specialist Relationship Specialty Start Date End Date Albert Iglesias MD [address] [place] [address] PCP - General Internal Medicine 02/13/20 Robert Ramirez, [place] [address] [place] [address] Registered Nurse Family Medicine 07/13/25 Amari Dutton 07/13/25 Panchito Cole SommelierLunchroom Monitor 06/11/24 documented as of this encounter
--- OUTSIDE RECORDS SUMMARY | 2025-07-13 18:12 | XMS_ITS ---
Author Organization [employer] Address [address] [place] [address] [address] [place] [address] Care Team Providers Care Paper Rewinder Name Role Phone Albert Iglesias MD Primary Care Prov ider Robert Ramirez RN Unavailable [phone] Amari Dutton Unavailable CHW Complex Status:Outreach In Progress (Enrolling) Start date:07/13/2025 Enrollment reason:ADT Feed Overview ED- Pt went to [facility] ED on 07/12/25. Case Team Name Relationship Phone Amari Dutton(Responsible Staff) [phone] Continued Care and Services Coordination
--- OUTSIDE RECORDS SUMMARY | 2025-07-13 18:12 | XMS_ITS | Clinical Summary ---
Author Organization [facility] Address [address] [place] [address] Phone Care Team Providers Care Manager Of It Name Role Phone Balaji Kim MD Unavailable [phone] Lorri Wick MD Unavailable [phone] AcharyaAlbert Orr MD Primary Care Prov ider Allergies Active Allergy Reactions Criticality Noted Date Comments Lactose Other (See Comments) 06/12/2022 Other reaction(s): intolerance Other reaction(s): intolerance Other Reaction(s): intolerance Medications albuterol (PROVENTIL HFA;VENTOLIN HFA) 90 mcg/actuation inhaler Inhale 2 puffs into the lungs every 6 (six) hours as needed for wheezing. Active omeprazole (PRILOSEC) 40 MG capsule Take 40 mg by mouth daily. Active rosuvastatin (CRESTOR) 20 MG tablet Take 20 mg by mouth daily. Active metoprolol succinate (TOPROL-XL) 50 MG 24 hr tablet Take 50 mg by mouth daily. Active cloNIDine HCL (CATAPRES) 0.2 MG tablet Take 0.2 mg by mouth every 12 (twelve) hours. Active clonazePAM (KLONOPIN) 1 MG tablet Take 1 mg by mouth 2 (two) times a day as needed for anxiety. Active acetaminophen (TYLENOL) 325 mg tablet Take 2 tablets (650 mg total) by mouth every 6 (six) hours as needed. 0 Active Additional Information Patient not taking.Reported on 02/21/2025 docusate sodium (COLACE) 100 MG capsule Take 1 capsule (100 mg total) by mouth 2 (two) times a day. 3 Active Additional Information Patient not taking.Reported on 02/21/2025 busPIRone (BUSPAR) 5 MG tablet Take 5 mg by mouth 3 (three) times a day. 3 Active amLODIPine (NORVASC) 5 MG tablet Take 5 mg by mouth daily. 4 Active esomeprazole (NEXIUM) 40 MG capsule Take 40 mg by mouth daily before breakfast. 5 Active metoprolol tartrate (LOPRESSOR) 100 MG tablet Take 100 mg by mouth 2 (two) times a day. Active pantoprazole (PROTONIX) 20 MG tablet Take 20 mg by mouth daily. Active QUEtiapine (SEROQUEL) 50 MG tablet Take 50 mg by mouth 2 (two) times a day. Active traMADoL (ULTRAM) 50 mg tablet Take 50 mg by mouth. 5 Active venlafaxine (EFFEXOR-XR) 150 MG 24 hr capsule 150 mg daily. 5 Active venlafaxine (EFFEXOR-XR) 37.5 MG 24 hr capsule 37.5 mg daily. 5 Active levothyroxine (SYNTHROID, LEVOTHROID) 150 MCG tabletIndications :Hypopituitarism Take 1 tablet (150 mcg total) by mouth every morning. 90 tablet 3 5 Active hydrocortisone (CORTEF) 5 MG tabletIndications :Hypopituitarism, Adrenal insufficiency Please take 15mg (3 tablets) in the morning, 5mg (1 tablet) in the afternoon, and 5mg (1 tablet) in the evening until otherwise directed. 400 tablet 3 5 Active Active Problems Problem Noted Date Diagnosed Date Hypopituitarism 02/21/2025 Adrenal insufficiency 02/21/2025 Assessment & Plan (02/21/2025 5:11 PM EDT): Consistent taking rx. Aware of need to stress dose. Thyroid nodule 02/21/2025 Assessment & Plan (02/21/2025 5:11 PM EDT): S/p benign FNA 06/2023, will repeat ultrasound. Anxiety 07/30/2022 Cardiac pacemaker in situ 10/11/2021 Sinus node dysfunction 10/11/2021 S/P placement of cardiac pacemaker 10/19/2020 Overview (02/21/2025): Cardiac pacemaker Nonischemic cardiomyopathy 08/23/2020 Overview (02/21/2025): Last Assessment & Plan: LVEF has normalized and she is not having active heart failure symptoms. Continue metoprolol and pacemaker with remote monitoring. I encouraged her to continue a low carbohydrate diet to lower her triglycerides. We talked about possible fish oil supplementation. Ventricular tachycardia 08/23/2020 Overview (02/21/2025): Last Assessment & Plan: As below. 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 Had MRI last 2023, uncertain comparison to previous as @ different facility (measurements smaller per report). Was to see neurosurgery again but does not appear appt was made. Will put in new referral. RLS (restless legs syndrome) 05/17/2015 Depression 12/01/2014 Benign essential hypertension 10/04/2005 Overview (02/21/2025): Last Assessment & Plan: Hypertension is well-controlled on current medicines and diet. I did encourage a low-sodium diet is much as possible. Hypertension GERD (gastroesophageal reflux disease) Hyperlipidemia Hypothyroidism Assessment & Plan (02/21/2025 5:10 PM EDT): Reports good consistency taking rx appropriately. Will check TFTs. Asthma Arthritis AK (myocardial infarction) Overview (05/13/2016): unclear hx, no cath, occurred in [place], [place] Encounters Date Type Department Care Team Description 06/17/2025 9:55 AM EDT - 06/17/2025 11:59 PM EDT Hospital Encounter [facility] Imaging - Xray, [place] [address] [facility], 6th [address], [address] [place] [address] Clay Degroot CNP, ROZ Discharge Disposition: Home or Self Care 06/17/2025 9:41 AM EDT - 06/17/2025 9:54 AM EDT Hospital Encounter [facility] Card Device Check [address] [place] [address] Mario Shaw MD, PhD Discharge Disposition: Home or Self Care 06/17/2025 9:28 AM EDT - 06/17/2025 9:40 AM EDT Hospital Encounter [facility] - MRI [address] [facility], 6th [place] [address] Clay Degroot CNP, ROZ Discharge Disposition: Home or Self Care 06/17/2025 Ancillary Orders [facility] Neurosurgery [address], 5th Floor, [address] [place] [address] Clay Degroot CNP, ROZ (Primary Dx) 06/17/2025 Ancillary Orders [facility] Neurosurgery [address], 5th Floor, [address] [place] [address] Clay Degroot CNP, ROZ Pituitary adenoma (Primary Dx) 06/17/2025 Procedure Pass [facility] Card Device Check [address] [place] [address] 06/17/2025 Orders Only [facility] - MRI [address] [facility], [address] [place] [address] Darrian Samuel Pacemaker (Primary Dx) 06/07/2025 Telephone [facility] Neurosurgery [address], 5th Floor, [address] [place] [address] Matilda Malcolm MD 05/30/2025 11:22 AM EDT - 05/30/2025 11:59 PM EDT Hospital Encounter [facility] Imaging - Xray, [place] [address] [facility], 6th Floor, [address] [place] [address] Clay Degroot CNP, ROZ Discharge Disposition: Home or Self Care 05/30/2025 11:22 AM EDT - 05/30/2025 11:59 PM EDT Hospital Encounter [facility] Imaging - Xray, [place] [address] [facility], 6th Floor, [address] [place] [address] Clay Degroot CNP, ROZ Discharge Disposition: Home or Self Care 05/30/2025 10:30 AM EDT - 05/30/2025 11:21 AM EDT Hospital Encounter [facility] Card Device Check [address] [place] [address] Armando Ponce MD, MPH Discharge Disposition: Home or Self Care 05/30/2025 Ancillary Orders [facility] Neurosurgery [address], 5th Floor, [address] [place] [address] Clay Degroot CNP, ROZ Pituitary adenoma (Primary Dx) 05/30/2025 Ancillary Orders [facility] Neurosurgery [address], 5th [address], [address] [place] [address] Clay Degroot CNP, ROZ Pituitary adenoma (Primary Dx) 05/30/2025 Procedure Pass [facility] Card Device Check [address] [place] [address] 05/30/2025 Orders Only [facility] Cardiac EP [address] [facility], 5th [address], [address] [place] [address] Armando Ponce MD, MPH Cardiac pacemaker in situ (Primary Dx) 03/28/2025 Procedure Pass [facility] - MRI [address] [facility], [address]th [place] [address] from Last 3 Months Family History Medical History Relation Comments Heart attack Father Diabetes Mother Hypertension Mother Thyroid disease Mother Thyroid disease Sister Relation Status Comments Brother Alive Father Maternal Grandfather Maternal Grandmother Mother Alive Paternal Grandfather Paternal Grandmother Sister Social History Tobacco Use Types Packs/Day Years Used Date Smoking Tobacco: Former Cigarettes 1 30 0 09/15/1970 - 09/15/2000 Smokeless Tobacco: Never Tobacco Cessation:Counseling Given: Not Answered Alcohol Use Standard Drinks/Week Comments No 0 [...] on file Sexual Orientation Not on file Last Filed Vital Signs Vital Sign Reading Time Taken Comments Blood Pressure 111/69 05/30/2025 11:20 AM EDT Pulse 75 05/30/2025 11:20 AM EDT Temperature 36.3 C (97.4 F) 02/21/2025 3:20 PM EDT Respiratory Rate 20 05/30/2025 11:20 AM EDT Oxygen Saturation 98% 05/30/2025 11:20 AM EDT Inhaled Oxygen Concentration 50% 05/14/2016 1 1:30 AM EDT Weight 97.6 kg (215 lb 3.2 oz) 02/21/2025 3:20 P M EDT Height 162.6 cm (5' 4.02 ) 02/21/2025 3:20 PM ED T Body Mass Index 36.92 02/21/2025 3:20 PM EDT Plan of Treatment Upcoming Encounters Date Type Department Care Team (Late st Contact Info) Description 09/12/2025 3:40 PM EST Office Visit [facility] Endocrinology [address] [place] [phone] Lorri Wick MD [address] [place] [id number] Health Maintenance Due Date Last Done Comments HEPATITIS C SCREENING 1985 HIV ONE-TIME SCREENING (18-65 YEARS) 1985 PAP SMEAR 1988 COLOGUARD 2012 COLONOSCOPY 2012 COLORECTAL CANCER SCREENING 2012 FIT TEST 2012 FOBT 2012 SIGMOIDOSCOPY 2012 VIRTUAL COLONOSCOPY 2012 RSV VACCINE (1 - Risk 50-74 years 1-dose series) 2017 PNEUMOCOCCAL VACCINES (50+ years) (2 of 2 - PCV) 10/17/2018 10/17/2017, 02/26/2011 ZOSTER VACCINES (2 of 2) 08/10/2019 06/15/2019 DEPRESSION SCREENING 09/22/2021 09/22/2020 MAMMOGRAM 07/17/2023 07/17/2021 INFLUENZA VACCINE (#1) 2025 , 06/08/2019, 06/23/2018, Additional history exists COVID-19 VACCINE ( - 2024- season) 2025 BLOOD PRESSURE 08/23/2025 02/21/2025 TSH LEVEL 03/02/2026 03/02/2025, 0703/2023, 02/12/2022, Additional history exists SCREENING FOR DIABETES 04/10/2026 04/10/2023 Adult Td,Tdap Booster 06/25/2026 06/25/2016, 007 LIPID PANEL 09/28/2029 09/28/2024, 12/14, 10/09/2022, Additional history exists SMOKING STATUS SCREENING (Once After 26 Yrs) Completed 02/21/2025 HEPATITIS A VACCINES Aged Out No long er eligible based on patient's age to complete this topic HIB VACCINES Aged Out No longer eligi ble based on patient's age to complete this topic MENINGOCOCCAL VACCINES (ACWY) Aged Out No longer eligible based on patient's age to complete this topic MENINGOCOCCAL VACCINES (B) Aged Out N o longer eligible based on patient's age to complete this topic Medical Devices Implanted Type Area Multiple Tube Winding Machine Operator Device Identifier Shelf Expiration Date Model / Serial / Lot Medtronic In 5076 Capsurefix Novus [id number] Implanted:10/14 (Quantity not on file) Lead [employer] 5076 CAPSUREFIX NOVUS / [id number] / Medtronic In 5076 Capsurefix Novus [id number] Implanted:10/14 (Quantity not on file) Lead [employer] 5076 CAPSUREFIX NOVUS / [id number] / Medtronic In [id number] Everson Xt Dr Mri [id number] Implanted:10/14 (Quantity not on file) Pacemaker [employer] [id number] ALEX XT DR MRI / [id number] / Transphenoidal [id number] Sellar Implant [id number] - [id number] Implanted:Qty: 1 on 05/14/2016 by Marcial Gage MD at [facility] STANDARD N/A: Cranial AMY CRANIOMAXILLOFACIAL DI 09/14/2020 [id number] / / [id number] Unknown Implant In Skull (Possible Embo Coils) Description:Unknown implant/ fb seen on skull imaging. Sent to safety team at [facility]- confirmed ok to scan up to 3T with consent. -[id number] added 06/09/25. (Patient also has pacer please follow those guidelines from flatwork feeder.) Pacemaker/Lead Mri Info-10/14/2019 Implanted:10/14 (Quantity not on file) Description:EP Device Check 10/02/22 Medtronic Alex [id number] and Capsure fix leads 5076 (52) & (45) implanted 10/14/19 - MRI Conditional per flatwork feeder - needs to be coordinated with Ep and Nursing - follow flatwork feeder guidelines - [id number] 04/01/23 Procedures Procedure Name Priority Date/Time Associated Diagnosis Comments MRI BRAIN (PITUITARY) WITH AND WITHOUT CONTRAST Routine 06/17/2025 11:03 AM EDT Pituitary adenoma DEVICE CHECK: PPM PRE & POST MIGUEL-PROCEDURAL PROGRAMMING Routine 06/17/2025 10:04 AM EDT Pacemaker XR CHEST PA AND LATERAL 2 VIEWS Routine 06/17/2025 10:01 AM EDT Pituitary adenoma XR SKULL COMPLETE 4 OR MORE VIEWS Urgent/patient waiting 05/30/2025 11:47 AM EDT Pituitary adenoma XR NECK SOFT TISSUE Urgent/patient waiting 05/30/2025 11:47 AM EDT Pituitary adenoma DEVICE CHECK: PPM PRE & POST MIGUEL-PROCEDURAL PROGRAMMING Routine 05/30/2025 10:27 AM EDT Cardiac pacemaker in situ TSH Routine 03/02/2025 12:44 PM EDT Hypopituitarism from Last 3 Months or Most Recently Relevant to Health Maintenance Results * MRI BRAIN (PITUITARY) WITH AND WITHOUT CONTRAST (06/17/2025 11:03 AM EDT) Anatomical Region Laterality Modality Head Magnetic Resonan ce 06/17/2025 12:3 5 PM EDT Impressions 06/17/2025 1:10 PM EDT 1. Postsurgical changes related to transsphenoidal approach debulking of the right aspect of the sellar mass with similar size of the residual mass with invasion of the left cavernous sinus and encasement of the left ICA similar to MRI of brain April 2023. No signal abnormality or mass effect on the optic nerves or optic chiasm. 2. Stable 3mm enhancing lesion in the anterior inferior right frontal lobe, compared to prior exams dating back to 2016. This finding is favored to reflect a benign entity such as a vascular malformation. ATTESTATION: I, Dr. Jaja Suazo as teaching physician, have reviewed the images for this case and if necessary edited the report originally created by Madeleine Wade. Narrative 06/17/2025 1:10 PM EDT MRI BRAIN (PITUITARY) WITH AND WITHOUT CONTRAST Referring clinician's provided indication for this examination in Epic: * Pituitary adenoma, known or suspected Review of the Electronic Medical Record reveals an additional history of: 60y.o.female who initially presented in 1999 with persistent headaches and a large suprasellar pituitary adenoma, with recurrent non-functioning pituitary null cell adenoma and multiple endoscopic TSS (1999 followed by postop RT; 2011; 2015; 2022). TECHNIQUE: MRI BRAIN (PITUITARY) WITH AND WITHOUT CONTRAST COMPARISON: MRI pituitary 08/19/2024 and 05/02/2023 FINDINGS: Sella: Postsurgical changes related to transsphenoidal approach debulking of the sellar mass with partial resection of the right aspect of the lesion. The residual right sella mass measures up to 9 mm in craniocaudal dimension, similar as compared to the prior study in August 2024 and April 2023 with unchanged invasion into the most cranial aspect of the clivus. The heterogeneously enhancing mass along the left aspect of the pituitary gland measures 23 x 27 mm (CC AP), similar in size as compared to the prior study dating back to April 2023. The infundibulum is deviated towards right. Similar left suprasellar extension is seen and laterally the mass is invading the left cavernous sinus extending beyond the lateral margin of the interarterial line with encasement of the left ICA (Knosp Grade 3). Along the right lateral aspect of masses abutting the right ICA and reaching up to the medial tangent and the intercarotid line (Knosp Grade 1). The cavernous ICA flow voids are maintained. There is similar soft tissue in the anterior superior aspect of the clivus which measures 14 x 15 x 12 mm (AP transverse cc) and along the posterior superior aspect of the clivus in continuity with the enhancing sellar mass which measures approximately 8 x 6.8 mm (AP cc). No evidence of signal abnormality or mass effect on the optic chiasm, however it appears thinned similar to prior. Brain: Scattered T2/FLAIR hyperintense foci in periventricular and subcortical supratentorial white matter are nonspecific but favored to represent chronic small vessel disease. There is redemonstration of a 3mm focus of enhancement within the anterior inferior right frontal lobe, near the right olfactory groove (series 15, image 2) which is unchanged in appearance when compared to multiple prior exams dating back to 2015. This finding may reflect a small vascular malformation. No evidence of acute infarct, mass lesion, hemorrhage or new areas of abnormal enhancement. There is no evidence of midline shift or hydrocephalus. Extracranial Structures: Paranasal sinuses and mastoids appear clear. Orbits unremarkable. Procedure Note Jaja Suazo MD - 06/17/2025 MRI BRAIN (PITUITARY) WITH AND WITHOUT CONTRAST Referring clinician's provided indication for this examination in [facility]: *Pituitary adenoma, known or suspected Review of the Electronic Medical Record reveals an additional history of:60y.o.female who initially presented in 1999 with persistent headaches alexis large suprasellar pituitary adenoma, with recurrent non-functioningpituitary null cell adenoma and multiple endoscopic TSS (1999 followed bypostop RT; 2011; 2015; 2022). TECHNIQUE: MRI BRAIN (PITUITARY) WITH AND WITHOUT CONTRAST COMPARISON: MRI pituitary 08/19/2024 and 05/02/2023 FINDINGS: Sella: Postsurgical changes related to transsphenoidal approach debulkingof the sellar mass with partial resection of the right aspect of thelesion. The residual right sella mass measures up to 9 mm in craniocaudaldimension, similar as compared to the prior study in August 2024 andApril 2023 with unchanged invasion into the most cranial aspect of theclivus. The heterogeneously enhancing mass along the left aspect of thepituitary gland measures 23 x 27 mm (CC AP), similar in size as comparedto the prior study dating back to April 2023. The infundibulum isdeviated towards right. Similar left suprasellar extension is seen andlaterally the mass is invading the left cavernous sinus extending beyondthe lateral margin of the interarterial line with encasement of the leftICA (Knosp Grade 3). Along the right lateral aspect of masses abutting theright ICA and reaching up to the medial tangent and the intercarotid line(Knosp Grade 1). The cavernous ICA flow voids are maintained. There issimilar soft tissue in the anterior superior aspect of the clivus whichmeasures 14 x 15 x 12 mm (AP transverse cc) and along the posteriorsuperior aspect of the clivus in continuity with the enhancing sellar masswhich measures approximately 8 x 6.8 mm (AP cc). No evidence of signalabnormality or mass effect on the optic chiasm, however it appears thinnedsimilar to prior. Brain: Scattered T2/FLAIR hyperintense foci in periventricular andsubcortical supratentorial white matter are nonspecific but favored torepresent chronic small vessel disease. There is redemonstration of a 3mmfocus of enhancement within the anterior inferior right frontal lobe, nearthe right olfactory groove (series 15, image 2) which is unchanged inappearance when compared to multiple prior exams dating back to 2015. Thisfinding may reflect a small vascular malformation. No evidence of acuteinfarct, mass lesion, hemorrhage or new areas of abnormal enhancement.There is no evidence of midline shift or hydrocephalus. Extracranial Structures: Paranasal sinuses and mastoids appear clear.Orbits unremarkable. IMPRESSION: 1. Postsurgical changes related to transsphenoidal approach debulking ofthe right aspect of the sellar mass with similar size of the residual masswith invasion of the left cavernous sinus and encasement of the left ICAsimilar to MRI of brain April 2023. No signal abnormality or mass effecton the optic nerves or optic chiasm. 2. Stable 3mm enhancing lesion in the anterior inferior right frontallobe, compared to prior exams dating back to 2015. This finding is favoredto reflect a benign entity such as a vascular malformation. ATTESTATION: I, Dr. Jaja Suazo as teaching physician, have reviewed theimages for this case and if necessary edited the report originally createdby Madeleine Wade. Clay Degroot RETAIL SALES TEAMMATE, DNP IMG MR HEAD/NECK Final Result * DEVICE CHECK: PPM PRE & POST MIGUEL-PROCEDURAL PROGRAMMING (06/17/2025 10:04 AM EDT) Only the most recent of2 resultswithin the time period is included. Date Time Interrogation Session [id number] 6+0000 [employer] Implantable Pulse Generator Multiple Tube Winding Machine Operator Medtronic Tacit Software Implantable Pulse Generator Model W1DR01 Everson XT DR TOVAR [employer] Implantable Pulse Generator Serial Number [id number] [facility] Type Interrogation Session In Clinic [facility] Clinic Name Arrhythmia Device Clinic [facility] Implantable Pulse Generator Type Pacemaker [facility] Generator Implant Date 20191014 [facility] Implantable Lead Multiple Tube Winding Machine Operator Medtronic [employer] [facility] Implantable Lead Model 5076 CapSureFix Novus [facility] [employer] Implantable Lead Serial Number [id number] [facility] Implantable Lead Implant Date 20191014 [facility] Implantable Lead Polarity Type Bipolar Lead [facility] Implantable Lead Location Detail 1 UNKNOWN [facility] Implantable Lead Location Right Atrium [facility] Implantable Lead Multiple Tube Winding Machine Operator Medtronic [facility] Implantable Lead Model 5076 CapSureFix Novus [facility] Implantable Lead Serial Number [id number] [facility] Implantable Lead Implant Date 20191014 [facility] Implantable Lead Polarity Type Bipolar Lead [facility] Implantable Lead Location Detail 1 UNKNOWN [facility] Implantable Lead Location Right Ventricle [facility] Дмитрий Setting Mode (NBG Code) MVP AAIR DDDR [facility] Дм[employer]ий Setting Lower Rate Limit 60 {beats}/ min [facility] Дм[employer] Setting Maximum Tracking Rate 130 {beats}/ min [facility] Дм[employer]ий Setting Maximum Sensor Rate 130 {beats}/ min [facility] Дм[employer]ий Setting Hysterisis Rate DISABLED [facility] Дмитрий Setting NICOLAS Delay Low 150 ms [facility] Дмитрий Setting PAV Delay Low 180 ms [facility] Дмитрий Setting AT Mode Switch Rate 150 {beats}/ min [facility] Lead Channel Setting Sensing Polarity Bipolar [facility] Lead Channel Setting Sensing Anode Location Right [facility] Lead Channel Setting Sensing Anode Terminal Ring [facility] Lead Channel Setting Sensing Cathode Location Right [facility] Lead Channel Setting Sensing Cathode Terminal Tip UNITED [facility] [employer] [facility] Lead Channel Setting Sensing Sensitivity 0.45 mV [place] [employer] [facility] Lead Channel Setting Sensing Polarity Bipolar [facility] [place] [employer] [facility] Lead Channel Setting Sensing Anode Location Right Ventricle [facility] Lead Channel Setting Sensing Anode Terminal Ring [facility] Lead Channel Setting Sensing Cathode Location Right Ventricle [facility] Lead Channel Setting Sensing Cathode Terminal Tip [employer] [facility] Lead Channel Setting Sensing Sensitivity 0.9 mV [place] [employer] [facility] Lead Channel Setting Pacing Polarity Bipolar [facility] Lead Channel Setting Pacing Anode Location Right Atrium [facility] Lead Channel Setting Pacing Anode Terminal Ring [facility] [employer] [facility] Lead Channel Setting Sensing Cathode Location Right Atrium [facility] Lead Channel Setting Sensing Cathode Terminal Tip [employer] [place] [employer] [facility] Lead Channel Setting Pacing Pulse Width 0.4 ms [place] [employer] [facility] Lead Channel Setting RA Pacing Amplitude 1.5 V [place] [employer] [facility] Lead Channel Setting Pacing Capture Mode Adaptive [place] [employer] [facility] Lead Channel Setting Pacing Polarity Bipolar [facility] [employer] [facility] [facility] Lead Channel Setting Pacing Anode Location Right Ventricle [facility] Lead Channel Setting Pacing Anode Terminal Ring [facility] [employer] [facility] Lead Channel Setting Sensing Cathode Location Right Ventricle [facility] Lead Channel Setting Sensing Cathode Terminal Tip [employer] [facility] Lead Channel Setting Pacing Pulse Width 0.4 ms [facility] [place] [employer] [facility] Lead Channel Setting Pacing Amplitude 2 V [place] [employer] [facility] Lead Channel Setting Pacing Capture Mode Adaptive [facility] Zone Setting Type Category VF [facility] [place] [employer] [facility] Zone Setting Vendor Type Category V High Rate [facility] [employer] [facility] Zone Setting Type Category VT [facility] [place] [employer] [facility] Zone Setting Vendor Type Category FastVT [facility] Zone Setting Type Category VT [facility] Zone Setting Vendor Type Category VT [facility] Zone Setting Type Category VT [facility] Zone Setting Vendor Type Category MonVT [facility] Zone Setting Status Monitor [facility] Zone Setting Detection Interval 400 ms [facility] Zone Setting Type Category ATRIAL_FIBRIL LATION [facility] Zone Setting Vendor Type Category FastATAF [facility] Zone Setting Status Monitor [facility] Zone Setting Detection Interval 200 ms [facility] Zone Setting Type Category AT/AF [facility] Zone Setting Status Active [facility] Zone Setting Detection Interval 400 ms [facility] Atrial Impedance 399 ohm [facility] Atrial Impedance 361 ohm [facility] P Wave 1.5 mV [facility] P Wave 1.5 mV [facility] RA Threshold 0.5 V [facility] RA Threshold PW 0.4 ms [facility] RV Impedance 893 ohm [facility] RV Impedance 836 ohm [facility] R Wave 13.875 mV [facility] R Wave 11.5 mV [facility] RV Threshold 0.5 V [facility] RV Threshold PW 0.4 ms [facility] Battery Date Time of Measurements +0000 [facility] Battery Status OK [facility] Battery FLY RAIL OPERATOR Trigger 2.625 [facility] Battery Remaining Longevity 92 mo [facility] Battery Voltage 2.98 V [facility] Дмитрий Statistic Date Time Start [facility] Дмитрий Statistic Date Time End 6+0000 [facility] AP (%) 99.38 % [facility] SPORTS MANAGEMENT INTERN (%) 0.05 % [facility] AP/SPORTS MANAGEMENT INTERN % 0.05 % [facility] /SPORTS MANAGEMENT INTERN % 0 % [facility] AP/VS % 99.34 % [facility] /VS % 0.62 % [facility] Atrial Tachy Statistic Date Time Start 9+0000 [facility] Atrial Tachy Statistic Date Time End 6+0000 [facility] Atrial Tachy Statistic AT/AF Fountain Percent 0 % [facility] Therapy Statistic Recent Date Time Start [id number] 9+0000 [facility] Therapy Statistic Recent Date Time End 6+0000 [facility] Therapy Statistic Total Date Time Start 9+0000 [facility] Therapy Statistic Total Date Time End 6+0000 [facility] Episode Statistic Recent Count 0 [facility] Episode Statistic Type Category AT/AF [facility] Episode Statistic Recent Count 0 [facility] Episode Statistic Type Category Patient Activated [facility] Episode Statistic Recent Count 0 [facility] Episode Statistic Type Category SVT [facility] Episode Statistic Recent Count 0 [facility] Episode Statistic Type Category VT [facility] Episode Statistic Recent Count 0 [facility] Episode Statistic Type Category VT [facility] Episode Statistic Recent Date Time Start 9+0000 [facility] Episode Statistic Recent Date Time End 6+0000 [facility] Episode Statistic Recent Date Time Start 9+0000 [facility] Episode Statistic Recent Date Time End 6+0000 [facility] Episode Statistic Recent Date Time Start 9+0000 [facility] Episode Statistic Recent Date Time End 6+0000 [facility] Episode Statistic Recent Date Time Start 9+0000 [facility] Episode Statistic Recent Date Time End 6+0000 [facility] Episode Statistic Recent Date Time Start 9+0000 [facility] Episode Statistic Recent Date Time End 6+0000 [facility] Episode Statistic Total Count 0 [facility] Episode Statistic Type Category AT/AF [facility] Episode Statistic Total Count 0 [facility] Episode Statistic Type Category Patient Activated [facility] Episode Statistic Total Count 0 [facility] Episode Statistic Type Category SVT [facility] Episode Statistic Total Count 0 [facility] Episode Statistic Type Category VT [facility] Episode Statistic Total Count 0 [facility] Episode Statistic Type Category VT [facility] Episode Statistic Total Date Time Start 9+0000 [facility] Episode Statistic Total Date Time End 6+0000 [facility] Episode Statistic Total Date Time Start 9+0000 [facility] Episode Statistic Total Date Time End [id number] 6+0000 [facility] Episode Statistic Total Date Time Start 9+0000 [facility] Episode Statistic Total Date Time End 6+0000 [facility] Episode Statistic Total Date Time Start 9+0000 [facility] Episode Statistic Total Date Time End 6+0000 [facility] Episode Statistic Total Date Time Start 9+0000 [facility] Episode Statistic Total Date Time End 6+0000 [facility] 06/17/2025 10:0 4 AM EDT Narrative [facility] - 06/22/2025 2:38 PM EDT Breezykey 6- MRI programming In person device evaluation: Appropriate PPM function. Battery longevity estimate: 7 yrs 8 mos Episodes: none Underlying Rhythm: AP-VS @ 40 bpm AP 99.4% SPORTS MANAGEMENT INTERN <0.1% Histograms: HR distribution mainly 60s-80s, minimal to 120s bpm Available lead measurements are within normal limits and trends are stable. Changes: MRI SureScan programmed AOO 80s bpm per Follow up: device returned to original settings post-MRI Dear Patient, You may see a lot of technical details in this report. Please be assured that important issues will be identified and someone will contact you if there is any necessary follow up. us Mario Shaw MD, PhD CV CARDIAC SERVICES ORDERAB LES Final Result [facility] [address] [place] [address] * XR CHEST PA AND LATERAL 2 VIEWS (06/17/2025 10:01 AM EDT) Anatomical Region Laterality Modality Chest Computed Radiogr aphy 06/17/2025 10:5 0 AM EDT Impressions 06/17/2025 10:50 AM EDT Lungs are clear. No pulmonary edema. Narrative 06/17/2025 10:50 AM EDT XR CHEST PA AND LATERAL 2 VIEWS Referring clinician's provided indication for this examination in [facility]: Foreign Body COMPARISON: None FINDINGS: Devices/Tubes/Lines: Pacer leads are in the region of the RIGHT atrium and RIGHT ventricle. Lungs: The lungs are clear. No focal consolidation or pulmonary edema. Pleura: No pleural effusion or pneumothorax. Heart/Mediastinum: The heart and mediastinum are normal. Bones/Soft Tissues: No significant skeletal abnormality. Procedure Note Gela Fuentes MD - 06/17/2025 XR CHEST PA AND LATERAL 2 VIEWS Referring clinician's provided indication for this examination in [facility]:Foreign Body COMPARISON: None FINDINGS: Devices/Tubes/Lines: Pacer leads are in the region of the RIGHT atrium andRIGHT ventricle. Lungs: The lungs are clear. No focal consolidation or pulmonary edema. Pleura: No pleural effusion or pneumothorax. Heart/Mediastinum: The heart and mediastinum are normal. Bones/Soft Tissues: No significant skeletal abnormality. IMPRESSION: Lungs are clear. No pulmonary edema. us Clay Degroot RETAIL SALES TEAMMATE, DNP IMG XR CHEST F inal Result * XR SKULL COMPLETE 4 OR MORE VIEWS (05/30/2025 11:47 AM EDT) Anatomical Region Laterality Modality Head Computed Radiogr aphy 05/30/2025 11:5 0 AM EDT Impressions 05/30/2025 11:52 AM EDT 1. Linear high attenuation material overlying the RIGHT posterior skull. No other metallic foreign body. Narrative 05/30/2025 11:52 AM EDT XR NECK SOFT TISSUE, XR SKULL COMPLETE 4 OR MORE VIEWS Referring clinician's provided indication for this examination in [facility]: * Pituitary adenoma, known or suspected [...] clinician's provided indication for this examination in [facility]: *Pituitary adenoma, known or suspected COMPARISON: [...] posterior skull.No other metallic foreign body. Clay eDgroot RETAIL SALES TEAMMATE, DNP IMG XR HEAD AND S JULIAN SERIES Final Result * XR Neck Soft Tissue (05/30/2025 11:47 [...] clinician's provided indication for this examination in [facility]: * Pituitary adenoma, known or suspected [...] clinician's provided indication for this examination in [facility]: *Pituitary adenoma, known or suspected COMPARISON: [...] skull.No other metallic foreign body. Clay Degroot RETAIL SALES TEAMMATE, DNP IMG XR CHEST F inal Result * (ABNORMAL) TSH (03/02/2025 12:44 PM EDT) TSH 0.08(L) 0.27 - 4.20 uIU/mL [facility] Blood 03/02/2025 12:4 4 PM EDT 03/02/2025 12:52 PM EDT Lorri Wick MD LAB BLOOD ORDERABLES F inal Result [facility] [address] [place] [address] from Last 3 Months or Most Recently Relevant to Health Maintenance Insurance [facility] C3 ACO C3 ACO C3 ACO C3 ACO C3 ACO C3 ACO C3 [place] [address] Advance Directives For more information, please contact: [phone] (9AM - 5PM [facility], Friday-Friday) * Full Code (Latest Code Status on File) Date Activated Date Inactivated Comments 01/22/2023 1:06 PM Question Answer Comments Code Status Confirmed With: Other (specify below ) Code Status Communicated To: Other (specify belo w) * Full Code (Presumed) Date Activated Date Inactivated Comments 05/14/2016 10:54 AM 05/18/2016 4:11 PM Care Teams Manager Of It Relationship Specialty Start Date End Date Albert Iglesias MD [address] [place], [place] [address], [place] [address] PCP - General Internal Medicine 03/24/21 Balaji Kim MD [address] [place] [address] Drive [address] [place] [address] Neurosurgery 04/12/16 Lorri Wick MD [address] [place] [address] [email or web address] Internal Medicine 11/06/16 Additional Source Comments The information contained in this document represents components of the legal health record. It is not the complete legal health record.[facility]
--- OUTSIDE RECORDS SUMMARY | 2025-07-13 18:12 | XMS_ITS | Encounter Summary ---
Author Organization [facility] Address [address] [place] [address] Care Team Providers Care Turntable Worker Name Role Phone Doug Melendez MD Primary Care Provider Unavail [facility], Pcp Primary Care Provider Eunice Stein MD Primary Care Provider Suleiman Hutchison MD Unavailable [phone] Krystin Borjas PA-C Unavailable [facility], Pcp Primary Care Provider Ewelina Juan Ch MD Primary Care Provider [phone] Encounter Details Date Type Department Care Team Description 07/17/2011 Hospital Medical Records [address] [place] [address] Sonya Casanova Social History Tobacco Use Types Packs/Day Years [...] on filedocumented in this encounter Care Teams Turntable Worker Relationship Specialty Start Date End Date Doug Melendez MD PCP - General 03/06/05 06/16/16 [facility], Pcp PCP - General Internal Medicine 06/17/16 02/17/19 Eunice Laureano MD PCP - General 02/18/19 06/27/21 [facility], Pcp PCP - General Internal Medicine 06/28/21 09/02/21 Juan Juan, [address] [place] [address] PCP - General Internal Medicine 09/03/21 Suleiman Belle MD Specialist Cardiology 09/22/20 Krystin Borjas PA-C Specialist Cardiology 09/22/20 documented as of this encounter
--- OUTSIDE RECORDS SUMMARY | 2025-07-13 18:12 | XMS_ITS | Encounter Summary ---
Author Organization [facility] Address [address] [facility] 7[address] [place] [address] Care Team Providers Care Production Counter Name Role Phone Albert Iglesias MD Primary Care Prov ider Robert Ramirez RN Unavailable [phone] Amari Dutton Unavailable Encounter Details Date Type Department Care Team (Late st Contact Info) Description 07/13/2025 Patient Outreach [facility] MEDICINE [address] [place] [address] Albert Iglesias MD [address] [place] [address] Social History Tobacco Use Types Packs/Day Years [...] Upcoming Encounters Date Type Department Care Team ([facility] st Contact Info) Description 08/03/2025 3:15 PM EST Clinical Support [facility] [address] [place] [address] Liliane Thomas RN [address] [place] [address] documented as of this encounter Visit Diagnoses Not on filedocumented in this encounter Additional Health Concerns Assessment Noted Time PHQ-9 Depression Total Score: 5 09/28/19 25 10:57 AM EST documented as of this encounter Care Teams Production Counter Relationship Specialty Start Date End Date Albert Iglesias MD [address] [place] [address] PCP - General Internal Medicine 02/13/20 Robert Ramirez, RN [address] [place] [address] Registered Nurse Family Medicine 07/13/25 Amari Dutton 07/13/25 Panchito Cole Loan SupervisorBiometrics Instructor 9/27/24 documented as of this encounter
--- OUTSIDE RECORDS SUMMARY | 2025-07-13 18:12 | XMS_ITS | Encounter Summary ---
Author Organization [facility] Address [address] [place] [address] Care Team Providers Care Crm Developer Name Role Phone Doug Melendez MD Primary Care Provider Unavail [facility], Pcp Primary Care Provider Eunice Stein MD Primary Care Provider UnavailSuleiman Meehan MD Unavailable [phone] Krystin Borjas PA-C Unavailable [facility], Pcp Primary Care Provider Ewelina Juan Ch MD Primary Care Provider [phone] Encounter Details Date Type Department Care Team Description 06/18/2011 Client Application Support Engineer Report Medical Records [address] [place] [address] Steve Castellanos MD Social History Tobacco Use Types Packs/Day [...] on filedocumented in this encounter Care Teams Crm Developer Relationship Specialty Start Date End Date Doug Melendez MD PCP - General 03/06/05 06/16/16 [facility], Pcp PCP - General Internal Medicine 06/17/16 02/17/19 Eunice Laureano MD PCP - General 02/18/19 06/27/21 [facility], Pcp PCP - General Internal Medicine 06/28/21 09/02/21 Juan Juan, [address] [place] [address] PCP - General Internal Medicine 09/03/21 Suleiman Belle MD Specialist Cardiology 09/22/20 Krystin Borjas PA-C Specialist Cardiology 09/22/20 documented as of this encounter
--- OUTSIDE RECORDS SUMMARY | 2025-07-13 18:12 | XMS_ITS | Encounter Summary ---
Author Organization [facility] Address [address] [place] [address] Care Team Providers Care Retail Loss Prevention Investigator Name Role Phone Doug Melendez MD Primary Care Provider Unavail [facility], Pcp Primary Care Provider Eunice Stein MD Primary Care Provider Suleiman Hutchison MD Unavailable Krsytin Borjas PA-C Unavailable [facility], Pcp Primary Care Provider Ewelina Juan Ch MD Primary Care Provider [phone] Encounter Details Date Type Department Care Team Description 12/15/2014 [facility] Medical Records [address] [place] [address] Abstract, Provider Social History Tobacco Use Types [...] on filedocumented in this encounter Care Teams Retail Loss Prevention Investigator Relationship Specialty Start Date End Date Doug Melendez MD PCP - General 03/06/05 06/16/16 [facility], Pcp PCP - General Internal Medicine 06/17/16 02/17/19 Eunice Laureano MD PCP - General 02/18/19 06/27/21 [facility], Pcp PCP - General Internal Medicine 06/28/21 09/02/21 Juan Juan MD [address] [place] [address] PCP - General Internal Medicine 09/03/21 Suleiman Belle MD Specialist Cardiology 09/22/20 Krystin Borjas PA-C Specialist Cardiology 09/22/20 documented as of this encounter
--- OUTSIDE RECORDS SUMMARY | 2025-07-13 18:12 | XMS_ITS | Encounter Summary ---
Author Organization [facility] Address [address] [place] [address] Phone Care Team Providers Care Supervisor Mirror Fabrication Name Role Phone Balaji Kim MD Unavailable [phone] Lorri Wick MD Unavailable Albert Iglesias MD Primary Care Prov ider Encounter Details Date Type Department Care Team (Late st Contact Info) Description 03/28/2025 Procedure Pass [facility] - MRI [address] 6[address] [place] [address] Social History Tobacco Use Types Packs/Day Years [...] EST Office Visit [facility] Endocrinology [address] [address] Lorri Wick MD [address] [address] [email or web address] documented as of this encounter Visit Diagnoses Not on filedocumented in this encounter Additional Health Concerns Assessment Noted Time PHQ-2 Depression Total Score: 0 09/22/19 21 11:06 AM EST documented as of this encounter Care Teams Supervisor Mirror Fabrication Relationship Specialty Start Date End Date Albert Iglesias MD [address] [place] [address] PCP - General Internal Medicine 03/24/21 Balaji Kim MD [address] [place] [address] Drive [address] [place] [address] Neurosurgery 04/12/16 Lorri Wick MD [address] [address] [email or web address] Internal Medicine 11/06/16 documented as of this encounter Additional Source Comments The information contained in this document represents components of the legal health record. It is not the complete legal health record.[facility]
--- OUTSIDE RECORDS SUMMARY | 2025-07-13 18:12 | XMS_ITS | Encounter Summary ---
Author Organization [facility] Address [address] [place] [address] Care Team Providers Care Metal Furniture Panel Coverer Name Role Phone Eunice Laureano MD Primary Care Provider Suleiman Hutchison MD Unavailable [phone] Krystin Borjas PA-C Unavailable [facility], Pcp Primary Care Provider Ewelina Juan Ch MD Primary Care Provider [phone] Encounter Details Date Type Department Care Team Description 04/24/2021 [facility] Medical Records [address] [place] [address] Abstract, Provider Social History Tobacco Use Types [...] Name Priority Date/Time Associated Diagnosis Comments OUTSIDE EKG Routine 04/24/[address] Routine 04/24/2021 documented in this encounter Results * OUTSIDE CT (04/24/2021) Provider Default RADIOLOGY * OUTSIDE EKG (04/24/2021) Provider Default CARDIOLOGY documented in this encounter Visit Diagnoses Not on filedocumented in this encounter Care Teams Metal Furniture Panel Coverer Relationship Specialty Start Date End Date Eunice Laureano MD PCP - General 02/18/19 06/27/21 [facility] PCP - General Internal Medicine 06/28/21 09/02/21 Juan Juan, [address] [place] [address] PCP - General Internal Medicine 09/03/21 Suleiman Belle MD Specialist Cardiology 09/22/20 Krystin Borjas PA-C Specialist Cardiology 09/22/20 documented as of this encounter
--- OUTSIDE RECORDS SUMMARY | 2025-07-13 18:12 | XMS_ITS | Encounter Summary ---
Author Organization [facility] Address [address] [place] [address] Phone Care Team Providers Care Him Specialists Name Role Phone Balaji Kim MD Unavailable [phone] Lorri Wick MD Unavailable Albert Iglesias MD Primary Care Prov ider Encounter Details Date Type Department Care Team (Late Contact Info) Description 05/10/2022 Ancillary Orders [facility] [address] [facility], 9th Floor, [address] [place] [address] Lola Davidson MD, PhD [address] [facility] [address] [place] [address] [email or web address] Pituitary adenoma Social History Tobacco Use [...] Description 09/12/2025 3:40 PM EST Office Visit [facility] Endocrinology [address] [address] Lorri Wick MD [address] [place] [address] [email or web address] documented as of this encounter Procedures Procedure Name Priority Date/Time Associated Diagnosis Comments COMPREHENSIVE METABOLIC PANEL Routine 05/14/2022 10:26 AM EDT Pituitary adenoma CBC AND DIFFERENTIAL Routine 05/14/2022 10:26 AM EDT Pituitary adenoma documented in this encounter Results * Comprehensive metabolic panel (05/14/2022 10:26 AM EDT) Glucose 99 65 - 99 mg/dL [employer] Comment: Fasting reference interval Urea Nitrogen (BUN) 11 7 - 25 mg/dL [employer] Creatinine 0.78 0.50 - 1.03 mg/dL [employer] EGFR 90 > OR = 60 mL/min/1 .73m2 [employer] Comment: The eGFR is based on the CKD-EPI 2020 equation. To calculate the new eGFR from a previous Creatinine or Cystatin C result, go to https://www.kidney.org/professionals/ kdoqi/gfr%5Fcalculator BUN/Creatinine Ratio NOT APPLICABLE 6 - 22 (calc) [employer] Sodium 141 135 - 146 mmol/L [employer] Potassium 4.1 3.5 - 5.3 mmol/L [employer] Chloride 103 98 - 110 mmol/L [employer] Carbon Dioxide 29 20 - 32 mmol/L [employer] Calcium 9.7 8.6 - 10.4 mg/dL [employer] Protein, Total 6.9 6.1 - 8.1 g/dL [employer] Albumin 4.1 3.6 - 5.1 g/dL [employer] Globulin 2.8 1.9 - 3.7 g/dL (calc) [employer] Albumin/Globuli n Ratio 1.5 1.0 - 2.5 (calc) [facility] Bilirubin, Total 0.4 0.2 - 1.2 mg/dL [facility] Alkaline Phosphatase 107 37 - 153 U/L [facility] AST 16 10 - 35 U/L [employer] ALT 22 6 - 29 U/L [employer] Blood 05/14/2022 10:2 6 AM EDT 05/14/2022 10:27 AM EDT us Lola Davidson MD, PhD LAB BLOOD KENNETH QUINN Final Result Natanael Ulien [facility] [address], [facility] [employer] [address] [place] [address], [place] [address] * (ABNORMAL) CBC and differential (05/14/2022 10:26 AM EDT) WBC 8.6 3.8 - 10.8 Thousand/ uL [employer] Red Blood Cell 5.01 3.80 - 5.10 Million/u L [employer] Hemoglobin 12.6 11.7 - 15.5 g/dL [employer] Hematocrit 38.7 35.0 - 45.0 % [facility] MCV 77.2(L) 80.0 - 100.0 fL [facility] MCH 25.1(L) 27.0 - 33.0 pg [facility] MCHC 32.6 32.0 - 36.0 g/dL [facility] RDW 15.8(H) 11.0 - 15.0 % [facility] Platelet Count 346 140 - 400 Thousand/ uL [employer] MPV 10.5 7.5 - 12.5 fL [employer] Absolute Neutrophils 5,375 1,500 - 7,800 cells/uL [facility] Absolute Lymphocytes 2,451 850 - 3,900 cells/uL [facility] Absolute Monocytes 602 200 - 950 cells/uL [facility] Absolute Eosinophils 146 15 - 500 cells/uL [facility] Absolute Basophils 26 0 - 200 cells/uL [facility] Neutrophils 62.5 % [facility] Lymphocytes 28.5 % [facility] Monocytes 7.0 % [facility] Eosinophils 1.7 % [facility] Basophils 0.3 % [facility] Blood 05/14/2022 10:2 6 AM EDT 05/14/2022 10:27 AM EDT Lola Davidson MD, PhD LAB BLOOD KENNETH QUINN Final Result [facility] [address], [facility] [address], [place] [address] documented in this encounter Visit Diagnoses Diagnosis Pituitary adenoma Benign 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) documented in this encounter Additional Health Concerns Assessment Noted Time PHQ-2 Depression Total Score: 0 09/22/19 21 11:06 AM EST documented as of this encounter Care Teams Him Specialists Relationship Specialty Start Date End Date Albert Iglesias MD [address] [place] [address] PCP - General Internal Medicine 03/24/21 Balaji Kim MD [address] [place] [address] Neurosurgery 04/12/16 Lorri Wick MD [address] [address] [email or web address] Internal Medicine 11/06/16 documented as of this encounter Additional Source Comments The information contained in this document represents components of the legal health record. It is not the complete legal health record.[facility]
--- OUTSIDE RECORDS SUMMARY | 2025-07-13 18:12 | XMS_ITS | Encounter Summary ---
Author Organization [email or web address] Address [address] [facility] 7t [place] [address] Care Team Providers Care Track Watchman Name Role Phone Albert Iglesias MD Primary Care Prov ider Robert Ramirez RN Unavailable [phone] Amari Dutton Unavailable Encounter Details Date Type Department Care Team ([facility] st Contact Info) Description 03/02/2025 Orders Only [facility] MED & PEDS [address] [place] [address] Provider, MD Flaco Social History Tobacco Use [...] Upcoming Encounters Date Type Department Care Team ([facility] st Contact Info) Description 08/03/2025 3:15 PM EST Clinical Support [facility] CH[facility] MED & PEDS [address] [place] [address] Liliane Thomas, VIN [address] [place] [address] documented as of this encounter Procedures Procedure Name Priority Date/Time Associated Diagnosis Comments TSH Routine 03/02/2025 3:38 PM EDT T4, FREE Routine 03/02/2025 3:38 PM EDT documented in this encounter Results * T4, Free (03/02/2025 3:38 PM EDT) Blood Venous blood specimen / Unknown Historical Provider LAB BLOOD ORDERABLES Shelby l Result * TSH (03/02/2025 3:38 PM EDT) Blood Venous blood specimen / Unknown Historical Provider LAB BLOOD ORDERABLES Shelby l Result documented in this encounter Visit Diagnoses Not on filedocumented in this encounter Additional Health Concerns Assessment Noted Time PHQ-9 Depression Total Score: 5 09/28/19 25 10:57 AM EST documented as of this encounter Care Teams Track Watchman Relationship Specialty Start Date End Date Albert Iglesias MD [address] [place] [address] PCP - General Internal Medicine 02/13/20 Robert Ramirez, VIN [address] [place] [address] Registered Nurse Family Medicine 07/13/25 Amari Dutton 07/13/25 Panchito Cole Rn Licensed [employer] 06/11/24 documented as of this encounter
--- OUTSIDE RECORDS SUMMARY | 2025-07-13 18:12 | XMS_ITS | Encounter Summary ---
Author Organization [facility] Address [address] [place] [address] Phone Care Team Providers Care Clinical Education Coordinator Name Role Phone Balaji Kim MD Unavailable [phone] Lorri Wick MD Unavailable Albert Iglesias MD Primary Care Prov ider Encounter Details Date Type Department Care Team (Late st Contact Info) Description 06/17/2025 Procedure Pass [facility] Card Device Check [address] [place] [address] Social History Tobacco Use Types Packs/Day Years [...] Description 09/12/2025 3:40 PM EST Office Visit [facility] Endocrinology [address] [address] Lorri Wick MD [address] [place] [address] [email or web address] documented as of this encounter Visit Diagnoses Not on filedocumented in this encounter Additional Health Concerns Assessment Noted Time PHQ-2 Depression Total Score: 0 09/22/19 21 11:06 AM EST documented as of this encounter Care Teams Clinical Education Coordinator Relationship Specialty Start Date End Date Albert Iglesias MD [address] [place] [address] PCP - General Internal Medicine 03/24/21 Balaji Kim MD [address] [place] [address] Drive [address] [place] [address] Neurosurgery 04/12/16 Lorri Wikc MD [address] [address] Internal Medicine 11/06/16 documented as of this encounter Additional Source Comments The information contained in this document represents components of the legal health record. It is not the complete legal health record.[facility]
--- OUTSIDE RECORDS SUMMARY | 2025-07-13 18:12 | XMS_ITS | Encounter Summary ---
Author Organization [facility] Address [address] [place] [address] Care Team Providers Care Transmitter Tester Name Role Phone Doug Melendez MD Primary Care Provider Unavail [facility], Pcp Primary Care Provider Eunice Stein MD Primary Care Provider Suleiman Hutchison MD Unavailable [phone] Krystin Borjas PA-C Unavailable [facility], Pcp Primary Care Provider Ewelina Juan Ch MD Primary Care Provider [phone] Encounter Details Date Type Department Care Team Description 08/19/2014 Telephone Adult Medicine [address] [phone] Doug Melendez MD Social History Tobacco Use Types Packs/Day [...] on filedocumented in this encounter Care Teams Transmitter Tester Relationship Specialty Start Date End Date Doug Melendez MD PCP - General 03/06/05 06/16/16 [facility], Pcp PCP - General Internal Medicine 06/17/16 02/17/19 Eunice Laureano MD PCP - General 02/18/19 06/27/21 [facility], Pcp PCP - General Internal Medicine 06/28/21 09/02/21 Juan Juan, [address] [place] [address] PCP - General Internal Medicine 09/03/21 Suleiman Belle MD Specialist Cardiology 09/22/20 Krystin Borjas PA-C Specialist Cardiology 09/22/20 documented as of this encounter
--- OUTSIDE RECORDS SUMMARY | 2025-07-13 18:12 | XMS_ITS | Encounter Summary ---
Author Organization [employer] Address [address] [facility] 7t [place] [address] Care Team Providers Care Manager Medical Writing Name Role Phone Albert Iglesias MD Primary Care Prov ider Robert Ramirez RN Unavailable [phone] Amari Dutton Unavailable Encounter Details Date Type Department Care Team ([facility] st Contact Info) Description 04/19/2024 Orders Only [facility] CHC MED & PEDS [address] [place] [address] Albert Iglesias MD [address] [place] [address] Social History Tobacco Use Types Packs/Day Years [...] Upcoming Encounters Date Type Department Care Team ([facility] st Contact Info) Description 08/03/2025 3:15 PM EST Clinical Support [facility] MED & PEDS [address] [place] [address] Liliane Thomas RN [address] [place] [address] documented as of this encounter Visit Diagnoses Not on filedocumented in this encounter Additional Health Concerns Assessment Noted Time PHQ-9 Depression Total Score: 9 12/24/19 23 10:49 AM EDT documented as of this encounter Care Teams Manager Medical Writing Relationship Specialty Start Date End Date Albert Iglesias MD [address] [place] [address] PCP - General Internal Medicine 02/13/20 Robert Ramirez, RN [address] [place] [address] Registered Nurse Family Medicine 07/13/25 Amari Dutton 07/13/25 Panchito Cole Relief DrillerDirector Of Hospitality 06/11/24 documented as of this encounter
--- OUTSIDE RECORDS SUMMARY | 2025-07-13 18:12 | XMS_ITS | Encounter Summary ---
Author Organization [facility] Address [address] [place] [address] Care Team Providers Care Internet Assessor Name Role Phone Eunice Laureano MD Primary Care Provider Suleiman Hutchison MD Unavailable [phone] Krystin Borjas PA-C Unavailable [facility], Pcp Primary Care Provider Ewelina Juan Ch MD Primary Care Provider [phone] Encounter Details Date Type Department Care Team Description 09/21/2020 Orders Only Cardio PVC POC [address] [facility] [address] [place] [address] Iveth Elizabeth PA-C [address] [place] [address] [id number] Social History Tobacco Use Types Packs/Day Years [...] file Not on file Not on file COVID-19 Exposure Response Date Recorded In the last month, have you been in contact with someone who was confirmed or suspected to have Coronavirus / COVID-19? No / Unsure 09/20/2020 8:44 AM EST documented as of this encounter Plan of Treatment Not on file documented as of this encounter Visit Diagnoses Not on filedocumented in this encounter Care Teams Internet Assessor Relationship Specialty Start Date End Date Eunice Laureano MD PCP - General 02/18/19 06/27/21 [facility] PCP - General Internal Medicine 06/28/21 09/02/21 Juan Juan MD [address] [place] [address] PCP - General Internal Medicine 09/03/21 Suleiman Belle MD Specialist Cardiology 09/22/20 Krystin Borjas PA-C Specialist Cardiology 09/22/20 documented as of this encounter
--- OUTSIDE RECORDS SUMMARY | 2025-07-13 18:12 | XMS_ITS | Encounter Summary ---
Author Organization [facility] Address [address] [place] [address] Phone Care Team Providers Care Assistant Professor Surgical Technology Name Role Phone Balaji Kim MD Unavailable [phone] Lorri Wick MD Unavailable Albert Iglesias MD Primary Care Prov ider Encounter Details Date Type Department Care Team (Late st Contact Info) Description 04/02/2022 Procedure Pass [facility] [address] [place] [address] Social History Tobacco Use Types Packs/Day Years [...] Description 09/12/2025 3:40 PM EST Office Visit [facility] Endocrinology [address] [address] Lorri Wick MD [address] [place] [address] [email or web address] documented as of this encounter Visit Diagnoses Not on filedocumented in this encounter Additional Health Concerns Assessment Noted Time PHQ-2 Depression Total Score: 0 09/22/19 21 11:06 AM EST documented as of this encounter Care Teams Assistant Professor Surgical Technology Relationship Specialty Start Date End Date Albert Iglesias MD [address] [place] [address] PCP - General Internal Medicine 03/24/21 Balaji Kim MD [address] [place] [address] Drive [address] [place] [address] Neurosurgery 04/12/16 Lorri Wick MD [address] [address] [email or web address] Internal Medicine 11/06/16 documented as of this encounter Additional Source Comments The information contained in this document represents components of the legal health record. It is not the complete legal health record.[facility]
--- OUTSIDE RECORDS SUMMARY | 2025-07-13 18:12 | XMS_ITS | Encounter Summary ---
Author Organization [facility] Address [address] [place] [address] Care Team Providers Care Lastex Thread Winder Name Role Phone Doug Melendez MD Primary Care Provider Unavail [facility], Pcp Primary Care Provider Eunice Stein MD Primary Care Provider Suleiman Hutchison MD Unavailable [phone] Krystin Borjas PA-C Unavailable [facility], Pcp Primary Care Provider Ewelina Juan Ch MD Primary Care Provider [phone] Encounter Details Date Type Department Care Team Description 09/17/2010 Hospital Medical Records [address] [place] [address] John Quezada Social History Tobacco Use Types Packs/Day Years [...] on filedocumented in this encounter Care Teams L[employer]x Thread Winder Relationship Specialty Start Date End Date Doug Melendez MD PCP - General 03/06/05 06/16/16 [facility], Pcp PCP - General Internal Medicine 06/17/16 02/17/19 Eunice Laureano MD PCP - General 02/18/19 06/27/21 [facility], Pcp PCP - General Internal Medicine 06/28/21 09/02/21 Juan Juan, [address] [place] [address] PCP - General Internal Medicine 09/03/21 Suleiman Belle MD Specialist Cardiology 09/22/20 Krystin Borjas PA-C Specialist Cardiology 09/22/20 documented as of this encounter
--- OUTSIDE RECORDS SUMMARY | 2025-07-13 18:12 | XMS_ITS | Encounter Summary ---
Author Organization [facility] Address [address] [place] [address] Care Team Providers Care Gut Dropper Name Role Phone Doug Melendez MD Primary Care Provider Unavail [facility], Pcp Primary Care Provider Eunice Stein MD Primary Care Provider Suleiman Hutchison MD Unavailable [phone] Krystin Borjas PA-C Unavailable [facility], Pcp Primary Care Provider Ewelina Juan Ch MD Primary Care Provider [phone] Encounter Details Date Type Department Care Team Description 03/28/2011 Microbiology Technician Report Medical Records [address] [place] [address] Balaji Kim MD Social History Tobacco Use Types Packs/Day Years Used Date Smoking Tobacco: Former Cigarettes 0.5 Q uit: 04/06/2010 Smokeless Tobacco: Never Alcohol Use Standard Drinks/Week [...] on filedocumented in this encounter Care Teams Gut Dropper Relationship Specialty Start Date End Date Doug Melendez MD PCP - General 03/06/05 06/16/16 [facility], Pcp PCP - General Internal Medicine 06/17/16 02/17/19 Eunice Laureano MD PCP - General 02/18/19 06/27/21 [facility], Pcp PCP - General Internal Medicine 06/28/21 09/02/21 Juan Juan, [address] [place] [address] PCP - General Internal Medicine 09/03/21 Suleiman Belle MD Specialist Cardiology 09/22/20 Krystin Borjas PA-C Specialist Cardiology 09/22/20 documented as of this encounter
--- OUTSIDE RECORDS SUMMARY | 2025-07-13 18:12 | XMS_ITS | Encounter Summary ---
Author Organization [facility] Address [address] [place] [address] Care Team Providers Care Car Cooper Name Role Phone Eunice Laureano MD Primary Care Provider Suleiman Hutchison MD Unavailable [phone] Krystin Borjas PA-C Unavailable [facility], Pcp Primary Care Provider Ewelina Juan Ch MD Primary Care Provider [phone] Encounter Details Date Type Department Care Team Description 01/20/2021 Hospital Medical Records [address] [place] [address] Social History Tobacco Use Types Packs/Day Years [...] Date/Time Associated Diagnosis Comments OUTSIDE LAB Routine 01/22/2021 OUTSIDE EKG Routine 01/20/2021 OUTSIDE LAB Routine 01/20/2021 documented in this encounter Results * OUTSIDE LAB (01/22/2021) Provider Default LAB * OUTSIDE LAB (01/20/2021) Provider Default LAB * OUTSIDE EKG (01/20/2021) Provider Default CARDIOLOGY documented in this encounter Visit Diagnoses Not on filedocumented in this encounter Care Teams Car Cooper Relationship Specialty Start Date End Date Eunice Laureano MD PCP - General 02/18/19 06/27/21 [facility] Pcp PCP - General Internal Medicine 06/28/21 09/02/21 Juan Juan MD [address] [place] [address] PCP - General Internal Medicine 09/03/21 Suleiman Belle MD Specialist Cardiology 09/22/20 Krystin Borjas PA-C Specialist Cardiology 09/22/20 documented as of this encounter
--- OUTSIDE RECORDS SUMMARY | 2025-07-13 18:12 | XMS_ITS | Encounter Summary ---
Author Organization [facility] Address [address] [place] [address] Care Team Providers Care Charm Filter Operator Helper Name Role Phone Doug eMlendez MD Primary Care Provider Unavail [facility], Pcp Primary Care Provider Eunice Stein MD Primary Care Provider Suleiman Hutchison MD Unavailable [phone] Krystin Borjas PA-C Unavailable [facility], [facility] Primary Care Provider Ewelina Juan Ch MD Primary Care Provider [phone] Reason for Visit * Reason Onset Date Comments dizziness 08/18/2014 Encounter Details Date Type Department Care Team Description 08/18/2014 Telephone Adult Medicine [address] [phone] Doug Melendez MD dizziness Social History Tobacco Use Types Packs/Day Years [...] on file documented as of this encounter Miscellaneous Notes * Telephone Encounter - Matilda Gaffney R.N. - 08/18/2014 1:26 PM EST Call #1 placed to dtr Elsa She states yesterday her mother started with a sharp pain in her spine and the pain radiates to her head. She is having this pain now, is in a lot of pain. Dtr states when this happens her R arm and hand arm numb . I advised dtr to take her mother th the Er , she needsto be eval for this pain. She agrees will go to [facility] * Telephone Encounter - Ruben Santillan - 08/18/2014 11:51 AM EST EBOLA: Effective 06/22/14 If patient complains of a temperature greater than 101.5 ask if they have traveled to [place], [place], [place] or [place] or been in contact with anyone who has. Document responses in this message and send to triage. Symptoms patient is presenting: sharp pain in spine, went to her head, patient is dizzy and left side is in pain How long has patient had these symptoms?: Since yesterday PCP: Doug Melendez Payor: [employer] FFS / Plan: FFS HMO $0 [place] [id number] / Product Type: MEDICAID RISK documented in this encounter Plan of Treatment Not on file documented as of this encounter Visit Diagnoses Not on filedocumented in this encounter Care Teams Charm Filter Operator Helper Relationship Specialty Start Date End Date Doug Melendez MD PCP - General 03/06/05 06/16/16 [facility], Pcp PCP - General Internal Medicine 06/17/16 02/17/19 Eunice Laureano MD PCP - General 02/18/19 06/27/21 [facility], Pcp PCP - General Internal Medicine 06/28/21 09/02/21 Juan Juan MD Formerly named [facility] [place] [address] PCP - General Internal Medicine 09/03/21 Suleiman Belle MD Specialist Cardiology 09/22/20 Krystin Borjas PA-C Specialist Cardiology 09/22/20 documented as of this encounter
--- OUTSIDE RECORDS SUMMARY | 2025-07-13 18:12 | XMS_ITS | Encounter Summary ---
Author Organization [facility] Address [address] [place] [address] Phone Care Team Providers Care Manager Of Organizational Development Name Role Phone Balaji Kim MD Unavailable [phone] Lorri Wick MD Unavailable Albert Iglesias MD Primary Care Prov ider Encounter Details Date Type Department Care Team (Late Contact Info) Description 05/03/2022 Ancillary Orders [facility] 32 [facility], 9th Floor, [address] [place] [address] Lola Davidson MD, PhD 55 [facility] [address] [place] [address] [email or web address] Pituitary adenoma Social History Tobacco Use Types [...] Description 09/12/2025 3:40 PM EST Office Visit [facility] Endocrinology [address] [place] [address] Lorri Wick MD [address] [address] [email or web address] documented as of this encounter Visit Diagnoses Diagnosis Pituitary adenoma Benign 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) documented in this encounter Additional Health Concerns Assessment Noted Time PHQ-2 Depression Total Score: 0 09/22/19 21 11:06 AM EST documented as of this encounter Care Teams Manager Of Organizational Development Relationship Specialty Start Date End Date Albert Iglesias MD [address] [place] [address] PCP - General Internal Medicine 03/24/21 Balaji Kim MD [address] [place] [address] Drive [address] [place] [address] Neurosurgery 04/12/16 Lorri Wick MD [address] [address] [email or web address] Internal Medicine 11/06/16 documented as of this encounter Additional Source Comments The information contained in this document represents components of the legal health record. It is not the complete legal health record.[facility]
--- OUTSIDE RECORDS SUMMARY | 2025-07-13 18:12 | XMS_ITS | Encounter Summary ---
Author Organization [facility] Address [address] [place] [address] Phone Care Team Providers Care Care Professional Name Role Phone Balaji Kim MD Unavailable [phone] Lorri Wick MD Unavailable Albert Iglesias MD Primary Care Prov ider Encounter Details Date Type Department Care Team (Late st Contact Info) Description 06/17/2025 Ancillary Orders [facility] 55 [facility], 5th Floor, [address] [place] [address] Clay Degroot, BATH HOUSE ATTENDANT, DNP [address] [address] [email or web address] Pituitary adenoma (Primary Dx) Social History Tobacco [...] Description 09/12/2025 3:40 PM EST Office Visit [facility] Endocrinology [address] [id number] Lorri Wick MD [address] [place] [address] [email or web address] documented as of this encounter Results * XR CHEST PA AND LATERAL 2 VIEWS (06/17/2025 10:01 AM EDT) Anatomical Region Laterality Modality Chest Computed Radiogr aphy 06/17/2025 10:5 0 AM EDT Impressions 06/17/2025 10:50 AM EDT Lungs are clear. No pulmonary edema. Narrative 06/17/2025 10:50 AM EDT XR CHEST PA AND LATERAL 2 VIEWS Referring clinician's provided indication for this examination in Epic: Foreign Body COMPARISON: None FINDINGS: Devices/Tubes/Lines: Pacer [...] clinician's provided indication for this examination in [facility]:Foreign Body COMPARISON: None FINDINGS: Devices/Tubes/Lines: Pacer leads are in the region of the RIGHT atrium andRIGHT ventricle. Lungs: The lungs are clear. No focal consolidation or pulmonary edema. Pleura: No pleural effusion or pneumothorax. Heart/Mediastinum: The heart and mediastinum are normal. Bones/Soft Tissues: No significant skeletal abnormality. IMPRESSION: Lungs are clear. No pulmonary edema. Clay Luishelder Degroot BATH HOUSE ATTENDANT, DNP IMG XR CHEST F inal Result [...] documented as of this encounter Care Teams Care Professional Relationship Specialty Start Date End Date Albert Iglesias MD [address] [place] [address] PCP - General Internal Medicine 03/24/21 Balaji Kim MD [address] [place] [address] Drive [address] [place] [address] Neurosurgery 04/12/16 Lorri Wick MD [address] [address] Internal Medicine 11/06/16 documented as of this encounter Additional Source Comments The information contained in this document represents components of the legal health record. It is not the complete legal health record.[facility]
--- OUTSIDE RECORDS SUMMARY | 2025-07-13 18:12 | XMS_ITS | Encounter Summary ---
Author Organization [facility] Address [address] [place] [address] Care Team Providers Care Network Engineering Advisor Name Role Phone Doug Melendez MD Primary Care Provider Unavail [facility], Pcp Primary Care Provider Eunice Stein MD Primary Care Provider Suleiman Hutchison MD Unavailable [phone] Krystin Borjas PA-C Unavailable [facility], Pcp Primary Care Provider Ewelina Juan Ch MD Primary Care Provider [phone] Encounter Details Date Type Department Care Team Description 11/18/2014 Hospital Medical Records [address] [place] [address] Social History Tobacco Use Types Packs/Day Years [...] on filedocumented in this encounter Care Teams Network Engineering Advisor Relationship Specialty Start Date End Date Doug Melendez MD PCP - General 03/06/05 06/16/16 [facility], Pcp PCP - General Internal Medicine 06/17/16 02/17/19 Eunice Laureano MD PCP - General 02/18/19 06/27/21 [facility], Pcp PCP - General Internal Medicine 06/28/21 09/02/21 Juan Juan MD [address] [place] [address] PCP - General Internal Medicine 09/03/21 Suleiman Belle MD Specialist Cardiology 09/22/20 Krystin Borjas PA-C Specialist Cardiology 09/22/20 documented as of this encounter
--- OUTSIDE RECORDS SUMMARY | 2025-07-13 18:12 | XMS_ITS | Encounter Summary ---
Author Organization [facility] Address [address] [place] [address] Phone Care Team Providers Care Grease Worker Name Role Phone Balaji Kim MD Unavailable Lorri Wick MD Unavailable [phone] Albert Iglesias MD Primary Care Prov ider Encounter Details Date Type Department Care Team (Late st Contact Info) Description 01/13/2025 Telephone [facility] Endocrinology [address] [place], [place] [address] Lorri Wick MD [address] [place] [phone] [email or web address] Social History Tobacco Use Types Packs/Day Years [...] 09/12/2025 3:40 PM EST Office Visit [facility] Endocrinology [address] [address] Lorri Wick MD [address] [address] [email or web address] documented as of this encounter Visit Diagnoses Not on filedocumented in this encounter Additional Health Concerns Assessment Noted Time PHQ-2 Depression Total Score: 0 09/22/19 21 11:06 AM EST documented as of this encounter Care Teams Grease Worker Relationship Specialty Start Date End Date Albert Iglesias MD [address] [place] [address] PCP - General Internal Medicine 03/24/21 Balaji Kim MD [address] [place] [address] Drive [address] [place] [address] Neurosurgery 04/12/16 Lorri Wick MD [address] [address] [email or web address] Internal Medicine 11/06/16 documented as of this encounter Additional Source Comments The information contained in this document represents components of the legal health record. It is not the complete legal health record.[facility]
--- OUTSIDE RECORDS SUMMARY | 2025-07-13 18:12 | XMS_ITS | Encounter Summary ---
Author Organization [facility] Address [address] [place] [address] Care Team Providers Care Printing Mechanist Name Role Phone Doug Melendez MD Primary Care Provider Unavail [facility], Pcp Primary Care Provider Eunice Stein MD Primary Care Provider Suleiman Hutchison MD Unavailable [phone] Krystin Borjas PA-C Unavailable [facility], Pcp Primary Care Provider Ewelina Juan Ch MD Primary Care Provider [phone] Encounter Details Date Type Department Care Team Description 04/08/2011 Eye Early Childhood Coordinator Report Medical Records [address] [place] [address] Poppy Covarrubias Social History Tobacco Use Types Packs/Day Years [...] on filedocumented in this encounter Care Teams Printing Mechanist Relationship Specialty Start Date End Date Doug Melendez MD PCP - General 03/06/05 06/16/16 [facility], Pcp PCP - General Internal Medicine 06/17/16 02/17/19 Eunice Laureano MD PCP - General 02/18/19 06/27/21 Community, Pcp PCP - General Internal Medicine 06/28/21 09/02/21 Juan Juan MD [address] [place] [address] PCP - General Internal Medicine 09/03/21 Suleiman Belle MD Specialist Cardiology 09/22/20 Krystin Borjas PA-C Specialist Cardiology 09/22/20 documented as of this encounter
--- OUTSIDE RECORDS SUMMARY | 2025-07-13 18:12 | XMS_ITS | Encounter Summary ---
Author Organization [facility] Address [address] [place] [address] Phone Care Team Providers Care Actuarial Internship Name Role Phone Balaji Kim MD Unavailable [phone] Lorri Wick MD Unavailable Albert Iglesias MD Primary Care Prov ider Encounter Details Date Type Department Care Team (Late st Contact Info) Description 05/30/2025 Ancillary Orders [facility] Neuro[facility] 55 [facility], 5th Floor, [address] [place] [address] Clay Degroot, DEHORNER, DNP [address] [address] [email or web address] Pituitary adenoma (Primary Dx) Social [...] Description 09/12/2025 3:40 PM EST Office Visit [facility] Endocrinology [address] [phone] Lorri Wick MD [address] [place] [address] [email or web address] documented as of this encounter Results * XR SKULL COMPLETE 4 OR MORE [...] Epic: * Pituitary adenoma, known or suspected COMPARISON: [...] indication for this examination in [facility]: *Pituitary adenoma, known or suspected COMPARISON: CT [...] skull.No other metallic foreign body. 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) documented in this encounter Additional Health Concerns Assessment Noted Time PHQ-2 Depression Total Score: 0 09/22/19 21 11:06 AM EST documented as of this encounter Care Teams Actuarial Internship Relationship Specialty Start Date End Date Albert Iglesias MD [address] [place] [address] PCP - General Internal Medicine 03/24/21 Balaji Kim MD [address] [place] [address] Drive [address] [place] [address] Neurosurgery 04/12/16 Lorri Wick MD [address] [address] [email or web address] Internal Medicine 11/06/16 documented as of this encounter Additional Source Comments The information contained in this document represents components of the legal health record. It is not the complete legal health record.[facility]
--- OUTSIDE RECORDS SUMMARY | 2025-07-13 18:12 | XMS_ITS | Encounter Summary ---
Author Organization [facility] Address [address] [place] [address] Care Team Providers Care Fire Hydrant Mechanic Name Role Phone Doug Melendez MD Primary Care Provider Unavail [facility], Pcp Primary Care Provider Eunice Stein MD Primary Care Provider Suleiman Hutchison MD Unavailable [phone] Krystin Borjas PA-C Unavailable [facility], Pcp Primary Care Provider Ewelina Juna Ch MD Primary Care Provider [phone] Encounter Details Date Type Department Care Team Description 07/17/2011 Hospital Medical Records [address] [place] [address] Kevin Sousa Social History Tobacco Use Types Packs/Day Years [...] on filedocumented in this encounter Care Teams Fire Hydrant Mechanic Relationship Specialty Start Date End Date Doug Melendez MD PCP - General 03/06/05 06/16/16 [facility], Pcp PCP - General Internal Medicine 06/17/16 02/17/19 Eunice Laureano MD PCP - General 02/18/19 06/27/21 [facility], Pcp PCP - General Internal Medicine 06/28/21 09/02/21 Juan Juan MD [address] [place] [address] PCP - General Internal Medicine 09/03/21 Suleiman Belle MD Specialist Cardiology 09/22/20 Krystin Borjas PA-C Specialist Cardiology 09/22/20 documented as of this encounter
--- OUTSIDE RECORDS SUMMARY | 2025-07-13 18:12 | XMS_ITS | Encounter Summary ---
Author Organization [facility] Address [address] [place] [address] Care Team Providers Care Hogshead Hooper Name Role Phone Doug Melendez MD Primary Care Provider Unavail [facility], Pcp Primary Care Provider Eunice Stein MD Primary Care Provider Suleiman Hutchison MD Unavailable [phone] Krystin Borjas PA-C Unavailable [facility], [facility] Primary Care Provider Ewelina Juan Ch MD Primary Care Provider [phone] Encounter Details Date Type Department Care Team Description 08/19/2014 Hospital Medical Records [address] [place] [address] Doug Melendez MD Social History Tobacco Use [...] on filedocumented in this encounter Care Teams Hogshead Hooper Relationship Specialty Start Date End Date Doug Melendez MD PCP - General 03/06/05 06/16/16 [facility], Pcp PCP - General Internal Medicine 06/17/16 02/17/19 Eunice Laureano MD PCP - General 02/18/19 06/27/21 [facility], Pcp PCP - General Internal Medicine 06/28/21 09/02/21 Juan Juan, [address] [place] [address] PCP - General Internal Medicine 09/03/21 Suleiman Belle MD Specialist Cardiology 09/22/20 Krystin Borjas PA-C Specialist Cardiology 09/22/20 documented as of this encounter
--- OUTSIDE RECORDS SUMMARY | 2025-07-13 18:12 | XMS_ITS | Encounter Summary ---
Author Organization [facility] Address [address] [place] [address] Care Team Providers Care State Farm Agent Team Member Name Role Phone Doug Melendez MD Primary Care Provider Unavail [facility], Pcp Primary Care Provider Eunice Stein MD Primary Care Provider Suleiman Hutchison MD Unavailable [phone] Krystin Borjas PA-C Unavailable [facility], Pcp Primary Care Provider Ewelina Juan Ch MD Primary Care Provider [phone] Encounter Details Date Type Department Care Team Description 09/12/2011 Controlled Substance Contract with Plan Medical Records [address] [place] [id number] Abstract, Provider Social History Tobacco Use Types [...] on filedocumented in this encounter Care Teams State Farm Agent Team Member Relationship Specialty Start Date End Date Doug Melendez MD PCP - General 03/06/05 06/16/16 [facility], Pcp PCP - General Internal Medicine 06/17/16 02/17/19 Eunice Laureano MD PCP - General 02/18/19 06/27/21 [facility], Pcp PCP - General Internal Medicine 06/28/21 09/02/21 Juan Juan, [address] [place] [address] PCP - General Internal Medicine 09/03/21 Suleiman Belle MD Specialist Cardiology 09/22/20 Krystin Borjas PA-C Specialist Cardiology 09/22/20 documented as of this encounter
--- OUTSIDE RECORDS SUMMARY | 2025-07-13 18:12 | XMS_ITS | Encounter Summary ---
Author Organization [facility] Address [address] [facility] 7t [place] [address] Care Team Providers Care Student Advisor Name Role Phone Albert Iglesias MD Primary Care Prov ider Robert Ramirez RN Unavailable [phone] Amari [place] Unavailable Reason for Visit * Reason Onset Date Comments Nurse Triage 07/13/2025 ER Follow-up 07/13/2025 Encounter Details Date Type Department Care Team (Late st Contact Info) Description 07/13/2025 Telephone [facility] [address] [place] [address] Albert Iglesias MD [address] [place] [address] Nurse Triage; ER Follow-up Social History Tobacco Use Types Packs/Day Years [...] encounter Miscellaneous Notes * Telephone Encounter - Indiana Lopez RN - 07/13/2025 12:55 PM EDT [facility] ED note reviewed. Pt there yesterday with back and abdominal pain x [address] scan showed hiatal hernia, umbilical hernia, fatty liver. Prescribed toradol q. 6 hours prn. TC returned to daughter (on HIPAA). Daughter reports pain today is worse, rated 20/10. Abdomen and lower back are swollen and hard, daughter reports this initiates in the very lower mid back and wraps around L side of abdomen. More swollen than yesterday. Daughter reports pt. Is unable to walk due to pain. Daughter reports pt. Appears pale and is not eating. Denies N/V. Daughter reports pt. Was discharged while still in severe pain and with no discharge plan other than following up with PCP beba. Daughter is very upset that pt. Was sent home in the state she was in and that [facility] did not help her at all. Daughter is going to take pt. To [facility] ED now and call clinic for f/up upon discharge. Protocol Used: Abdominal Pain - Female (Adult) Protocol-Based Disposition: Go to ED Now Positive Triage Question: * Severe abdominal pain (e.g., excruciating) * All higher-acuity triage questions were negative * Telephone Encounter - Justin Mtz - 07/13/2025 11:36 AM EDT Patient calling to report ED visit on : Date: 07/12/25 Hospital: [facility] Seen for: Lower back pain Symptomatic Yes Symptom: Back Pain - Not From Injury Outcome: Talk to a nurse or provider within 15 minutes Reason: Can't walk (unless normally can't walk) Please contact pt/daughter at [phone]. documented in this encounter Plan of Treatment Upcoming Encounters Date Type Department Care Team (Late st Contact Info) Description 08/03/2025 3:15 PM EST Clinical Support [facility] [address] [place] [address] Liliane Thomas RN [address] [place] [address] documented as of this encounter Visit Diagnoses Not on filedocumented in this encounter Additional Health Concerns Assessment Noted Time PHQ-9 Depression Total Score: 5 09/28/19 10:57 AM EST documented as of this encounter Care Teams Student Advisor Relationship Specialty Start Date End Date Albert Iglesias MD [address] [place] [address] PCP - General Internal Medicine 02/13/20 Robert Ramirez, V[place] [address] [place] [address] Registered Nurse Family Medicine 07/13/25 Amari [place] 07/13/25 Panchito Cole Lawn Service SupervisorCasual Shoe Inspector 06/11/24 documented as of this encounter
--- OUTSIDE RECORDS SUMMARY | 2025-07-13 18:12 | XMS_ITS | Encounter Summary ---
Author Organization [facility] Address [address] [place] [address] Care Team Providers Care Photography Instructor Name Role Phone Doug Melendez MD Primary Care Provider Unavail [facility], Pcp Primary Care Provider Eunice Stein MD Primary Care Provider Suleiman Hutchison MD Unavailable [phone] Krystin Borjas PA-C Unavailable [facility], Pcp Primary Care Provider Ewelina Juan Ch MD Primary Care Provider [phone] Encounter Details Date Type Department Care Team Description 02/25/2011 Hospital Medical Records [address] [place] [address] Rocky Holder Social History Tobacco Use Types Packs/Day Years [...] on filedocumented in this encounter Care Teams Photography Instructor Relationship Specialty Start Date End Date Doug Melendez MD PCP - General 03/06/05 06/16/16 [facility], Pcp PCP - General Internal Medicine 06/17/16 02/17/19 Eunice Laureano MD PCP - General 02/18/19 06/27/21 [facility], Pcp PCP - General Internal Medicine 06/28/21 09/02/21 Juan Juan, [address] [place] [address] PCP - General Internal Medicine 09/03/21 Suleiman Belle MD Specialist Cardiology 09/22/20 Krystin Borjas PA-C Specialist Cardiology 09/22/20 documented as of this encounter
--- OUTSIDE RECORDS SUMMARY | 2025-07-13 18:12 | XMS_ITS | Encounter Summary ---
Author Organization [facility] Address [address] [place] [address] Phone Care Team Providers Care Java Swing Developer Name Role Phone Balaji Kim MD Unavailable [phone] Lorri Wick MD Unavailable [phone] Albert Iglesias MD Primary Care Prov ider Encounter Details Date Type Department Care Team (Late Contact Info) Description 04/26/2022 Ancillary Orders [facility] Center for Neuro Oncology [address] [facility], 9th Floor, [address] [place] [address] Lola Davidson MD, PhD 55 [facility] [address] [place] [address] [email or web address] Pituitary adenoma Social History Tobacco [...] Description 09/12/2025 3:40 PM EST Office Visit [facility] Endocrinology [place] [address] [place] [address] Lorri Wick MD [address] [address] [email or web address] documented as of this encounter Visit Diagnoses Diagnosis Pituitary adenoma Benign 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) documented in this encounter Additional Health Concerns Assessment Noted Time PHQ-2 Depression Total Score: 0 09/22/19 21 11:06 AM EST documented as of this encounter Care Teams Java Swing Developer Relationship Specialty Start Date End Date Albert Iglesias MD [address] [place] [address] PCP - General Internal Medicine 03/24/21 Balaji Kim MD [address] [place] [address] Drive [address] [place] [address] Neurosurgery 04/12/16 Lorri Wick MD [address] [address] [email or web address] Internal Medicine 11/06/16 documented as of this encounter Additional Source Comments The information contained in this document represents components of the legal health record. It is not the complete legal health record.[facility]
--- OUTSIDE RECORDS SUMMARY | 2025-07-13 18:12 | XMS_ITS | Encounter Summary ---
Author Organization [facility] Address [address] [place] [address] Phone Care Team Providers Care Hydraulic Engineer Name Role Phone Balaji Kim MD Unavailable [phone] Lorri Wick MD Unavailable [phone] Albert Iglesias MD Primary Care Prov ider Encounter Details Date Type Department Care Team (Late st Contact Info) Description 06/17/2025 Ancillary Orders [facility] [place] [address] [facility], 5th Floor, [address] [place] [address] Clay Degroot, ASSISTANT REFINERY OPERATOR, DNP 55 [facility] [address] [place] [address] [email or web address] (Primary Dx) Social History Tobacco Use Types [...] Description 09/12/2025 3:40 PM EST Office Visit [facility] Endocrinology [address] [address] Lorri Wick MD [address] [address] [email or web address] documented as of this encounter Visit Diagnoses Not on filedocumented in this encounter Additional Health Concerns Assessment Noted Time PHQ-2 Depression Total Score: 0 09/22/19 21 11:06 AM EST documented as of this encounter Care Teams Hydraulic Engineer Relationship Specialty Start Date End Date Albert Iglesias MD [address] [place] [address] PCP - General Internal Medicine 03/24/21 Balaji Kim MD [address] [place] [address] Drive [address] [place] [address] Neurosurgery 04/12/16 Lorri Wick MD [address] [address] [email or web address] Internal Medicine 11/06/16 documented as of this encounter Additional Source Comments The information contained in this document represents components of the legal health record. It is not the complete legal health record.[facility]
--- OUTSIDE RECORDS SUMMARY | 2025-07-13 18:12 | XMS_ITS | Encounter Summary ---
Author Organization [facility] Address [address] [place] [address] Care Team Providers Care Nascar Driver Name Role Phone Doug Melendez MD Primary Care Provider Unavail [facility], Pcp Primary Care Provider Eunice Stein MD Primary Care Provider UnavailSuleiman Meehan MD Unavailable Krystin Borjas PA-C Unavailable [facility], Pcp Primary Care Provider Ewelina Juan Ch MD Primary Care Provider [phone] Encounter Details Date Type Department Care Team Description 06/13/2014 Residential Aide Report Medical Records [address] [place] [address] Dinora Doty MD Social History Tobacco Use [...] on filedocumented in this encounter Care Teams Nascar Driver Relationship Specialty Start Date End Date Doug Melendez MD PCP - General 03/06/05 06/16/16 [facility], Pcp PCP - General Internal Medicine 06/17/16 02/17/19 Eunice Laureano MD PCP - General 02/18/19 06/27/21 [facility], Pcp PCP - General Internal Medicine 06/28/21 09/02/21 Juan Juan, [address] [place] [address] PCP - General Internal Medicine 09/03/21 Suleiman Belle MD Specialist Cardiology 09/22/20 Krystin Borjas PA-C Specialist Cardiology 09/22/20 documented as of this encounter
--- OUTSIDE RECORDS SUMMARY | 2025-07-13 18:12 | XMS_ITS | Encounter Summary ---
Author Organization [employer] Address [address] [facility] 7t [place] [address] Care Team Providers Care Library Cataloging Technician Name Role Phone Albert Iglesias MD Primary Care Prov ider Robert Ramirez RN Unavailable [phone] Amari Dutton Unavailable Reason for Visit * Reason Comments Care Coordination C3CM/CHW Amari louis, Chart review Encounter Details Date Type Department Care Team (Latest Contact Info) Description 07/13/2025 Patient Outreach [facility] MEDICINE [address] [place] [address] Albert Iglesias MD [address] [place] [address] Care Coordination (C3CM/CARLAW Amari Dutton, Chart review ) Social History Tobacco Use Types Packs/Day Years [...] as of this encounter Progress Notes * Amari Dutton - 07/13/2025 11:19 AM EDT MIHIR Dutton reviewed chart review completed by APRYL Ramirez RN: APRYL Ramirez RN, performed chart review, in anticipation of initial assessment with patient, as patient has stratified for C3 Adult Complex Care through the ADT feed. History significant for hypothyroidism, hypertension,cardiac pacemaker in situ, cognitive disorder, CHF, GERD w/ esophagitis, hyperlipidemia, obesity, ERIKA, pituitary adenoma, smoker, cervical radiculopathy, chronic diarrhea, periodontal disease. Specialists include GI, [facility] [place], [facility] [place] [place], [facility] dental, [facility] GYRO MECHANIC, [facility] [place] [place], [facility] cardiology. ED visits within the last 12 months include [facility] 07/12/25. Last appointment in PCP office on 06/23/25 ([facility] dental). Next appointment scheduled for 08/03/25 ([facility] [place]). documented in this encounter Plan of Treatment Upcoming Encounters Date Type Department Care Team (Late st Contact Info) Description 08/03/2025 3:15 PM EST Clinical Support [facility] MED & PEDS [address] [place] [address] Liliane Thomas, VIN [address] [place] [address] documented as of this encounter Visit Diagnoses Not on filedocumented in this encounter Additional Health Concerns Assessment Noted Time PHQ-9 Depression Total Score: 5 09/28/19 25 10:57 AM EST documented as of this encounter Care Teams Library Cataloging Technician Relationship Specialty Start Date End Date Albert Iglesias MD [address] [place] [address] PCP - General Internal Medicine 02/13/20 Robert Ramirez, VIN [address] [place] [address] Registered Nurse Family Medicine 07/13/25 Amari Dutton 07/13/25 Panchito Cole Scrap CarrierLaundry Tech 06/11/24 documented as of this encounter
--- OUTSIDE RECORDS SUMMARY | 2025-07-13 18:12 | XMS_ITS | Encounter Summary ---
Author Organization [facility] Address [address] [place] [address] Care Team Providers Care Manager Ccu Name Role Phone Doug Melendez MD Primary Care Provider Unavail [facility], Pcp Primary Care Provider Eunice Stein MD Primary Care Provider Suleiman Hutchison MD Unavailable [phone] Krystin Borjas PA-C Unavailable [facility], Pcp Primary Care Provider Ewelina Juan Ch MD Primary Care Provider [phone] Encounter Details Date Type Department Care Team Description 09/12/2011 Hospital Medical Records [address] [place] [address] BharatnandiniAlvin koroma Social History Tobacco Use Types Packs/Day Years [...] on filedocumented in this encounter Care Teams Manager Ccu Relationship Specialty Start Date End Date Doug Melendez MD PCP - General 03/06/05 06/16/16 [facility], Pcp PCP - General Internal Medicine 06/17/16 02/17/19 Eunice Laureano MD PCP - General 02/18/19 06/27/21 [facility], Pcp PCP - General Internal Medicine 06/28/21 09/02/21 Juan Juan MD [address] [place] [address] PCP - General Internal Medicine 09/03/21 Suleiman Belle MD Specialist Cardiology 09/22/20 Krystin Borjas PA-C Specialist Cardiology 09/22/20 documented as of this encounter
--- OUTSIDE RECORDS SUMMARY | 2025-07-13 18:12 | XMS_ITS | Encounter Summary ---
Author Organization [facility] Address [address] [place] [address] Care Team Providers Care Ground Wirer Name Role Phone Doug Melendez MD Primary Care Provider Unavail [facility], Pcp Primary Care Provider Eunice Stein MD Primary Care Provider Suleiman Hutchison MD Unavailable [phone] Krystin Borjas PA-C Unavailable [facility], Pcp Primary Care Provider Ewelina Juan Ch MD Primary Care Provider [phone] Encounter Details Date Type Department Care Team Description 02/28/2011 Hospital Medical Records [address] [place] [address] Ekaterina Sheehan Social History Tobacco Use Types Packs/Day Years [...] on filedocumented in this encounter Care Teams Ground Wirer Relationship Specialty Start Date End Date Doug Melendez MD PCP - General 03/06/05 06/16/16 [facility], Pcp PCP - General Internal Medicine 06/17/16 02/17/19 Eunice Laureano MD PCP - General 02/18/19 06/27/21 [facility], Pcp PCP - General Internal Medicine 06/28/21 09/02/21 Juan Juan, [address] [place] [address] PCP - General Internal Medicine 09/03/21 Suleiman Belle MD Specialist Cardiology 09/22/20 Krystin Borjas PA-C Specialist Cardiology 09/22/20 documented as of this encounter
--- OUTSIDE RECORDS SUMMARY | 2025-07-13 18:12 | XMS_ITS | Encounter Summary ---
Author Organization [facility] Address [address] [place] [address] Care Team Providers Care Payroll Associate Name Role Phone Doug Melendez MD Primary Care Provider Unavail [facility], Pcp Primary Care Provider Eunice Stein MD Primary Care Provider Suleiman Hutchison MD Unavailable [phone] Krystin Borjas PA-C Unavailable [facility], Pcp Primary Care Provider Ewelina Juan Ch MD Primary Care Provider [phone] Encounter Details Date Type Department Care Team Description 02/24/2011 Hospital Medical Records [address] [place] [address] Daniel Beckett Social History Tobacco Use Types Packs/Day Years [...] on filedocumented in this encounter Care Teams Payroll Associate Relationship Specialty Start Date End Date Doug Melendez MD PCP - General 03/06/05 06/16/16 [facility], Pcp PCP - General Internal Medicine 06/17/16 02/17/19 Eunice Laureano MD PCP - General 02/18/19 06/27/21 [facility], Pcp PCP - General Internal Medicine 06/28/21 09/02/21 Juan Juan, [address] [place] [address] PCP - General Internal Medicine 09/03/21 Suleiman Belle MD Specialist Cardiology 09/22/20 Krystin Borjas PA-C Specialist Cardiology 09/22/20 documented as of this encounter
--- OUTSIDE RECORDS SUMMARY | 2025-07-13 18:12 | XMS_ITS | Encounter Summary ---
Author Organization [facility] Address [address] [place] [address] Care Team Providers Care Master Scheduler Name Role Phone Doug Melendez MD Primary Care Provider Unavail [facility], Pcp Primary Care Provider Eunice Stein MD Primary Care Provider Suleiman Hutchison MD Unavailable [phone] Krystin Borjas PA-C Unavailable [facility], Pcp Primary Care Provider Ewelina Juan Ch MD Primary Care Provider [phone] Encounter Details Date Type Department Care Team Description 02/24/2011 Hospital Medical Records [address] [place] [address] Oneal Garibay Social History Tobacco Use Types Packs/Day Years [...] on filedocumented in this encounter Care Teams Master Scheduler Relationship Specialty Start Date End Date Doug Melendez MD PCP - General 03/06/05 06/16/16 [facility], Pcp PCP - General Internal Medicine 06/17/16 02/17/19 Eunice Laureano MD PCP - General 02/18/19 06/27/21 [facility], Pcp PCP - General Internal Medicine 06/28/21 09/02/21 Juan Juan MD [address] [place] [address] PCP - General Internal Medicine 09/03/21 Suleiman Belle MD Specialist Cardiology 09/22/20 Krystin Borjas PA-C Specialist Cardiology 09/22/20 documented as of this encounter
--- OUTSIDE RECORDS SUMMARY | 2025-07-13 18:12 | XMS_ITS | Encounter Summary ---
Author Organization [facility] Address [address] [place] [address] Phone Care Team Providers Care Fuller Brush Man Name Role Phone Balaji Kim MD Unavailable [phone] Lorri Wick MD Unavailable Albert Iglesias MD Primary Care Prov ider Encounter Details Date Type Department Care Team (Late st Contact Info) Description 05/30/2025 Procedure Pass [facility] Card Device Check [address] [place] [address] Social History Tobacco Use Types Packs/Day Years [...] EST Office Visit [facility] Endocrinology [address] [address] Lorri Wick MD [address] [place] [address] [email or web address] documented as of this encounter Visit Diagnoses Not on filedocumented in this encounter Additional Health Concerns Assessment Noted Time PHQ-2 Depression Total Score: 0 09/22/19 21 11:06 AM EST documented as of this encounter Care Teams Fuller Brush Man Relationship Specialty Start Date End Date Albert Iglesias MD [address] [place] [address] PCP - General Internal Medicine 03/24/21 Balaji Kim MD [address] [place] [address] Drive [address] [place] [address] Neurosurgery 04/12/16 Lorri Wick MD [address] [address] Internal Medicine 11/06/16 documented as of this encounter Additional Source Comments The information contained in this document represents components of the legal health record. It is not the complete legal health record.[facility]
--- OUTSIDE RECORDS SUMMARY | 2025-07-13 18:12 | XMS_ITS | Encounter Summary ---
Author Organization [facility] Address [address] [place] [address] Care Team Providers Care Psychiatric Aides Teacher Name Role Phone Doug Melendez MD Primary Care Provider Unavail [facility], Pcp Primary Care Provider Eunice Stein MD Primary Care Provider Suleiman Hutchison MD Unavailable [phone] Krsytin Borjas PA-C Unavailable [facility], Pcp Primary Care Provider Ewelina Juan Ch MD Primary Care Provider [phone] Encounter Details Date Type Department Care Team Description 02/27/2011 Hospital Medical Records [address] [place] [address] Mendoza Rascon MD Social History Tobacco Use Types Packs/Day [...] on filedocumented in this encounter Care Teams Psychiatric Aides Teacher Relationship Specialty Start Date End Date Doug Melendez MD PCP - General 03/06/05 06/16/16 [facility], Pcp PCP - General Internal Medicine 06/17/16 02/17/19 Eunice Laureano MD PCP - General 02/18/19 06/27/21 [facility], Pcp PCP - General Internal Medicine 06/28/21 09/02/21 Juan Juan MD [address] [place] [address] PCP - General Internal Medicine 09/03/21 Suleiman Belle MD Specialist Cardiology 09/22/20 Krystin Borjas PA-C Specialist Cardiology 09/22/20 documented as of this encounter
--- OUTSIDE RECORDS SUMMARY | 2025-07-13 18:12 | XMS_ITS ---
Author Organization [employer] Address [address] [facility] 7t [place] [address] Care Team Providers Care Housekeeping/Laundry Name Role Phone Albert Iglesias MD Primary Care Prov ider Robert Ramirez RN Unavailable [phone] Amari Dutton Unavailable CM Complex Status:Outreach In Progress (Enrolling) Start date:07/13/2025 Enrollment reason:ADT Feed Overview ED- Pt went to [facility] ED on 07/12/25. Case Team Name Relationship Phone Robert Ramirez RN(Responsible Staff) Registered [facility] [phone] Continued Care and Services Coordination
--- OUTSIDE RECORDS SUMMARY | 2025-07-13 18:12 | XMS_ITS | Encounter Summary ---
Author Organization [facility] Address [address] [place] [address] Phone Care Team Providers Care Small Parts Assembler Name Role Phone Balaji Kim MD Unavailable [phone] Lorri Wick MD Unavailable Albert Iglesias MD Primary Care Prov ider Encounter Details Date Type Department Care Team (Late Contact Info) Description 11/12/2021 Procedure Pass [facility] Cardio EP Device Monitoring [address] [place] [address] Social History Tobacco Use Types Packs/Day Years [...] Description 09/12/2025 3:40 PM EST Office Visit [facility] Endocrinology [address] [phone] Lorri Wick MD [address] [place] [address] documented as of this encounter Visit Diagnoses Not on filedocumented in this encounter Additional Health Concerns Assessment Noted Time PHQ-2 Depression Total Score: 0 09/22/19 21 11:06 AM EST documented as of this encounter Care Teams Small Parts Assembler Relationship Specialty Start Date End Date Albert Iglesias MD [address] [place] [address] PCP - General Internal Medicine 03/24/21 Balaji Kim MD [address] [place] [address] Drive [address] [place] [address] Neurosurgery 04/12/16 Lorri Wick MD [address] [address] [email or web address] Internal Medicine 11/06/16 documented as of this encounter Additional Source Comments The information contained in this document represents components of the legal health record. It is not the complete legal health record.[facility]
--- OUTSIDE RECORDS SUMMARY | 2025-07-13 18:12 | XMS_ITS | Encounter Summary ---
Author Organization [facility] Address [address] [place] [address] Care Team Providers Care Food Service Agent Name Role Phone Eunice Laureano MD Primary Care Provider Suleiman Hutchison MD Unavailable [phone] Krystin Borjas PA-C Unavailable [facility], Pcp Primary Care Provider Ewelina Juan Ch MD Primary Care Provider [phone] Encounter Details Date Type Department Care Team Description 10/15/2019 Hospital Medical Records [address] [place] [address] Juan Luis Mota MD [address] [place] [address] Social History Tobacco Use Types Packs/Day Years [...] on filedocumented in this encounter Care Teams Food Service Agent Relationship Specialty Start Date End Date Eunice Laureano MD PCP - General 02/18/19 06/27/21 [facility], Pcp PCP - General Internal Medicine 06/28/21 09/02/21 Juan Juan MD [address] [place] [address] PCP - General Internal Medicine 09/03/21 Suleiman Belle MD Specialist Cardiology 09/22/20 Krystin Borjas PA-C Specialist Cardiology 09/22/20 documented as of this encounter
--- OUTSIDE RECORDS SUMMARY | 2025-07-13 18:13 | XMS_ITS | Encounter Summary ---
Author Organization [facility] Address [address] [place] [address] Care Team Providers Care Clinical Laboratory Medical Director Name Role Phone Doug Melendez MD Primary Care Provider Unavail [facility], Pcp Primary Care Provider Eunice Stein MD Primary Care Provider Suleiman Hutchison MD Unavailable Krystin Borjas PA-C Unavailable [facility], Pcp Primary Care Provider Ewelina Juan Ch MD Primary Care Provider [phone] Encounter Details Date Type Department Care Team Description 10/28/2011 Career Development Specialist Report Medical Records [address] [place] [address] Steve Castellanos MD Social History Tobacco Use [...] on filedocumented in this encounter Care Teams Clinical Laboratory Medical Director Relationship Specialty Start Date End Date Doug Melendez MD PCP - General 03/06/05 06/16/16 [facility], Pcp PCP - General Internal Medicine 06/17/16 02/17/19 Eunice Laureano MD PCP - General 02/18/19 06/27/21 [facility], Pcp PCP - General Internal Medicine 06/28/21 09/02/21 Juan Juan, [address] [place] [address] PCP - General Internal Medicine 09/03/21 Suleiman Belle MD Specialist Cardiology 09/22/20 Krystin Borjas PA-C Specialist Cardiology 09/22/20 documented as of this encounter
--- OUTSIDE RECORDS SUMMARY | 2025-07-13 18:13 | XMS_ITS | Encounter Summary ---
Author Organization [facility] Address [address] [place] [address] Care Team Providers Care Tie In Machine Operator Name Role Phone Doug Melendez MD Primary Care Provider Unavail [facility], Pcp Primary Care Provider Eunice Stein MD Primary Care Provider Suleiman Hutchison MD Unavailable [phone] Krystin Borjas PA-C Unavailable [facility], Pcp Primary Care Provider Ewelina Juan Ch MD Primary Care Provider [phone] Encounter Details Date Type Department Care Team Description 07/21/2012 Hospital Medical Records [address] [place] [address] Umair Whitt MD Social History Tobacco Use Types Packs/Day [...] on filedocumented in this encounter Care Teams Tie In Machine Operator Relationship Specialty Start Date End Date Doug Melendez MD PCP - General 03/06/05 06/16/16 [facility], Pcp PCP - General Internal Medicine 06/17/16 02/17/19 Eunice Laureano MD PCP - General 02/18/19 06/27/21 [facility], Pcp PCP - General Internal Medicine 06/28/21 09/02/21 Juan Juan, [address] [place] [address] PCP - General Internal Medicine 09/03/21 Suleiman Belle MD Specialist Cardiology 09/22/20 Krystin Borjas PA-C Specialist Cardiology 09/22/20 documented as of this encounter
--- OUTSIDE RECORDS SUMMARY | 2025-07-13 18:13 | XMS_ITS | Encounter Summary ---
Author Organization [employer] Address [address] [place] [address] 7t [place] [address] Care Team Providers Care Commercial Representative Name Role Phone Albert Iglesias MD Primary Care Prov ider Robert Ramirez RN Unavailable [phone] Amari Dutton Unavailable Encounter Details Date Type Department Care Team (Late Contact Info) Description 06/12/2023 Orders Only [facility] MEDICINE [address] [place] [address] Provider, MD Flaco Social History Tobacco Use [...] Department Care Team (Late Contact Info) Description 08/03/2025 3:15 PM EST Clinical Support [facility] MED & PEDS [address] [place], [place] [phone] Liliane Thomas, RN [address] [place], [place] [phone] documented as of this encounter Procedures Procedure Name Priority Date/Time Associated Diagnosis Comments PAP/HPV Routine 07/17/2022 PAP/HPV Routine 2022 documented in this encounter Results * Hm Pap Smear (07/17/2022) us Historical Provider HEALTH MAINTENANCE Final Result * Hm Pap Smear (2022) us Historical Provider HEALTH MAINTENANCE Final Result documented in this encounter Visit Diagnoses Not on filedocumented in this encounter Additional Health Concerns Assessment Noted Time PHQ-9 Depression Total Score: 9 12/24/19 23 10:49 AM EDT documented as of this encounter Care Teams Commercial Representative Relationship Specialty Start Date End Date Albert Iglesias MD [address] [place] [address] PCP - General Internal Medicine 02/13/20 Robert Ramirez, VIN [address] [place] [address] Registered Nurse Family Medicine 07/13/25 Amari Dutton 07/13/25 Panchito Cole Developer Programmer AnalystPostmaster 06/11/24 documented as of this encounter
--- OUTSIDE RECORDS SUMMARY | 2025-07-13 18:13 | XMS_ITS | Encounter Summary ---
Author Organization [employer] Address [address] [place] [address] 7t [place] [address] Care Team Providers Care Home Economics Teacher Name Role Phone Albert Iglesias MD Primary Care Prov ider Robert Ramirez RN Unavailable [phone] Amari Dutton Unavailable Encounter Details Date Type Department Care Team (Latest Contact Info) Description 03/05/2019 Abstract [facility] CONVERSIONS Dental, Provider, DDS Social History Tobacco [...] Description 08/03/2025 3:15 PM EST Clinical Support [facility] MED & PEDS [address] [place] [address] Liliane Thomas RN [address] [place] [address] documented as of this encounter Visit Diagnoses Not on filedocumented in this encounter Care Teams Home Economics Teacher Relationship Specialty Start Date End Date Albert Iglesias MD [address] [place] [address] PCP - General Internal Medicine 02/13/20 Robert Ramirez, RN [address] [place] [address] Registered Nurse Family Medicine 07/13/25 Amari Dutton 07/13/25 Panchito Cole Apprentice Plant AttendantHand Upper And Bottom Lacer 06/11/24 documented as of this encounter
--- OUTSIDE RECORDS SUMMARY | 2025-07-13 18:13 | XMS_ITS | Encounter Summary ---
Author Organization [facility] Address [address] [place] [address] Care Team Providers Care Dandy Operator Name Role Phone Doug Melendez MD Primary Care Provider Unavail [facility], Pcp Primary Care Provider Eunice Stein MD Primary Care Provider Suleiman Hutchison MD Unavailable [phone] Krystin Borjas PA-C Unavailable [facility], Pcp Primary Care Provider Ewelina Juan Ch MD Primary Care Provider [phone] Encounter Details Date Type Department Care Team Description 08/16/2013 Fiber Glass Worker Report Medical Records [address] [place] [address] Sheri Bennett Np Social History Tobacco Use Types Packs/Day Years [...] on filedocumented in this encounter Care Teams Dandy Operator Relationship Specialty Start Date End Date Doug Melendez MD PCP - General 03/06/05 06/16/16 [facility], Pcp PCP - General Internal Medicine 06/17/16 02/17/19 Eunice Laureano MD PCP - General 02/18/19 06/27/21 [facility], Pcp PCP - General Internal Medicine 06/28/21 09/02/21 Juan Juan, [address] [place] [address] PCP - General Internal Medicine 09/03/21 Suleiman Belle MD Specialist Cardiology 09/22/20 Krystin Borjas PA-C Specialist Cardiology 09/22/20 documented as of this encounter
--- OUTSIDE RECORDS SUMMARY | 2025-07-13 18:13 | XMS_ITS | Encounter Summary ---
Author Organization [facility] Address [address] [place] [address] Care Team Providers Care Developmental Psychologist Name Role Phone Doug Melendez MD Primary Care Provider Unavail [facility], Pcp Primary Care Provider Eunice Stein MD Primary Care Provider Suleiman Hutchison MD Unavailable [phone] Krystin Borjas PA-C Unavailable [facility], Pcp Primary Care Provider Ewelina Juan Ch MD Primary Care Provider [phone] Encounter Details Date Type Department Care Team Description 06/12/2015 Compact Assembler Report Medical Records [address] [place] [address] David Nolen MD Social History Tobacco Use Types Packs/Day [...] on filedocumented in this encounter Care Teams Developmental Psychologist Relationship Specialty Start Date End Date Doug Melendez MD PCP - General 03/06/05 06/16/16 [facility], Pcp PCP - General Internal Medicine 06/17/16 02/17/19 Eunice Laureano MD PCP - General 02/18/19 06/27/21 [facility], Pcp PCP - General Internal Medicine 06/28/21 09/02/21 Juan Juan, [address] [place] [address] PCP - General Internal Medicine 09/03/21 Suleiman Belle MD Specialist Cardiology 09/22/20 Krystin Borjas PA-C Specialist Cardiology 09/22/20 documented as of this encounter
--- OUTSIDE RECORDS SUMMARY | 2025-07-13 18:13 | XMS_ITS | Encounter Summary ---
Author Organization [employer] Address [address] [facility] 7t [place] [address] Care Team Providers Care Aviation Program Manager Name Role Phone Albert Iglesias MD Primary Care Prov ider Robert Ramirez RN Unavailable [phone] Amari Dutton Unavailable Reason for Visit * Reason Comments Care Coordination C3CM/CHW Amari louis, initial outreach_requested call back Encounter Details Date Type Department Care Team (Latest Contact Info) Description 07/13/2025 Patient Outreach [facility] [address] [place] [address] Albert Iglesias MD [address] [place] [address] Care Coordination (C3CM/CHW Amari Dutton, initial outreach_requested call back ) Social History Tobacco Use Types Packs/Day [...] the past 12 months, has t he [place], gas, oil or water [employer] threatened to shut off services in your [...] Progress Notes * Amari Dutton - 07/13/2025 3:33 PM EDT CHW Amari Dutton, placed outbound call to patient to introduce [facility] Complex [facility] Program. Patient'sname and was confirmed. CHW was connected with patient's daughter which informed that the patient is at [facility] at the time of call. Patient's daughter requested a call back. CHW will re-attempt to contact within 2 days. documented in this encounter Plan of Treatment Upcoming Encounters Date Type Department Care Team ([facility] st Contact Info) Description 08/03/2025 3:15 PM EST Clinical Support [facility] [address] [place] [address] Liliane Thomas, [place] [address] [place] [address] documented as of this encounter Visit Diagnoses Not on filedocumented in this encounter Additional Health Concerns Assessment Noted Time PHQ-9 Depression Total Score: 5 09/28/19 10:57 AM EST documented as of this encounter Care Teams Aviation Program Manager Relationship Specialty Start Date End Date Albert Iglesias MD [address] [place] [address] PCP - General Internal Medicine 02/13/20 Robert Ramirez, [place] [address] [place] [address] Registered Nurse Family Medicine 07/13/25 Amari Dutton 07/13/25 Panchito Cole Mushroom Spawn MakerOiler And Greaser 06/11/24 documented as of this encounter
--- OUTSIDE RECORDS SUMMARY | 2025-07-13 18:13 | XMS_ITS | Encounter Summary ---
Author Organization [facility] Address [address] [place] [address] Care Team Providers Care Digital Account Executive Name Role Phone [facility], Pcp Primary Care Provider Eunice Stein MD Primary Care Provider Suleiman Hutchison MD Unavailable [phone] Krystin Borjas PA-C Unavailable [facility], [facility] Primary Care Provider Ewelina Juan Ch MD Primary Care Provider [phone] Reason for Visit * Reason Onset Date Comments Faxed Order 04/15/2017 Encounter Details Date Type Department Care Team Description 04/15/2017 Telephone Adult Medicine [address] [address] Doug Melendez MD Faxed Order Social History Tobacco Use Types Packs/Day Years [...] encounter Miscellaneous Notes * Telephone Encounter - Ina Ramirez - 04/15/2017 12:03 PM EDT Please date, sign and return faxed order to caregiver homes documented in this encounter Plan of Treatment Not on file documented as of this encounter Visit Diagnoses Not on filedocumented in this encounter Care Teams Digital Account Executive Relationship Specialty Start Date End Date [facility], Pcp PCP - General Internal Medicine 06/17/16 02/17/19 Eunice Laureano MD PCP - General 02/18/19 06/27/21 [facility], Pcp PCP - General Internal Medicine 06/28/21 09/02/21 Juan Juan MD [address] [place] [address] PCP - General Internal Medicine 09/03/21 Suleiman Belle MD Specialist Cardiology 09/22/20 Krystin Borjas PA-C Specialist Cardiology 09/22/20 documented as of this encounter
--- OUTSIDE RECORDS SUMMARY | 2025-07-13 18:13 | XMS_ITS | Encounter Summary ---
Author Organization [facility] Address [address] [place] [address] Phone Care Team Providers Care Paver Layer Name Role Phone Balaji Kim MD Unavailable [phone] Lorri Wick MD Unavailable Albert Iglesias MD Primary Care Prov ider Encounter Details Date Type Department Care Team (Late Contact Info) Description 06/28/2022 Ancillary Orders [facility] [address] [facility], 9th Floor, [address] [place] [address] Lola Davidson MD, PhD [address] [facility] [address] [place] [address] [email or web address] [...] Description 09/12/2025 3:40 PM EST Office Visit [facility]ocr[facility]ology [place] [address] [place] [address] Lorri Wick MD [address] [address] [email or web address] documented as of this encounter Visit Diagnoses Diagnosis Pituitary adenoma Benign 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) documented in this encounter Additional Health Concerns Assessment Noted Time PHQ-2 Depression Total Score: 0 09/22/19 21 11:06 AM EST documented as of this encounter Care Teams Paver Layer Relationship Specialty Start Date End Date Albert Iglesias MD [address] [place] [address] PCP - General Internal Medicine 03/24/21 Balaji Kim MD [address] [place] [address] Drive [address] [place] [address] Neurosurgery 04/12/16 Lorri Wick MD [address] [address] [email or web address] Internal Medicine 11/06/16 documented as of this encounter Additional Source Comments The information contained in this document represents components of the legal health record. It is not the complete legal health record.[facility]
--- OUTSIDE RECORDS SUMMARY | 2025-07-13 18:13 | XMS_ITS | Encounter Summary ---
Author Organization [facility] Address [address] [place] [address] Care Team Providers Care Probe Operator Name Role Phone Doug Melendez MD Primary Care Provider Unavail [facility], Pcp Primary Care Provider Eunice Stein MD Primary Care Provider Suleiman Hutchison MD Unavailable [phone] Krystin Borjas PA-C Unavailable [facility], Pcp Primary Care Provider Ewelina Juan Ch MD Primary Care Provider [phone] Reason for Visit * Reason Onset Date Comments Provider Call Back 05/13/2016 Encounter Details Date Type Department Care Team Description 05/13/2016 Telephone Adult Medicine [address] [address] Doug Melendez MD Provider Call Back Social History Tobacco Use Types Packs/Day Years [...] encounter Miscellaneous Notes * Telephone Encounter - Doug Melendez MD - 05/13/2016 1:28 PM EDT Science Liaison at [facility] will need further information, Amarilis's last name. Thank you * Telephone Encounter - Carmencita Willa - 05/13/2016 11:35 AM EDT Caller requesting call back from provider: Is the caller the patient? NO If caller is not the patient, what is the callers name? 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/ [facility] If person calling is not the patient themselves, is there a verbal release in FYI or permanent comments for this person: NO Reason for call back: Needs to discuss patients surgery on pituatory gland/ Caller offered to speakwith the nurse for assistance: YES Response: Patient offered to speak with nurse to assist them: refused offer documented in this encounter Plan of Treatment Not on file documented as of this encounter Visit Diagnoses Not on filedocumented in this encounter Care Teams Probe Operator Relationship Specialty Start Date End Date Doug Melendez MD PCP - General 03/06/05 06/16/16 [facility], Pcp PCP - General Internal Medicine 06/17/16 02/17/19 Eunice Laureano MD PCP - General 02/18/19 06/27/21 [facility], Pcp PCP - General Internal Medicine 06/28/21 09/02/21 Juan Juan MD [address] [place] [address] PCP - General Internal Medicine 09/03/21 Suleiman Belle MD Specialist Cardiology 09/22/20 Krystin Borjas PA-C Specialist Cardiology 09/22/20 documented as of this encounter
--- OUTSIDE RECORDS SUMMARY | 2025-07-13 18:13 | XMS_ITS | Encounter Summary ---
Author Organization [facility] Address [address] [place] [address] Phone Care Team Providers Care Manager Of Training Name Role Phone Balaji Kim MD Unavailable [phone] Lorri Wick MD Unavailable Albert Iglesias MD Primary Care Prov ider Encounter Details Date Type Department Care Team (Late Contact Info) Description 07/05/2022 Ancillary Orders [facility] [address] [facility], 9th Floor, [address] [place] [address] Heena Cárdenas, RN [address] [place] [address] [email or web address] Pituitary adenoma Social History Tobacco Use Types [...] Description 09/12/2025 3:40 PM EST Office Visit [facility] Endocrinology [address] [place] [id number] Lorri Wick MD [address] [place] [address] [email or web address] documented as of this encounter Procedures Procedure Name Priority Date/Time Associated Diagnosis Comments COMPREHENSIVE METABOLIC PANEL Routine 09/04/2022 2:25 PM EST Pituitary adenoma CBC AND DIFFERENTIAL Routine 09/04/2022 2:25 PM EST Pituitary adenoma documented in this encounter Results * Comprehensive metabolic panel (09/04/2022 2:25 PM EST) Glucose 105 65 - 139 mg/dL [facility] Comment: Non-fasting reference interval Urea Nitrogen (BUN) 11 7 - 25 mg/dL [facility] Creatinine 0.82 0.50 - 1.03 mg/dL [facility] EGFR 84 > OR = 60 mL/min/1 .73m2 [facility] Comment: The eGFR is based on the CKD-EPI 2020 equation. To calculate the new eGFR from a previous Creatinine or Cystatin C result, go to https://www.kidney.org/professionals/ kdoqi/gfr%5Fcalculator BUN/Creatinine Ratio NOT APPLICABLE 6 - 22 (calc) [facility] Sodium 141 135 - 146 mmol/L [facility] Potassium 4.1 3.5 - 5.3 mmol/L [facility] Chloride 103 98 - 110 mmol/L [facility] Carbon Dioxide 28 20 - 32 mmol/L [facility] Calcium 9.6 8.6 - 10.4 mg/dL [facility] Protein, Total 6.6 6.1 - 8.1 g/dL [facility] Albumin 4.1 3.6 - 5.1 g/dL [facility] Globulin 2.5 1.9 - 3.7 g/dL (calc) [facility] Albumin/Globuli n Ratio 1.6 1.0 - 2.5 (calc) [facility] Bilirubin, Total 0.4 0.2 - 1.2 mg/dL [facility] Alkaline Phosphatase 106 37 - 153 U/L [facility] AST 18 10 - 35 U/L [facility] ALT 24 6 - 29 U/L [facility] Blood 09/04/2022 2:25 PM EST 09/04/2022 2:26 PM EST Narrative [employer] [facility] [place] [address] - 09/05/2022 12:49 AM EST FASTING:NO AN UPDATE OR CORRECTION HAS BEEN MADE TO NAME FASTING: NO us Hannah Prajapati [facility] LAB BLOOD ORDERABLES Shelby pollard Result [employer]RD FLOOR,[place] [address], [facility] [employer] [address] [place] [address], (Nl1) [place] [address] * (ABNORMAL) CBC and differential (09/04/2022 2:25 PM EST) WBC 6.0 3.8 - 10.8 Thousand/ uL [facility] Red Blood Cell 4.99 3.80 - 5.10 Million/u L [facility] Hemoglobin 12.7 11.7 - 15.5 g/dL [facility] Hematocrit 39.8 35.0 - 45.0 % [facility] MCV 79.8(L) 80.0 - 100.0 fL [facility] [place] MCH 25.5(L) 27.0 - 33.0 pg [facility] MCHC 31.9(L) 32.0 - 36.0 g/dL [facility] RDW 16.5(H) 11.0 - 15.0 % [facility] Platelet Count 222 140 - 400 Thousand/ uL [facility] MPV 9.9 7.5 - 12.5 fL [facility] Absolute Neutrophils 3,576 1,500 - 7,800 cells/uL [facility] Absolute Lymphocytes 1,818 850 - 3,900 cells/uL [facility] Absolute Monocytes 456 200 - 950 cells/uL [facility] Absolute Eosinophils 132 15 - 500 cells/uL [facility] Absolute Basophils 18 0 - 200 cells/uL [facility] Neutrophils 59.6 % [facility] Lymphocytes 30.3 % [facility] Monocytes 7.6 % [facility] Eosinophils 2.2 % [facility] Basophils 0.3 % [facility] Blood 09/04/2022 2:25 PM EST 09/04/2022 2:26 PM EST Narrative [employer] [facility] - 09/05/2022 12:49 AM EST FASTING:NO AN UPDATE OR CORRECTION HAS BEEN MADE TO NAME FASTING: NO us Hannah Parjapati ACCOUNTANT SUPERVISOR LAB BLOOD ORDERABLES Shelby pollard Result [employer] [address], [facility] [employer] 200 [facility], (Nl1) [place] [address] documented in this encounter Visit Diagnoses Diagnosis Pituitary adenoma Benign 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) documented in this encounter Additional Health Concerns Assessment Noted Time PHQ-2 Depression Total Score: 0 09/22/19 21 11:06 AM EST documented as of this encounter Care Teams Manager Of Training Relationship Specialty Start Date End Date Albert Iglesias MD [address] [place] [address] PCP - General Internal Medicine 03/24/21 Balaji Kim MD [address] [place] [address] Neurosurgery 04/12/16 Lorri Wick MD [address] [address] [email or web address] Internal Medicine 11/06/16 documented as of this encounter Additional Source Comments The information contained in this document represents components of the legal health record. It is not the complete legal health record.[facility]"
--- OUTSIDE RECORDS SUMMARY | 2025-07-13 18:13 | XMS_ITS | Encounter Summary ---
Author Organization [facility] Address [address] [place] [address] Care Team Providers Care Injection Operator Name Role Phone [facility], Pcp Primary Care Provider Eunice Stein MD Primary Care Provider Suleiman Hutchison MD Unavailable [phone] Krystin Borjas PA-C Unavailable [facility], Pcp Primary Care Provider Ewelina Juan Ch MD Primary Care Provider [phone] Encounter Details Date Type Department Care Team Description 07/04/2016 Hospital Medical Records [address] [place] [address] Yolanda Barajas MD Social History Tobacco Use Types Packs/Day [...] on filedocumented in this encounter Care Teams Injection Operator Relationship Specialty Start Date End Date [facility], Pcp PCP - General Internal Medicine 06/17/16 02/17/19 Eunice Laureano MD PCP - General 02/18/19 06/27/21 [facility], Pcp PCP - General Internal Medicine 06/28/21 09/02/21 Juan Juan, [address] [place] [address] PCP - General Internal Medicine 09/03/21 Suleiman Belle MD Specialist Cardiology 09/22/20 Krystin Borjas PA-C Specialist Cardiology 09/22/20 documented as of this encounter
--- OUTSIDE RECORDS SUMMARY | 2025-07-13 18:13 | XMS_ITS | Encounter Summary ---
Author Organization [facility] Address [address] [place] [address] Care Team Providers Care Bench Worker Apprentice Name Role Phone Doug Melendez MD Primary Care Provider Unavail able [facility], Pcp Primary Care Provider Eunice Stein MD Primary Care Provider Suleiman Hutchison MD Unavailable [phone] Krystin Borjas PA-C Unavailable [facility], Pcp Primary Care Provider Ewelina Juan Ch MD Primary Care Provider [phone] Reason for Visit * Reason Onset Date Comments Flexographic Printing Machinist Feedback 04/01/2016 Dr Too Diamond Encounter Details Date Type Department Care Team Description 04/01/2016 Telephone Adult Medicine [address] [address] Doug Melendez MD Flexographic Printing Machinist Feedback ( Dr Too Diamond) Social History Tobacco Use Types Packs/Day Years [...] Telephone Encounter - Doug Melendez MD - 04/09/2016 3:48 PM EDT Thank you. * Telephone Encounter - Kimberli Johnson M.A. - 04/09/2016 10:56 AM EDT I called the pt, spoke with Fadi her daughter, pt was seen in [place] (they changed her insurance plan) she has surgery 04/23/2016 [address] [place]. Pt saw Dr. Rocha. NASEEMI * Telephone Encounter - Yelitza Frederick - 04/09/2016 9:40 AM EDT We submitted Dr Kim's clinicals and this was still denied. Patient will have to call the back of their insurance card to determine who accepts their insurance. Thank you, Viri Referrals Coordinator * Telephone Encounter - Doug Melendez MD - 04/07/2016 10:04 AM EDT Please advise, who are in network providers ? Dr. Kim wanted patient to see Dr. Gage. Please sentto referrals. * Telephone Encounter - Shruthi Akhtar MD - 04/01/2016 4:32 PM EDT This will need to wait for Dr Melendez's input * Telephone Encounter - Myriam Harrington L.P.N. - 04/01/2016 4:03 PM EDT Please review. * Telephone Encounter - Krystin Galicia - 04/01/2016 3:[address] Melendez, You recently placed an order for this patient to see Dr Too Diamond, I submitted an outof network with the patients insurance today and received a call from Vanessa Lucio stating this has been Denied and there are other in network providers. Thank you, Krystin Referrals Coordinator [facility] documented in this encounter Plan of Treatment Not on file documented as of this encounter Visit Diagnoses Not on filedocumented in this encounter Care Teams Bench Worker Apprentice Relationship Specialty Start Date End Date Doug Melendez MD PCP - General 03/06/05 06/16/16 [facility], Pcp PCP - General Internal Medicine 06/17/16 02/17/19 Eunice Laureano MD PCP - General 02/18/19 06/27/21 [facility], Pcp PCP - General Internal Medicine 06/28/21 09/02/21 Jaun Juan MD [facility] [place] [address] PCP - General Internal Medicine 09/03/21 Suleiman Belle MD Specialist Cardiology 09/22/20 Krystin Borajs PA-C Specialist Cardiology 09/22/20 documented as of this encounter
--- OUTSIDE RECORDS SUMMARY | 2025-07-13 18:13 | XMS_ITS | Encounter Summary ---
Author Organization [facility] Address [address] [place] [address] Care Team Providers Care House Shorer Name Role Phone Doug Melendez MD Primary Care Provider Unavail [facility], Pcp Primary Care Provider Eunice Stein MD Primary Care Provider Suleiman Hutchison MD Unavailable [phone] Krystin Borjas PA-C Unavailable [facility], Pcp Primary Care Provider Ewelina Juan Ch MD Primary Care Provider [phone] Encounter Details Date Type Department Care Team Description 09/22/2015 Chair Pad Maker Report Medical Records [address] [place] [address] Nasreen Dasilva NP Social History Tobacco Use Types Packs/Day [...] on filedocumented in this encounter Care Teams House Shorer Relationship Specialty Start Date End Date Doug Melendez MD PCP - General 03/06/05 06/16/16 [facility], Pcp PCP - General Internal Medicine 06/17/16 02/17/19 Eunice Laureano MD PCP - General 02/18/19 06/27/21 [facility], Pcp PCP - General Internal Medicine 06/28/21 09/02/21 Juan Juan MD [address] [place] [address] PCP - General Internal Medicine 09/03/21 Suleiman Belle MD Specialist Cardiology 09/22/20 Krystin Borjas PA-C Specialist Cardiology 09/22/20 documented as of this encounter
--- OUTSIDE RECORDS SUMMARY | 2025-07-13 18:13 | XMS_ITS | Encounter Summary ---
Author Organization [facility] Address [address] [place] [address] Phone Care Team Providers Care Driver Engineer Name Role Phone Balaji Kim MD Unavailable [phone] Lorri Wick MD Unavailable [phone] Albert Iglesias MD Primary Care Prov ider Encounter Details Date Type Department Care Team (Late Contact Info) Description 01/16/2023 Procedure Pass [facility], Ct Scan - [address] [address] Social History Tobacco Use Types Packs/Day Years [...] on file 01/10/2023 No 01/10/2023 No 01/10/2023 Comments No Sex and Gender Information Value Date Recorded Sex Assigned at Not on file Legal Sex Female 2:02 PM EDT Gender Identity Not on file Sexual Orientation Not on file documented as of this encounter Plan of Treatment Upcoming Encounters Date Type Department Care Team (Late Contact Info) Description 09/12/2025 3:40 PM EST Office Visit [facility] Endocrinology [address] [place] [address] Lorri Wick MD [address] [address] [email or web address] documented as of this encounter Visit Diagnoses Not on filedocumented in this encounter Additional Health Concerns Assessment Noted Time PHQ-2 Depression Total Score: 0 09/22/19 21 11:06 AM EST documented as of this encounter Care Teams Driver Engineer Relationship Specialty Start Date End Date Albert Iglesias MD [address] [place] [address] PCP - General Internal Medicine 03/24/21 Balaji Kim MD [address] [place] [address] Drive [address] [place] [address] Neurosurgery 04/12/16 Lorri Wick MD [address] [address] [email or web address] Internal Medicine 11/06/16 documented as of this encounter Additional Source Comments The information contained in this document represents components of the legal health record. It is not the complete legal health record.[facility]
--- OUTSIDE RECORDS SUMMARY | 2025-07-13 18:13 | XMS_ITS | Encounter Summary ---
Author Organization [facility] Address [address] [place] [address] Care Team Providers Care Software Test Analyst Name Role Phone [place], Pcp Primary Care Provider Eunice Stein MD Primary Care Provider Suleiman Hutchison MD Unavailable [phone] Krystin Borjas PA-C Unavailable [facility], Pcp Primary Care Provider Ewelina Juan Ch MD Primary Care Provider [phone] Encounter Details Date Type Department Care Team Description 02/15/2018 Hospital Medical Records [address] [place] [address] Rico Armstrong Social History Tobacco Use Types Packs/Day Years [...] on filedocumented in this encounter Care Teams Software Test Analyst Relationship Specialty Start Date End Date Community, Pcp PCP - General Internal Medicine 06/17/16 02/17/19 Eunice Laureano MD PCP - General 02/18/19 06/27/21 [facility], Pcp PCP - General Internal Medicine 06/28/21 09/02/21 Juan Juan, [address] [place] [address] PCP - General Internal Medicine 09/03/21 Suleiman Belle MD Specialist Cardiology 09/22/20 Krystin Borjas PA-C Specialist Cardiology 09/22/20 documented as of this encounter
--- OUTSIDE RECORDS SUMMARY | 2025-07-13 18:13 | XMS_ITS | Encounter Summary ---
Author Organization [facility] Address [address] [place] [address] Phone Care Team Providers Care Slitter Helper Name Role Phone Balaji Kim MD Unavailable [phone] Lorri Wick MD Unavailable Albert Iglesias MD Primary Care Prov ider Encounter Details Date Type Department Care Team (Late Contact Info) Description 06/21/2022 Ancillary Orders [facility] Neuro Oncology [address] [facility], 9th Floor, [address] [place] [address] Heena Cárdenas, RN [address] [place] [address] [email or web address] Pituitary adenoma Social History Tobacco Use Types [...] Description 09/12/2025 3:40 PM EST Office Visit [facility] Endocrinology [address] [place] [id number] Lorri Wick MD [address] [place] [address] [email or web address] documented as of this encounter Procedures Procedure Name Priority Date/Time Associated Diagnosis Comments COMPREHENSIVE METABOLIC PANEL Routine 06/24/2022 2:23 PM EDT Pituitary adenoma CBC AND DIFFERENTIAL Routine 06/24/2022 2:23 PM EDT Pituitary adenoma documented in this encounter Results * (ABNORMAL) Comprehensive metabolic panel (06/24/2022 2:23 PM EDT) Glucose 122(H) 65 - 99 mg/dL [facility] Comment: Fasting reference interval For someone without known diabetes, a glucose value between 100 and 125 mg/dL is consistent with prediabetes and should be confirmed with a follow-up test. Urea Nitrogen (BUN) 10 7 - 25 mg/dL [facility] Creatinine 0.91 0.50 - 1.03 mg/dL [facility] EGFR 75 > OR = 60 mL/min/1 .73m2 [facility] Comment: The eGFR is based on the CKD-EPI 2020 equation. To calculate the new eGFR from a previous Creatinine or Cystatin C result, go to https://www.kidney.org/professionals/ kdoqi/gfr%5Fcalculator BUN/Creatinine Ratio NOT APPLICABLE 6 - 22 (calc) [facility] Sodium 141 135 - 146 mmol/L [facility] Potassium 4.4 3.5 - 5.3 mmol/L [facility] Chloride 105 98 - 110 mmol/L [facility] Carbon Dioxide 31 20 - 32 mmol/L [facility] Calcium 9.4 8.6 - 10.4 mg/dL [facility] Protein, Total 6.8 6.1 - 8.1 g/dL [facility] Albumin 4.0 3.6 - 5.1 g/dL [facility] Globulin 2.8 1.9 - 3.7 g/dL (calc) [facility] Albumin/Globuli n Ratio 1.4 1.0 - 2.5 (calc) [facility] Bilirubin, Total 0.3 0.2 - 1.2 mg/dL [facility] Alkaline Phosphatase 102 37 - 153 U/L [facility] AST 25 10 - 35 U/L [facility] ALT 21 6 - 29 U/L [facility] Blood 06/24/2022 2:23 PM EDT 06/24/2022 2:24 PM EDT us Hannah Prajapati [facility] LAB BLOOD ORDERABLES Shelby pollard Result [employer] [facility] [address], [facility] [address] [place] [address], [facility] [place] [address] * (ABNORMAL) CBC and differential (06/24/2022 2:23 PM EDT) WBC 7.0 3.8 - 10.8 Thousand/ uL [facility] Red Blood Cell 5.15(H) 3.80 - 5.10 Million/u L [facility] Hemoglobin 12.7 11.7 - 15.5 g/dL [facility] Hematocrit 40.5 35.0 - 45.0 % [facility] MCV 78.6(L) 80.0 - 100.0 fL [facility] MCH 24.7(L) 27.0 - 33.0 pg [facility] MCHC 31.4(L) 32.0 - 36.0 g/dL [facility] RDW 15.1(H) 11.0 - 15.0 % [facility] Platelet Count 247 140 - 400 Thousand/ uL [facility] MPV 11.1 7.5 - 12.5 fL [facility] Absolute Neutrophils 3,955 1,500 - 7,800 cells/uL [facility] Absolute Lymphocytes 2,268 850 - 3,900 cells/uL [facility] Absolute Monocytes 567 200 - 950 cells/uL [facility] Absolute Eosinophils 161 15 - 500 cells/uL [facility] Absolute Basophils 49 0 - 200 cells/uL [facility] Neutrophils 56.5 % [facility] Lymphocytes 32.4 % [facility] Monocytes 8.1 % [facility] Eosinophils 2.3 % [facility] Basophils 0.7 % [facility] Blood 06/24/2022 2:23 PM EDT 06/24/2022 2:24 PM EDT Hannah Prajapati PHARMACEUTICAL SCIENTIST LAB BLOOD ORDERABLES Shelby l Result [facility]-[address],[facility] [place] [address], [facility] [address] [place] [address] documented in this encounter Visit Diagnoses Diagnosis Pituitary adenoma Benign 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) documented in this encounter Additional Health Concerns Assessment Noted Time PHQ-2 Depression Total Score: 0 09/22/19 21 11:06 AM EST documented as of this encounter Care Teams Slitter Helper Relationship Specialty Start Date End Date Albert Iglesias MD [address] [place] [address] PCP - General Internal Medicine 03/24/21 Balaji Kim MD [address] [facility] [address] [place] [address] Neurosurgery 04/12/16 Lorri Wick MD [address] [address] Internal Medicine 11/06/16 documented as of this encounter Additional Source Comments The information contained in this document represents components of the legal health record. It is not the complete legal health record.[facility]
--- OUTSIDE RECORDS SUMMARY | 2025-07-13 18:13 | XMS_ITS | Encounter Summary ---
Author Organization [facility] Address [address] [place] [address] Care Team Providers Care Library Helper Name Role Phone Doug Melendez MD Primary Care Provider Unavail [facility], Pcp Primary Care Provider Eunice Stein MD Primary Care Provider Suleiman Hutchison MD Unavailable [phone] Krystin Borjas PA-C Unavailable [facility], Pcp Primary Care Provider Ewelina Juan Ch MD Primary Care Provider [phone] Encounter Details Date Type Department Care Team Description 07/21/2012 Hospital Medical Records [address] [place] [address] Dmitry Carlos Social History Tobacco Use Types Packs/Day Years [...] on filedocumented in this encounter Care Teams Library Helper Relationship Specialty Start Date End Date Doug Melendez MD PCP - General 03/06/05 06/16/16 Community, Pcp PCP - General Internal Medicine 06/17/16 02/17/19 Eunice Laureano MD PCP - General 02/18/19 06/27/21 Community, Pcp PCP - General Internal Medicine 06/28/21 09/02/21 Juan Juan, [address] [place] [address] PCP - General Internal Medicine 09/03/21 Suleiman Belle MD Specialist Cardiology 09/22/20 Krystin Borjas PA-C Specialist Cardiology 09/22/20 documented as of this encounter
--- OUTSIDE RECORDS SUMMARY | 2025-07-13 18:13 | XMS_ITS | Encounter Summary ---
Author Organization [facility] Address [address] [place] [address] Phone Care Team Providers Care Consulting Business Developer Name Role Phone Balaji Kim MD Unavailable [phone] Lorri Wick MD Unavailable Albert Iglesias MD Primary Care Prov ider Encounter Details Date Type Department Care Team (Late Contact Info) Description 07/12/2022 Ancillary Orders [facility] Center for Neuro Oncology [address] [facility], 9th Floor, [address] [place] [address] Heena Cárdenas, RN [address] [place] [address] [email or web address] Pituitary adenoma Social History Tobacco Use Types [...] Description 09/12/2025 3:40 PM EST Office Visit [facility] Endocrinology [address] [place] [phone] Lorri Wick MD [address] [place] [address] [email or web address] documented as of this encounter Procedures Procedure Name Priority Date/Time Associated Diagnosis Comments COMPREHENSIVE METABOLIC PANEL Routine 07/16/2022 10:53 AM EDT Pituitary adenoma CBC AND DIFFERENTIAL Routine 07/16/2022 10:53 AM EDT Pituitary adenoma documented in this encounter Results * Comprehensive metabolic panel (07/16/2022 10:53 AM EDT) Glucose 94 65 - 99 mg/dL [facility] Comment: Fasting reference interval Urea Nitrogen (BUN) 9 7 - 25 mg/dL [facility] Creatinine 0.93 0.50 - 1.03 mg/dL [facility] EGFR 73 > OR = 60 mL/min/1 .73m2 [facility] Comment: The eGFR is based on the CKD-EPI 2020 equation. To calculate the new eGFR from a previous Creatinine or Cystatin C result, go to https://www.kidney.org/professionals/ kdoqi/gfr%5Fcalculator BUN/Creatinine Ratio NOT APPLICABLE 6 - 22 (calc) [facility] Sodium 142 135 - 146 mmol/L [facility] Potassium 3.8 3.5 - 5.3 mmol/L [facility] Chloride 102 98 - 110 mmol/L [facility] Carbon Dioxide 32 20 - 32 mmol/L [facility] Calcium 9.5 8.6 - 10.4 mg/dL [facility] Protein, Total 6.9 6.1 - 8.1 g/dL [facility] Albumin 4.0 3.6 - 5.1 g/dL [facility] Globulin 2.9 1.9 - 3.7 g/dL (calc) [facility] Albumin/Globuli n Ratio 1.4 1.0 - 2.5 (calc) [facility] Bilirubin, Total 0.5 0.2 - 1.2 mg/dL [facility] [employer] Alkaline Phosphatase 109 37 - 153 U/L [facility] [employer] AST 19 10 - 35 U/L [facility] [employer] ALT 24 6 - 29 U/L [facility] [employer] Blood 07/16/2022 10:5 3 AM EDT 07/16/2022 10:53 AM EDT Narrative [facility] - 07/16/2022 8:35 PM EDT FASTING:YES FASTING: YES Hannah Prajapati [facility] LAB BLOOD ORDERABLES Shelby pollard Result [employer] [address], [facility] [address], [facility] [place] [address] * (ABNORMAL) CBC and differential (07/16/2022 10:53 AM EDT) WBC 6.0 3.8 - 10.8 Thousand/ uL [facility] Red Blood Cell 5.42(H) 3.80 - 5.10 Million/u L [facility] [employer] Hemoglobin 13.5 11.7 - 15.5 g/dL [facility] [employer] Hematocrit 42.3 35.0 - 45.0 % [facility] [employer] MCV 78.0(L) 80.0 - 100.0 fL [facility] MCH 24.9(L) 27.0 - 33.0 pg [facility] [employer] MCHC 31.9(L) 32.0 - 36.0 g/dL [facility] [employer] RDW 16.3(H) 11.0 - 15.0 % [facility] Platelet Count 212 140 - 400 Thousand/ uL [facility] MPV 10.3 7.5 - 12.5 fL [facility] [employer] Absolute Neutrophils 3,366 1,500 - 7,800 cells/uL [facility] [employer] Absolute Lymphocytes 1,998 850 - 3,900 cells/uL [facility] Absolute Monocytes 480 200 - 950 cells/uL [facility] Absolute Eosinophils 138 15 - 500 cells/uL [facility] Absolute Basophils 18 0 - 200 cells/uL [facility] Neutrophils 56.1 % [facility] Lymphocytes 33.3 % [facility] Monocytes 8.0 % [facility] Eosinophils 2.3 % [facility] Basophils 0.3 % [facility] Blood 07/16/2022 10:5 3 AM EDT 07/16/2022 10:53 AM EDT Narrative [facility] - 07/16/2022 8:35 PM EDT FASTING:YES FASTING: YES us Hannah Prajapati KNOWLEDGE MANAGEMENT ADVISOR LAB BLOOD ORDERABLES Shelby l Result Performing Organization Address City/State/[facility] Co de Phone Number [facility],[facility] [place] [address], [facility] [employer] [address] [place] [address] [place] [address] documented in this encounter Visit Diagnoses Diagnosis Pituitary adenoma Benign 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) documented in this encounter Additional Health Concerns Assessment Noted Time PHQ-2 Depression Total Score: 0 09/22/19 21 11:06 AM EST documented as of this encounter Care Teams Consulting Business Developer Relationship Specialty Start Date End Date Albert Iglesias MD [address] [place] [address] PCP - General Internal Medicine 03/24/21 Balaji Kim MD [address] [place] [address] [address] [place] [address] Neurosurgery 04/12/16 Lorri Wick MD [address] [address] [email or web address] Internal Medicine 11/06/16 documented as of this encounter Additional Source Comments The information contained in this document represents components of the legal health record. It is not the complete legal health record.[facility]
--- OUTSIDE RECORDS SUMMARY | 2025-07-13 18:13 | XMS_ITS | Encounter Summary ---
Author Organization [facility] Address [address] [place] [address] Care Team Providers Care Bag Machine Tender Name Role Phone Doug Melendez MD Primary Care Provider Unavail [facility], Pcp Primary Care Provider Eunice Stein MD Primary Care Provider Suleiman Hutchison MD Unavailable [phone] Krystin Borjas PA-C Unavailable [facility], Pcp Primary Care Provider Ewelina Juan Ch MD Primary Care Provider [phone] Encounter Details Date Type Department Care Team Description 06/14/2016 Telephone Adult Medicine [address] [id number] Doug Melendez MD Social History Tobacco Use [...] encounter Miscellaneous Notes * Telephone Encounter - Kimberli Johnson M.A. - 06/17/2016 10:30 AM EDT I called [phone]-I left a message with medical records * Telephone Encounter - Doug Melendez MD - 06/14/2016 5:33 PM EDT The patient saw Dr. Marcial Gage. * Telephone Encounter - Myriam Harrington LMariP.NMari - 06/14/2016 4:43 PM EDT Do you happen to know who the patient see at [facility]? * Telephone Encounter - Doug Melendez MD - 06/14/2016 4:38 PM EDT Please get me records from [facility], thank you. documented in this encounter Plan of Treatment Not on file documented as of this encounter Visit Diagnoses Not on filedocumented in this encounter Care Teams Bag Machine Tender Relationship Specialty Start Date End Date Doug Melendez MD PCP - General 03/06/05 06/16/16 [facility], Pcp PCP - General Internal Medicine 06/17/16 02/17/19 Eunice Laureano MD PCP - General 02/18/19 06/27/21 [facility], Pcp PCP - General Internal Medicine 06/28/21 09/02/21 Juan Juan MD [address] [place] [address] PCP - General Internal Medicine 09/03/21 Suleiman Belle MD Specialist Cardiology 09/22/20 Krystin Borjas PA-C Specialist Cardiology 09/22/20 documented as of this encounter
--- OUTSIDE RECORDS SUMMARY | 2025-07-13 18:13 | XMS_ITS | Encounter Summary ---
Author Organization [employer] Address [address] [place] [address] 7t [place] [address] Care Team Providers Care Human Service Worker Name Role Phone Albert Iglseias MD Primary Care Prov ider Robert Ramirez RN Unavailable [phone] Amari Dutton Unavailable Encounter Details Date Type Department Care Team ([facility] st Contact Info) Description 05/21/2023 Telephone [facility] MED & PEDS [address] [place] [address] Albert Iglesias MD [address] [place] [address] Social History Tobacco Use Types Packs/Day Years [...] Miscellaneous Notes * Telephone Encounter - Leydi Nelida - 05/21/2023 2:34 PM EDT Tc iván Ag from [facility] department requesting to speak with someone . Best contact # [phone] documented in this encounter Plan of Treatment Upcoming Encounters Date Type Department Care Team ([facility] st Contact Info) Description 08/03/2025 3:15 PM EST Clinical Support [facility] MED & PEDS [address] [place] [address] Liliane Thomas, [place] [address] [place] [address] documented as of this encounter Visit Diagnoses Not on filedocumented in this encounter Additional Health Concerns Assessment Noted Time PHQ-9 Depression Total Score: 9 12/24/19 23 10:49 AM EDT documented as of this encounter Care Teams Human Service Worker Relationship Specialty Start Date End Date Albert Iglesias MD [address] [place] [address] PCP - General Internal Medicine 02/13/20 Robert Ramirez, [place] [address] [place] [address] Registered Nurse Family Medicine 07/13/25 Amari Dutton 07/13/25 Panchito Cole Paradi TenderEmergency Registrar 06/11/24 documented as of this encounter
--- OUTSIDE RECORDS SUMMARY | 2025-07-13 18:13 | XMS_ITS | Encounter Summary ---
Author Organization [facility] Address [address] [place] [address] Care Team Providers Care Psychiatric Clinical Nurse Specialist Name Role Phone Doug Melendez MD Primary Care Provider Unavail [facility], Pcp Primary Care Provider Eunice Stein MD Primary Care Provider Suleiman Hutchison MD Unavailable [phone] Krystin Borjas PA-C Unavailable [facility], Pcp Primary Care Provider Ewelina Juan Ch MD Primary Care Provider [phone] Encounter Details Date Type Department Care Team Description 02/15/2013 Marketing Campaign Analyst Report Medical Records [address] [place] [address] Mendoza Rascon MD Social History Tobacco Use [...] filedocumented in this encounter Care Teams Psychiatric Clinical Nurse Specialist Relationship Specialty Start Date End Date Doug Melendez MD PCP - General 03/06/05 06/16/16 [facility], Pcp PCP - General Internal Medicine 06/17/16 02/17/19 Eunice Laureano MD PCP - General 02/18/19 06/27/21 Community, Pcp PCP - General Internal Medicine 06/28/21 09/02/21 Juan Juan, [address] [place] [address] PCP - General Internal Medicine 09/03/21 Suleiman Belle MD Specialist Cardiology 09/22/20 Krystin Borjas PA-C Specialist Cardiology 09/22/20 documented as of this encounter
--- OUTSIDE RECORDS SUMMARY | 2025-07-13 18:13 | XMS_ITS | Encounter Summary ---
Author Organization [facility] Address [address] [place] [address] Phone Care Team Providers Care Oral Surgery Physician Name Role Phone Balaji Kim MD Unavailable [phone] Lorri Wick MD Unavailable Albert Iglesias MD Primary Care Prov ider Encounter Details Date Type Department Care Team (Late st Contact Info) Description 08/05/2022 Procedure Pass [facility] [address] [place] [address] Social History Tobacco Use Types Packs/Day Years [...] Description 09/12/2025 3:40 PM EST Office Visit [facility] Endocrinology [address] [address] Lorri Wick MD [address] [place] [address] [email or web address] documented as of this encounter Visit Diagnoses Not on filedocumented in this encounter Additional Health Concerns Assessment Noted Time PHQ-2 Depression Total Score: 0 09/22/19 21 11:06 AM EST documented as of this encounter Care Teams Oral Surgery Physician Relationship Specialty Start Date End Date Albert Iglesias MD [address] [place] [address] PCP - General Internal Medicine 03/24/21 Balaji Kim MD [address] [place] [address] Drive [address] [place] [address] Neurosurgery 04/12/16 Lorri Wick MD [address] [address] [email or web address] Internal Medicine 11/06/16 documented as of this encounter Additional Source Comments The information contained in this document represents components of the legal health record. It is not the complete legal health record.[facility]
--- OUTSIDE RECORDS SUMMARY | 2025-07-13 18:13 | XMS_ITS | Encounter Summary ---
Author Organization [employer] Address [address] [facility] 7t [place] [address] Care Team Providers Care Machine Clothing Man Name Role Phone Albert Iglesias MD Primary Care Prov ider Robert Ramirez RN Unavailable [phone] Amari Dutton Unavailable Encounter Details Date Type Department Care Team (Late st Contact Info) Description 07/13/2025 Orders Only GENERIC EXTERNAL DATA DEPARTMENT Provider, Generic External Data Social History Tobacco Use Types Packs/Day Years [...] Upcoming Encounters Date Type Department Care Team ([facility] st Contact Info) Description 08/03/2025 3:15 PM EST Clinical Support [facility] [address] [place] [address] Liliane Thomas, RN [address] [place] [address] documented as of this encounter Procedures Procedure Name Priority Date/Time Associated Diagnosis Comments URINALYSIS, COMPLETE, WITH REFLEX TO CULTURE Routine 07/13/2025 5:[address] ABDOMEN PELVIS W CONTRAST Routine 07/13/2025 3:53 PM EDT HIGH SENSITIVITY TROPONIN I Routine 07/13/2025 2:50 PM EDT CBC WITH AUTO DIFFERENTIAL Routine 07/13/2025 2:50 PM EDT LIPASE Routine 07/13/2025 2:50 PM EDT LACTIC ACID Routine 07/13/2025 2:50 PM EDT HEPATIC FUNCTION PANEL Routine 07/13/2025 2:50 PM EDT BASIC METABOLIC PANEL Routine 07/13/2025 2:50 PM EDT documented in this encounter Results * (ABNORMAL) Urinalysis, Complete, with Reflex to Culture (07/13/2025 5:01 PM EDT) Color Urine Yellow [facility] Appearance Urine Clear [facility] PH 7.5 5.0 - 9.0 [facility] Glucose Urine UA Negative Negative mg/dL [facility] Urine Blood Trace(A) Negative [facility] Specific [place] - Urine 1.020 1.005 - 1.025 [facility] Urine Protein Negative Neg-Trace mg/dL [facility] Urine Ketones Negative Negative mg/dL [facility] Nitrite Urine Negative Negative [facility] Leukocyte Esterase Urine Moderate (2+)(A) Negative [facility] RBC Urine 3-5(A) 0 - 2 /HPF [facility] Urine WBC >50(A) 0 - 5 /HPF [facility] Urine Squamous Epithelial Cell 0-2 0 - 2 /HPF [facility] Urine Bacteria None Seen None Seen [facility] Hyaline Casts, Urine 0-2 0 - 2 /LPF [facility] 07/13/2025 5:01 PM EDT 07/13/2025 5:05 PM EDT Narrative [facility] - 07/13/2025 5:14 PM EDT [id number], Clean Catch us Generic External Data Provider LAB URINE ORDERAB LES Final Result [facility] [address] [place] [phone] * CT Abdomen Pelvis w/ Contrast (07/13/2025 3:53 PM EDT) Anatomical Region Laterality Modality Body, Pelvis, Abdomen Computed T omography 07/13/2025 3:53 PM EDT Narrative 07/13/2025 4:34 PM EDT [address] [address] [address] Scan Report Signed Patient: Sharmila Xiao MR#: [id number] : 1965 Acct:[id number] Age/Sex: 60 / F ADM Date: 07/13/25 Loc: HO.ED Attending Dr: Ordering Physician: Mino Zendejas MD Date of Service: 07/13/25 Procedure(s): CT abdomen pelvis w IV con Accession Number(s): [id number] cc: Albert Iglesias MD; Mino Zendejas MD Report Number: [id number]: Total DLP = 700.00 mGy-cm Reason for [...] 07/13/25 1631 DD/ 1553 TD/TT: 07/13/25 1616 Paperhanger Apprentice: GREGORY Procedure Note Donotuseinterpreter, Image - 07/13/[address] [address] [address] Scan Report Signed Patient: Stevie Xiao#: [id number] : 1965Acct:[id number] Age/Sex: 60 / FADM Date: 07/13/25 Loc: HO.ED Attending Dr: Ordering Physician: Mino Zendejas MD Date of Service: 07/13/25 Procedure(s): CT abdomen pelvis w IV con Accession Number(s): [id number] cc: Albert Iglesias MD; Mino Zendejas MD Report Number: [id number]: Total DLP = 700.00 mGy-cm Reason for [...] 07/13/25 1631 DD/ 1553 TD/TT: 07/13/25 1616 Paperhanger Apprentice: GREGORY [facility] External Provider IMG CT PROCEDURES Final Result * High Sensitivity Troponin I (07/13/2025 2:50 PM EDT) TROPONIN I HIGH SENSITIVITY <2.7 <3.5 - 17.0 ng/L [facility] Comment:The Steiner high sens itivity Troponin-I results should beused in conjunction with other diagnostic information suchas ECG, clinical observations and information, and patientsymptoms to aid in the diagnosis of IL. 07/13/2025 2:50 PM EDT 07/13/2025 2:54 PM EDT Generic External Data Provider LAB BLOOD ORDERAB LES Final Result [facility] [address] [place] [address] [phone] * (ABNORMAL) Lactic Acid (07/13/2025 2:50 PM EDT) Pathologist [facility] Lactic Acid 2.1(HH) 0.5 - 2.0 mmol/L [facility] Comment:Critical value for t est(s): LACTA Results called to preet back by: DAXA Person calling: [email or web address] Date: 07/13/25Time:1519 07/13/2025 2:50 PM EDT 07/13/2025 2:54 PM EDT Generic External Data Provider LAB BLOOD ORDERAB LES Final Result Performing Organization Address [facility] Co de Phone Number [facility] [address] [place] [address] [phone] * Lipase (07/13/2025 2:50 PM EDT) [facility] Lipase 18 8 - 78 U/L [facility] 07/13/2025 2:50 PM EDT 07/13/2025 2:54 PM EDT Generic External Data Provider LAB BLOOD ORDERAB LES Final Result Performing Organization Address [facility] de Phone Number [facility] [address] [place] [address] [phone] * (ABNORMAL) Basic Metabolic Panel (07/13/2025 2:50 PM EDT) [facility] Sodium 141 135 - 145 mmol/L [facility] Potassium 3.4 3.3 - 5.1 mmol/L [facility] Chloride 107 96 - 108 mmol/L [facility] Carbon Dioxide 27 22 - 29 mmol/L [facility] Anion Gap 10(L) 12 - 20 [facility] Urea Nitrogen (BUN) 7(L) 9 - 16 mg/dL [facility] Creatinine, Serum 0.79 0.5 - 1.4 mg/dL [facility] Creatinine Clr Calc Pharmacy 87.3 [facility] Comment:Provided height and weight: 162.56 cm,96.162 kg.eGFR (calculated from the MDRD study equation) and eCrCl(calculated from the Cockcroft-Gault equation) are based ondifferent parameters and may not yield comparable results.If eCrCl result is absurd, please check patient'sheight/weight. Estimated Glomerular Filt Rate >60 [facility] Comment:Chronic Kidney Disea se: Estimated GFR < 60 mL/min/1.25w3Cocwpo Kidney Disease: Estimated GFR < 15 mL/min/1.73m2 Glucose 105 60 - 115 mg/dL [facility] Calcium 9.0 8.4 - 10.2 mg/dL [facility] 07/13/2025 2:50 PM EDT 07/13/2025 2:54 PM EDT us Generic External Data Provider LAB BLOOD ORDERAB LES Final Result [facility] [address] [place] [phone] * (ABNORMAL) Hepatic Function Panel (07/13/2025 2:50 PM EDT) Bilirubin, Total 0.5 0.0 - 1.0 mg/dL [facility] Bilirubin, Direct 0.2 0.0 - 0.5 mg/dL [facility] Aspartate Amino Transferase 46(H) 5 - 31 U/L [facility] Alanine Aminotransferase 33(H) 0 - 31 U/L [facility] Total Protein 6.5 6.5 - 8.0 g/dL [facility] Albumin Level 4.0 3.5 - 5.0 g/dL [facility] Alkaline Phosphatase 101 39 - 117 U/L [facility] 07/13/2025 2:50 PM EDT 07/13/2025 2:54 PM EDT us Generic External Data Provider LAB BLOOD ORDERAB LES Final Result [facility] [address] [place] [address] [phone] * (ABNORMAL) CBC auto differential (07/13/2025 2:50 PM EDT) White Blood Count 7.3 4.8 - 10.8 X10*3/uL [facility] Red Blood Count 4.80 4.20 - 5.50 X10*6/uL [facility] Hemoglobin 12.2 12.0 - 16.0 g/dl [facility] Hematocrit 39.2 37.0 - 47.0 % [facility] Mean Corpuscular Volume 81.7 80.0 - 98.0 fL [facility] Mean Corpuscular Hemoglobin 25.4(L) 27.0 - 33.0 pg [facility] Mean Corpuscular HGB Conc 31.1 31.0 - 35.0 g/dl [facility] Red Cell Distribution Width 17.4(H) 11.0 - 16.0 % [facility] Platelet Count 311 160 - 400 X10*3/uL [facility] Mean Platelet Volume 10.8 9.4 - 12.3 fL [facility] Neutrophils Percent Auto 57.1 45 - 73 % [facility] Imm Gran Pct Auto 0.6(H) 0.0 - 0.4 % [facility] Lymphocytes Percent Auto 33.8 20 - 40 % [facility] Monocytes Percent Auto 6.2 2 - 11 % [facility] Eosinophils Percent Auto 1.5 0 - 4 % [facility] Basophils Percent Auto 0.8 0 - 2 % [facility] NRBC Pct Auto 0.0 0.0 - 0.2 /100WBC [facility] Neutrophils Absolute Auto 4.2 2.0 - 8.3 x10*3/uL [facility] Imm Gran Abs Auto 0.04(H) 0.00 - 0.03 X10*3/uL [facility] Lymphocytes Absolute Auto 2.5 1.2 - 4.9 X10*3/uL [facility] Monocytes Absolute Auto 0.5 0.1 - 1.2 X10*3/uL [facility] Eosinophils Absolute Auto 0.1 0.0 - 0.4 X10*3/uL [facility] Basophils Absolute Auto 0.1 0.0 - 0.2 X10*3/uL [facility] NRBC Abs Auto 0.000 0.0 - 0.012 X10*3/uL [facility] 07/13/2025 2:50 PM EDT 07/13/2025 2:54 PM EDT us Generic External Data Provider LAB BLOOD ORDERAB LES Final Result Performing Organization Address City/State/[facility] Co de Phone Number [facility] [address] [place] [address] [phone] documented in this encounter Visit Diagnoses Not on filedocumented in this encounter Additional Health Concerns Assessment Noted Time PHQ-9 Depression Total Score: 5 09/28/19 25 10:57 AM EST documented as of this encounter Care Teams Machine Clothing Man Relationship Specialty Start Date End Date Albert Iglesias MD [address] [place] [address] PCP - General Internal Medicine 02/13/20 Robert Ramirez, VIN [address] [place] [address] Registered Nurse Family Medicine 07/13/25 Amari Dutton 07/13/25 Panchito Cole Macaroni Press OperatorLarge Animal Husbandry Technician 06/11/24 documented as of this encounter
--- OUTSIDE RECORDS SUMMARY | 2025-07-13 18:13 | XMS_ITS | Encounter Summary ---
Author Organization [facility] Address [address] [place] [address] Phone Care Team Providers Care Owner Name Role Phone Balaji Kim MD Unavailable [phone] Lorri Wick MD Unavailable Albert Iglesias MD Primary Care Prov ider Encounter Details Date Type Department Care Team (Late Contact Info) Description 06/21/2022 Ancillary Orders [facility] [address] [facility], 9th Floor, [address] [place] [address] Lola Davidson MD, PhD [address] [facility] [address] [place] [address] [email or web address] Pituitary adenoma Social History Tobacco Use Types [...] Description 09/12/2025 3:40 PM EST Office Visit [facility] [address] [place] [address] Lorri Wick MD [address] [address] [email or web address] documented as of this encounter Visit Diagnoses Diagnosis Pituitary adenoma Benign 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) documented in this encounter Additional Health Concerns Assessment Noted Time PHQ-2 Depression Total Score: 0 09/22/19 21 11:06 AM EST documented as of this encounter Care Teams Owner Relationship Specialty Start Date End Date Albert Iglesias MD [address] [place] [phone] PCP - General Internal Medicine 03/24/21 Balaji Kim MD [address] [place] [address] Drive [address] [place] [address] Neurosurgery 04/12/16 Lorri Wick MD [address] [address] [email or web address] Internal Medicine 11/06/16 documented as of this encounter Additional Source Comments The information contained in this document represents components of the legal health record. It is not the complete legal health record.[facility]
--- OUTSIDE RECORDS SUMMARY | 2025-07-13 18:13 | XMS_ITS | Encounter Summary ---
Author Organization [facility] Address [address] [place] [address] Care Team Providers Care Doping Supervisor Name Role Phone Doug Melendez MD Primary Care Provider Unavail [facility], Pcp Primary Care Provider Eunice Stein MD Primary Care Provider Suleiman Hutchison MD Unavailable Krystin Borjas PA-C Unavailable [facility], Pcp Primary Care Provider Ewelina Juan Ch MD Primary Care Provider [phone] Encounter Details Date Type Department Care Team Description 10/11/2015 Firefighter Marine Report Medical Records [address] [place] [phone] Nasreen Dasilva NP Social History Tobacco Use [...] on filedocumented in this encounter Care Teams Doping Supervisor Relationship Specialty Start Date End Date Doug Melendez MD PCP - General 03/06/05 06/16/16 [facility], Pcp PCP - General Internal Medicine 06/17/16 02/17/19 Eunice Laureano MD PCP - General 02/18/19 06/27/21 [facility], Pcp PCP - General Internal Medicine 06/28/21 09/02/21 Juan Juan MD [address] [place] [address] PCP - General Internal Medicine 09/03/21 Suleiman Belle MD Specialist Cardiology 09/22/20 Krystin Borjas PA-C Specialist Cardiology 09/22/20 documented as of this encounter
--- OUTSIDE RECORDS SUMMARY | 2025-07-13 18:13 | XMS_ITS | Encounter Summary ---
Author Organization [facility] Address [address] [place] [address] Phone Care Team Providers Care Marine Cargo Specialist Name Role Phone Balaji Kim MD Unavailable [phone] Lorri Wick MD Unavailable Albert Iglesias MD Primary Care Prov ider Encounter Details Date Type Department Care Team (Late Contact Info) Description 06/14/2022 Ancillary Orders [facility] [address] [facility], 9th Floor, [address] [place] [address] Heena Cárdenas, RN [address] [place] [address] [email or web address] Pituitary adenoma Social History Tobacco Use Types [...] Description 09/12/2025 3:40 PM EST Office Visit [facility] Endocrinology [address] [place] [phone] Lorri Wick MD [address] [place] [phone] [email or web address] documented as of this encounter Procedures Procedure Name Priority Date/Time Associated Diagnosis Comments COMPREHENSIVE METABOLIC PANEL Routine 06/19/2022 10:25 AM EDT Pituitary adenoma CBC AND DIFFERENTIAL Routine 06/19/2022 10:25 AM EDT Pituitary adenoma documented in this encounter Results * Comprehensive metabolic panel (06/19/2022 10:25 AM EDT) Glucose 89 65 - 99 mg/dL [facility] Comment: Fasting reference interval Urea Nitrogen (BUN) 9 7 - 25 mg/dL [facility] Creatinine 0.83 0.50 - 1.03 mg/dL [facility] EGFR 83 > OR = 60 mL/min/1 .73m2 [facility] Comment: The eGFR is based on the CKD-EPI 2020 equation. To calculate the new eGFR from a previous Creatinine or Cystatin C result, go to https://www.kidney.org/professionals/ kdoqi/gfr%5Fcalculator BUN/Creatinine Ratio NOT APPLICABLE 6 - 22 (calc) [facility] Sodium 141 135 - 146 mmol/L [facility] Potassium 4.5 3.5 - 5.3 mmol/L [facility] Chloride 103 98 - 110 mmol/L [facility] Carbon Dioxide 31 20 - 32 mmol/L [facility] Calcium 10.1 8.6 - 10.4 mg/dL [facility] Protein, Total 6.5 6.1 - 8.1 g/dL [facility] Albumin 4.0 3.6 - 5.1 g/dL [facility] Globulin 2.5 1.9 - 3.7 g/dL (calc) [facility] Albumin/Globuli n Ratio 1.6 1.0 - 2.5 (calc) [facility] Bilirubin, Total 0.5 0.2 - 1.2 mg/dL [facility] [employer] Alkaline Phosphatase 95 37 - 153 U/L [facility] [employer] AST 21 10 - 35 U/L [facility] [employer] ALT 23 6 - 29 U/L [facility] [employer] Blood 06/19/2022 10:2 5 AM EDT 06/19/2022 10:26 AM EDT Hannah Prajapati [facility] LAB BLOOD ORDERABLES Shelby pollard Result [facility] [facility] [address] [facility] [address] [facility],[place] [address], [facility] [address], [place] [address] * (ABNORMAL) CBC and differential (06/19/2022 10:25 AM EDT) WBC 6.5 3.8 - 10.8 Thousand/ uL [facility] [employer] Red Blood Cell 5.20(H) 3.80 - 5.10 Million/u L [facility] [employer] Hemoglobin 13.1 11.7 - 15.5 g/dL [facility] [employer] Hematocrit 41.2 35.0 - 45.0 % [facility] [employer] MCV 79.2(L) 80.0 - 100.[address] [facility] [employer] MCH 25.2(L) 27.0 - 33.0 pg [facility] [employer] MCHC 31.8(L) 32.0 - 36.0 g/dL [facility] [employer] RDW 15.4(H) 11.0 - 15.0 % [facility] [employer] Platelet Count 274 140 - 400 Thousand/ uL [facility] [employer] MPV 10.5 7.5 - 12.[address] fL [facility] [employer] Absolute Neutrophils 3,543 1,500 - 7,800 cells/uL [facility] [employer] Absolute Lymphocytes 2,256 850 - 3,900 cells/uL [facility] [employer] Absolute Monocytes 520 200 - 950 cells/uL [facility] Absolute Eosinophils 150 15 - 500 cells/uL [facility] Absolute Basophils 33 0 - 200 cells/uL [facility] Neutrophils 54.5 % [facility] Lymphocytes 34.7 % [facility] Monocytes 8.0 % [facility] Eosinophils 2.3 % [facility] Basophils 0.5 % [facility] Blood 06/19/2022 10:2 5 AM EDT 06/19/2022 10:26 AM EDT us Hannah Prajapati STORE ADMINISTRATIVE ASSISTANT LAB BLOOD ORDERABLES Shleby pollard Result [facility],[facility] [place] [place] [address], [facility] [address], [facility] [place] [place] [address] documented in this encounter Visit Diagnoses Diagnosis Pituitary adenoma Benign 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) documented in this encounter Additional Health Concerns Assessment Noted Time PHQ-2 Depression Total Score: 0 09/22/19 21 11:06 AM EST documented as of this encounter Care Teams Marine Cargo Specialist Relationship Specialty Start Date End Date Albert Iglesias MD [address] [place] [address] PCP - General Internal Medicine 03/24/21 Balaji Kim MD [address] [place] [address] Neurosurgery 04/12/16 Lorri Wick MD [address] [address] [email or web address] Internal Medicine 11/06/16 documented as of this encounter Additional Source Comments The information contained in this document represents components of the legal health record. It is not the complete legal health record.[facility]
--- OUTSIDE RECORDS SUMMARY | 2025-07-13 18:13 | XMS_ITS | Encounter Summary ---
Author Organization [facility] Address [address] [place] [address] Phone Care Team Providers Care Machine Bookkeeper Name Role Phone Balaji Kim MD Unavailable [phone] Lorri Wick MD Unavailable Albert Iglesias MD Primary Care Prov ider Encounter Details Date Type Department Care Team (Late Contact Info) Description 07/19/2022 Ancillary Orders [facility] Oncology [address] [facility], 9th Floor, [address] [place] [address] Heena Cárdenas, RN [address] [place] [address] [email or web address] Pituitary adenoma Social History Tobacco Use Types [...] Description 09/12/2025 3:40 PM EST Office Visit [facility] Endocrinology [address] [place] [phone] Lorri Wick MD [address] [place] [address] [email or web address] documented as of this encounter Procedures Procedure Name Priority Date/Time Associated Diagnosis Comments COMPREHENSIVE METABOLIC PANEL Routine 07/23/2022 12:07 PM EST Pituitary adenoma CBC AND DIFFERENTIAL Routine 07/23/2022 12:07 PM EST Pituitary adenoma documented in this encounter Results * Comprehensive metabolic panel (07/23/2022 12:07 PM EST) Glucose 90 65 - 99 mg/dL [facility] Comment: Fasting reference interval Urea Nitrogen (BUN) 12 7 - 25 mg/dL [facility] Creatinine 0.76 0.50 - 1.03 mg/dL [facility] EGFR 92 > OR = 60 mL/min/1 .73m2 [facility] Comment: The eGFR is based on the CKD-EPI 2020 equation. To calculate the new eGFR from a previous Creatinine or Cystatin C result, go to https://www.kidney.org/professionals/ kdoqi/gfr%5Fcalculator BUN/Creatinine Ratio NOT APPLICABLE 6 - 22 (calc) [facility] Sodium 140 135 - 146 mmol/L [facility] Potassium 4.0 3.5 - 5.3 mmol/L [facility] Chloride 102 98 - 110 mmol/L [facility] Carbon Dioxide 27 20 - 32 mmol/L [facility] Calcium 9.4 8.6 - 10.4 mg/dL [facility] Protein, Total 7.0 6.1 - 8.1 g/dL [facility] Albumin 4.1 3.6 - 5.1 g/dL [facility] Globulin 2.9 1.9 - 3.7 g/dL (calc) [facility] Albumin/Globuli n Ratio 1.4 1.0 - 2.5 (calc) [facility] Bilirubin, Total 0.4 0.2 - 1.2 mg/dL [facility] Alkaline Phosphatase 112 37 - 153 U/L [facility] AST 17 10 - 35 U/L [facility] ALT 22 6 - 29 U/L [facility] Blood 07/23/2022 12:0 7 PM EST 07/23/2022 12:08 PM EST Narrative [facility] - 07/23/2022 11:59 PM EST FASTING:YES FASTING: YES us Hannah Prajapati [facility] LAB BLOOD ORDERABLES Shelby pollard Result [facility] AB[address] [address], [facility] YR Free [address] [place] [address], [facility] [place] [address] * (ABNORMAL) CBC and differential (07/23/2022 12:07 PM EST) WBC 8.5 3.8 - 10.8 Thousand/ uL [facility] Red Blood Cell 5.13(H) 3.80 - 5.10 Million/u L [facility] Hemoglobin 13.0 11.7 - 15.5 g/dL [facility] Hematocrit 40.9 35.0 - 45.0 % [facility] MCV 79.7(L) 80.0 - 100.0 fL [facility] MCH 25.3(L) 27.0 - 33.0 pg [facility] MCHC 31.8(L) 32.0 - 36.0 g/dL [facility] RDW 17.1(H) 11.0 - 15.0 % [facility] Platelet Count 216 140 - 400 Thousand/ uL [facility] MPV 10.3 7.5 - 12.5 fL [facility] Absolute Neutrophils 6,384 1,500 - 7,800 cells/uL [facility] Absolute Lymphocytes 1,488 850 - 3,900 cells/uL [facility] Absolute Monocytes 485 200 - 950 cells/uL [facility] Absolute Eosinophils 102 15 - 500 cells/uL [facility] Absolute Basophils 43 0 - 200 cells/uL [facility] Neutrophils 75.1 % [facility] Lymphocytes 17.5 % [facility] Monocytes 5.7 % [facility] Eosinophils 1.2 % [facility] Basophils 0.5 % [facility] Blood 07/23/2022 12:0 7 PM EST 07/23/2022 12:08 PM EST Narrative [facility] [facility] - 07/23/2022 11:59 PM EST FASTING:YES FASTING: YES Hannah Prajapati [employer] LAB BLOOD ORDERABLES Shelby l Result [facility] AB-[address],[facility] [address], [facility] YR Free [address] [place] [address] [place] [address] documented in this encounter Visit Diagnoses Diagnosis Pituitary adenoma Benign 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) documented in this encounter Additional Health Concerns Assessment Noted Time PHQ-2 Depression Total Score: 0 09/22/19 21 11:06 AM EST documented as of this encounter Care Teams Machine Bookkeeper Relationship Specialty Start Date End Date Albert Iglesias MD [address] [place] [address] PCP - General Internal Medicine 03/24/21 Balaji Kim MD [address] [place] [address] Neurosurgery 04/12/16 Lorri Wick MD [address] [address] [email or web address] Internal Medicine 11/06/16 documented as of this encounter Additional Source Comments The information contained in this document represents components of the legal health record. It is not the complete legal health record.[facility]
--- OUTSIDE RECORDS SUMMARY | 2025-07-13 18:13 | XMS_ITS | Encounter Summary ---
Author Organization [facility] Address [address] [place] [address] Phone Care Team Providers Care Addiction Therapist Name Role Phone Balaji Kim MD Unavailable [phone] Lorri Wick MD Unavailable [phone] Albert Iglesias MD Primary Care Prov ider Encounter Details Date Type Department Care Team (Late Contact Info) Description 04/10/2022 Procedure Pass [facility] Cardio EP Device Monitoring [address] [place] [address] Social History Tobacco Use Types Packs/Day Years [...] PM EST Office Visit [facility] Endocrinology [address] [phone] Lorri Wick MD [address] [place] [address] documented as of this encounter Visit Diagnoses Not on filedocumented in this encounter Additional Health Concerns Assessment Noted Time PHQ-2 Depression Total Score: 0 09/22/19 21 11:06 AM EST documented as of this encounter Care Teams Addiction Therapist Relationship Specialty Start Date End Date Albert Iglesias MD [address] [place] [address] PCP - General Internal Medicine 03/24/21 Balaji Kim MD [address] [place] [address] Drive [address] [place] [address] Neurosurgery 04/12/16 Lorri Wick MD [address] [address] [email or web address] Internal Medicine 11/06/16 documented as of this encounter Additional Source Comments The information contained in this document represents components of the legal health record. It is not the complete legal health record.[facility]
--- OUTSIDE RECORDS SUMMARY | 2025-07-13 18:13 | XMS_ITS | Encounter Summary ---
Author Organization [facility] Address [address] [place] [address] Phone Care Team Providers Care Structural Iron Erector Name Role Phone Balaji Kim MD Unavailable [phone] Lorri Wick MD Unavailable Albert Iglesias MD Primary Care Prov ider Encounter Details Date Type Department Care Team (Late Contact Info) Description 06/07/2022 Ancillary Orders [facility] Center for Neuro Oncology [address] [facility], 9th Floor, [address] [place] [address] Heena Cárdenas, RN [address] [place] [address] [email or web address] Pituitary adenoma Social History Tobacco Use Types [...] Description 09/12/2025 3:40 PM EST Office Visit [facility] Endocrinology [address] [place] [phone] Lorri Wick MD [address] [address] [email or web address] documented as of this encounter Visit Diagnoses Diagnosis Pituitary adenoma Benign 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) documented in this encounter Additional Health Concerns Assessment Noted Time PHQ-2 Depression Total Score: 0 09/22/19 21 11:06 AM EST documented as of this encounter Care Teams Structural Iron Erector Relationship Specialty Start Date End Date Albert Iglesias MD [address] [place] [address] PCP - General Internal Medicine 03/24/21 Balaji Kim MD [address] [place] [address] Drive [address] [place] [address] Neurosurgery 04/12/16 Lorri Wick MD [address] [address] [email or web address] Internal Medicine 11/06/16 documented as of this encounter Additional Source Comments The information contained in this document represents components of the legal health record. It is not the complete legal health record.[facility]
--- OUTSIDE RECORDS SUMMARY | 2025-07-13 18:13 | XMS_ITS | Encounter Summary ---
Author Organization [facility] Address [address] [place] [address] Care Team Providers Care Mat Man Name Role Phone Doug Melendez MD Primary Care Provider Unavail [facility], Pcp Primary Care Provider Eunice Stein MD Primary Care Provider Suleiman Hutchison MD Unavailable [phone] Krystin Borjas PA-C Unavailable [facility], Pcp Primary Care Provider Ewelina Juan Ch MD Primary Care Provider [phone] Encounter Details Date Type Department Care Team Description 06/24/2012 Nurse Wound Report Medical Records [address] [place] [address] [place] Social History Tobacco Use Types Packs/Day Years [...] on filedocumented in this encounter Care Teams Mat Man Relationship Specialty Start Date End Date Doug Mleendez MD PCP - General 03/06/05 06/16/16 [facility], Pcp PCP - General Internal Medicine 06/17/16 02/17/19 Eunice Laureano MD PCP - General 02/18/19 06/27/21 [facility], Pcp PCP - General Internal Medicine 06/28/21 09/02/21 Juan Juan, [address] [place] [address] PCP - General Internal Medicine 09/03/21 Suleiman Belle MD Specialist Cardiology 09/22/20 Krystin Borjas PA-C Specialist Cardiology 09/22/20 documented as of this encounter
--- OUTSIDE RECORDS SUMMARY | 2025-07-13 18:13 | XMS_ITS | Encounter Summary ---
Author Organization [facility] Address [address] [place] [address] Phone Care Team Providers Care Computer Assembler Name Role Phone Balaji Kim MD Unavailable Lorri Wick MD Unavailable Albert Iglesias MD Primary Care Prov ider Encounter Details Date Type Department Care Team (Late st Contact Info) Description 04/23/2022 Procedure Pass [facility] [address] [place] [address] Social History Tobacco Use Types Packs/Day Years [...] Description 09/12/2025 3:40 PM EST Office Visit [facility] Endocrinology [address] [phone] Lorri Wick MD [address] [place] [address] [email or web address] documented as of this encounter Visit Diagnoses Not on filedocumented in this encounter Additional Health Concerns Assessment Noted Time PHQ-2 Depression Total Score: 0 09/22/19 21 11:06 AM EST documented as of this encounter Care Teams Computer Assembler Relationship Specialty Start Date End Date Albert Iglesias MD [address] [place] [address] PCP - General Internal Medicine 03/24/21 Balaji Kim MD [address] [place] [address] Drive [address] [place] [address] Neurosurgery 04/12/16 Lorri Wick MD [address] [address] [email or web address] Internal Medicine 11/06/16 documented as of this encounter Additional Source Comments The information contained in this document represents components of the legal health record. It is not the complete legal health record.[facility]
--- OUTSIDE RECORDS SUMMARY | 2025-07-13 18:13 | XMS_ITS | Encounter Summary ---
Author Organization [facility] Address [address] [place] [address] Phone Care Team Providers Care Tin Pot Operator Name Role Phone Balaji Kim MD Unavailable [phone] Lorri Wick MD Unavailable [phone] Albert Iglesias MD Primary Care Prov ider Encounter Details Date Type Department Care Team (Late Contact Info) Description 07/26/2022 Ancillary Orders [facility] Center for Neuro Oncology [address] [facility], 9th Floor, [address] [place] [address] Heena Cárdenas, RN [address] [place] [address] [email or web address] Pituitary adenoma Social History Tobacco Use Types [...] Description 09/12/2025 3:40 PM EST Office Visit [facility] Endocrinology [address] [place] [phone] Lorri Wick MD [address] [place] [address] [email or web address] documented as of this encounter Procedures Procedure Name Priority Date/Time Associated Diagnosis Comments COMPREHENSIVE METABOLIC PANEL Routine 08/27/2022 2:35 PM EST Pituitary adenoma CBC AND DIFFERENTIAL Routine 08/27/2022 2:35 PM EST Pituitary adenoma documented in this encounter Results * (ABNORMAL) Comprehensive metabolic panel (08/27/2022 2:35 PM EST) Glucose 80 65 - 139 mg/dL [facility] Comment: Non-fasting reference interval Urea Nitrogen (BUN) 11 7 - 25 mg/dL [facility] Creatinine 0.82 0.50 - 1.03 mg/dL [facility] EGFR 84 > OR = 60 mL/min/1 .73m2 [facility] Comment: The eGFR is based on the CKD-EPI 2020 equation. To calculate the new eGFR from a previous Creatinine or Cystatin C result, go to https://www.kidney.org/professionals/ kdoqi/gfr%5Fcalculator BUN/Creatinine Ratio NOT APPLICABLE 6 - 22 (calc) [facility] Sodium 140 135 - 146 mmol/L [facility] Potassium 4.1 3.5 - 5.3 mmol/L [facility] Chloride 104 98 - 110 mmol/L [facility] Carbon Dioxide 31 20 - 32 mmol/L [facility] Calcium 9.8 8.6 - 10.4 mg/dL [facility] Protein, Total 6.9 6.1 - 8.1 g/dL [facility] Albumin 4.3 3.6 - 5.1 g/dL [facility] Globulin 2.6 1.9 - 3.7 g/dL (calc) [facility] Albumin/Globuli n Ratio 1.7 1.0 - 2.5 (calc) [facility] Bilirubin, Total 0.4 0.2 - 1.2 mg/dL [facility] Alkaline Phosphatase 108 37 - 153 U/L [facility] AST 22 10 - 35 U/L [facility] ALT 37(H) 6 - 29 U/L [facility] Blood 08/27/2022 2:35 PM EST 08/27/2022 2:35 PM EST Narrative [facility] - 08/28/2022 2:13 AM EST FASTING:NO FASTING: NO Hannah Prajapati [facility] LAB BLOOD ORDERABLES Shelby pollard Result [employer] [facility] [address], [facility] Stat [address], [facility] [place] [address] * (ABNORMAL) CBC and differential (08/27/2022 2:35 PM EST) WBC 7.1 3.8 - 10.8 Thousand/ uL [facility] Red Blood Cell 4.91 3.80 - 5.10 Million/u L [facility] Hemoglobin 12.4 11.7 - 15.5 g/dL [facility] Hematocrit 38.9 35.0 - 45.0 % [facility] MCV 79.2(L) 80.0 - 100.0 fL [facility] MCH 25.3(L) 27.0 - 33.0 pg [facility] MCHC 31.9(L) 32.0 - 36.0 g/dL [facility] RDW 16.3(H) 11.0 - 15.0 % [facility] Platelet Count 240 140 - 400 Thousand/ uL [facility] MPV 10.3 7.5 - 12.5 fL [facility] Absolute Neutrophils 3,635 1,500 - 7,800 cells/uL [facility] Absolute Lymphocytes 2,677 850 - 3,900 cells/uL [facility] Absolute Monocytes 653 200 - 950 cells/uL [facility] Absolute Eosinophils 128 15 - 500 cells/uL [facility] Absolute Basophils 7 0 - 200 cells/uL [facility] Neutrophils 51.2 % [facility] Lymphocytes 37.7 % [facility] Monocytes 9.2 % [facility] Eosinophils 1.8 % [facility] Basophils 0.1 % [facility] Blood 08/27/2022 2:35 PM EST 08/27/2022 2:35 PM EST Narrative [facility] - 08/28/2022 2:13 AM EST FASTING:NO FASTING: NO Hannah Prajapati [employer]PER[employer] LAB BLOOD ORDERABLES Shelby l Result [facility]-[address],[facility] [place] [address], [facility] [address] [place] [address] [place] [address] documented in this encounter Visit Diagnoses Diagnosis Pituitary adenoma Benign 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) documented in this encounter Additional Health Concerns Assessment Noted Time PHQ-2 Depression Total Score: 0 09/22/19 21 11:06 AM EST documented as of this encounter Care Teams Tin Pot Operator Relationship Specialty Start Date End Date Albert Iglesias MD [address] [place] [address] PCP - General Internal Medicine 03/24/21 Balaji Kim MD [address] [place] [address] Neurosurgery 04/12/16 Lorri Wick MD [address] [address] [email or web address] Internal Medicine 11/06/16 documented as of this encounter Additional Source Comments The information contained in this document represents components of the legal health record. It is not the complete legal health record.[facility]
--- OUTSIDE RECORDS SUMMARY | 2025-07-13 18:13 | XMS_ITS | Encounter Summary ---
Author Organization [facility] Address [address] [place] [address] Care Team Providers Care Special Warfare Boat Operator Name Role Phone Doug Melendez MD Primary Care Provider Unavail [facility], Pcp Primary Care Provider Eunice Stein MD Primary Care Provider Suleiman Hutchison MD Unavailable [phone] Krystin Borjas PA-C Unavailable [facility] Primary Care Provider Ewelina Juan Ch MD Primary Care Provider [phone] Reason for Visit * Reason Onset Date Comments Medication 04/19/2015 Encounter Details Date Type Department Care Team Description 04/19/2015 Telephone Adult Medicine [address] [phone] Doug Melendez MD Medication Social History Tobacco Use Types Packs/Day Years [...] encounter Miscellaneous Notes * Telephone Encounter - Ashley Kirk - 04/19/2015 1:41 PM EDT Who is calling? Other: Name of caller: N/a Relationship to patient: daughter Name of the medication See encounter from 04/18 refills What is the specific problem or interaction? Daughter states patient was seen today and dr melendez said he had not heard from the pharmacy to fill her meds, please see encounter 04/18 refills If the patient is having a problem with taking the med - how long has the problem been going on? N/A documented in this encounter Plan of Treatment Not on file documented as of this encounter Visit Diagnoses Not on filedocumented in this encounter Care Teams Special Warfare Boat Operator Relationship Specialty Start Date End Date Doug Melendez MD PCP - General 03/06/05 06/16/16 [facility], Pcp PCP - General Internal Medicine 06/17/16 02/17/19 Eunice Laureano MD PCP - General 02/18/19 06/27/21 [facility], Pcp PCP - General Internal Medicine 06/28/21 09/02/21 Juan Juan MD [address] [place] [address] PCP - General Internal Medicine 09/03/21 Suleiman Belle MD Specialist Cardiology 09/22/20 Krystin Borjas PA-C Specialist Cardiology 09/22/20 documented as of this encounter
--- OUTSIDE RECORDS SUMMARY | 2025-07-13 18:13 | XMS_ITS | Encounter Summary ---
Author Organization [facility] Address [address] [place] [address] Phone Care Team Providers Care Bellows Tester Name Role Phone Balaji Kim MD Unavailable [phone] Lorri Wick MD Unavailable Albert Iglesias MD Primary Care Prov ider Encounter Details Date Type Department Care Team (Late st Contact Info) Description 01/15/2023 Procedure Pass [facility], [facility] [address] [facility], 2nd [place] [address] Social History Tobacco Use Types Packs/Day Years [...] Description 09/12/2025 3:40 PM EST Office Visit [facility] Endocrinology [address] [place] [address] [place] [address] Lorri Wick MD [address] [address] [email or web address] documented as of this encounter Visit Diagnoses Not on filedocumented in this encounter Additional Health Concerns Assessment Noted Time PHQ-2 Depression Total Score: 0 09/22/19 21 11:06 AM EST documented as of this encounter Care Teams Bellows Tester Relationship Specialty Start Date End Date Albert Iglesias MD [address] [place] [address] PCP - General Internal Medicine 03/24/21 Balaji Kim MD [address] [place] [address] Drive [address] [place] [address] Neurosurgery 04/12/16 Lorri Wick MD [address] [address] [email or web address] Internal Medicine 11/06/16 documented as of this encounter Additional Source Comments The information contained in this document represents components of the legal health record. It is not the complete legal health record.[facility]
--- OUTSIDE RECORDS SUMMARY | 2025-07-13 18:13 | XMS_ITS | Encounter Summary ---
Author Organization [facility] Address [address] [place] [address] Care Team Providers Care Outcomes Specialist Name Role Phone Eunice Laureano MD Primary Care Provider Suleiman Hutchison MD Unavailable [phone] Krystin Borjas PA-C Unavailable [facility], Pcp Primary Care Provider Ewelina Juan Ch MD Primary Care Provider [phone] Encounter Details Date Type Department Care Team Description 08/31/2019 Hospital Medical Records [address] [place] [address] Social History Tobacco Use Types Packs/Day Years [...] on filedocumented in this encounter Care Teams Outcomes Specialist Relationship Specialty Start Date End Date Eunice Laureano MD PCP - General 02/18/19 06/27/21 [facility], Pcp PCP - General Internal Medicine 06/28/21 09/02/21 Juan Juan MD [address] [place] [address] PCP - General Internal Medicine 09/03/21 Suleiman Belle MD Specialist Cardiology 09/22/20 Krystin Borjas PA-C Specialist Cardiology 09/22/20 documented as of this encounter
--- OUTSIDE RECORDS SUMMARY | 2025-07-13 18:13 | XMS_ITS | Encounter Summary ---
Author Organization [facility] Address [address] [place] [address] Phone Care Team Providers Care Photocopier Technician Name Role Phone Balaji Kim MD Unavailable Lorri Wick MD Unavailable Albert Iglesias MD Primary Care Prov ider Encounter Details Date Type Department Care Team (Late Contact Info) Description 07/29/2022 Procedure Pass [facility] Cardio EP Device Monitoring [address] [place] [address] Social History Tobacco Use Types Packs/Day Years [...] PM EST Office Visit [facility] Endocrinology [address] [phone] Lorri Wick MD [address] [place] [address] documented as of this encounter Visit Diagnoses Not on filedocumented in this encounter Additional Health Concerns Assessment Noted Time PHQ-2 Depression Total Score: 0 09/22/19 21 11:06 AM EST documented as of this encounter Care Teams Photocopier Technician Relationship Specialty Start Date End Date Albert Iglesias MD [address] [place] [address] PCP - General Internal Medicine 03/24/21 Balaji Kim MD [address] [place] [address] Drive [address] [place] [address] Neurosurgery 04/12/16 Lorri Wick MD [address] [address] [email or web address] Internal Medicine 11/06/16 documented as of this encounter Additional Source Comments The information contained in this document represents components of the legal health record. It is not the complete legal health record.[facility]
--- OUTSIDE RECORDS SUMMARY | 2025-07-13 18:13 | XMS_ITS | Encounter Summary ---
Author Organization [employer] Address [address] [place] [address] 7t [place] [address] Care Team Providers Care Auto Damage Trainee Name Role Phone Albert Iglesias MD Primary Care Prov ider Robert Ramirez RN Unavailable [phone] Amari Dutton Unavailable Reason for Visit * Reason Comments Med Refill Encounter Details Date Type Department Care Team (Late Contact Info) Description 12/05/2022 Refill [facility] [address] [place] [address] Albert Iglesias MD [address] [place], [place] [phone] Social History Tobacco Use Types Packs/Day Years [...] Description 08/03/2025 3:15 PM EST Clinical Support [facility] [address] [place] [address] Liliane Thomas RN [address] [place] [address] documented as of this encounter Visit Diagnoses Not on filedocumented in this encounter Care Teams Auto Damage Trainee Relationship Specialty Start Date End Date Albert Iglesias MD [address] [place] [address] PCP - General Internal Medicine 02/13/20 Robert Ramirez RN [address] [place] [address] Registered Nurse Family Medicine 07/13/25 Amari Dutton 07/13/25 Panchito Cole Carpentry ForemanPrincipal Bioinformatics Specialist 06/11/24 documented as of this encounter
--- OUTSIDE RECORDS SUMMARY | 2025-07-13 18:13 | XMS_ITS | Encounter Summary ---
Author Organization [employer] Address [address] [facility] 7t [place] [address] Care Team Providers Care Client Services Account Manager Name Role Phone Albert Iglesias MD Primary Care Prov ider Robert Ramirez RN Unavailable [phone] Amari Dutton Unavailable Encounter Details Date Type Department Care Team (Late st Contact Info) Description 12/26/2023 Orders Only [facility] MEDICINE [address] [place] [address] Provider, MD Flaco Social History Tobacco Use Types Packs/Day Years Used Date Smoking Tobacco: Former Cigarettes 0.5 30 1 - 2021 Smokeless Tobacco: Never Alcohol Use Standard Drinks/Week Comments Never 0 (1 standard drink = 0.6 oz pur e alcohol) Depression Answer Date Recorded Patient Health Questionnaire-9 Score 9 12/23/2022 Housing Stability Answer Date Recorded What is your housing situation today? I have rodanup jensen 07/01/[address] you [...] Upcoming Encounters Date Type Department Care Team ([facility] st Contact Info) Description 08/03/2025 3:15 PM EST Clinical Support [facility] P[facility]S [address] [place] [address] Liliane Thomas RN [address] [place] [address] documented as of this encounter Procedures Procedure Name Priority Date/Time Associated Diagnosis Comments HM COLONOSCOPY Routine 04/03/2017 2:43 PM EDT documented in this encounter Results * Hm Colonoscopy (04/03/2017 2:43 PM EDT) us Historical Provider HEALTH MAINTENANCE Final Result documented in this encounter Visit Diagnoses Not on filedocumented in this encounter Additional Health Concerns Assessment Noted Time PHQ-9 Depression Total Score: 9 12/24/19 23 10:49 AM EDT documented as of this encounter Care Teams Client Services Account Manager Relationship Specialty Start Date End Date Albert Iglesias MD [address] [place] [address] PCP - General Internal Medicine 02/13/20 Robert Ramirez, [place] [address] [place] [address] Registered Nurse Family Medicine 07/13/25 Amari Dutton 07/13/25 Panchito Cole Vp [employer]ovascularCommercial Lines Account Manager 06/11/24 documented as of this encounter
--- OUTSIDE RECORDS SUMMARY | 2025-07-13 18:13 | XMS_ITS | Encounter Summary ---
Author Organization [facility] Address [address] [place] [address] Care Team Providers Care Able Bodied Seaman Name Role Phone Doug Melendez MD Primary Care Provider Unavail [facility], Pcp Primary Care Provider Eunice Stein MD Primary Care Provider Suleiman Hutchison MD Unavailable [phone] Krystin Borjas PA-C Unavailable [facility], Pcp Primary Care Provider Ewelina Juan Ch MD Primary Care Provider [phone] Encounter Details Date Type Department Care Team Description 07/21/2012 Hospital Medical Records [address] [place] [address] Laura Meyer Social History Tobacco Use Types Packs/Day Years [...] on filedocumented in this encounter Care Teams Able Bodied Seaman Relationship Specialty Start Date End Date Doug Melendez MD PCP - General 03/06/05 06/16/16 [facility], Pcp PCP - General Internal Medicine 06/17/16 02/17/19 Eunice Laureano MD PCP - General 02/18/19 06/27/21 [facility], Pcp PCP - General Internal Medicine 06/28/21 09/02/21 Juan Juan, [address] [place] [address] PCP - General Internal Medicine 09/03/21 Suleiman Belle MD Specialist Cardiology 09/22/20 Krystin Borjas PA-C Specialist Cardiology 09/22/20 documented as of this encounter
--- OUTSIDE RECORDS SUMMARY | 2025-07-13 18:13 | XMS_ITS | Encounter Summary ---
Author Organization [facility] Address [address] [place] [address] Phone Care Team Providers Care Curing Room Supervisor Name Role Phone Balaji Kim MD Unavailable [phone] Lorri Wick MD Unavailable [phone] Albert Iglesias MD Primary Care Prov ider Encounter Details Date Type Department Care Team (Late Contact Info) Description 07/05/2022 Ancillary Orders [facility] [address] [facility], 9th Floor, [address] [place] [address] Lola Davidson MD, PhD 55 [facility] [place] [facility] [address] [place] [address] [email or web address] Pituitary adenoma Social History Tobacco Use Types [...] 3:40 PM EST Office Visit [facility] Endocrinology [address] [address] Lorri Wick MD [address] [place] [address] [email or web address] documented as of this encounter Procedures Procedure Name Priority Date/Time Associated Diagnosis Comments COMPREHENSIVE METABOLIC PANEL Routine 09/24/2022 11:46 AM EST Pituitary adenoma CBC AND DIFFERENTIAL Routine 09/24/2022 11:46 AM EST Pituitary adenoma documented in this encounter Results * Comprehensive metabolic panel (09/24/2022 11:46 AM EST) Glucose 91 65 - 99 mg/dL [facility] Apart Comment: Fasting reference interval Urea Nitrogen (BUN) 18 7 - 25 mg/dL [facility] Creatinine 0.87 0.50 - 1.03 mg/dL [facility] EGFR 79 > OR = 60 mL/min/1 .73m2 [facility] Apart Comment: The eGFR is based on the CKD-EPI 2020 equation. To calculate the new eGFR from a previous Creatinine or Cystatin C result, go to https://www.kidney.org/professionals/ kdoqi/gfr%5Fcalculator BUN/Creatinine Ratio NOT APPLICABLE 6 - 22 (calc) [facility] Sodium 139 135 - 146 mmol/L [facility] Potassium 3.6 3.5 - 5.3 mmol/L [facility] Chloride 102 98 - 110 mmol/L [facility] Carbon Dioxide 30 20 - 32 mmol/L [facility] Calcium 9.7 8.6 - 10.4 mg/dL [facility] Protein, Total 7.5 6.1 - 8.1 g/dL [facility] Albumin 4.5 3.6 - 5.1 g/dL [facility] Globulin 3.0 1.9 - 3.7 g/dL (calc) [facility] Apart Albumin/Globuli n Ratio 1.5 1.0 - 2.5 (calc) [facility] Bilirubin, Total 0.5 0.2 - 1.2 mg/dL [facility] Alkaline Phosphatase 109 37 - 153 U/L [facility] AST 19 10 - 35 U/L [facility] ALT 24 6 - 29 U/L [facility] [employer] Blood 09/24/2022 11:4 6 AM EST 09/24/2022 11:47 AM EST Narrative [facility] - 09/24/2022 9:48 PM EST AN UPDATE OR CORRECTION HAS BEEN MADE TO NAME us Lola Davidson MD, PhD LAB BLOOD [place]DE [place] Final Result [employer] [facility]-[address] FLOOR,[place] [address], [facility] Team Apart [address] [facility], (Nl1) [place] [address] * (ABNORMAL) CBC and differential (09/24/2022 11:46 AM EST) WBC 11.2(H) 3.8 - 10.8 Thousand/ uL [facility] [employer] Red Blood Cell 5.19(H) 3.80 - 5.10 Million/u L [facility] [employer] Hemoglobin 13.4 11.7 - 15.5 g/dL [facility] Hematocrit 41.0 35.0 - 45.0 % [facility] MCV 79.0(L) 80.0 - 100.0 fL [facility] MCH 25.8(L) 27.0 - 33.0 pg [facility] MCHC 32.7 32.0 - 36.0 g/dL [facility] RDW 17.4(H) 11.0 - 15.0 % [facility] Platelet Count 275 140 - 400 Thousand/ uL [facility] MPV 10.7 7.5 - 12.5 fL [facility] Absolute Neutrophils 8,221(H) 1,500 - 7,800 cells/uL [facility] Absolute Lymphocytes 1,994 850 - 3,900 cells/uL [facility] Absolute Monocytes 885 200 - 950 cells/uL [facility] Absolute Eosinophils 45 15 - 500 cells/uL [facility] Absolute Basophils 56 0 - 200 cells/uL [facility] Neutrophils 73.4 % [facility] Lymphocytes 17.8 % [facility] Monocytes 7.9 % [facility] Eosinophils 0.4 % [facility] Basophils 0.5 % [facility] Blood 09/24/2022 11:4 6 AM EST 09/24/2022 11:47 AM EST Narrative [facility]-[address] [place] [address] - 09/24/2022 9:48 PM EST AN UPDATE OR CORRECTION HAS BEEN MADE TO NAME Lola Davidson MD, PhD LAB BLOOD KENNETH QUINN Final Result [facility] [facility] [address] [facility] 3RD FLOOR,[place] [address], [facility] [address] [facility], (Nl1) [place] [address] documented in this encounter Visit Diagnoses Diagnosis Pituitary adenoma Benign 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) documented in this encounter Additional Health Concerns Assessment Noted Time PHQ-2 Depression Total Score: 0 09/22/19 21 11:06 AM EST documented as of this encounter Care Teams Curing Room Supervisor Relationship Specialty Start Date End Date Albert Iglesias MD [address] [place] [address] PCP - General Internal Medicine 03/24/21 Balaji Kim MD [address] [place] [address] Drive [address] [place] [address] Neurosurgery 04/12/16 Lorri Wick MD [address] [place] [address] [email or web address] Internal Medicine 11/06/16 documented as of this encounter Additional Source Comments The information contained in this document represents components of the legal health record. It is not the complete legal health record.[facility]
--- OUTSIDE RECORDS SUMMARY | 2025-07-13 18:13 | XMS_ITS | Encounter Summary ---
Author Organization [facility] Address [address] [place] [address] Care Team Providers Care Molder Apprentice Name Role Phone Doug Melendez MD Primary Care Provider Unavail [facility], Pcp Primary Care Provider Eunice Stein MD Primary Care Provider Suleiman Hutchison MD Unavailable [phone] Krystin Borjas PA-C Unavailable [facility], Pcp Primary Care Provider Ewelina Juan Ch MD Primary Care Provider [phone] Encounter Details Date Type Department Care Team Description 12/03/2015 Hospital Medical Records [address] [place] [address] Marvel Ludwig MD Social History Tobacco Use Types Packs/Day [...] on filedocumented in this encounter Care Teams Molder Apprentice Relationship Specialty Start Date End Date Doug Melendez MD PCP - General 03/06/05 06/16/16 [facility], Pcp PCP - General Internal Medicine 06/17/16 02/17/19 Eunice Laureano MD PCP - General 02/18/19 06/27/21 [facility], Pcp PCP - General Internal Medicine 06/28/21 09/02/21 Juan Juan MD [address] [place] [address] PCP - General Internal Medicine 09/03/21 Suleiman Belle MD Specialist Cardiology 09/22/20 Krystin Borjas PA-C Specialist Cardiology 09/22/20 documented as of this encounter
--- OUTSIDE RECORDS SUMMARY | 2025-07-13 18:13 | XMS_ITS | Encounter Summary ---
Author Organization [facility] Address [address] [place] [address] Care Team Providers Care Community Service Officer Coordinator Name Role Phone Doug Melendez MD Primary Care Provider Unavail [facility], Pcp Primary Care Provider Eunice Stein MD Primary Care Provider UnavailSuleiman Meehan MD Unavailable [phone] Krystin Borjas PA-C Unavailable [facility], Pcp Primary Care Provider Ewelina Juan Ch MD Primary Care Provider [phone] Encounter Details Date Type Department Care Team Description 10/22/2011 Eye Senior Cytotechnologist Report Medical Records [address] [place] [address] Poppy Covarrubias Social History Tobacco Use Types [...] on filedocumented in this encounter Care Teams Community Service Officer Coordinator Relationship Specialty Start Date End Date Doug Melendez MD PCP - General 03/06/05 06/16/16 [facility], Pcp PCP - General Internal Medicine 06/17/16 02/17/19 Eunice Laureano MD PCP - General 02/18/19 06/27/21 [facility], Pcp PCP - General Internal Medicine 06/28/21 09/02/21 Juan Juan MD [address] [place] [address] PCP - General Internal Medicine 09/03/21 Suleiman Belle MD Specialist Cardiology 09/22/20 Krystin Borjas PA-C Specialist Cardiology 09/22/20 documented as of this encounter
--- OUTSIDE RECORDS SUMMARY | 2025-07-13 18:13 | XMS_ITS | Encounter Summary ---
Author Organization [facility] Address [address] [place] [address] Care Team Providers Care Mold Sander Name Role Phone Doug Melendez MD Primary Care Provider Unavail [facility], Pcp Primary Care Provider Eunice Stein MD Primary Care Provider UnavailSuleiman Meehan MD Unavailable [phone] Krystin Borjas PA-C Unavailable [facility], Pcp Primary Care Provider Ewelina Juan Ch MD Primary Care Provider [phone] Encounter Details Date Type Department Care Team Description 11/01/2015 Phone Circuit Operator Report Medical Records [address] [place] [address] Dinora Doty MD Social History Tobacco Use [...] on filedocumented in this encounter Care Teams Mold Sander Relationship Specialty Start Date End Date Doug Melendez MD PCP - General 03/06/05 06/16/16 [facility], Pcp PCP - General Internal Medicine 06/17/16 02/17/19 Eunice Laureano MD PCP - General 02/18/19 06/27/21 [facility], Pcp PCP - General Internal Medicine 06/28/21 09/02/21 Juan Juan, [address] [place] [address] PCP - General Internal Medicine 09/03/21 Suleiman Belle MD Specialist Cardiology 09/22/20 Krystin Borjas PA-C Specialist Cardiology 09/22/20 documented as of this encounter
--- OUTSIDE RECORDS SUMMARY | 2025-07-13 18:13 | XMS_ITS | Encounter Summary ---
Author Organization [facility] Address [address] [place] [address] Phone Care Team Providers Care Ecologist Name Role Phone Balaji Kim MD Unavailable Lorri Wick MD Unavailable Albert Iglesias MD Primary Care Prov ider Encounter Details Date Type Department Care Team (Late Contact Info) Description 06/28/2022 Ancillary Orders [facility] [address] [facility], 9th Floor, [address] [place] [address] Heena Cárdenas, RN [address] [place] [address] [email or web address] Pituitary adenoma Social History Tobacco Use Types [...] Description 09/12/2025 3:40 PM EST Office Visit [facility] Endocrinology [address] [place] [phone] Lorri Wick MD [address] [place] [address] [email or web address] documented as of this encounter Procedures Procedure Name Priority Date/Time Associated Diagnosis Comments COMPREHENSIVE METABOLIC PANEL Routine 10/16/2022 2:57 PM EST Pituitary adenoma CBC AND DIFFERENTIAL Routine 10/16/2022 2:57 PM EST Pituitary adenoma documented in this encounter Results * (ABNORMAL) Comprehensive metabolic panel (10/16/2022 2:57 PM EST) Glucose 103 65 - 139 mg/dL [facility] Comment: Non-fasting reference interval Urea Nitrogen (BUN) 12 7 - 25 mg/dL [facility] Creatinine 0.82 0.50 - 1.03 mg/dL [facility] EGFR 84 > OR = 60 mL/min/1 .73m2 [facility] Comment: The eGFR is based on the CKD-EPI 2020 equation. To calculate the new eGFR from a previous Creatinine or Cystatin C result, go to https://www.kidney.org/professionals/ kdoqi/gfr%5Fcalculator BUN/Creatinine Ratio NOT APPLICABLE 6 - 22 (calc) [facility] Sodium 141 135 - 146 mmol/L [facility] Potassium 4.7 3.5 - 5.3 mmol/L [facility] Chloride 104 98 - 110 mmol/L [facility] Carbon Dioxide 29 20 - 32 mmol/L [facility] Calcium 9.2 8.6 - 10.4 mg/dL [facility] Protein, Total 6.6 6.1 - 8.1 g/dL [facility] Albumin 4.0 3.6 - 5.1 g/dL [facility] Globulin 2.6 1.9 - 3.7 g/dL (calc) [facility] Albumin/Globuli n Ratio 1.5 1.0 - 2.5 (calc) [facility] Bilirubin, Total 0.4 0.2 - 1.2 mg/dL [facility] [employer] Alkaline Phosphatase 104 37 - 153 U/L [facility] AST 21 10 - 35 U/L [facility] ALT 33(H) 6 - 29 U/L [facility] Blood 10/16/2022 2:57 PM EST 10/16/2022 2:58 PM EST Narrative [facility]-[address] [facility] - 10/17/2022 2:07 AM EST FASTING:NO AN UPDATE OR CORRECTION HAS BEEN MADE TO NAME FASTING: NO us Hannah Prajapati [facility] LAB BLOOD ORDERABLES Shelby pollard Result [facility] [address] FLO[address],[place] [address], [facility] [address] [place] [address], (Nl1) [place] [address] * (ABNORMAL) CBC and differential (10/16/2022 2:57 PM EST) WBC 9.9 3.8 - 10.8 Thousand/ uL [facility] [employer] Red Blood Cell 4.91 3.80 - 5.10 Million/u L [facility] [employer] Hemoglobin 13.0 11.7 - 15.5 g/dL [facility] [employer] Hematocrit 40.4 35.0 - 45.0 % [facility] [employer] MCV 82.3 80.0 - 100.0 fL [facility] [employer] MCH 26.5(L) 27.0 - 33.0 pg [facility] [employer] MCHC 32.2 32.0 - 36.0 g/dL [facility] [employer] RDW 16.9(H) 11.0 - 15.0 % [facility] [employer] Platelet Count 139(L) 140 - 400 Thousand/ uL [facility] [employer] MPV 10.6 7.5 - 12.5 fL [facility] Absolute Neutrophils 7,207 1,500 - 7,800 cells/uL [facility] Absolute Lymphocytes 1,990 850 - 3,900 cells/uL [facility] Absolute Monocytes 584 200 - 950 cells/uL [facility] Absolute Eosinophils 99 15 - 500 cells/uL [facility] Absolute Basophils 20 0 - 200 cells/uL [facility] Neutrophils 72.8 % [facility] Lymphocytes 20.1 % [facility] Monocytes 5.9 % [facility] Eosinophils 1.0 % [facility] Basophils 0.2 % [facility] Blood 10/16/2022 2:57 PM EST 10/16/2022 2:58 PM EST Narrative [facility]-[address] [place] [address] - 10/17/2022 2:07 AM EST FASTING:NO AN UPDATE OR CORRECTION HAS BEEN MADE TO NAME FASTING: NO us Hannah Prajapati [employer] LAB BLOOD ORDERABLES Shelby l Result [email or web address] [address], [facility] [address] [facility], (Nl1) [place] [address] documented in this encounter Visit Diagnoses Diagnosis Pituitary adenoma Benign 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) documented in this encounter Additional Health Concerns Assessment Noted Time PHQ-2 Depression Total Score: 0 09/22/19 21 11:06 AM EST documented as of this encounter Care Teams Ecologist Relationship Specialty Start Date End Date Albert Iglesisa MD [address] [place] [address] PCP - General Internal Medicine 03/24/21 Balaji Kim MD [address] [facility] [address] [place] [address] Neurosurgery 04/12/16 Lorri Wick MD [address] [address] [email or web address] Internal Medicine 11/06/16 documented as of this encounter Additional Source Comments The information contained in this document represents components of the legal health record. It is not the complete legal health record.[facility]
--- OUTSIDE RECORDS SUMMARY | 2025-07-13 18:13 | XMS_ITS | Encounter Summary ---
Author Organization Formerly [facility] Address [address] [place] [address] Phone Care Team Providers Care Car Inspection And Repair Manager Name Role Phone Balaji Kim MD Unavailable [phone] Lorri Wick MD Unavailable Albert Iglesias MD Primary Care Prov ider Encounter Details Date Type Department Care Team (Late Contact Info) Description 06/14/2022 Ancillary Orders [facility] [address] [facility], 9th Floor, [address] [place] [address] Lola Davidson MD, PhD [address] [facility] [address] [place] [address] [email or web address] Pituitary adenoma Social History Tobacco [...] EST Office Visit [facility] Endocrinology [place] [address] [place] [address] Lorri Wcik MD [address] [address] [email or web address] documented as of this encounter Visit Diagnoses Diagnosis Pituitary adenoma Benign 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) documented in this encounter Additional Health Concerns Assessment Noted Time PHQ-2 Depression Total Score: 0 09/22/19 21 11:06 AM EST documented as of this encounter Care Teams Car Inspection And Repair Manager Relationship Specialty Start Date End Date Albert Iglesias MD [address] [place] [address] PCP - General Internal Medicine 03/24/21 Balaji Kim MD [address] [place] [address] Drive [address] [place] [address] Neurosurgery 04/12/16 Lorri Wick MD [address] [address] [email or web address] Internal Medicine 11/06/16 documented as of this encounter Additional Source Comments The information contained in this document represents components of the legal health record. It is not the complete legal health record.[facility]
--- OUTSIDE RECORDS SUMMARY | 2025-07-13 18:13 | XMS_ITS | Encounter Summary ---
Author Organization [facility] Address [address] [place] [address] Care Team Providers Care Web Designer Name Role Phone Doug Melendez MD Primary Care Provider Unavail [facility], Pcp Primary Care Provider Eunice Stein MD Primary Care Provider Suleiman Hutchison MD Unavailable [phone] Krystin Borjas PA-C Unavailable [facility], Pcp Primary Care Provider Ewelina Juan Ch MD Primary Care Provider [phone] Encounter Details Date Type Department Care Team Description 02/27/2015 Hospital Medical Records [address] [place] [address] Oneal Ferrari Social History Tobacco Use Types Packs/Day Years [...] on filedocumented in this encounter Care Teams Web Designer Relationship Specialty Start Date End Date Doug Melendez MD PCP - General 03/06/05 06/16/16 [facility], Pcp PCP - General Internal Medicine 06/17/16 02/17/19 Eunice Laureano MD PCP - General 02/18/19 06/27/21 [facility], Pcp PCP - General Internal Medicine 06/28/21 09/02/21 Juan Juan MD [address] [place] [address] PCP - General Internal Medicine 09/03/21 Suleiman Belle MD Specialist Cardiology 09/22/20 Krystin Borjas PA-C Specialist Cardiology 09/22/20 documented as of this encounter
--- OUTSIDE RECORDS SUMMARY | 2025-07-13 18:13 | XMS_ITS | Encounter Summary ---
Author Organization [facility] Address [address] [place] [address] Care Team Providers Care Brass Finisher Name Role Phone Doug Melendez MD Primary Care Provider Unavail [facility], Pcp Primary Care Provider Eunice Stein MD Primary Care Provider UnavailSuleiman Meehan MD Unavailable [phone] Krystin Borjas PA-C Unavailable [facility], Pcp Primary Care Provider Ewelina Juan Ch MD Primary Care Provider [phone] Encounter Details Date Type Department Care Team Description 08/03/2015 [facility] Report Medical Records [address] [place] [address] Yuval Tsang MD [address] [place] [address] Social History Tobacco Use Types Packs/Day Years [...] on filedocumented in this encounter Care Teams Brass Finisher Relationship Specialty Start Date End Date Doug Melendez MD PCP - General 03/06/05 06/16/16 [facility], Pcp PCP - General Internal Medicine 06/17/16 02/17/19 Eunice Laureano MD PCP - General 02/18/19 06/27/21 [facility], Pcp PCP - General Internal Medicine 06/28/21 09/02/21 Juan Juan MD [address] [place] [address] PCP - General Internal Medicine 09/03/21 Suleiman Belle MD Specialist Cardiology 09/22/20 Krystin Borjas PA-C Specialist Cardiology 09/22/20 documented as of this encounter
--- OUTSIDE RECORDS SUMMARY | 2025-07-13 18:14 | XMS_ITS | Encounter Summary ---
Author Organization [facility] Address [address] [place] [address] Phone Care Team Providers Care Enterprise Analyst Name Role Phone Balaji Kim MD Unavailable Nyla Jacobson MD Primary Care Provider [phone] Lorri Wick MD Unavailable Albert Iglesias MD Primary Care Prov ider Encounter Details Date Type Department Care Team (Late st Contact Info) Description 09/25/2016 Procedure Pass [facility] [address] [place] [address] Social History Tobacco Use Types Packs/Day Years [...] 3:40 PM EST Office Visit [facility] Endocrinology [address] [phone] Lorri Wick MD [address] [place] [address] [email or web address] documented as of this encounter Visit Diagnoses Not on filedocumented in this encounter Care Teams Enterprise Analyst Relationship Specialty Start Date End Date Nyla Jacobson MD [address] [place] [address] PCP - General 05/14/16 03/23/21 Albert Iglesias MD [address] [place] [address] PCP - General Internal Medicine 03/24/21 Balaji Kim MD [address] [place] [address] Drive [address] [place] [address] Neurosurgery 04/12/16 Lorri Wick MD [address] [place] [address] [email or web address] Internal Medicine 11/06/16 documented as of this encounter Additional Source Comments The information contained in this document represents components of the legal health record. It is not the complete legal health record.[facility]
--- OUTSIDE RECORDS SUMMARY | 2025-07-13 18:14 | XMS_ITS | Encounter Summary ---
Author Organization [facility] Address [address] [place] [address] Phone Care Team Providers Care 3Rd Mate Name Role Phone Balaji Kim MD Unavailable Nyla Jacobson MD Primary Care Provider [phone] Lorri Wick MD Unavailable Albert Iglesias MD Primary Care Prov ider Encounter Details Date Type Department Care Team (Late st Contact Info) Description 12/22/2017 Procedure Pass [facility] MR Imaging, [place] [address] [place] [address] Social History Tobacco Use Types Packs/Day Years [...] Office Visit [facility] Endocrinology [address] [phone] Lorri Wick MD [address] [place] [phone] [email or web address] documented as of this encounter Visit Diagnoses Not on filedocumented in this encounter Care Teams 3Rd Mate Relationship Specialty Start Date End Date Nyla Jacobson MD [address] [place] [address] PCP - General 05/14/16 03/23/21 Albert Iglesias MD [address] [place] [address] PCP - General Internal Medicine 03/24/21 Balaji Kim MD [address] [place] [address] Drive [address] [place] [address] Neurosurgery 04/12/16 Lorri Wick MD [address] [place] [address] [email or web address] Internal Medicine 11/06/16 documented as of this encounter Additional Source Comments The information contained in this document represents components of the legal health record. It is not the complete legal health record.[facility]
--- OUTSIDE RECORDS SUMMARY | 2025-07-13 18:14 | XMS_ITS | Encounter Summary ---
Author Organization [facility] Address [address] [place] [address] Phone Care Team Providers Care Lidar Technician Name Role Phone Balaji Kim MD Unavailable [phone] Nyla Jacobson MD Primary Care Provider [phone] Lorri Wcik MD Unavailable Albert Iglesias MD Primary Care Prov ider Reason for Referral * MRI/CAT Scan - Closed Specialty Diagnoses / Procedures Referred By Contac t Referred To Contact Procedures MRI Brain Outside (No Interpretation) Yfn Mary MD Phone: tel: fax: mailto:[email or web address] Referral ID Status Reason Start Date Expiration Date Visits Re quested Visits Authorized [id number] Closed 09/25/2016 09/25/2017 1 1 * MRI/CAT Scan - Closed Specialty Diagnoses / Procedures Referred By Contac t Referred To Contact Procedures MRI Brain Outside (No Interpretation) Yfn Mary MD Phone: tel: fax: mailto:[email or web address] Referral ID Status Reason Start Date Expiration Date Visits Re quested Visits Authorized [id number] Closed 09/25/2016 09/25/2017 1 1 * MRI/CAT Scan - Closed Specialty Diagnoses / Procedures Referred By Contac t Referred To Contact Procedures MRI Brain Outside (No Interpretation) Yfn Mary MD Phone: tel: fax: mailto:[email or web address] Referral ID Status Reason Start Date Expiration Date Visits Re quested Visits Authorized [id number] Closed 09/25/2016 09/25/2017 1 1 * MRI/CAT Scan - Closed Specialty Diagnoses / Procedures Referred By Contac t Referred To Contact Procedures MRI Brain Outside (No Interpretation) Yfn Mary MD Phone: tel: fax: mailto:[email or web address] Referral ID Status Reason Start Date Expiration Date Visits Re quested Visits Authorized [id number] Closed 09/25/2016 09/25/2017 1 1 * MRI/CAT Scan - Closed Specialty Diagnoses / Procedures Referred By Contac t Referred To Contact Procedures MRI Brain Outside (No Interpretation) Yfn Mary MD Phone: tel: fax: mailto:[email or web address] Referral ID Status Reason Start Date Expiration Date Visits Re quested Visits Authorized [id number] Closed 09/25/2016 09/25/2017 1 1 * MRI/CAT Scan - Closed Specialty Diagnoses / Procedures Referred By Contac t Referred To Contact Procedures MRI Brain Outside (No Interpretation) Yfn Mary MD Phone: tel: fax: mailto:[email or web address] Referral ID Status Reason Start Date Expiration Date Visits Re quested Visits Authorized [id number] Closed 09/25/2016 09/25/2017 1 1 * MRI/CAT Scan - Closed Specialty Diagnoses / Procedures Referred By Contac t Referred To Contact Procedures MRI Brain Outside (No Interpretation) Yfn Mary MD Phone: tel: fax: mailto:[email or web address] Referral ID Status Reason Start Date Expiration Date Visits Re quested Visits Authorized [id number] Closed 09/25/2016 09/25/2017 1 1 * MRI/CAT Scan - Closed Specialty Diagnoses / Procedures Referred By Contac t Referred To Contact Procedures MRI Brain Outside (No Interpretation) Yfn Mary MD Phone: tel: fax: mailto:[email or web address] Referral ID Status Reason Start Date Expiration Date Visits Re quested Visits Authorized [id number] Closed 09/25/2016 09/25/2017 1 1 * MRI/CAT Scan - Closed Specialty Diagnoses / Procedures Referred By Contac t Referred To Contact Procedures MRI Brain Outside (No Interpretation) Yfn Mary MD Phone: tel: fax: mailto:[email or web address] Referral ID Status Reason Start Date Expiration Date Visits Re quested Visits Authorized [id number] Closed 09/25/2016 09/25/2017 1 1 * MRI/CAT Scan - Closed Specialty Diagnoses / Procedures Referred By Contac t Referred To Contact Procedures MRI Brain Outside (No Interpretation) Yfn Mary MD Phone: tel: fax: mailto:[email or web address] Referral ID Status Reason Start Date Expiration Date Visits Re quested Visits Authorized [id number] Closed 09/25/2016 09/25/2017 1 1 * MRI/CAT Scan - Closed Specialty Diagnoses / Procedures Referred By Contac t Referred To Contact Procedures MRI Brain Outside (No Interpretation) Yfn Mary MD Phone: tel: fax: mailto:[email or web address] Referral ID Status Reason Start Date Expiration Date Visits Re quested Visits Authorized [id number] Closed 09/25/2016 09/25/2017 1 1 * MRI/CAT Scan - Closed Specialty Diagnoses / Procedures Referred By Contac t Referred To Contact Procedures MRI Brain Outside (No Interpretation) Yfn Mary MD Phone: tel: fax: mailto:[email or web address] Referral ID Status Reason Start Date Expiration Date Visits Re quested Visits Authorized [id number] Closed 09/25/2016 09/25/2017 1 1 * MRI/CAT Scan - Closed Specialty Diagnoses / Procedures Referred By Contac t Referred To Contact Procedures MRI Vascular Outside (No Interpretation) Yfn Mary MD Phone: tel: fax: mailto:[email or web address] Referral ID Status Reason Start Date Expiration Date Visits Re quested Visits Authorized [id number] Closed 09/25/2016 09/25/2017 1 1 * MRI/CAT Scan - Closed Specialty Diagnoses / Procedures Referred By Contac t Referred To Contact Procedures MRI Vascular Outside (No Interpretation) Yfn Mary MD Phone: tel: fax: mailto:[email or web address] Referral ID Status Reason Start Date Expiration Date Visits Re quested Visits Authorized [id number] Closed 09/25/2016 09/25/2017 1 1 * MRI/CAT Scan - Closed Specialty Diagnoses / Procedures Referred By Contac t Referred To Contact Procedures MRI Vascular Outside (No Interpretation) Yfn Mary MD Phone: tel: fax: mailto:[email or web address] Referral ID Status Reason Start Date Expiration Date Visits Re quested Visits Authorized [id number] Closed 09/25/2016 09/25/2017 1 1 * MRI/CAT Scan - Closed Specialty Diagnoses / Procedures Referred By Contac t Referred To Contact Procedures MRI Vascular Outside (No Interpretation) Yfn Mary MD Phone: tel: fax: mailto:[email or web address] Referral ID Status Reason Start Date Expiration Date Visits Re quested Visits Authorized [id number] Closed 09/25/2016 09/25/2017 1 1 Encounter Details Date Type Department Care Team (Late st Contact Info) Description 09/25/2016 Transcribe Orders [facility] [address] [address] Francisco J Yoon [address] [place] [phone] [email or web address] Social History Tobacco Use Types Packs/Day Years [...] Description 09/12/2025 3:40 PM EST Office Visit [facility] Endocrinology [place] [address] [facility] [place] [address] Lorri Wick MD [address] [place] [address] [email or web address] documented as of this encounter Results * MRI Brain Outside (No Interpretation) (09/25/2016 3:45 AM EST) Narrative [facility] - 09/25/2016 10:59 AM EST This study is for PACS storage only and not for interpretation. Yfn Mary MD IMG OUTSIDE IMAGING W/OUT I NTERPRETATION Final Result Performing Organization Address [facility] de Phone Number [facility] * MRI Brain Outside (No Interpretation) (09/25/2016 3:30 AM EST) Narrative [facility] - 09/25/2016 10:59 AM EST This study is for PACS storage only and not for interpretation. Yfn Mary MD IMG OUTSIDE IMAGING W/OUT I NTERPRETATION Final Result Performing Organization Address [facility] Co de Phone Number [email or web address] * MRI Brain Outside (No Interpretation) (09/25/2016 3:15 AM EST) Narrative [facility] - 09/25/2016 10:59 AM EST This study is for PACS storage only and not for interpretation. us Yfn Mary MD IMG OUTSIDE IMAGING W/OUT I NTERPRETATION Final Result Performing Organization Address [facility] de Phone Number [facility] * MRI Brain Outside (No Interpretation) (09/25/2016 3:00 AM EST) Narrative [facility] - 09/25/2016 10:59 AM EST This study is for PACS storage only and not for interpretation. us Yfn Mary MD IMG OUTSIDE IMAGING W/OUT I NTERPRETATION Final Result Performing Organization Address [facility]/ZIP Co de Phone Number [facility] * MRI Brain Outside (No Interpretation) (09/25/2016 2:45 AM EST) Narrative [facility] - 09/25/2016 10:59 AM EST This study is for PACS storage only and not for interpretation. us Yfn Mary MD IMG OUTSIDE IMAGING W/OUT I NTERPRETATION Final Result Performing Organization Address [facility] Co de Phone Number [facility] * MRI Brain Outside (No Interpretation) (09/25/2016 2:30 AM EST) Narrative [facility] - 09/25/2016 10:59 AM EST This study is for PACS storage only and not for interpretation. us Yfn Mary MD IMG OUTSIDE IMAGING W/OUT I NTERPRETATION Final Result Performing Organization Address [facility] Co de Phone Number [facility] * MRI Brain Outside (No Interpretation) (09/25/2016 2:15 AM EST) Narrative [facility] - 09/25/2016 10:59 AM EST This study is for PACS storage only and not for interpretation. us Yfn Mary MD IMG OUTSIDE IMAGING W/OUT I NTERPRETATION Final Result Performing Organization Address [facility] Co de Phone Number [facility] * MRI Brain Outside (No Interpretation) (09/25/2016 2:00 AM EST) Narrative [facility] - 09/25/2016 10:59 AM EST This study is for PACS storage only and not for interpretation. Yfn Mary MD IMG OUTSIDE IMAGING W/OUT I NTERPRETATION Final Result Performing Organization Address [facility] Co de Phone Number [facility] * MRI Brain Outside (No Interpretation) (09/25/2016 1:45 AM EST) Narrative [facility] - 09/25/2016 10:59 AM EST This study is for PACS storage only and not for interpretation. Yfn Mary MD IMG OUTSIDE IMAGING W/OUT I NTERPRETATION Final Result Performing Organization Address [facility] Co de Phone Number [facility] * MRI Brain Outside (No Interpretation) (09/25/2016 1:30 AM EST) [facility]ative [facility] - 09/25/2016 10:59 AM EST This study is for PACS storage only and not for interpretation. Yfn Mary MD IMG OUTSIDE IMAGING W/OUT I NTERPRETATION Final Result Performing Organization Address [facility] Co de Phone Number [facility] * MRI Brain Outside (No Interpretation) (09/25/2016 1:15 AM EST) Narrative [facility] - 09/25/2016 10:59 AM EST This study is for PACS storage only and not for interpretation. Yfn Mary MD IMG OUTSIDE IMAGING W/OUT I NTERPRETATION Final Result Performing Organization Address [facility] Co de Phone Number [facility] * MRI Brain Outside (No Interpretation) (09/25/2016 1:00 AM EST) Narrative [facility] - 09/25/2016 10:59 AM EST This study is for PACS storage only and not for interpretation. us Yfn Mary MD IMG OUTSIDE IMAGING W/OUT I NTERPRETATION Final Result Performing Organization Address [facility] Co de Phone Number [facility] * MRI Vascular Outside (No Interpretation) (09/25/2016 12:45 AM EST) Narrative [facility] - 09/25/2016 10:59 AM EST This study is for PACS storage only and not for interpretation. us Yfn Mary MD IMG OUTSIDE IMAGING W/OUT I NTERPRETATION Final Result Performing Organization Address [facility] Co de Phone Number [facility] * MRI Vascular Outside (No Interpretation) (09/25/2016 12:30 AM EST) Narrative [facility] - 09/25/2016 10:59 AM EST This study is for PACS storage only and not for interpretation. Yfn Mary MD IMG OUTSIDE IMAGING W/OUT I NTERPRETATION Final Result Performing Organization Address [facility] Co de Phone Number [email or web address] * MRI Vascular Outside (No Interpretation) (09/25/2016 12:15 AM EST) Narrative [facility] - 09/25/2016 10:59 AM EST This study is for PACS storage only and not for interpretation. us Yfn Mary MD IMG OUTSIDE IMAGING W/OUT I NTERPRETATION Final Result Performing Organization Address [facility] Co de Phone Number [facility] * MRI Vascular Outside (No Interpretation) (09/25/2016 12:00 AM EST) Narrative [facility] - 09/25/2016 10:58 AM EST This study is for PACS storage only and not for interpretation. us Yfn Mary MD IMG OUTSIDE IMAGING W/OUT I NTERPRETATION Final Result Performing Organization Address [facility] Co de Phone Number [facility] documented in this encounter Visit Diagnoses Not on filedocumented in this encounter Care Teams Lidar Technician Relationship Specialty Start Date End Date Nyla Jacobson MD [address] [place] [address] PCP - General 05/14/16 03/23/21 Albert Iglesias MD [address] [place] [address] PCP - General Internal Medicine 03/24/21 Balaji Kim MD [address] [place] [address] Drive [address] [place] [address] Neurosurgery 04/12/16 Lorri Wick MD [address] [address] Internal Medicine 11/06/16 documented as of this encounter Additional Source Comments The information contained in this document represents components of the legal health record. It is not the complete legal health record.[facility]
--- OUTSIDE RECORDS SUMMARY | 2025-07-13 18:14 | XMS_ITS | Encounter Summary ---
Author Organization [facility] Address [address] [place] [address] Phone Care Team Providers Care Heel Sander Name Role Phone Balaji Kim MD Unavailable Nyla Jacobson MD Primary Care Provider [phone] Lorri Wick MD Unavailable Albert Iglesias MD Primary Care Prov ider Encounter Details Date Type Department Care Team (Late st Contact Info) Description 09/25/2016 Procedure Pass [facility] Radiology [address] [place] [address] Social History Tobacco Use Types Packs/Day Years [...] Office Visit [facility] Endocrinology [address] [phone] Lorri Wick MD [address] [place] [address] [email or web address] documented as of this encounter Visit Diagnoses Not on filedocumented in this encounter Care Teams Heel Sander Relationship Specialty Start Date End Date Nyla Jacobson MD [address] [place] [address] PCP - General 05/14/16 03/23/21 Albert Iglesias MD [address] [place] [address] PCP - General Internal Medicine 03/24/21 Balaji Kim MD [address] [place] [address] Drive [address] [place] [address] Neurosurgery 04/12/16 Lorri Wick MD [address] [place] [address] [email or web address] Internal Medicine 11/06/16 documented as of this encounter Additional Source Comments The information contained in this document represents components of the legal health record. It is not the complete legal health record.[facility]
--- OUTSIDE RECORDS SUMMARY | 2025-07-13 18:14 | XMS_ITS | Encounter Summary ---
Author Organization [facility] Address [address] [place] [address] Phone Care Team Providers Care Physical Testing Supervisor Name Role Phone Balaji Kim MD Unavailable Nyla Jacobson MD Primary Care Provider [phone] Lorri Wick MD Unavailable Albert Iglesias MD Primary Care Prov ider Encounter Details Date Type Department Care Team (Late st Contact Info) Description 09/25/2016 Procedure Pass [facility] [address] [place] [address] Social History Tobacco Use Types Packs/Day Years [...] Office Visit [facility] Endocrinology [address] [phone] Lorri Wick MD [address] [place] [address] [email or web address] documented as of this encounter Visit Diagnoses Not on filedocumented in this encounter Care Teams Physical Testing Supervisor Relationship Specialty Start Date End Date Nyla Jacobson MD [address] [place] [address] PCP - General 05/14/16 03/23/21 Albert Iglesias MD [address] [place] [address] PCP - General Internal Medicine 03/24/21 Balaji Kim MD [address] [place] [address] Drive [address] [place] [address] Neurosurgery 04/12/16 Lorri Wick MD [address] [place] [address] [email or web address] Internal Medicine 11/06/16 documented as of this encounter Additional Source Comments The information contained in this document represents components of the legal health record. It is not the complete legal health record.[facility]
--- OUTSIDE RECORDS SUMMARY | 2025-07-13 18:14 | XMS_ITS | Encounter Summary ---
Author Organization [facility] Address [address] [place] [address] Phone Care Team Providers Care Length Control Tester Name Role Phone Balaji Kim MD Unavailable Lorri Wick MD Unavailable Albert Iglesias MD Primary Care Prov ider Encounter Details Date Type Department Care Team (Late st Contact Info) Description 10/23/2021 Procedure Pass [facility] [address] [place] [address] Social History Tobacco Use Types Packs/Day Years [...] Description 09/12/2025 3:40 PM EST Office Visit [facility] Endocrinology [address] [phone] Lorri Wick MD [address] [place] [address] [email or web address] documented as of this encounter Visit Diagnoses Not on filedocumented in this encounter Additional Health Concerns Assessment Noted Time PHQ-2 Depression Total Score: 0 09/22/19 21 11:06 AM EST documented as of this encounter Care Teams Length Control Tester Relationship Specialty Start Date End Date Albert Iglesias MD [address] [place] [address] PCP - General Internal Medicine 03/24/21 Balaji Kim MD [address] [place] [address] Drive [address] [place] [address] Neurosurgery 04/12/16 Lorri Wick MD [address] [address] [email or web address] Internal Medicine 11/06/16 documented as of this encounter Additional Source Comments The information contained in this document represents components of the legal health record. It is not the complete legal health record.[facility]
--- OUTSIDE RECORDS SUMMARY | 2025-07-13 18:14 | XMS_ITS | Encounter Summary ---
Author Organization [facility] Address [address] [place] [address] Phone Care Team Providers Care It Corporate Recruiter Name Role Phone Balaji Kim MD Unavailable Nyla Jacobson MD Primary Care Provider [phone] Lorri Wick MD Unavailable [phone] Albert Iglesias MD Primary Care Prov ider Encounter Details Date Type Department Care Team (Late st Contact Info) Description 06/02/2020 Procedure Pass [facility] [address] [place] [address] Social History Tobacco Use Types Packs/Day Years [...] 09/12/2025 3:40 PM EST Office Visit [facility] Endocrinology [address] [phone] Lorri Wick MD [address] [place] [address] [email or web address] documented as of this encounter Visit Diagnoses Not on filedocumented in this encounter Additional Health Concerns Assessment Noted Time PHQ-2 Depression Total Score: 0 09/22/19 21 11:06 AM EST documented as of this encounter Care Teams It Corporate Recruiter Relationship Specialty Start Date End Date Nyla Jacobson MD [address] [place] [address] PCP - General 05/14/16 03/23/21 Albert Iglesias MD [address] [place] [address] PCP - General Internal Medicine 03/24/21 Balaji Kim MD [address] [place] [address] Drive [address] [place] [address] Neurosurgery 04/12/16 Lorri Wick MD [address] [address] [email or web address] Internal Medicine 11/06/16 documented as of this encounter Additional Source Comments The information contained in this document represents components of the legal health record. It is not the complete legal health record.[facility]
--- OUTSIDE RECORDS SUMMARY | 2025-07-13 18:14 | XMS_ITS | Encounter Summary ---
Author Organization [facility] Address [address] [place] [address] Phone Care Team Providers Care Strategic Planning Specialist Name Role Phone Balaji Kim MD Unavailable Nyla Jacobson MD Primary Care Provider [phone] Lorri Wick MD Unavailable Albert Iglesias MD Primary Care Prov ider Encounter Details Date Type Department Care Team (Late st Contact Info) Description 06/15/2018 Procedure Pass [facility] MR Imaging, [place] [address] [place] [address] Social History Tobacco Use Types Packs/Day Years [...] Office Visit [facility] Endocrinology [address] [phone] Lorri Wick MD [address] [place] [phone] [email or web address] documented as of this encounter Visit Diagnoses Not on filedocumented in this encounter Care Teams Strategic Planning Specialist Relationship Specialty Start Date End Date Nyla Jacobson MD [address] [place] [address] PCP - General 05/14/16 03/23/21 Albert Iglesias MD [address] [place] [address] PCP - General Internal Medicine 03/24/21 Balaji Kim MD [address] [place] [address] Drive [address] [place] [address] Neurosurgery 04/12/16 Lorri Wick MD [address] [place] [address] [email or web address] Internal Medicine 11/06/16 documented as of this encounter Additional Source Comments The information contained in this document represents components of the legal health record. It is not the complete legal health record.[facility]
--- OUTSIDE RECORDS SUMMARY | 2025-07-13 18:14 | XMS_ITS | Encounter Summary ---
Author Organization [facility] Address [address] [place] [address] Phone Care Team Providers Care Twisting Operator Name Role Phone Balaji Kim MD Unavailable Nyla Jacobson MD Primary Care Provider [phone] Lorri Wick MD Unavailable [phone] Albert Iglesias MD Primary Care Prov ider Encounter Details Date Type Department Care Team (Late st Contact Info) Description 09/25/[address] [facility] [address] [place] [address] Social History Tobacco Use Types Packs/Day Years [...] Office Visit [facility] Endocrinology [address] [phone] Lorri Wick MD [address] [place] [address] [email or web address] documented as of this encounter Visit Diagnoses Not on filedocumented in this encounter Care Teams Twisting Operator Relationship Specialty Start Date End Date Nyla Jacobson MD [address] [place] [address] PCP - General 05/14/16 03/23/21 Albert Iglesias MD [address] [place] [address] PCP - General Internal Medicine 03/24/21 Balaji Kim MD [address] [place] [address] Drive [address] [place] [address] Neurosurgery 04/12/16 Lorri Wick MD [address] [place] [address] [email or web address] Internal Medicine 11/06/16 documented as of this encounter Additional Source Comments The information contained in this document represents components of the legal health record. It is not the complete legal health record.[facility]
--- OUTSIDE RECORDS SUMMARY | 2025-07-13 18:14 | XMS_ITS | Encounter Summary ---
Author Organization [facility] Address [address] [place] [address] Phone Care Team Providers Care Workforce Staffing Advisor Name Role Phone Balaji Kim MD Unavailable [phone] Lorri Wick MD Unavailable Albert Iglesias MD Primary Care Prov ider Encounter Details Date Type Department Care Team (Late Contact Info) Description 11/12/2021 Procedure Pass [facility] Cardio EP Device Monitoring [address] [place] [address] Social History Tobacco Use Types Packs/Day Years [...] Description 09/12/2025 3:40 PM EST Office Visit [facility] Endocrinology [address] [phone] Lorri Wick MD [address] [place] [address] documented as of this encounter Visit Diagnoses Not on filedocumented in this encounter Additional Health Concerns Assessment Noted Time PHQ-2 Depression Total Score: 0 09/22/19 21 11:06 AM EST documented as of this encounter Care Teams Workforce Staffing Advisor Relationship Specialty Start Date End Date Albert Iglesias MD [address] [place] [address] PCP - General Internal Medicine 03/24/21 Balaji Kim MD [address] [place] [address] Drive [address] [place] [address] Neurosurgery 04/12/16 Lorri Wick MD [address] [address] [email or web address] Internal Medicine 11/06/16 documented as of this encounter Additional Source Comments The information contained in this document represents components of the legal health record. It is not the complete legal health record.[facility]
--- OUTSIDE RECORDS SUMMARY | 2025-07-13 18:14 | XMS_ITS | Encounter Summary ---
Author Organization [facility] Address [address] [place] [address] Phone Care Team Providers Care Software Architect Name Role Phone Balaji Kim MD Unavailable Nyla Jacobson MD Primary Care Provider [phone] Lorri Wick MD Unavailable Albert Iglesias MD Primary Care Prov ider Encounter Details Date Type Department Care Team (Late st Contact Info) Description 12/05/2016 Procedure Pass [facility] Department [address] [place] [address] Social History Tobacco Use Types Packs/Day Years [...] Description 09/12/2025 3:40 PM EST Office Visit [facility] Endocrinology [address] [phone] Lorri Wick MD [address] [place] [address] [email or web address] documented as of this encounter Visit Diagnoses Not on filedocumented in this encounter Care Teams Software Architect Relationship Specialty Start Date End Date Nyla Jacobson MD [address] [place] [address] PCP - General 05/14/16 03/23/21 Albert Iglesias MD [address] [place] [address] PCP - General Internal Medicine 03/24/21 Balaji Kim MD [address] [place] [address] Drive [address] [place] [address] Neurosurgery 04/12/16 Lorri Wick MD [address] [place] [address] [email or web address] Internal Medicine 11/06/16 documented as of this encounter Additional Source Comments The information contained in this document represents components of the legal health record. It is not the complete legal health record.[facility]
--- OUTSIDE RECORDS SUMMARY | 2025-07-13 18:14 | XMS_ITS | Encounter Summary ---
Author Organization [facility] Address [address] [place] [address] Phone Care Team Providers Care Income Tax Analyst Name Role Phone Balaji Kim MD Unavailable Nyla Jacobson MD Primary Care Provider [phone] Lorri Wick MD Unavailable [phone] Albert Iglesias MD Primary Care Prov ider Encounter Details Date Type Department Care Team (Late st Contact Info) Description 09/25/2016 Procedure Pass [facility] [address] [place] [address] Social History Tobacco Use Types Packs/Day Years [...] Visit [facility] Endocrinology [address] [phone] Lorri Wick MD [address] [place] [address] [email or web address] documented as of this encounter Visit Diagnoses Not on filedocumented in this encounter Care Teams Income Tax Analyst Relationship Specialty Start Date End Date Nyla Jacobson MD [address] [place] [address] PCP - General 05/14/16 03/23/21 Albert Iglesias MD [address] [place] [address] PCP - General Internal Medicine 03/24/21 Balaji Kim MD [address] [place] [address] Drive [address] [place] [address] Neurosurgery 04/12/16 Lorri Wick MD [address] [place] [address] [email or web address] Internal Medicine 11/06/16 documented as of this encounter Additional Source Comments The information contained in this document represents components of the legal health record. It is not the complete legal health record.[facility]
--- OUTSIDE RECORDS SUMMARY | 2025-07-13 18:14 | XMS_ITS | Encounter Summary ---
Author Organization [facility] Address [address] [place] [address] Phone Care Team Providers Care Senior Java Ui Developer Name Role Phone Balaji Kim MD Unavailable Nyla Jacobson MD Primary Care Provider [phone] Lorri Wick MD Unavailable Albert Iglesias MD Primary Care Prov ider Encounter Details Date Type Department Care Team (Late st Contact Info) Description 09/25/2016 Procedure Pass [facility] [address] [place] [address] Social History Tobacco Use Types Packs/Day Years [...] Office Visit [facility] Endocrinology [address] [phone] Lorri Wick MD [address] [place] [address] [email or web address] documented as of this encounter Visit Diagnoses Not on filedocumented in this encounter Care Teams Senior Java Ui Developer Relationship Specialty Start Date End Date Nyla Jacobson MD [address] [place] [address] PCP - General 05/14/16 03/23/21 Albert Iglesias MD [address] [place] [address] PCP - General Internal Medicine 03/24/21 Balaji Kim MD [address] [place] [address] Drive [address] [place] [address] Neurosurgery 04/12/16 Lorri Wick MD [address] [place] [address] [email or web address] Internal Medicine 11/06/16 documented as of this encounter Additional Source Comments The information contained in this document represents components of the legal health record. It is not the complete legal health record.[facility]
--- OUTSIDE RECORDS SUMMARY | 2025-07-13 18:14 | XMS_ITS | Encounter Summary ---
Author Organization [facility] Address [address] [place] [address] Phone Care Team Providers Care Stogy Maker Name Role Phone Balaji Kim MD Unavailable Nyla Jacobson MD Primary Care Provider [phone] Lorri Wick MD Unavailable Albert Iglesias MD Primary Care Prov ider Encounter Details Date Type Department Care Team (Late st Contact Info) Description 09/25/2016 Procedure Pass [facility] [address] [place] [address] Social History Tobacco Use Types Packs/Day Years [...] Office Visit [facility] Endocrinology [address] [phone] Lorri Wick MD [address] [place] [address] [email or web address] documented as of this encounter Visit Diagnoses Not on filedocumented in this encounter Care Teams Stogy Maker Relationship Specialty Start Date End Date Nyla Jacobson MD [address] [place] [address] PCP - General 05/14/16 03/23/21 Albert Iglesias MD [address] [place] [address] PCP - General Internal Medicine 03/24/21 Balaji Kim MD [address] [place] [address] Drive [address] [place] [address] Neurosurgery 04/12/16 Lorri Wick MD [address] [place] [address] [email or web address] Internal Medicine 11/06/16 documented as of this encounter Additional Source Comments The information contained in this document represents components of the legal health record. It is not the complete legal health record.[facility]
--- OUTSIDE RECORDS SUMMARY | 2025-07-13 18:14 | XMS_ITS | Clinical Summary ---
Author Organization [address] [facility] Address [address] [place] [address] Phone Care Team Providers Care Child Care Assistant Name Role Phone Albert Iglesias Primary Care Provide r Allergies Active Allergy Reactions Criticality Noted Date Comments Lactose Other 06/12/2022 Other reaction(s): intolerance Other Reaction(s): intolerance Medications ibuprofen (ADVIL,MOTRIN) 800 mg tablet Take 1 tablet (800 mg total) by mouth every 8 (eight) hours if needed (PAIN). 10/09/2015 Active busPIRone (BUSPAR) 5 mg tablet 1 tablet (5 mg total) 1 (one) time each day. Active clonazePAM (KlonoPIN) 1 mg tablet Take 1 tablet (1 mg total) by mouth 1 (one) time each day if needed. Active cloNIDine (CATAPRES) 0.1 mg tablet Take [...] total) by mouth every 8 (eight) hours. Active venlafaxine XR (EFFEXOR-XR) 150 mg 24 hr capsule Take 1 capsule (150 mg total) by mouth 1 (one) time each day. 08/07/2020 Active metoprolol tartrate (LOPRESSOR) 100 mg tablet Take 1 tablet (100 mg total) by mouth 2 (two) times a day. 180 tablet 3 09/03/2024 Active rosuvastatin (CRESTOR) 40 mg tablet TOME 1 TABLETA POR VIA ORAL TODOS [place] 90 tablet 3 05/25/2025 Active ketorolac (TORADOL) 10 mg tablet Take 1 tablet (10 mg total) by mouth every 6 (six) hours if needed for moderate pain for up to 5 days. 20 tablet 07/12/2025 07/17/20 25 Active Active Problems Problem Noted Date Diagnosed Date Pacemaker 12/16/2024 Sinoatrial node dysfunction ([facility] V24, CMS/ C V28) 07/31/2022 Overview (08/24/2024): Last Assessment & Plan: [...] SOB (shortness of breath) 07/31/2022 Adrenal insufficiency (CMS/HCC V24) 07/30/2022 Anxiety 07/30/2022 Prolonged Q-T interval on ECG 07/30/2022 Pre-syncope 12/18/2020 Nonischemic congestive cardi omyopathy (CMS/HCC V24, CMS/[facility] V28) 10/19/2020 Overview (08/24/2024): Nonischemic congestive cardiomyopathy Chest pain at rest 08/23/2020 Lightheadedness 08/23/2020 Overview (08/24/2024): Last Assessment & Plan: Etiology unclear. BP stable. Longstanding history of lightheadness. Will continue to monitor and f/u on holter results. Nonischemic cardiomyopathy ([facility] V24, [facility] V28) 08/23/2020 Overview (08/24/2024): Last Assessment & Plan: [...] in a 5-7 day period. Ventricular tachycardia ([facility] V24, [facility] V2 8) 08/23/2020 Overview (08/24/2024): Last Assessment & Plan: As below. C. 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 no improvement after treatment. Benign 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) ([facility] V24, [facility] V28) 10/04/2005 Overview (08/24/2024): Partial resection by Dr. [...] Encounters Date Type Department Care Team Description 07/12/2025 6:51 PM EDT - 07/12/2025 11:13 PM EDT Emergency [facility] Emergency [address] [place] [id number] Acute bilateral low back pain without sciatica (Primary Dx) Discharge Disposition: Home or Self Care 06/06/2025 11:40 AM EDT Ancillary Procedure [facility] - [facility] [address] [facility] [address] [place] [phone] from Last 3 Months Immunizations Immunization Administration Dates Next Due Influenza trivalent, 0.5mL, preservative free (Fluarix; FluLaval; Fluzone) ages 6mo and older (Afluria) 3 years and older 08/20/2014,07/23/2012,09/13/2011 Pneumococcal polysaccharide 23 valent (Pneumovax 23) 2yo and older 02/26/2011 Tdap Tetanus diptheria acell ular pertussis (Boostrix; Adacel) 7yo and older 06/03/2007 Surgical History Surgery Date Site/Laterality Comments APPENDECTOMY PROCEDURE: HISTORICAL APPENDECTOMY ESOPHAGOGASTRODUODENOSCOPY 06/10/06 PROCEDURE: SD EGD TRANSORAL BIOPSY SINGLE/MULTIPLE; COMMENT: Normal esophagus, stomach and duodenum on this examination. Meghan+(treated with helidac) FLEXIBLE SIGMOIDOSCOPY 09/21/03 PROCEDURE: SD SIGMOIDOSCOPY FLX DX W/COLLJ SPEC BR/WA IF PFRMD; COMMENT: Normal ESOPHAGOGASTRODUODENOSCOPY 08/29/2010 PROCEDURE: SD EGD TRANSORAL BIOPSY SINGLE/MULTIPLE; COMMENT: gastritis. Duodenal bx: nl. Gastric bx: nl, esophageal biopsy::intraepithelial eosinophils COLONOSCOPY W/ BIOPSIES 08/29/2010 PROCEDURE: SD COLONOSCOPY STOMA W/BIOPSY SINGLE/MULTIPLE; COMMENT: Normal. colon biopsy normal Medical History Medical History Date Comments Other and unspecified hyperlipidemia 08/20/2005 DX:Other and unspecified hyperlipidemia Essential hypertension, benign 10/04/2005 D X:Essential hypertension, benign Benign 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) (CMS/HCC V24, CMS/HCC V28) 10/04/2005 DX:Benign neoplasm of pituit jailyn gland and craniopharyngeal duct (pouch) ([facility]) Abdominal pain, epigastric 06/06/2006 DX:Ab dominal pain, [...] Cigarettes Q uit: 04/06/2010 Smokeless Tobacco: Former Tobacco Cessation:Counseling Given: Not Answered Alcohol Use [...] EDT Inhaled Oxygen Concentration - - Weight 97.1 kg (214 lb) 03/21/2025 11:01 AM EDT Height 162.6 cm (5' 4 ) 03/21/2025 11:01 AM EDT Body Mass Index 36.73 03/21/2025 11:01 AM EDT Plan of Treatment Upcoming Encounters Date Type Department Care Team (Late st Contact Info) Description 12/05/2025 9:30 AM EDT Ancillary Procedure [facility] - [address] [facility] [address] [place] [address] Health Maintenance Due Date Last Done Comments RSV Immunization Adult Patients (1 - Risk 50-74 years 1-dose series) 2017 Pneumococcal Vaccine: 50+ Years (2 of 2 - PCV) 10/17/2018 10/17/2017, 02/26/2011 Cervical Cancer Screening: Pap Smear 10/23/2018 10/23/2015, 10/23/2015 Zoster Vaccines (2 of 2) 08/10/2019 06/15/2019 Hepatitis B Vaccines (2 of 3 - 19+ 3-dose series) 08/16/2020 07/19/2020 Social Influencers of Health Screening 08/24/2022 Breast Cancer Screening 07/17/2023 07/17/2021 Depression Screening 09/15/2024 COVID-19 Vaccine (3 - 2024- season) 2025 05/07/2021, 04/09/2021 Influenza Vaccine (#1) 2025 3, 05/30/2020, 06/08/2019, Additional history exists DTaP,Tdap,and Td Vaccines (3 - Td or Tdap) 06/25/2026 06/25/2016, 06/03/2007 Hypertension/CHF/CAD Annual BMP Blood Test 07/12/2026 07/12/2025, 09/28/2024, 12/30/2023, Additional history exists Colorectal Cancer Screening: FIT-DNA (Cologuard) 10/20/2026 10/20/2023, 10/20/2023 Cholesterol Screening (Lipid Panel) 09/28/2029 09/28/2024, 12/30/2023, 12/30/2023, Additional history exists HIV Screening Completed 12/30/2023, 06/14/2020 Hepatitis C [...] this topic Medical Devices Implanted Type Area Brick Paver Device Identifier Shelf Expiration Date Model / Serial / Lot Medt-Card Alex Xt Dr Tovar [id number] Implanted:03/2020 (Quantity not on file) Cardiac Pacemaker [employer] - CARDIAC RHYTH-CRDM ALEX XT DR TOVAR [id number] / [id number] / Medt-Card Alex Xt Dr Tovar [id number] Implanted:03/2020 (Quantity not on file) Cardiac Pacemaker [employer] - CARDIAC RHYTH-CRDM ALEX XT DR TOVAR / [id number] / Procedures Procedure Name Priority Date/Time Associated Diagnosis Comments LACTATE, WITH REFLEX Timed 07/12/2025 10:03 PM EDT URINALYSIS WITH REFLEX MICROSCOPIC STAT 07/12/2025 10:01 PM EDT URINALYSIS WITH REFLEX MICROSCOPIC STAT 07/12/2025 10:[address] ABDOMEN PELVIS W CONTRAST STAT 07/12/2025 9:17 PM EDT LACTATE, WITH REFLEX STAT 07/12/2025 7:32 PM EDT HCG, SERUM, QUALITATIVE STAT Add-on 07/12/2025 7:23 PM EDT CBC WITH AUTO DIFFERENTIAL STAT 07/12/2025 7:23 PM EDT CBC AND DIFFERENTIAL STAT 07/12/2025 7:23 PM EDT MAGNESIUM STAT 07/12/2025 7:23 PM EDT LIPASE STAT 07/12/2025 7:23 PM EDT COMPREHENSIVE METABOLIC PANEL STAT 07/12/2025 7:23 PM EDT GARZA URINE CULTURE TUBE Routine 07/12/2025 12:00 AM EDT EXTRA TUBES Routine 07/12/2025 12:00 AM EDT CARDIAC DEVICE CHECK- REMOTE- MURJ Routine 06/06/2025 11:35 AM EDT HEPATITIS C SCREENING Routine 12/30/2023 HIV SCREENING Routine 12/30/2023 LIPID PANEL Routine 12/30/2023 HM FIT-DNA Routine 10/20/2023 HM HPV Routine 10/23/2015 from Last 3 Months or Most Recently Relevant to Health Maintenance Results * (ABNORMAL) Lactate, with reflex (07/12/2025 10:03 PM EDT) Only the most recent of2 resultswithin the time period is included. [facility] LACTIC ACID 2.7(H) 0.4 - 2.0 mmol/L LAB CHEMISTRY METHOD 07/12/2025 10:33 PM EDT [facility] Blood Venous blood specimen / Unknown Venipuncture / Unknown 07/12/2025 10:03 PM EDT 07/12/2025 10:10 PM EDT Toshia STANLEY LAB BLOOD ORDERABLES Fin al Result [facility] [address] [place] [address], [place] [phone] * (ABNORMAL) Urinalysis with reflex microscopic (07/12/2025 10:01 PM EDT) [facility] Specific [place] Urine >1.045(H) 1.003 - 1.030 LAB URINALYSIS - AUTOMATED METHOD 07/12/2025 10:26 PM [facility] pH, Urine 8.0 5.0 - 8.0 pH LAB URINALYSIS - AUTOMATED METHOD 07/12/2025 10:26 PM [facility] Leukocytes, Urine Trace(A) Negative LAB URINALYSIS - AUTOMATED METHOD 07/12/2025 10:26 PM [facility] Nitrite, Urine Negative Negative LAB URINALYSIS - AUTOMATED METHOD 07/12/2025 10:26 PM T [facility] Protein, Urine Negative <=Trace mg/dL LAB URINALYSIS - AUTOMATED METHOD 07/12/2025 10:26 PM [facility] Glucose, Urine Negative Negative mg/dL LAB URINALYSIS - AUTOMATED METHOD 07/12/2025 10:26 PM [facility] Ketones, Urine Negative Negative mg/dL LAB URINALYSIS - AUTOMATED METHOD 07/12/2025 10:26 PM EDT [facility] Urobilinogen , Urine 1.0 0.2 - 1.0 mg/dL LAB URINALYSIS - AUTOMATED METHOD 07/12/2025 10:26 PM T [facility] Bilirubin, Urine Negative Negative LAB URINALYSIS - AUTOMATED METHOD 07/12/2025 10:26 PM [facility] Blood, Urine Trace(A) Negative LAB URINALYSIS - AUTOMATED METHOD 07/12/2025 10:26 PM T [facility] RBC, Urine 1.1 0 - 4 /HPF LAB URINALYSIS - AUTOMATED METHOD 07/12/2025 10:26 PM [facility] WBC, Urine 2.8 0 - 4 /HPF LAB URINALYSIS - AUTOMATED METHOD 07/12/2025 10:26 PM [facility] Squamous Epithelial, Urine 30 0 - 60 /LPF LAB URINALYSIS - AUTOMATED METHOD 07/12/2025 10:26 PM [facility] Bacteria, Urine Negative Negative /HPF LAB URINALYSIS - AUTOMATED METHOD 07/12/2025 10:26 PM [facility] Hyaline Casts, Urine 0.0 0 - 3 /LPF LAB URINALYSIS - AUTOMATED METHOD 07/12/2025 10:26 PM [facility] Urine Urine specimen obtained by clean catch procedure / Unknown Non-blood Collection / Unknown 07/12/2025 10:01 PM EDT 07/12/2025 10:07 PM EDT us Toshia STANLEY LAB URINE ORDERABLES Fin al Result [facility] [address] [place] [address], [place] [phone] * CT Abdomen Pelvis w Contrast (07/12/2025 [...] North MD on 07/12/2025 22:21:24 Toshia STANLEY [facility] CT PROCEDURES Final Result * (ABNORMAL) CBC auto differential (07/12/2025 7:23 PM EDT) WBC 10.1 4.8 - 10.8 K/[facility] LAB HEMETOLOGY METHOD 07/12/2025 7:41 PM EDT [facility] RBC 5.00(H) 3.80 - 4.80 M/mcL LAB HEMETOLOGY METHOD 07/12/2025 7:41 PM EDT [facility] Hemoglobin 12.3 11.5 - 16.0 g/dL LAB HEMETOLOGY METHOD 07/12/2025 7:41 PM [facility] Hematocrit 39.7 35.0 - 47.0 % LAB HEMETOLOGY METHOD 07/12/2025 7:41 PM [facility] MCV 80.0 79.0 - 98.0 FL LAB HEMETOLOGY METHOD 07/12/2025 7:41 PM [facility] MCH 24.8(L) 27.0 - 32.0 pcg LAB HEMETOLOGY METHOD 07/12/2025 7:41 PM [facility] MCHC 31.0(L) 32.0 - 37.0 g/dL LAB HEMETOLOGY METHOD 07/12/2025 7:41 PM [facility] RDW 17.3(H) 11.0 - 15.0 % LAB HEMETOLOGY METHOD 07/12/2025 7:41 PM [facility] Platelets 334 130 - 400 K/mcL LAB HEMETOLOGY METHOD 07/12/2025 7:41 PM [facility] MPV 10.7 7.0 - 11.0 FL LAB HEMETOLOGY METHOD 07/12/2025 7:41 PM [facility] NRBC 0.0 <1.0 % LAB HEMETOLOGY METHOD 07/12/2025 7:41 PM [facility] NRBC Absolute 0.00 <0.10 K/mcL LAB HEMETOLOGY METHOD 07/12/2025 7:41 PM [facility] Neutrophils Relative 71.0 % LAB HEMETOLOGY METHOD 07/12/2025 7:41 PM [facility] Lymphocytes Relative 22.1 % LAB HEMETOLOGY METHOD 07/12/2025 7:41 PM [facility] Monocytes Relative 4.9 % LAB HEMETOLOGY METHOD 07/12/2025 7:41 PM [facility] Eosinophils Relative 1.0 % LAB HEMETOLOGY METHOD 07/12/2025 7:41 PM EDT [facility] Basophils Relative 0.6 % LAB HEMETOLOGY METHOD 07/12/2025 7:41 PM EDT [facility] Immature Granulocytes Relative 0.4 % LAB HEMETOLOGY METHOD 07/12/2025 7:41 PM EDT [facility] Neutrophils Absolute 7.15(H) 1.50 - 7.00 K/mcL LAB HEMETOLOGY METHOD 07/12/2025 7:41 PM EDT [facility] Lymphocytes Absolute 2.23 1.00 - 5.00 K/mcL LAB HEMETOLOGY METHOD 07/12/2025 7:41 PM EDT [facility] Monocytes Absolute 0.49 0.20 - 1.00 K/mcL LAB HEMETOLOGY METHOD 07/12/2025 7:41 PM EDT [facility] Eosinophils Absolute 0.10 0.00 - 0.50 K/mcL LAB HEMETOLOGY METHOD 07/12/2025 7:41 PM EDT [facility] Basophils Absolute 0.06 0.00 - 0.20 K/mcL LAB HEMETOLOGY METHOD 07/12/2025 7:41 PM EDT [facility] Immature Granulocytes Absolute 0.04(H) 0.00 - 0.03 K/mcL LAB HEMETOLOGY METHOD 07/12/2025 7:41 PM EDT [facility] Blood Venous blood specimen / Unknown Venipuncture / Unknown 07/12/2025 7:23 PM EDT 07/12/2025 7:35 PM EDT us Toshia STANLEY LAB BLOOD ORDERABLES Fin al Result [facility] [address] [place] [address], * hCG Qualitative (07/12/2025 7:23 PM EDT) [facility] hCG Qual Negative Negative 07/12/2025 8:01 PM EDT [facility] Blood Venous blood specimen / Unknown Venipuncture / Unknown 07/12/2025 7:23 PM EDT 07/12/2025 7:35 PM EDT Toshia STANLEY LAB BLOOD ORDERABLES Fin al Result Performing Organization Address City/[facility]/ZIP Co de Phone Number [facility] [address] [place] [address], [place] [phone] * (ABNORMAL) Magnesium (07/12/2025 7:23 PM EDT) [facility] Magnesium 1.8(L) 1.9 - 2.6 mg/dL LAB CHEMISTRY METHOD 07/12/2025 7:58 PM EDT [facility] Blood Venous blood specimen / Unknown Venipuncture / Unknown 07/12/2025 7:23 PM EDT 07/12/2025 7:35 PM EDT Toshia STANLEY LAB BLOOD ORDERABLES Fin al Result Performing Organization Address [facility] de Phone Number [facility] [address] [place] [address], [place] [phone] * Lipase (07/12/2025 7:23 PM EDT) [facility] Lipase 29 13 - 75 unit/L LAB CHEMISTRY METHOD 07/12/2025 7:58 PM EDT [facility] Blood Venous blood specimen / Unknown Venipuncture / Unknown 07/12/2025 7:23 PM EDT 07/12/2025 7:35 PM EDT Toshia STANLEY LAB BLOOD ORDERABLES Fin al Result [facility] [address] [place] [address], * (ABNORMAL) Comprehensive Metabolic Panel (CMP) (07/12/2025 7:23 PM EDT) Sodium 140 133 - 145 mmol/L LAB CHEMISTRY METHOD 07/12/2025 7:58 PM EDT [facility] Potassium 3.7 3.5 - 5.5 mmol/L LAB CHEMISTRY METHOD 07/12/2025 7:58 PM EDT [facility] Chloride 106 96 - 110 mmol/L LAB CHEMISTRY METHOD 07/12/2025 7:58 PM [facility] CO2 27 21 - 32 mmol/L LAB CHEMISTRY METHOD 07/12/2025 7:58 PM [facility] Anion Gap 7 3 - 11 LAB CHEMISTRY METHOD 07/12/2025 7:58 PM [facility] Glucose 142(H) 70 - 100 mg/dL LAB CHEMISTRY METHOD 07/12/2025 7:58 PM [facility] BUN 7 5 - 25 mg/dL LAB CHEMISTRY METHOD 07/12/2025 7:58 PM [facility] Creatinine 1.01 0.50 - 1.10 mg/dL LAB CHEMISTRY METHOD 07/12/2025 7:58 PM [facility] eGFR 65 >=60 mL/min/1. 73m2 LAB CHEMISTRY METHOD 07/12/2025 7:58 PM [facility] Comment:Calculation based on the Chronic Kidney Disease Epidemiology Collaboration (CKD-EPI) equation refit without adjustment for race. BUN/Creatinine Ratio 6.9 LAB CHEMISTRY METHOD 07/12/2025 7:58 PM [facility] Calcium 9.5 8.5 - 10.5 mg/dL LAB CHEMISTRY METHOD 07/12/2025 7:58 PM [facility] AST (SGOT) 26 10 - 42 unit/L LAB CHEMISTRY METHOD 07/12/2025 7:58 PM EDT [facility] ALT (SGPT) 29 10 - 60 unit/L LAB CHEMISTRY METHOD 07/12/2025 7:58 PM EDT [facility] Alkaline Phosphatase 101 42 - 121 unit/L LAB CHEMISTRY METHOD 07/12/2025 7:58 PM EDT [facility] Total Protein 6.9 6.0 - 8.0 g/dL LAB CHEMISTRY METHOD 07/12/2025 7:58 PM EDT [facility] Albumin 3.5 3.2 - 5.0 g/dL LAB CHEMISTRY METHOD 07/12/2025 7:58 PM EDT [facility] Total Bilirubin 0.3 0.0 - 1.4 mg/dL LAB CHEMISTRY METHOD 07/12/2025 7:58 PM EDT [facility] Blood Venous blood specimen / Unknown Venipuncture / Unknown 07/12/2025 7:23 PM EDT 07/12/2025 7:35 PM EDT Toshia STANLEY LAB BLOOD ORDERABLES Fin al Result Performing Organization Address City/[facility]/ZIP Co de Phone Number [facility] [address] [place] [address], * Garza urine culture tube (07/12/2025 12:00 AM EDT) Extra Tube Hold for add-ons. 07/13/2025 12:02 AM EDT [facility] Comment:Auto resulted. Urine Urine specimen obtained by clean catch procedure / Unknown 07/12/2025 07/12/2025 10:09 PM EDT Toshia STANLEY LAB URINE ORDERABLES Fin al Result [facility] [address] [place] [address], * Cardiac device check - Remote- MURJ (06/06/2025 11:35 AM EDT) Date Time Interrogation Session [id number] CV DEVICE CHECK Type Interrogation Session Remote CV DEVICE CHECK Implantable Pulse Generator Brick Paver MDT CV DEVICE CHECK Implantable Pulse Generator Type IPG CV DEVICE CHECK Implantable Pulse Generator Model Jenks XT DR MRI [id number] CV DEVICE CHECK Implantable Pulse Generator Serial Number [id number] CV DEVICE CHECK Implantable Pulse Generator Implant Date 20191022 CV DEVICE CHECK Battery Remaining Longevity 93.0 CV DEVICE CHECK Battery Voltage 2.970 CV D EVICE CHECK Battery CLUB [employer] ATTENDANT Trigger 2.625 CV DEVICE CHECK Battery Status Middle of Service CV DEVICE CHECK Дмитрий Statistic RA Percent Paced 99.99 CV DEVICE CHECK Дмитрий Statistic RV Percent Paced 0.04 CV DEVICE CHECK Atrial Tachy Statistic AT/AF Tower Percent 0.00 CV DEVICE CHECK Lead Channel Sensing Intrinsic Amplitude 3.125 CV DEVICE CHECK Lead Channel Setting Sensing Sensitivity 0.45 CV DEVICE CHECK Lead Channel Impedance Value 380 CV DEVICE CHECK Lead Channel Pacing Threshold Amplitude 0.500 CV DEVICE CHECK Lead Channel Pacing Threshold Pulse Width 0.4 CV DEVICE CHECK Lead Channel RA Pacing Threshold Date 2025-06-01 CV DEVICE CHECK Lead Channel Setting Pacing Amplitude 1.500 CV DEVICE CHECK Lead Channel Setting Pacing Pulse Width 0.4 CV DEVICE CHECK Lead Channel Sensing Intrinsic Amplitude 11.500 CV DEVICE CHECK Lead Channel Setting Sensing Sensitivity 0.90 CV DEVICE CHECK Lead Channel Impedance Value 836 CV DEVICE CHECK Lead Channel Pacing Threshold Amplitude 0.500 CV DEVICE CHECK Lead Channel Pacing Threshold Pulse Width 0.4 CV DEVICE CHECK Lead Channel RV Pacing Threshold Date 2025-06-01 CV DEVICE CHECK Lead Channel Setting Pacing [...] 6 CV DEVICE CHECK Date of Service 2025-06-14 CV DEVICE CHECK Anatomical Region Laterality Modality Device Interroga tion 06/01/2025 1:59 PM EDT Impressions 06/06/2025 11:22 AM EDT Normal Remote: No Events * Normal Device Function * Alerts or events: None * Battery: OK, 7.75 yrs * Sensing, impedance and thresholds reviewed * Programmed parameters reviewed * Presenting rhythm reviewed * Heart Rate Histograms reviewed * No significant changes noted Narrative Procedure Note Fuentes Andrade MD - 06/06/2025 IMPRESSION: Normal Remote: No Events * Normal Device Function * Alerts or events: None * Battery: OK, 7.75 yrs * Sensing, impedance and thresholds reviewed * Programmed parameters reviewed * Presenting rhythm reviewed * Heart Rate Histograms reviewed * No significant changes noted Result [facility] Fuentes Andrade MD CV IMPLANTABLE CARDIAC DEV ICE PROCEDURES Final Result * HIV Screening (12/30/2023) [facility] HIV Screening Abstracted Result [facility] Provider HEALTH MAINTENANCE Final Result * Hepatitis C Screening (12/30/2023) [facility] Hepatitis C Screening Abstracted Result [facility] Provider HEALTH MAINTENANCE Final Result * Lipid panel (12/30/2023) [facility] LDL/HDL Ratio 0 Comment:No interpretation, a bstracted Triglycerides 0 mg/dL Comment:No interpretation, a bstracted Cholesterol 0 mg/dL Comment:No interpretation, a bstracted HDL 0 mg/dL Comment:No interpretation, a bstracted LDL Cholesterol 0 mg/dL Comment:No interpretation, a bstracted Blood Venous blood specimen / Unknown Result [facility] Historical Provider LAB BLOOD ORDERABLES Shelby l Result * FIT-DNA (Cologuard) (10/20/2023) [facility] Colorectal Cancer Screening: FIT-DNA (Cologuard) No interpretation , abstracted Historical Provider HEALTH MAINTENANCE Final Result * Cervical Cancer Screening: HPV (10/23/2015) [facility] Cervical Cancer Screening: HPV Negative, abstracted Historical Provider HEALTH MAINTENANCE Final Result from Last 3 Months or Most Recently Relevant to Health Maintenance Insurance MEDICA[place] - [place] Advance Directives Documents on File Type Date Recorded Patient Net Application Support Specialist Expl anation Health Care Decision (hx) 05/05/2021 [...] (hx) 10/15/2019 AD RILEY DIRECTIVE Care Teams Child Care Assistant Relationship Specialty Start Date End Date Albert Iglesias [address] [place] [phone] PCP - General Internal Medicine 04/18/25
--- OUTSIDE RECORDS SUMMARY | 2025-07-13 18:14 | XMS_ITS | Encounter Summary ---
Author Organization [facility] Address [address] [place] [address] Phone Care Team Providers Care Hospice Administrator Name Role Phone Balaji Kim MD Unavailable Nyla Jacobson MD Primary Care Provider [phone] Lorri Wick MD Unavailable Albert Iglesias MD Primary Care Prov ider Encounter Details Date Type Department Care Team (Late st Contact Info) Description 09/25/2016 Procedure Pass [facility] Rad[facility] [address] [place] [address] Social History Tobacco Use Types Packs/Day Years [...] Office Visit [facility] Endocrinology [address] [phone] Lorri Wick MD [address] [place] [address] [email or web address] documented as of this encounter Visit Diagnoses Not on filedocumented in this encounter Care Teams Hospice Administrator Relationship Specialty Start Date End Date Nyla Jacobson MD [address] [place] [address] PCP - General 05/14/16 03/23/21 Albert Iglesias MD [address] [place] [address] PCP - General Internal Medicine 03/24/21 Balaji Kim MD [address] [place] [address] Drive [address] [place] [address] Neurosurgery 04/12/16 Lorri Wick MD [address] [place] [address] [email or web address] Internal Medicine 11/06/16 documented as of this encounter Additional Source Comments The information contained in this document represents components of the legal health record. It is not the complete legal health record.[facility]
--- OUTSIDE RECORDS SUMMARY | 2025-07-13 18:14 | XMS_ITS | Encounter Summary ---
Author Organization [facility] Address [address] [place] [address] Phone Care Team Providers Care Accounting Assistant Name Role Phone Balaji Kim MD Unavailable Nyla Jacobson MD Primary Care Provider [phone] Lorri Wick MD Unavailable Albert Iglesias MD Primary Care Prov ider Encounter Details Date Type Department Care Team (Late st Contact Info) Description 12/18/2018 Procedure Pass [facility] MR Imaging, [place] [address] [place] [address] Social History Tobacco Use Types Packs/Day Years [...] Office Visit [facility] Endocrinology [address] [phone] Lorri Wick MD [address] [place] [address] [phone] [email or web address] documented as of this encounter Visit Diagnoses Not on filedocumented in this encounter Care Teams Accounting Assistant Relationship Specialty Start Date End Date Nyla Jacobson MD [address] [place] [address] PCP - General 05/14/16 03/23/21 Albert Iglesias MD [address] [place] [address] PCP - General Internal Medicine 03/24/21 Balaji Kim MD [address] [place] [address] Drive [address] [place] [address] Neurosurgery 04/12/16 Lorri Wick MD [address] [place] [address] [email or web address] Internal Medicine 11/06/16 documented as of this encounter Additional Source Comments The information contained in this document represents components of the legal health record. It is not the complete legal health record.[facility]
--- OUTSIDE RECORDS SUMMARY | 2025-07-13 18:14 | XMS_ITS | Encounter Summary ---
Author Organization [facility] Address [address] [place] [address] Phone Care Team Providers Care Gold Miner Name Role Phone Balaji Kim MD Unavailable [phone] Lorri Wick MD Unavailable Albert Iglesias MD Primary Care Prov ider Encounter Details Date Type Department Care Team (Late st Contact Info) Description 05/02/2023 Procedure Pass [facility] Cardiac EP [address] [facility], 5th Floor, [address] [place] [address] Social History Tobacco Use Types Packs/Day Years [...] Description 09/12/2025 3:40 PM EST Office Visit [facility] Endocrinology [address] [address] Lorri Wick MD [address] [place] [address] [email or web address] documented as of this encounter Visit Diagnoses Not on filedocumented in this encounter Additional Health Concerns Assessment Noted Time PHQ-2 Depression Total Score: 0 09/22/19 21 11:06 AM EST documented as of this encounter Care Teams Gold Miner Relationship Specialty Start Date End Date Albert Iglesias MD [address] [place] [address] PCP - General Internal Medicine 03/24/21 Balaji Kim MD [address] [place] [address] Drive [address] [place] [address] Neurosurgery 04/12/16 Lorri Wick MD [address] [address] [email or web address] Internal Medicine 11/06/16 documented as of this encounter Additional Source Comments The information contained in this document represents components of the legal health record. It is not the complete legal health record.[facility]
--- OUTSIDE RECORDS SUMMARY | 2025-07-13 18:14 | XMS_ITS | Encounter Summary ---
Author Organization [facility] Address [address] [place] [address] Phone Care Team Providers Care Field Laboratory Operator Name Role Phone Balaji Kim MD Unavailable Nyla Jacobson MD Primary Care Provider [phone] Lorri Wick MD Unavailable Albert Iglesias MD Primary Care Prov ider Encounter Details Date Type Department Care Team (Late st Contact Info) Description 10/13/2020 Procedure Pass [facility] 75 [place] [address] Social History Tobacco Use Types Packs/Day Years [...] 09/12/2025 3:40 PM EST Office Visit [facility] Endocrinology [address] [address] Lorri Wick MD [address] [place] [address] [email or web address] documented as of this encounter Visit Diagnoses Not on filedocumented in this encounter Additional Health Concerns Assessment Noted Time PHQ-2 Depression Total Score: 0 09/22/19 21 11:06 AM EST documented as of this encounter Care Teams Field Laboratory Operator Relationship Specialty Start Date End Date Nyla Jacobson MD [address] [place] [address] PCP - General 05/14/16 03/23/21 Albert Iglesias MD [address] [place] [address] PCP - General Internal Medicine 03/24/21 Balaji Kim MD [address] [place] [address] Drive [address] [place] [address] Neurosurgery 04/12/16 Lorri Wick MD [address] [address] [email or web address] Internal Medicine 11/06/16 documented as of this encounter Additional Source Comments The information contained in this document represents components of the legal health record. It is not the complete legal health record.[facility]
--- OUTSIDE RECORDS SUMMARY | 2025-07-13 18:14 | XMS_ITS | Encounter Summary ---
Author Organization [facility] Address [address] [place] [address] Phone Care Team Providers Care Investigative Analyst Name Role Phone Balaji Kim MD Unavailable [phone] Nyla Jacobson MD Primary Care Provider [phone] Lorri Wick MD Unavailable [phone] Albert Iglesias MD Primary Care Prov ider Encounter Details Date Type Department Care Team (Late st Contact Info) Description 09/25/2016 Procedure Pass [facility] 75 [place] [address] Social History Tobacco Use Types Packs/Day Years [...] Office Visit [facility] Endocrinology [address] [phone] Lorri Wick MD [address] [place] [address] [email or web address] documented as of this encounter Visit Diagnoses Not on filedocumented in this encounter Care Teams Investigative Analyst Relationship Specialty Start Date End Date Nyla Jacobson MD [address] [place] [address] PCP - General 05/14/16 03/23/21 Albert Iglesias MD [address] [place] [address] PCP - General Internal Medicine 03/24/21 Balaji Kim MD [address] [place] [address] Drive [address] [place] [address] Neurosurgery 04/12/16 Lorri Wick MD [address] [place] [address] [email or web address] Internal Medicine 11/06/16 documented as of this encounter Additional Source Comments The information contained in this document represents components of the legal health record. It is not the complete legal health record.[facility]
--- OUTSIDE RECORDS SUMMARY | 2025-07-13 18:14 | XMS_ITS | Encounter Summary ---
Author Organization [facility] Address [address] [place] [address] Phone Care Team Providers Care Upper Tier Name Role Phone Balaji Kim MD Unavailable Nyla Jacobson MD Primary Care Provider [phone] Lorri Wick MD Unavailable Albert Iglesias MD Primary Care Prov ider Encounter Details Date Type Department Care Team (Late st Contact Info) Description 09/25/2016 Procedure Pass [facility] 75 [place] [address] Social History Tobacco Use Types Packs/Day Years [...] Office Visit [facility] Endocrinology [address] [phone] Lorri Wick MD [address] [place] [address] [email or web address] documented as of this encounter Visit Diagnoses Not on filedocumented in this encounter Care Teams Upper Tier Relationship Specialty Start Date End Date Nyla Jacobson MD [address] [place] [address] PCP - General 05/14/16 03/23/21 Albert Iglesias MD [address] [place] [address] PCP - General Internal Medicine 03/24/21 Balaji Kim MD [address] [place] [address] Drive [address] [place] [address] Neurosurgery 04/12/16 Lorri Wick MD [address] [place] [address] [email or web address] Internal Medicine 11/06/16 documented as of this encounter Additional Source Comments The information contained in this document represents components of the legal health record. It is not the complete legal health record.[facility]
--- OUTSIDE RECORDS SUMMARY | 2025-07-13 18:14 | XMS_ITS | Encounter Summary ---
Author Organization [facility] Address [address] [place] [address] Phone Care Team Providers Care Weatherstrip Machine Operator Name Role Phone Balaji Kim MD Unavailable Nyla Jacobson MD Primary Care Provider [phone] Lorri Wick MD Unavailable [phone] Albert Iglesias MD Primary Care Prov ider Encounter Details Date Type Department Care Team (Late st Contact Info) Description 09/25/2016 Procedure Pass [facility] 75 [place] [address] Social History Tobacco Use Types Packs/Day Years [...] Visit [facility] Endocrinology [address] [phone] Lorri Wick MD [address] [place] [address] [email or web address] documented as of this encounter Visit Diagnoses Not on filedocumented in this encounter Care Teams Weatherstrip Machine Operator Relationship Specialty Start Date End Date Nyla Jacobson MD [address] [place] [address] PCP - General 05/14/16 03/23/21 Albert Iglesias MD [address] [place] [address] PCP - General Internal Medicine 03/24/21 Balaji Kim MD [address] [place] [address] Drive [address] [place] [address] Neurosurgery 04/12/16 Lorri Wick MD [address] [place] [address] [email or web address] Internal Medicine 11/06/16 documented as of this encounter Additional Source Comments The information contained in this document represents components of the legal health record. It is not the complete legal health record.[facility]
--- OUTSIDE RECORDS SUMMARY | 2025-07-13 18:14 | XMS_ITS | Encounter Summary ---
Author Organization [facility] Address [address] [place] [address] Phone Care Team Providers Care Embossograph Operator Name Role Phone Balaji Kim MD Unavailable [phone] Nyla Jacobson MD Primary Care Provider [phone] Lorri Wick MD Unavailable Albert Iglesias MD Primary Care Prov ider Encounter Details Date Type Department Care Team (Late st Contact Info) Description 09/25/2016 Procedure Pass [facility] 75 [place] [address] Social History Tobacco Use Types Packs/Day Years [...] Office Visit [facility] Endocrinology [address] [phone] Lorri Wick MD [address] [place] [address] [email or web address] documented as of this encounter Visit Diagnoses Not on filedocumented in this encounter Care Teams Embossograph Operator Relationship Specialty Start Date End Date Nyla Jacobson MD [address] [place] [address] PCP - General 05/14/16 03/23/21 Albert Iglesias MD [address] [place] [address] PCP - General Internal Medicine 03/24/21 Balaji Kim MD [address] [place] [address] Drive [address] [place] [address] Neurosurgery 04/12/16 Lorri Wick MD [address] [place] [address] [email or web address] Internal Medicine 11/06/16 documented as of this encounter Additional Source Comments The information contained in this document represents components of the legal health record. It is not the complete legal health record.[facility]
--- OUTSIDE RECORDS SUMMARY | 2025-07-13 18:14 | XMS_ITS | Encounter Summary ---
Author Organization [facility] Address [address] [place] [address] Phone Care Team Providers Care Sand Buffer Name Role Phone Balaji Kim MD Unavailable Nyla Jacobson MD Primary Care Provider [phone] Lorri Wick MD Unavailable Albert Iglesias MD Primary Care Prov ider Encounter Details Date Type Department Care Team (Late st Contact Info) Description 06/26/2017 Procedure Pass [facility] MR Imaging, [place] [place] [address] Social History Tobacco Use Types Packs/Day Years [...] Office Visit [facility] Endocrinology [address] [phone] Lorri Wick MD [address] [place] [address] [phone] [email or web address] documented as of this encounter Visit Diagnoses Not on filedocumented in this encounter Care Teams Sand Buffer Relationship Specialty Start Date End Date Nyla Jacobson MD [address] [place] [address] PCP - General 05/14/16 03/23/21 Albert Iglesias MD [address] [place] [address] PCP - General Internal Medicine 03/24/21 Balaji Kim MD [address] [place] [address] Drive [address] [place] [address] Neurosurgery 04/12/16 Lorri Wick MD [address] [place] [address] [email or web address] Internal Medicine 11/06/16 documented as of this encounter Additional Source Comments The information contained in this document represents components of the legal health record. It is not the complete legal health record.[facility]
--- OUTSIDE RECORDS SUMMARY | 2025-07-13 18:14 | XMS_ITS | Encounter Summary ---
Author Organization [facility] Address [address] [place] [address] Phone Care Team Providers Care Videotape Sales Representative Name Role Phone Balaji Kim MD Unavailable Nyla Jacobson MD Primary Care Provider [phone] Lorri Wick MD Unavailable Albert Iglesias MD Primary Care Prov ider Encounter Details Date Type Department Care Team (Late st Contact Info) Description 09/25/2016 Procedure Pass [facility] 75 [place] [address] Social History Tobacco Use Types Packs/Day Years [...] Office Visit [facility] Endocrinology [address] [phone] Lorri Wick MD [address] [place] [address] [email or web address] documented as of this encounter Visit Diagnoses Not on filedocumented in this encounter Care Teams Videotape Sales Representative Relationship Specialty Start Date End Date Nyla Jacobson MD [address] [place] [address] PCP - General 05/14/16 03/23/21 Albert Iglesias MD [address] [place] [address] PCP - General Internal Medicine 03/24/21 Balaji Kim MD [address] [place] [address] [address] [place] [address] Neurosurgery 04/12/16 Lorri Wick MD [address] [place] [address] [email or web address] Internal Medicine 11/06/16 documented as of this encounter Additional Source Comments The information contained in this document represents components of the legal health record. It is not the complete legal health record.[facility]
--- OUTSIDE RECORDS SUMMARY | 2025-07-13 18:14 | XMS_ITS | Encounter Summary ---
Author Organization [facility] Address [address] [place] [address] Phone Care Team Providers Care Glass Cutter Hand Name Role Phone Balaji Kim MD Unavailable Nyla Jacobson MD Primary Care Provider [phone] Lorri Wick MD Unavailable Albert Iglesias MD Primary Care Prov ider Encounter Details Date Type Department Care Team (Late st Contact Info) Description 11/28/2016 Procedure Pass [facility] Department [address] [place] [address] Social History Tobacco Use Types [...] Description 09/12/2025 3:40 PM EST Office Visit [facility] Endocrinology [address] [phone] Lorri Wick MD [address] [place] [address] [email or web address] documented as of this encounter Visit Diagnoses Not on filedocumented in this encounter Care Teams Glass Cutter Hand Relationship Specialty Start Date End Date Nyla Jacobson MD [address] [place] [address] PCP - General 05/14/16 03/23/21 Albert Iglesias MD [address] [place] [address] PCP - General Internal Medicine 03/24/21 Balaji Kim MD [address] [place] [address] Drive [address] [place] [address] Neurosurgery 04/12/16 Lorri Wick MD [address] [place] [address] [email or web address] Internal Medicine 11/06/16 documented as of this encounter Additional Source Comments The information contained in this document represents components of the legal health record. It is not the complete legal health record.[facility]
--- OUTSIDE RECORDS SUMMARY | 2025-07-13 18:14 | XMS_ITS | Encounter Summary ---
Author Organization [facility] Address [address] [place] [address] Phone Care Team Providers Care Software Engineering Associate Manager Name Role Phone Balaji Kim MD Unavailable [phone] Nyla Jacobson MD Primary Care Provider [phone] Lorri Wick MD Unavailable Albert Iglesias MD Primary Care Prov ider Encounter Details Date Type Department Care Team (Late st Contact Info) Description 09/25/2016 Procedure Pass [facility] 75 [place] [address] Social History Tobacco Use Types Packs/Day Years [...] Office Visit [facility] Endocrinology [address] [phone] Lorri Wick MD [address] [place] [address] [email or web address] documented as of this encounter Visit Diagnoses Not on filedocumented in this encounter Care Teams Software Engineering Associate Manager Relationship Specialty Start Date End Date Nyla Jacobson MD [address] [place] [address] PCP - General 05/14/16 03/23/21 Albert Iglesias MD [address] [place] [address] PCP - General Internal Medicine 03/24/21 Balaji Kim MD [address] [place] [address] Drive [address] [place] [address] Neurosurgery 04/12/16 Lorri Wick MD [address] [place] [address] [email or web address] Internal Medicine 11/06/16 documented as of this encounter Additional Source Comments The information contained in this document represents components of the legal health record. It is not the complete legal health record.[facility]
--- OUTSIDE RECORDS SUMMARY | 2025-07-13 18:14 | XMS_ITS | Encounter Summary ---
Author Organization [facility] Address [address] [place] [address] Phone Care Team Providers Care Weatherseal Technician Name Role Phone Balaji Kim MD Unavailable Lorri Wick MD Unavailable Albert Iglesias MD Primary Care Prov ider Encounter Details Date Type Department Care Team (Late Contact Info) Description 11/07/2021 Procedure Pass [facility] Cardio EP Device Monitoring [address] [place] [address] Social History Tobacco Use Types Packs/Day Years [...] Description 09/12/2025 3:40 PM EST Office Visit [facility] Endocrinology [address] [phone] Lorri Wick MD [address] [place] [address] documented as of this encounter Visit Diagnoses Not on filedocumented in this encounter Additional Health Concerns Assessment Noted Time PHQ-2 Depression Total Score: 0 09/22/19 21 11:06 AM EST documented as of this encounter Care Teams Weatherseal Technician Relationship Specialty Start Date End Date Albert Iglesias MD [address] [place] [address] PCP - General Internal Medicine 03/24/21 Balaji Kim MD [address] [place] [address] Drive [address] [place] [address] Neurosurgery 04/12/16 Lorri Wick MD [address] [address] [email or web address] Internal Medicine 11/06/16 documented as of this encounter Additional Source Comments The information contained in this document represents components of the legal health record. It is not the complete legal health record.[facility]
--- OUTSIDE RECORDS SUMMARY | 2025-07-13 18:14 | XMS_ITS | Encounter Summary ---
Author Organization [facility] Address [address] [place] [address] Phone Care Team Providers Care Matzo Forming Machine Operator Name Role Phone Balaji Kim MD Unavailable [phone] Lorri Wick MD Unavailable [phone] Albert Iglesias MD Primary Care Prov ider Encounter Details Date Type Department Care Team (Late st Contact Info) Description 07/04/2023 Procedure Pass [facility] Radiology [address] [place] [address] Social History Tobacco Use Types Packs/Day Years [...] Description 09/12/2025 3:40 PM EST Office Visit [facility] Endocrinology [address] [phone] Lorri Wick MD [address] [place] [address] [email or web address] documented as of this encounter Visit Diagnoses Not on filedocumented in this encounter Additional Health Concerns Assessment Noted Time PHQ-2 Depression Total Score: 0 09/22/19 21 11:06 AM EST documented as of this encounter Care Teams Matzo Forming Machine Operator Relationship Specialty Start Date End Date Albert Iglesias MD [address] [place] [address] PCP - General Internal Medicine 03/24/21 Balaji Kim MD [address] [place] [address] [address] [place] [address] Neurosurgery 04/12/16 Lorri Wick MD [address] [place] [address] [email or web address] Internal Medicine 11/06/16 documented as of this encounter Additional Source Comments The information contained in this document represents components of the legal health record. It is not the complete legal health record.[facility]
--- OUTSIDE RECORDS SUMMARY | 2025-07-13 18:14 | XMS_ITS | Encounter Summary ---
Author Organization [facility] Address [address] [place] [address] Phone Care Team Providers Care Look Out Tower Fire Watcher Name Role Phone Balaji Kim MD Unavailable [phone] Lorri Wick MD Unavailable Albert Iglesias MD Primary Care Prov ider Encounter Details Date Type Department Care Team (Late st Contact Info) Description 01/22/2023 Procedure Pass [facility] PERIOPERATIVE DEPT [address] [place] [phone] Social History Tobacco Use Types Packs/Day Years [...] on file 01/10/2023 No 01/10/2023 No 01/10/2023 Intimate Partner Violence Answer Date R ecorded [...] on file documented as of this encounter Functional Status * Calculated C-SSRS Risk Score (Lifetime/Recent) Answer Date of Assessment Author No Risk Indicated 01/22/2023 8:10 PM EDT Basilio Staton RN * [place] Suicide Severity Rating Scale (Screener/Recent Self-Report) Question Answer Date of Assessment Author 1. Wish to be (Past 1 Month) No 01/22/2023 8:10 PM EDT Basilio Serna RN 2. Non-Specific Active Suici michaela Thoughts (Past 1 Month) No 01/22/2023 8:10 PM EDT Kamar Serna RN 6. Suicidal Behavior (Lifetime) No 8:10 PM EDT Basilio Serna RN documented as of this encounter Plan of Treatment Upcoming Encounters Date Type Department Care Team (Late st Contact Info) Description 09/12/2025 3:40 PM EST Office Visit [facility] Endocrinology [address] [phone] Lorri Wick MD [address] [place] [phone] [email or web address] documented as of this encounter Visit Diagnoses Not on filedocumented in this encounter Additional Health Concerns Assessment Noted Time PHQ-2 Depression Total Score: 0 09/22/19 21 11:06 AM EST documented as of this encounter Care Teams Look Out Tower Fire Watcher Relationship Specialty Start Date End Date Albert Iglesias MD [address] [place] [phone] PCP - General Internal Medicine 03/24/21 Balaji Kim MD [address] [place] [address] [place] [phone] Neurosurgery 04/12/16 Lorri Wick MD [address] [place] [phone] [email or web address] Internal Medicine 11/06/16 documented as of this encounter Additional Source Comments The information contained in this document represents components of the legal health record. It is not the complete legal health record.[facility]
--- OUTSIDE RECORDS SUMMARY | 2025-07-13 18:14 | XMS_ITS | Encounter Summary ---
Author Organization [facility] Address [address] [place] [address] Phone Care Team Providers Care Pasting Machine Operator Name Role Phone Balaji Kim MD Unavailable Nyla Jacobson MD Primary Care Provider [phone] Lorri Wick MD Unavailable Albert Iglesias MD Primary Care Prov ider Encounter Details Date Type Department Care Team (Late st Contact Info) Description 09/25/[address] [facility] [address] [place] [address] Social History Tobacco Use Types Packs/Day Years [...] Office Visit [facility] Endocrinology [address] [phone] Lorri Wick MD [address] [place] [phone] [email or web address] documented as of this encounter Visit Diagnoses Not on filedocumented in this encounter Care Teams Pasting Machine Operator Relationship Specialty Start Date End Date Nyla Jacobson MD [address] [place] [phone] PCP - General 05/14/16 03/23/21 Albert Iglesias MD [address] [place] [phone] PCP - General Internal Medicine 03/24/21 Balaji Kim MD [address] [place] [address] Drive [address] [place] [address] Neurosurgery 04/12/16 Lorri Wick MD [address] [place] [phone] [email or web address] Internal Medicine 11/06/16 documented as of this encounter Additional Source Comments The information contained in this document represents components of the legal health record. It is not the complete legal health record.[facility]
--- OUTSIDE RECORDS SUMMARY | 2025-07-13 18:14 | XMS_ITS | Encounter Summary ---
Author Organization [facility] Address [address] [place] [address] Phone Care Team Providers Care High School Tutor Name Role Phone Balaji Kim MD Unavailable Nyla Jacobson MD Primary Care Provider [phone] Lorri Wick MD Unavailable Albert Iglesias MD Primary Care Prov ider Encounter Details Date Type Department Care Team (Late st Contact Info) Description 09/25/2016 Procedure Pass [facility] [address] [place] [address] Social History Tobacco Use Types Packs/Day Years [...] Office Visit [facility] Endocrinology [address] [phone] Lorri Wick MD [address] [place] [address] [email or web address] documented as of this encounter Visit Diagnoses Not on filedocumented in this encounter Care Teams High School Tutor Relationship Specialty Start Date End Date Nyla Jacobson MD [address] [place] [address] PCP - General 05/14/16 03/23/21 Albert Iglesias MD [address] [place] [phone] PCP - General Internal Medicine 03/24/21 Balaji Kim MD [address] [place] [address] Drive [address] [place] [address] Neurosurgery 04/12/16 Lorri Wick MD [address] [place] [address] [email or web address] Internal Medicine 11/06/16 documented as of this encounter Additional Source Comments The information contained in this document represents components of the legal health record. It is not the complete legal health record.[facility]
--- OUTSIDE RECORDS SUMMARY | 2025-07-13 18:14 | XMS_ITS | Encounter Summary ---
Author Organization [facility] Address [address] [place] [address] Phone Care Team Providers Care Temper Mill Roller Name Role Phone Balaji Kim MD Unavailable Nyla Jacobson MD Primary Care Provider [phone] Lorri Wick MD Unavailable Albert Iglesias MD Primary Care Prov ider Encounter Details Date Type Department Care Team (Late st Contact Info) Description 07/30/2016 Procedure Pass [facility] MR Imaging, [place] [address] [place] [address] Social History Tobacco Use Types Packs/Day Years [...] Office Visit [facility] Endocrinology [address] [phone] Lorri Wick MD [address] [place] [phone] [email or web address] documented as of this encounter Visit Diagnoses Not on filedocumented in this encounter Care Teams Temper Mill Roller Relationship Specialty Start Date End Date Nyla Jacobson MD [address] [place] [phone] PCP - General 05/14/16 03/23/21 Albert Iglesias MD [address] [place] [phone] PCP - General Internal Medicine 03/24/21 Balaji Kim MD [address] [place] [address] Drive [address] [place] [address] Neurosurgery 04/12/16 Lorri Wick MD [address] [place] [address] [email or web address] Internal Medicine 11/06/16 documented as of this encounter Additional Source Comments The information contained in this document represents components of the legal health record. It is not the complete legal health record.[facility]
[2025-07-13 18:39] LABS: ~Lactic Acid-LAB USE ONLY 4.1 mmol/L (0.5-2.0)
[2025-07-13 20:14] LABS: Reflex Lactate? 2 Y
[2025-07-13 20:41] LABS: ~Lactic Acid-LAB USE ONLY 3.7 mmol/L (0.5-2.0)
[2025-07-13 20:53] VITALS: BP 143/64; PULSE 60; RESP 15; TEMP 36.3; O2SAT 95
--- NOTE | 2025-07-13 21:06 | PM.IMHP ---
History of Present Illness Date of Service: 07/13/25 Attending physician on admission: Kaitlynn Castro Chief Complaint: Left flank pain Sharmila Ceballos is a 60 years old woman with past medical history significant for essential hypertension and depression presents to the emergency department complaining of left flank pain that started 3 days ago. She noted that her urine is foul-smelling and has chills. Denied pain with urination or blood in urine. She also denied nausea, vomiting or diarrhea. She denied any headache, dizziness or palpitations. She denied any acute cardiopulmonary symptoms. She was recently seen at [facility] for same symptoms and was told that she has a hernia. In the ED, she was found to have stable vital signs. Blood workup showed no leukocytosis. Hemoglobin is 12.2 and platelets. There are no significant electrolyte imbalances. Significant lactic acidosis noted. Last lactic acid is 3.7. Transaminases are slightly elevated. Bilirubin, lipase and alk-phos are normal. Urinalysis is consistent with UTI. Abdominal pelvis CT scan with IV contrast showed tiny umbilical hernia containing fat without evidence of inflammation. This also mild diverticulosis without diverticulitis. There is a small attenuation bilateral renal splenic lesions dark difficult to characterize I due to small size but probably represent small cysts, slightly enlarged fatty liver and pelvic varices. ED tx: Ketorolac 15 mg IV, LR 1 L bolus, NS 1 L bolus, ceftriaxone 1 g IV Review of Systems Review of Systems: All 12 systems were reviewed and normal except as noted in HPI. [facility] Medical History Personal history of nicotine dependence History of pituitary adenoma ERIKA (obstructive sleep apnea) GERD (gastroesophageal reflux disease) History of cancer chemotherapy Pre-diabetes Pacemaker Hypothyroid High cholesterol HTN (hypertension) Family History Mother Diabetes HTN (hypertension) Father Heart attack Sister HTN (hypertension) Paternal Grandmother Breast cancer Surgical History History of pacemaker History of brain surgery History of cholecystectomy History of appendectomy History of colonoscopy Social History Household Members: Spouse Household Members Other:: daughter Housing: House Do you presently have visiting nurse or other home services: No Unable to assess alcohol history related to: Unknown Alcohol intake: former Patient Tobacco Use Status: Former Tobacco user Years Smoked: (onset 11yo, 1-2ppd x 45yrs, 60pyh - quit 2021) Smoked in Last 30 Days: No Use of substances other than those prescribed or required for medical reasons: Unknown Substance Use Type: Crack/Cocaine and Marijuana Advance Directives: No Advance Directives Information Provided: Yes service: No Current occupational status: unemployed Sexual orientation: Straight/Heterosexual Gender identity: Female Meds Allergies Allergy/AdvReac Type Severity Reaction Status Date / Time lactose AdvReac Intermediate Gastrointestinal Verified 07/13/25 13:48 Upset Home Medications ?Medication ?Instructions ?Recorded ?Confirmed ?Last Taken ?Type buspirone 5 mg tablet 5 mg PO TID 05/16/22 09/07/24 Unknown History clonazepam 1 mg tablet 1 mg PO DAILY PRN anxiety 05/16/22 09/07/24 Unknown History clonidine HCl 0.1 mg tablet 0.1 mg PO BID 05/16/22 09/07/24 Unknown History levothyroxine 150 mcg tablet 150 mcg PO DAILY 05/16/22 09/07/24 Unknown History metoprolol tartrate 100 mg tablet 100 mg PO BID 05/16/22 09/07/24 Unknown History quetiapine 50 mg tablet 50 mg PO BID PRN 05/16/22 09/07/24 Unknown History rosuvastatin 40 mg tablet 40 mg PO DAILY 05/16/22 09/07/24 Unknown History tramadol 50 mg tablet 50 mg PO Q12H PRN 05/16/22 09/07/24 Unknown History calcium polycarbophil 625 mg 625 mg PO DAILY 04/20/24 09/07/24 Unknown History tablet (Fiber (calcium polycarbophil)) hydrocortisone 5 mg tablet mg PO DAILY 04/20/24 09/07/24 Unknown History losartan 100 mg tablet 100 mg PO DAILY 06/07/24 09/07/24 Unknown History venlafaxine 150 mg 150 mg PO DAILY 06/07/24 09/07/24 Unknown History capsule,extended release 24 hr amlodipine 5 mg tablet 5 mg PO DAILY 07/13/25 Unknown History cariprazine 1.5 mg capsule 1.5 mg PO QAM 07/13/25 Unknown History (Vraylar) venlafaxine 37.5 mg 37.5 mg PO DAILY 07/13/25 Unknown History capsule,extended release 24 hr Physical Exam Vital Signs and Narrative: Vital Signs: Last Vital Signs Temp 97.4 F 07/13/25 20:53 Pulse 60 07/13/25 20:53 Resp 15 07/13/25 20:53 BP 143/64 H 07/13/25 20:53 Pulse Ox 95 07/13/25 20:53 O2 Del Method Room Air 07/13/25 20:53 BMI result Body Mass Index 36.4 General: Alert, oriented. In mild distress due to pain. Well nourished and cooperative. Afebrile. HEENT: Head normocephalic, atraumatic. PER, EOMI. Sclerae anicteric, conjunctiva clear. Oropharynx without erythema or exudate. Mucous membranes moist. Neck: Supple, no lymphadenopathy, or JVD. Heart: RRR, no murmurs, rubs or gallops. Lungs: Clear to auscultation bilaterally. No wheezes, rales, or rhonchi. Normal respiratory effort. Abdomen: Soft, left flank tenderness with guarding without rebound, normoactive bowel sounds. Extremities: No calf tenderness bilaterally, no swelling Musculoskeletal: Full range of motion. No joint swelling, deformity, or tenderness. Normal muscle tone and strength. Skin: Warm/Dry. No pallor. No jaundice. Neurologic: Alert & oriented x4. Moving all extremities spontaneously. Normal speech. Psychological: Normal mood and affect. Thought process coherent. Results Labs 07/13/25 14:50 07/13/25 14:50 Labs: Laboratory Results - last 24 hr 07/13/25 07/13/25 07/13/25 14:50 17:01 18:04 MCV 81.7 MCH 25.4 L MCHC 31.1 RDW 17.4 H Plt Count 311 MPV 10.8 Immature Gran % (Auto) 0.6 H Neut % (Auto) 57.1 Lymph % (Auto) 33.8 [place] % (Auto) 6.2 Eos % (Auto) 1.5 Baso % (Auto) 0.8 Lymph # (Auto) 2.5 [place] # (Auto) 0.5 Eos # (Auto) 0.1 Baso # (Auto) 0.1 Abs Immat Gran (auto) 0.04 H Absolute Neuts (auto) 4.2 Absolute Nucleated RBC 0.000 Nucleated RBC % (auto) 0.0 Anion Gap 10 L Estim Creat Clear Calc 87.3 Estimated GFR > 60 Random Glucose 105 Lactic Acid 2.1 H* Lactic Acid F/U @ 2Hr 4.1 H* Lactic Acid F/U @ 4Hr Calcium 9.0 D Total Bilirubin 0.5 Direct Bilirubin 0.2 AST 46 H ALT 33 H Alkaline Phosphatase 101 Troponin I High Sens < 2.7 Total Protein 6.5 Albumin 4.0 Lipase 18 Urine Color Yellow Urine Appearance Clear Urine pH 7.5 Ur Specific [place] 1.020 Urine Protein Negative Urine Glucose (UA) Negative Urine Ketones Negative Urine Blood Trace H Urine Nitrite Negative Ur Leukocyte Esterase Moderate (2+) H Urine RBC 3-5 H Urine WBC >50 H Ur Squamous Epith Cells 0-2 Urine Bacteria None Seen Hyaline Casts 0-2 07/13/25 20:20 MCV MCH MCHC RDW Plt Count MPV Immature Gran % (Auto) Neut % (Auto) Lymph % (Auto) [place] % (Auto) Eos % (Auto) Baso % (Auto) Lymph # (Auto) [place] # (Auto) Eos # (Auto) Baso # (Auto) Abs Immat Gran (auto) Absolute Neuts (auto) Absolute Nucleated RBC Nucleated RBC % (auto) Anion Gap Estim Creat Clear Calc Estimated GFR Random Glucose Lactic Acid Lactic Acid F/U @ 2Hr Lactic Acid F/U @ 4Hr 3.7 H* Calcium Total Bilirubin Direct Bilirubin AST ALT Alkaline Phosphatase Troponin I High Sens Total Protein Albumin Lipase Urine Color Urine Appearance Urine pH Ur Specific [place] Urine Protein Urine Glucose (UA) Urine Ketones Urine Blood Urine Nitrite Ur Leukocyte Esterase Urine RBC Urine WBC Ur Squamous Epith Cells Urine Bacteria Hyaline Casts Imaging Radiologist's Impressions: Impressions Abdomen/Pelvis CT 07/13/25 15:53 IMPRESSION: Tiny umbilical hernia containing fat. No evidence of inflammation. No other hernia seen. Mild diverticulosis of the colon. No evidence of diverticulitis. Small low-attenuation bilateral renal and splenic lesions. These are difficult to characterize due to small size but probably represent small cysts. Slightly enlarged fatty liver. Pelvic varices. Electronically signed by: Darshana Parker MD 07/13/2025 04:31 PM EDT Assessment and Plan (1) UTI (urinary tract infection): Qualifiers: Urinary tract infection type: acute pyelonephritis Qualified Code(s): N10 - Acute pyelonephritis Status: Acute (2) Left flank pain: Status: Acute (3) Acute lactic acidosis: Status: Acute Plan Sharmila Ceballos is a 60 y/o woman who presents with: Left flank pain, possible secondary to presumed UTI/pyelonephritis. Continue empiric IV antibiotic therapy with ceftriaxone. Blood and urine cultures obtained -will follow results. Pain control. Acute lactic acidosis, likely secondary to above. Continue IV fluids and IV antibiotics. Blood cultures pending. Continue to monitor. Essential hypertension. Continue amlodipine, losartan, metoprolol and clonidine. Hypothyroidism. Continue levothyroxine. Mood disorder. Continue buspirone, clonazepam, olanzapine and Seroquel Hyperlipidemia.. Continue statin GERD. Continue PPI. Hx of CA. s/p chemo. Hx of pituitary adenoma. Status post transsphenoidal pituitary adenomectomy. Code status: Full DVT prophylaxis: Lovenox Patient will need hospitalization for at least 2 midnights for UTI associated with acute lactic acidosis treatment with IV fluids and IV antibiotic therapy. This documentation was generated using dictation software; minor spreading or help desk representative errors may be present. Quality Stroke Does the patient have a stroke diagnosis?: No VTE Prior VTE?: No VTE Risk Level:: Medical - moderate - high VTE Device Contraindication: Treatment Not Indicated VTE Drug Contraindication: N/A - Med Ordered
[2025-07-13] MEDS: Lactated Ringers 1,000 ML 100 ML IVCONT (21:15)
--- NOTE | 2025-07-13 21:55 | PHA.MEDREC ---
Addendum entered by Chantel Lee RPh 07/13/25 22:06: Reviewed by [facility] Original Note: Pharmacy Consult ? Medication Reconciliation Pharmacy has completed the medication reconciliation. Spoke to patient through [employer] service to confirm med list . Patient had all of her medication bottle with her. Patient confirmed she is not taking Calcium polycarbphil 625 mg, Methylellulose(laxative) 500 mg, Metrobidazole 0.75 % vaginal gel, and Senna 17.2 mg. Patient confirmed Quetiapine 25 mg was increased to Quetiapine 50 mg BID, Hydrocortisone 15 mg (3x 5 mg) QAM and 5 mg BID at noon and QPM. Patient states she takes both Venlafaxine 150 mg with Venlafaxine 37.5 mg. Patient had all her morning medications today
[2025-07-14] VITALS (9 sets, daily range): BP systolic 121–173; BP diastolic 55–77; PULSE 59–73; RESP 14–18; TEMP 36.1–36.8; O2SAT 94–99; BMI 37.6
--- NOTE | 2025-07-14 01:33 | PC.NURSE ---
pt reporting increase in left flank pain - requesting medication. prn medication utilized. effectiveness pending. LR otherwise continues to infuse @100mls/hr. pending bed assignment. plan of care ongoing.
[2025-07-14 04:53] LABS: MANUAL DIFF FLAG NO
[2025-07-14 04:55] LABS: Hematocrit 39.5 % (37.0-47.0); Hemoglobin 11.9 g/dl (12.0-16.0); Imm Gran Abs Auto 0.03 X10*3/uL (0.00-0.03); Imm Gran Pct Auto 0.5 % (0.0-0.4); Lymphocytes Absolute Auto 2.2 X10*3/uL (1.2-4.9); Mean Corpuscular HGB Conc 30.1 g/dl (31.0-35.0); Mean Corpuscular Hemoglobin 24.8 pg (27.0-33.0); Mean Corpuscular Volume 82.5 fL (80.0-98.0); NRBC Abs Auto 0.000 X10*3/uL (0.0-0.012); NRBC Pct Auto 0.0 /100WBC (0.0-0.2); Platelet Count 310 X10*3/uL (160-400); Red Blood Count 4.79 X10*6/uL (4.20-5.50); White Blood Count 6.6 X10*3/uL (4.8-10.8)
[2025-07-14 05:13] LABS: Anion Gap 16 (12-20); Blood Urea Nitrogen 5 mg/dL (9-16); Calcium 8.7 mg/dL (8.4-10.2); Carbon Dioxide 23 mmol/L (22-29); Chloride 107 mmol/L (96-108); Creatinine Clr Calc Pharmacy 92.0; Estimated Glomerular Filt Rate > 60; Potassium 3.8 mmol/L (3.3-5.1); Sodium 142 mmol/L (135-145)
--- NOTE | 2025-07-14 05:47 | HO.NURTONUR ---
primarily panamanian speaking. a&ox4. vss and up to date. on RA baseline as well as currently w/o difficulty - no sob/wob noted. respirations even/unlabored. ambulatory w/o any use of assistive devices - strong/steady gait. 20gIV in the right AC - LR @ 100mls/hr. pt presents to the ED c/o LLQ pain radiating to left flank w/ associated chills and nonbloody diarrhea x 3 days. pt reports she was recently at [facility] where they had a CT completed displaying small umbilical hernia. pt represented to [facility] d/t worsening sx. upon ED arrival - pt noted to have an elevated lactic acid level - given IVF. repeat lactic remained elevated x 3 times despite previous IVF administration. CT results displays hernia/diverticulosis. pt will be admitted for pyelonephritis/UTI. receiving IVF hydration/pain medication/abx. pt otherwise calm/cooperative/pleasant.
[2025-07-14] MEDS: Venlafaxine HCl ER 150 MG CAP.ER.24H PO (09:57)
[2025-07-14] MEDS: Venlafaxine HCl ER 37.5 MG CAP.ER.24H PO (09:57)
[2025-07-14 10:41] LABS: Reflex Lactate? Lactic Acid Added
--- NOTE | 2025-07-14 11:19 | P.PNIM_ITS ---
Subjective Subjective Date of Service: 07/14/25 Interval History: Pt seen this am, lying on her left side, states that lying on her back makes her left flank pain worse, she states that area is very sensitive and pain is like someone is stabbing and burning it, she also complains of poor appetite and feeling unwell overall. Review of Systems -ve except as stated above Physical Exam 2 Exam: Exam: A&Ox 3 heart RRR lungs CTAB, on RA, no rales or wheezing abdomen: tenderness to palpation over left flank area, no erythema or rash seen , abdomen soft non tender in other areas no [place] Neuro: moving all extremities fine. Vital Signs: Vital Signs: Last Vital Signs Temp 96.9 F 07/14/25 11:05 Pulse 61 07/14/25 11:05 Resp 16 07/14/25 11:05 BP 129/68 07/14/25 11:05 Pulse Ox 94 07/14/25 11:05 O2 Del Method Room Air 07/14/25 11:05 BMI result Body Mass Index 36.4 Objective Data Active Medications Acetaminophen (Acetaminophen 325 Mg Tablet) 975 mg PO Q6H PRN PRN Reason: Pain, Mild 1-3,fever,headache Albuterol Sulfate (Albuterol Sulfate 90 Mcg 8 Gm Inhaler) 2 puff INHALE Q4H PRN PRN Reason: shortness of breath or wheezing Amlodipine Besylate (Amlodipine Besylate 5 Mg Tablet) 5 mg PO DAILY [facility]; Protocol Last Admin: 07/14/25 09:56 Dose: 5 mg Documented By: ANNE MARIE Atorvastatin Calcium (Atorvastatin Calcium 80 Mg Tablet) 80 mg PO DAILY [facility] Last Admin: 07/14/25 09:57 Dose: 80 mg Documented By: ANNE MARIE Buspirone HCl (Buspirone Hcl 5 Mg Tablet) 5 mg PO TID [facility] Last Admin: 07/14/25 09:56 Dose: 5 mg Documented By: ANNE MARIE Calcium Carbonate (Calcium Carbonate 750 Mg Tab.Chew) 750 mg PO Q4H PRN PRN Reason: Heartburn Capsaicin (Capsaicin 0.025% Cream 60 Gm Tube) 1 appl TOPICAL TID PRN; Protocol PRN Reason: Pain, Moderate(Pain Scale 4-6) Cariprazine (Cariprazine Hcl 1.5 Mg Capsule) 1.5 mg PO DAILY [facility] Last Admin: 07/14/25 09:57 Dose: 1.5 mg Documented By: ANNE MARIE Clonazepam (Clonazepam 1 Mg Tablet) 1 mg PO DAILY PRN PRN Reason: Anxiety Clonidine HCl (Clonidine Hcl 0.1 Mg Tablet) 0.1 mg PO BID [facility]; Protocol Last Admin: 07/14/25 09:57 Dose: 0.1 mg Documented By: ANNE MARIE Enoxaparin Sodium (Enoxaparin Sodium 40 Mg/0.4 Ml Syringe) 40 mg SUBCUT Q24H [facility] Last Admin: 07/14/25 09:57 Dose: 40 mg Documented By: ANNE MARIE Famotidine (Famotidine 20 Mg Tablet) 20 mg PO BEDTIME [facility] Last Admin: 07/13/25 23:20 Dose: 20 mg Documented By: CASSIE Hydrocortisone (Hydrocortisone 10 Mg Tablet) 15 mg PO DAILY@0800 [facility] Last Admin: 07/14/25 09:57 Dose: 15 mg Documented By: ANNE MARIE Hydrocortisone (Hydrocortisone 10 Mg Tablet) 5 mg PO BID@1200,1700 [facility] Hydromorphone HCl (Hydromorphone Hcl 1 Mg/Ml Syringe) 0.5 mg IVPUSH Q4H PRN; Protocol PRN Reason: Pain, Severe (Pain Scale 7-10) Last Admin: 07/14/25 06:36 Dose: 0.5 mg Documented By: CASSIE Ceftriaxone Sodium 1 gm/ (Sodium Chloride) 50 mls @ 100 mls/hr IV Q24H [facility] Levothyroxine Sodium (Levothyroxine Sodium 150 Mcg Tablet) 150 mcg PO DAILY@0600 [facility] Last Admin: 07/14/25 06:28 Dose: 150 mcg Documented By: CASSIE Losartan Potassium (Losartan Potassium 50 Mg Tablet) 100 mg PO DAILY [facility]; Protocol Last Admin: 07/14/25 09:57 Dose: 100 mg Documented By: ANNE MARIE Magnesium Hydroxide (Milk Of Magnesia 30 Ml Oral.Susp) 30 ml PO DAILY PRN PRN Reason: Constipation Melatonin (Melatonin 3 Mg Tablet) 6 mg PO BEDTIME PRN PRN Reason: Insomnia Metoprolol Tartrate (Metoprolol Tartrate 100 Mg Tablet) 100 mg PO BID [facility]; Protocol Last Admin: 07/14/25 10:37 Dose: 100 mg Documented By: ANNE MARIE Omeprazole (Omeprazole 20 Mg Capsule.) 20 mg PO DAILY@0630 [facility] Last Admin: 07/14/25 06:28 Dose: 20 mg Documented By: CASSIE Ondansetron HCl (Ondansetron Hcl 4 Mg/2 Ml Vial) 4 mg IVPUSH Q8H PRN PRN Reason: Nausea and Vomiting Quetiapine Fumarate (Quetiapine Fumarate 50 Mg Tablet) 50 mg PO BID PRN PRN Reason: Sleep Sodium Chloride (0.9 % Sodium Chloride Flush 3 Ml Syringe) 3 ml IVFLUSH QSHIFT [facility] Last Admin: 07/14/25 07:06 Dose: Not Given Documented By: CASSIE Non-Admin Reason: IV Running Venlafaxine HCl (Venlafaxine Hcl Er 37.5 Mg Cap.Er.24h) 37.5 mg PO DAILY [facility] Last Admin: 07/14/25 09:57 Dose: 37.5 mg Documented By: ANNE MARIE Venlafaxine HCl (Venlafaxine Hcl Er 150 Mg Cap.Er.24h) 150 mg PO DAILY [facility] Last Admin: 07/14/25 09:57 Dose: 150 mg Documented By: ANNE MARIE Labs 07/14/25 04:14 07/14/25 04:14 Labs: Laboratory Results - last 24 hr 07/13/25 07/13/25 07/13/25 14:50 17:01 18:04 MCV 81.7 MCH 25.4 L MCHC 31.1 RDW 17.4 H Plt Count 311 MPV 10.8 Immature Gran % (Auto) 0.6 H Neut % (Auto) 57.1 Lymph % (Auto) 33.8 [place] % (Auto) 6.2 Eos % (Auto) 1.5 Baso % (Auto) 0.8 Lymph # (Auto) 2.5 [place] # (Auto) 0.5 Eos # (Auto) 0.1 Baso # (Auto) 0.1 Abs Immat Gran (auto) 0.04 H Absolute Neuts (auto) 4.2 Absolute Nucleated RBC 0.000 Nucleated RBC % (auto) 0.0 Anion Gap 10 L Estim Creat Clear Calc 87.3 Estimated GFR > 60 Random Glucose 105 Lactic Acid 2.1 H* Lactic Acid F/U @ 2Hr 4.1 H* Lactic Acid F/U @ 4Hr Calcium 9.0 D Total Bilirubin 0.5 Direct Bilirubin 0.2 AST 46 H ALT 33 H Alkaline Phosphatase 101 Troponin I High Sens < 2.7 Total Protein 6.5 Albumin 4.0 Lipase 18 Urine Color Yellow Urine Appearance Clear Urine pH 7.5 Ur Specific [place] 1.020 Urine Protein Negative Urine Glucose (UA) Negative Urine Ketones Negative Urine Blood Trace H Urine Nitrite Negative Ur Leukocyte Esterase Moderate (2+) H Urine RBC 3-5 H Urine WBC >50 H Ur Squamous Epith Cells 0-2 Urine Bacteria None Seen Hyaline Casts 0-2 07/13/25 07/14/25 07/14/25 20:20 04:14 08:37 MCV 82.5 MCH 24.8 L MCHC 30.1 L RDW 17.2 H Plt Count 310 MPV 10.6 Immature Gran % (Auto) 0.5 H Neut % (Auto) 57.9 Lymph % (Auto) 33.1 [place] % (Auto) 5.9 Eos % (Auto) 2.0 Baso % (Auto) 0.6 Lymph # (Auto) 2.2 [place] # (Auto) 0.4 Eos # (Auto) 0.1 Baso # (Auto) 0.0 Abs Immat Gran (auto) 0.03 Absolute Neuts (auto) 3.8 Absolute Nucleated RBC 0.000 Nucleated RBC % (auto) 0.0 Anion Gap 16 Estim Creat Clear Calc 92.0 Estimated GFR > 60 Random Glucose 105 Lactic Acid 2.2 H* Lactic Acid F/U @ 2Hr Lactic Acid F/U @ 4Hr 3.7 H* Calcium 8.7 Total Bilirubin Direct Bilirubin AST ALT Alkaline Phosphatase Troponin I High Sens Total Protein Albumin Lipase Urine Color Urine Appearance Urine pH Ur Specific [place] Urine Protein Urine Glucose (UA) Urine Ketones Urine Blood Urine Nitrite Ur Leukocyte Esterase Urine RBC Urine WBC Ur Squamous Epith Cells Urine Bacteria Hyaline Casts Assessment and Plan (1) Left flank pain: Status: Acute (2) Acute lactic acidosis: Status: Acute (3) Acute neuritis: Status: Acute Plan Sharmila Ceballos is a 60 y/o woman who presented with left flank pain for 3 days. Left flank pain Acute lactic acidosis, Acute neuritis?? p/w left flank pain x3 days, mild diarrhea for 2 days that resolved on its own, UA mild pyuria, CXR -ve, CT abdomen -ve for acute pathology, no leucocytosis or fever VL was 4.1 OA, received IVF, resolved now, BC and UC pending ceftriaxone for UTI no clear etiology for left flank pain, it appears across a dermatome, Acute neuritis preceding shingles ??? will try low dose opioids and capsaicin cream will discuss with ID about efficacy of using antivirals? Essential hypertension. Continue amlodipine, losartan, metoprolol and clonidine. Hypothyroidism. Continue levothyroxine. Mood disorder. Continue buspirone, clonazepam, olanzapine and Seroquel Hyperlipidemia.. Continue statin GERD. Continue PPI. Hx of CA. s/p chemo. Hx of pituitary adenoma. Status post transsphenoidal pituitary adenectomy. on hydrocortisone Code status: Full DVT prophylaxis: Lovenox Diet: cardiac Quality Stroke Does the patient have a stroke diagnosis?: No VTE Prior VTE?: No VTE Risk Level:: Medical - moderate - high VTE Device Contraindication: Treatment Not Indicated VTE Drug Contraindication: N/A - Med Ordered
[2025-07-14 11:23] LABS: ~Lactic Acid-LAB USE ONLY 1.7 mmol/L (0.5-2.0)
--- NOTE | 2025-07-14 11:52 | MHC.CM.PN ---
CM MET WITH PT AT BEDSIDE, [employer] OFFERED AND DECLINED PT REPORTS SHE LIVES WITH HER AND DAUGHTER HER DAUGHTER IS HER BOTTLE INSPECTOR AND PROVIDES CARE DAILY SHE USES A WALKER AND CPAP FOR DME PT DECLINES A HCP PCP: NARCISO DANIELS DCP: HOME, [employer]UME [employer] FAMILY TO TRANSPORT
[2025-07-14] MEDS: 0.9 % Sodium Chloride Flush 3 ML SYRINGE IVFLUSH ×2 (15:32→20:58)
[2025-07-14] MEDS: oxyCODONE HCl Immed Release 5 MG TABLET 2.5 MG PO (17:38)
--- NOTE | 2025-07-14 22:54 | W.PM.IDCN ---
History of Present Illness Data of Consult Service Date: 07/14/25 Requesting physician: Giulia Talbert Primary Care Provider: Albert Castro MD HPI Reason for consult: back pain She presents with four days 10/10 back pain. She has no fever or chills at this time. Review of Systems Review of Systems: Yes all other systems are reviewed and are negative PMFSH Past Medical History Medical History Personal history of nicotine dependence History of pituitary adenoma ERIKA (obstructive sleep apnea) GERD (gastroesophageal reflux disease) History of cancer chemotherapy Pre-diabetes Pacemaker Hypothyroid High cholesterol HTN (hypertension) Family History Family History Mother Diabetes HTN (hypertension) Father Heart attack Sister HTN (hypertension) Paternal Grandmother Breast cancer Family history: reviewed and not pertinent Surgical History Surgical History History of pacemaker History of brain surgery History of cholecystectomy History of appendectomy History of colonoscopy Social History Social History Household Members: Spouse and Children Household Members Other:: daughter Housing: House Do you presently have visiting nurse or other home services: Yes ([employer].) Alcohol intake: former Patient Tobacco Use Status: Former Tobacco user Years Smoked: (onset 11yo, 1-2ppd x 45yrs, 60pyh - quit 2021) Substance Use Type: Crack/Cocaine and Marijuana service: No Current occupational status: unemployed Sexual orientation: Straight/Heterosexual Gender identity: Female Meds Allergies Allergy/AdvReac Type Severity Reaction Status Date / Time lactose AdvReac Intermediate Gastrointestinal Verified 07/13/25 13:48 Upset Active Medications: Current Medications Acetaminophen (Acetaminophen 325 Mg Tablet) 975 mg PO Q6H PRN PRN Reason: Pain, Mild 1-3,fever,headache Albuterol Sulfate (Albuterol Sulfate 90 Mcg 8 Gm Inhaler) 2 puff INHALE Q4H PRN PRN Reason: shortness of breath or wheezing Amlodipine Besylate (Amlodipine Besylate 5 Mg Tablet) 5 mg PO DAILY [facility]; Protocol Last Admin: 07/14/25 09:56 Dose: 5 mg Atorvastatin Calcium (Atorvastatin Calcium 80 Mg Tablet) 80 mg PO DAILY [facility] Last Admin: 07/14/25 09:57 Dose: 80 mg Buspirone HCl (Buspirone Hcl 5 Mg Tablet) 5 mg PO TID [facility] Last Admin: 07/14/25 20:55 Dose: 5 mg Calcium Carbonate (Calcium Carbonate 750 Mg Tab.Chew) 750 mg PO Q4H PRN PRN Reason: Heartburn Capsaicin (Capsaicin 0.025% Cream 60 Gm Tube) 1 appl TOPICAL TID PRN; Protocol PRN Reason: Pain, Moderate(Pain Scale 4-6) Last Admin: 07/14/25 15:29 Dose: 1 appl Cariprazine (Cariprazine Hcl 1.5 Mg Capsule) 1.5 mg PO DAILY [facility] Last Admin: 07/14/25 09:57 Dose: 1.5 mg Clonazepam (Clonazepam 1 Mg Tablet) 1 mg PO DAILY PRN PRN Reason: Anxiety Clonidine HCl (Clonidine Hcl 0.1 Mg Tablet) 0.1 mg PO BID [facility]; Protocol Last Admin: 07/14/25 20:54 Dose: 0.1 mg Enoxaparin Sodium (Enoxaparin Sodium 40 Mg/0.4 Ml Syringe) 40 mg SUBCUT Q24H [facility] Last Admin: 07/14/25 09:57 Dose: 40 mg Famotidine (Famotidine 20 Mg Tablet) 20 mg PO BEDTIME [facility] Last Admin: 07/14/25 20:55 Dose: 20 mg Hydrocortisone (Hydrocortisone 10 Mg Tablet) 15 mg PO DAILY@0800 [facility] Last Admin: 07/14/25 09:57 Dose: 15 mg Hydrocortisone (Hydrocortisone 10 Mg Tablet) 5 mg PO BID@1200,1700 [facility] Last Admin: 07/14/25 17:38 Dose: 5 mg Ceftriaxone Sodium 1 gm/ (Sodium Chloride) 50 mls @ 100 mls/hr IV Q24H [facility] Last Infusion: 07/14/25 18:27 Dose: Infused Levothyroxine Sodium (Levothyroxine Sodium 150 Mcg Tablet) 150 mcg PO DAILY@0600 [facility] Last Admin: 07/14/25 06:28 Dose: 150 mcg Losartan Potassium (Losartan Potassium 50 Mg Tablet) 100 mg PO DAILY [facility]; Protocol Last Admin: 07/14/25 09:57 Dose: 100 mg Magnesium Hydroxide (Milk Of Magnesia 30 Ml Oral.Susp) 30 ml PO DAILY PRN PRN Reason: Constipation Melatonin (Melatonin 3 Mg Tablet) 6 mg PO BEDTIME PRN PRN Reason: Insomnia Metoprolol Tartrate (Metoprolol Tartrate 100 Mg Tablet) 100 mg PO BID [facility]; Protocol Last Admin: 07/14/25 20:57 Dose: 100 mg Omeprazole (Omeprazole 20 Mg Capsule.Dr) 20 mg PO DAILY@0630 [facility] Last Admin: 07/14/25 06:28 Dose: 20 mg Ondansetron HCl (Ondansetron Hcl 4 Mg/2 Ml Vial) 4 mg IVPUSH Q8H PRN PRN Reason: Nausea and Vomiting Oxycodone HCl (Oxycodone Hcl Immed Release 5 Mg Tablet) 2.5 mg PO Q6H PRN PRN Reason: Pain, Severe (Pain Scale 7-10) Last Admin: 07/14/25 17:38 Dose: 2.5 mg Quetiapine Fumarate (Quetiapine Fumarate 50 Mg Tablet) 50 mg PO BID PRN PRN Reason: Sleep Sodium Chloride (0.9 % Sodium Chloride Flush 3 Ml Syringe) 3 ml IVFLUSH QSHIFT [facility] Last Admin: 07/14/25 20:58 Dose: 3 ml Venlafaxine HCl (Venlafaxine Hcl Er 37.5 Mg Cap.Er.24h) 37.5 mg PO DAILY [facility] Last Admin: 07/14/25 09:57 Dose: 37.5 mg Venlafaxine HCl (Venlafaxine Hcl Er 150 Mg Cap.Er.24h) 150 mg PO DAILY [facility] Last Admin: 07/14/25 09:57 Dose: 150 mg Home Medications ?Medication ?Instructions ?Recorded ?Confirmed ?Last Taken ?Type buspirone 5 mg tablet 5 mg PO TID 05/16/22 07/13/25 07/13/25 History clonazepam 1 mg tablet 1 mg PO DAILY PRN anxiety 05/16/22 07/13/25 07/13/25 History clonidine HCl 0.1 mg tablet 0.1 mg PO BID 05/16/22 07/13/25 07/13/25 History levothyroxine 150 mcg tablet 150 mcg PO DAILY@0600 05/16/22 07/13/25 07/13/25 History metoprolol tartrate 100 mg tablet 100 mg PO BID 05/16/22 07/13/25 07/13/25 History quetiapine 50 mg tablet 50 mg PO BID PRN Sleep 05/16/22 07/13/25 Unknown History rosuvastatin 40 mg tablet 40 mg PO DAILY 05/16/22 07/13/25 07/13/25 History tramadol 50 mg tablet 50 mg PO Q12H PRN Pain 05/16/22 07/13/25 Unknown History hydrocortisone 5 mg tablet 5 mg PO BID@1200,1700 04/20/24 07/13/25 07/12/25 History losartan 100 mg tablet 100 mg PO DAILY 06/07/24 07/13/25 07/13/25 History venlafaxine 150 mg 150 mg PO DAILY 06/07/24 07/13/25 07/13/25 History capsule,extended release 24 hr amlodipine 5 mg tablet 5 mg PO DAILY 07/13/25 07/13/25 07/13/25 History cariprazine 1.5 mg capsule 1.5 mg PO DAILY 07/13/25 07/13/25 07/13/25 History ([place]) esomeprazole magnesium 40 mg 40 mg PO DAILY@0630 07/13/25 07/13/25 07/13/25 History capsule,delayed release hydrocortisone 5 mg tablet 15 mg PO DAILY@0800 07/13/25 07/13/25 07/13/25 History venlafaxine 37.5 mg 37.5 mg PO DAILY 07/13/25 07/13/25 07/13/25 History capsule,extended release 24 hr Physical Exam Vital Signs: Vital Signs: Last Vital Signs Temp 97.0 F 07/14/25 19:44 Pulse 60 07/14/25 20:57 Resp 18 07/14/25 19:44 BP 136/64 07/14/25 19:44 Pulse Ox 95 07/14/25 19:44 O2 Del Method Room Air 07/14/25 19:44 BMI result Body Mass Index 37.6 Const: General: cooperative HEENT: Head: Yes normal to inspection Face and sinus: Yes normal facial exam Mouth: Normal oral and palatal mucosa present Teeth and gingiva: dentition normal Eyes: General: appearance normal, both eyes and all related structures Pupils: Equal, round and reactive pupils present Resp: Effort & Inspection: normal respiratory effort Cardio: Rate: regular rate Rhythm: regular rhythm GI: Palpation (GI): Soft to palpation and nontender : General: Yes CVA tenderness on the left Back/Spine/Pelvis: Back: CVA tenderness Skin: General skin exam: no rashes or lesions noted Neuro: General: moves all extremities Cranial nerves: Yes Equal, round and reactive pupils present Extrem: General: Yes normal to inspection Psych: Appearance: grossly normal Results Labs 07/14/25 04:14 07/14/25 04:14 Labs: Short CBC 07/14/25 Range/Units 04:14 WBC 6.6 (4.8-10.8) X10*3/uL Hgb 11.9 L (12.0-16.0) g/dl Hct 39.5 (37.0-47.0) % Plt Count 310 (160-400) X10*3/uL BMP 07/14/25 04:14 Sodium 142 Potassium 3.8 Chloride 107 Carbon Dioxide 23 BUN 5 L Creatinine 0.75 Calcium 8.7 Microbiology Microbiology Results: Microbiology 07/13/25 15:35 Blood - Venous Blood Culture - Preliminary No growth after 24 hours. 07/13/25 14:56 Blood - Venous Blood Culture - Preliminary No growth after 24 hours. 07/13/25 17:40 Urine clean catch - Clean Catch Midstream Urine Culture - Preliminary Culture too young to evaluate. Assessment and Plan (1) Left flank pain: Status: Acute (2) Acute lactic acidosis: Status: Acute Plan Gram negative rods urine They are related to urinary infection likely 14 d cephalosporin if sensitive can finish with oral agent
[2025-07-15] VITALS (7 sets, daily range): BP systolic 106–157; BP diastolic 57–80; PULSE 60–64; RESP 16–18; TEMP 36.1–36.9; O2SAT 94–98
[2025-07-15] MEDS: oxyCODONE HCl Immed Release 5 MG TABLET 2.5 MG PO ×2 (03:25→15:51)
[2025-07-15] MEDS: Venlafaxine HCl ER 150 MG CAP.ER.24H PO (08:10)
[2025-07-15] MEDS: Venlafaxine HCl ER 37.5 MG CAP.ER.24H PO (08:10)
[2025-07-15] MEDS: 0.9 % Sodium Chloride Flush 3 ML SYRINGE IVFLUSH ×2 (08:11→20:36)
--- NOTE | 2025-07-15 15:54 | MHC.CM.PN ---
per rounds pt waiting for cultures dc expected for mon plan remains home
--- NOTE | 2025-07-15 16:55 | HO.PM.IMPN ---
Subjective Subjective Date of Service: 07/15/25 Interval History: Patient seen examined at bedside this morning, patient states that her left flank pain have improved, with UA positive for leukocyte esterase and WBCs. Patient was placed on IV ceftriaxone. Review of Systems Review of Systems: Yes all other systems are reviewed and are negative Physical Exam Exam: Exam: General: AxOx3, No acute distress Head: AT/NC ENT: Moist mucous membranes Neck: supple CVS; RRR, S1 S2 normal Lungs: Clear bilateral breath sounds, no wheezes or crackles Abd: Soft non tender, non distended, CVA tenderness Ext: No edema and no calf tenderness MSK: moving all 4 limbs Skin: No cyanosis or edema Psych: Cooperative with exam Neurology: no focal deficit Vital Signs: Vital Signs: Last Vital Signs Temp 98.2 F 07/15/25 15:09 Pulse 61 07/15/25 15:09 Resp 18 07/15/25 15:09 BP 119/62 07/15/25 15:09 Pulse Ox 97 07/15/25 15:09 O2 Del Method Room Air 07/15/25 15:09 BMI result Body Mass Index 37.6 Objective Data Active Medications Acetaminophen (Acetaminophen 325 Mg Tablet) 975 mg PO Q6H PRN PRN Reason: Pain, Mild 1-3,fever,headache Albuterol Sulfate (Albuterol Sulfate 90 Mcg 8 Gm Inhaler) 2 puff INHALE Q4H PRN PRN Reason: shortness of breath or wheezing Amlodipine Besylate (Amlodipine Besylate 5 Mg Tablet) 5 mg PO DAILY [facility]; Protocol Last Admin: 07/15/25 08:10 Dose: 5 mg Documented By: ANNE MARIE Atorvastatin Calcium (Atorvastatin Calcium 80 Mg Tablet) 80 mg PO DAILY [facility] Last Admin: 07/15/25 08:10 Dose: 80 mg Documented By: ANNE MARIE Buspirone HCl (Buspirone Hcl 5 Mg Tablet) 5 mg PO TID [facility] Last Admin: 07/15/25 15:37 Dose: 5 mg Documented By: ANNE MARIE Calcium Carbonate (Calcium Carbonate 750 Mg Tab.Chew) 750 mg PO Q4H PRN PRN Reason: Heartburn Capsaicin (Capsaicin 0.025% Cream 60 Gm Tube) 1 appl TOPICAL TID PRN; Protocol PRN Reason: Pain, Moderate(Pain Scale 4-6) Last Admin: 07/14/25 15:29 Dose: 1 appl Documented By: ANNE MARIE Cariprazine (Cariprazine Hcl 1.5 Mg Capsule) 1.5 mg PO DAILY [facility] Last Admin: 07/15/25 08:10 Dose: 1.5 mg Documented By: ANNE MARIE Clonazepam (Clonazepam 1 Mg Tablet) 1 mg PO DAILY PRN PRN Reason: Anxiety Clonidine HCl (Clonidine Hcl 0.1 Mg Tablet) 0.1 mg PO BID [facility]; Protocol Last Admin: 07/15/25 08:10 Dose: 0.1 mg Documented By: ANNE MARIE Enoxaparin Sodium (Enoxaparin Sodium 40 Mg/0.4 Ml Syringe) 40 mg SUBCUT Q24H [facility] Last Admin: 07/15/25 08:11 Dose: 40 mg Documented By: ANNE MARIE Famotidine (Famotidine 20 Mg Tablet) 20 mg PO BEDTIME [facility] Last Admin: 07/14/25 20:55 Dose: 20 mg Documented By: RYAN Hydrocortisone (Hydrocortisone 10 Mg Tablet) 15 mg PO DAILY@0800 [facility] Last Admin: 07/15/25 08:10 Dose: 15 mg Documented By: ANNE MARIE Hydrocortisone (Hydrocortisone 10 Mg Tablet) 5 mg PO BID@1200,1700 [facility] Last Admin: 07/15/25 11:28 Dose: 5 mg Documented By: ANNE MARIE Ceftriaxone Sodium 1 gm/ (Sodium Chloride) 50 mls @ 100 mls/hr IV Q24H [facility] Last Infusion: 07/14/25 18:27 Dose: Infused Documented By: ANNE MARIE Levothyroxine Sodium (Levothyroxine Sodium 150 Mcg Tablet) 150 mcg PO DAILY@0600 [facility] Last Admin: 07/15/25 05:42 Dose: 150 mcg Documented By: RYAN Losartan Potassium (Losartan Potassium 50 Mg Tablet) 100 mg PO DAILY [facility]; Protocol Last Admin: 07/15/25 08:10 Dose: 100 mg Documented By: ANNE MARIE Magnesium Hydroxide (Milk Of Magnesia 30 Ml Oral.Susp) 30 ml PO DAILY PRN PRN Reason: Constipation Melatonin (Melatonin 3 Mg Tablet) 6 mg PO BEDTIME PRN PRN Reason: Insomnia Metoprolol Tartrate (Metoprolol Tartrate 100 Mg Tablet) 100 mg PO BID [facility]; Protocol Last Admin: 07/15/25 08:10 Dose: 100 mg Documented By: ANNE MARIE Omeprazole (Omeprazole 20 Mg Capsule.Dr) 20 mg PO DAILY@0630 [facility] Last Admin: 07/15/25 05:42 Dose: 20 mg Documented By: MÓNICARISChacorta Ondansetron HCl (Ondansetron Hcl 4 Mg/2 Ml Vial) 4 mg IVPUSH Q8H PRN PRN Reason: Nausea and Vomiting Oxycodone HCl (Oxycodone Hcl Immed Release 5 Mg Tablet) 2.5 mg PO Q6H PRN PRN Reason: Pain, Severe (Pain Scale 7-10) Last Admin: 07/15/25 15:51 Dose: 2.5 mg Documented By: ANNE MARIE Quetiapine Fumarate (Quetiapine Fumarate 50 Mg Tablet) 50 mg PO BID PRN PRN Reason: Sleep Sodium Chloride (0.9 % Sodium Chloride Flush 3 Ml Syringe) 3 ml IVFLUSH QSHIFT [facility] Last Admin: 07/15/25 15:51 Dose: Not Given Documented By: ANNE MARIE Non-Admin Reason: Previously Administered Venlafaxine HCl (Venlafaxine Hcl Er 37.5 Mg Cap.Er.24h) 37.5 mg PO DAILY [facility] Last Admin: 07/15/25 08:10 Dose: 37.5 mg Documented By: ANNE MARIE Venlafaxine HCl (Venlafaxine Hcl Er 150 Mg Cap.Er.24h) 150 mg PO DAILY [facility] Last Admin: 07/15/25 08:10 Dose: 150 mg Documented By: ANNE MARIE Labs 07/14/25 04:14 07/14/25 04:14 Microbiology Microbiology Results: Microbiology 07/13/25 17:40 Urine Culture - Final Urine clean catch - Clean Catch Midstream Strep agalactiae (Grp B) 07/13/25 15:35 Blood Culture - Preliminary Blood - Venous No growth after 24 hours. 07/13/25 14:56 Blood Culture - Preliminary Blood - Venous No growth after 24 hours. Assessment and Plan (1) UTI (urinary tract infection): Status: Acute (2) History of pituitary adenoma: Status: Acute Plan 60 y/o woman who presented for left flank pain, found to have UTI. improved with IV abs UTI -UA reviewed, cultures pending CT abdomen -ve for acute pathology, awaiting BC and UC, will adjust pending results Continue ceftriaxone to complete 14d per ID recs Essential hypertension. Continue amlodipine, losartan, metoprolol and clonidine. Hypothyroidism. Continue levothyroxine. Mood disorder. Continue buspirone, clonazepam, olanzapine and Seroquel Hyperlipidemia.. Continue statin GERD. Continue PPI. prior history of malignant neoplasm of cervix. s/p chemo, continue to follow up w/ [employer] as indicated Hx of pituitary adenoma. Status post transsphenoidal pituitary adenectomy. on hydrocortisone Code status: Full DVT prophylaxis: Lovenox Diet: cardiac Quality Stroke Does the patient have a stroke diagnosis?: No VTE Prior VTE?: No VTE Risk Level:: Medical - moderate - high VTE Device Contraindication: Treatment Not Indicated VTE Drug Contraindication: N/A - Med Ordered
[2025-07-16 03:43] VITALS: BP 122/58; PULSE 63; RESP 18; TEMP 36.2; O2SAT 98
[2025-07-16 07:29] VITALS: BP 131/76; PULSE 63; RESP 18; TEMP 36.2; O2SAT 97
[2025-07-16] MEDS: Venlafaxine HCl ER 150 MG CAP.ER.24H PO (08:21)
[2025-07-16] MEDS: Venlafaxine HCl ER 37.5 MG CAP.ER.24H PO (08:21)
[2025-07-16] MEDS: 0.9 % Sodium Chloride Flush 3 ML SYRINGE IVFLUSH (08:22)
[2025-07-16] MEDS: oxyCODONE HCl Immed Release 5 MG TABLET 2.5 MG PO (08:29)
[2025-07-16 10:50] VITALS: BP 111/63; PULSE 61; RESP 18; TEMP 36.2; O2SAT 98
--- NOTE | 2025-07-16 12:17 | PM.DS ---
DS: Providers Provider Date of Service: 07/16/25 Date of admission: 07/13/25 20:49 Date of discharge: 07/16/25 Primary care physician: Albert Castro MD Consults: 07/14/25 11:42 Consult to Infectious Diseases Routine Consulting Provider: [facility] Reason for consultation: Left flank pain across dermatome, ?? Acute neuritis preceding shingles? DS: Diagnosis Discharge Diagnosis (1) UTI (urinary tract infection): Status: Acute (2) Group B streptococcal infection: Status: Acute (3) Lactic acidosis: Status: Acute DS: Summary Hospital Course Hospital Course: From the history and physical by the admitting hospitalist, Kaitlynn Castro MD, 07/13/25: Sharmila Ceballos is a 60 years old woman with past medical history significant for essential hypertension and depression presents to the emergency department complaining of left flank pain that started 3 days ago. She noted that her urine is foul-smelling and has chills. Denied pain with urination or blood in urine. She also denied nausea, vomiting or diarrhea. She denied any headache, dizziness or palpitations. She denied any acute cardiopulmonary symptoms. She was recently seen at [facility] for same symptoms and was told that she has a hernia. In the ED, she was found to have stable vital signs. Blood workup showed no leukocytosis. Hemoglobin is 12.2 and platelets. There are no significant electrolyte imbalances. Significant lactic acidosis noted. Last lactic acid is 3.7. Transaminases are slightly elevated. Bilirubin, lipase and alk-phos are normal. Urinalysis is consistent with UTI. Abdominal pelvis CT scan with IV contrast showed tiny umbilical hernia containing fat without evidence of inflammation. This also mild diverticulosis without diverticulitis. There is a small attenuation bilateral renal splenic lesions dark difficult to characterize I due to small size but probably represent small cysts, slightly enlarged fatty liver and pelvic varices. ED tx: Ketorolac 15 mg IV, LR 1 L bolus, NS 1 L bolus, ceftriaxone 1 g IV She was admitted to the medical-surgical unit and treated with IV ceftriaxone and IV fluids. Lactate normalized and had likely been elevated due to dehydration. Urine culture grew group B streptococcus; blood cultures negative. Symptoms improved and she was discharged home on amoxicillin. Time Attestation Discharge Coordination Time (in mins): 35 Quality: Safe Use of Opioids Does Pt have an Active Cancer Diagnosis on the Problem List?: No Quality: Stroke Does the patient have a stroke diagnosis?: No Physical Exam Vital Signs: Vital Signs: Last Vital Signs Temp 97.1 F 07/16/25 10:50 Pulse 61 07/16/25 10:50 Resp 18 07/16/25 10:50 BP 111/63 07/16/25 10:50 Pulse Ox 98 07/16/25 10:50 O2 Del Method Room Air 07/16/25 10:50 BMI result Body Mass Index 37.6 Gen: in no acute distress HEENT: sclera anicteric, moist mucus membranes Neck: supple Lungs: clear to auscultation bilaterally Heart: regular rate and rhythm, no murmurs Abd: soft, non-tender, non-distended Ext: no edema Skin: warm/well-perfused Neuro: alert and oriented x3, no focal findings Psych: appropriate affect DS: Data Data Completed and Pending Completed studies during hospitalization [Text1]: Laboratory Results WBC 6.6 X10*3/uL (4.8-10.8) 07/14/25 04:14 RBC 4.79 X10*6/uL (4.20-5.50) 07/14/25 04:14 Hgb 11.9 g/dl (12.0-16.0) L 07/14/25 04:14 Hct 39.5 % (37.0-47.0) 07/14/25 04:14 MCV 82.5 fL (80.0-98.0) 07/14/25 04:14 MCH 24.8 pg (27.0-33.0) L 07/14/25 04:14 MCHC 30.1 g/dl (31.0-35.0) L 07/14/25 04:14 RDW 17.2 % (11.0-16.0) H 07/14/25 04:14 Plt Count 310 X10*3/uL (160-400) 07/14/25 04:14 MPV 10.6 fL (9.4-12.3) 07/14/25 04:14 Immature Gran % (Auto) 0.5 % (0.0-0.4) H 07/14/25 04:14 Neut % (Auto) 57.9 % (45-73) 07/14/25 04:14 Lymph % (Auto) 33.1 % (20-40) 07/14/25 04:14 [place] % (Auto) 5.9 % (2-11) 07/14/25 04:14 Eos % (Auto) 2.0 % (0-4) 07/14/25 04:14 Baso % (Auto) 0.6 % (0-2) 07/14/25 04:14 Lymph # (Auto) 2.2 X10*3/uL (1.2-4.9) 07/14/25 04:14 [place] # (Auto) 0.4 X10*3/uL (0.1-1.2) 07/14/25 04:14 Eos # (Auto) 0.1 X10*3/uL (0.0-0.4) 07/14/25 04:14 Baso # (Auto) 0.0 X10*3/uL (0.0-0.2) 07/14/25 04:14 Abs Immat Gran (auto) 0.03 X10*3/uL (0.00-0.03) 07/14/25 04:14 Absolute Neuts (auto) 3.8 x10*3/uL (2.0-8.3) 07/14/25 04:14 Absolute Nucleated RBC 0.000 X10*3/uL (0.0-0.012) 07/14/25 04:14 Nucleated RBC % (auto) 0.0 /100WBC (0.0-0.2) 07/14/25 04:14 Sodium 142 mmol/L (135-145) 07/14/25 04:14 Potassium 3.8 mmol/L (3.3-5.1) 07/14/25 04:14 Chloride 107 mmol/L (96-108) 07/14/25 04:14 Carbon Dioxide 23 mmol/L (22-29) 07/14/25 04:14 Anion Gap 16 (12-20) 07/14/25 04:14 BUN 5 mg/dL (9-16) L 07/14/25 04:14 Creatinine 0.75 mg/dL (0.5-1.4) 07/14/25 04:14 Estim Creat Clear Calc 92.0 07/14/25 04:14 Estimated GFR > 60 07/14/25 04:14 Random Glucose 105 mg/dL (60-115) 07/14/25 04:14 Lactic Acid 2.2 mmol/L (0.5-2.0) H* 07/14/25 08:37 Lactic Acid F/U @ 2Hr 1.7 mmol/L (0.5-2.0) 07/14/25 10:57 Lactic Acid F/U @ 4Hr 3.7 mmol/L (0.5-2.0) H* 07/13/25 20:20 Calcium 8.7 mg/dL (8.4-10.2) 07/14/25 04:14 Total Bilirubin 0.5 mg/dL (0.0-1.0) 07/13/25 14:50 Direct Bilirubin 0.2 mg/dL (0.0-0.5) 07/13/25 14:50 AST 46 U/L (5-31) H 07/13/25 14:50 ALT 33 U/L (0-31) H 07/13/25 14:50 Alkaline Phosphatase 101 U/L (39-117) 07/13/25 14:50 Troponin I High Sens < 2.7 ng/L (<3.5-17.0) 07/13/25 14:50 Total Protein 6.5 g/dL (6.5-8.0) 07/13/25 14:50 Albumin 4.0 g/dL (3.5-5.0) 07/13/25 14:50 Lipase 18 U/L (8-78) 07/13/25 14:50 Urine Color Yellow 07/13/25 17:01 Urine Appearance Clear 07/13/25 17:01 Urine pH 7.5 (5.0-9.0) 07/13/25 17:01 Ur Specific [place] 1.020 (1.005-1.025) 07/13/25 17:01 Urine Protein Negative mg/dL (Neg-Trace) 07/13/25 17:01 Urine Glucose (UA) Negative mg/dL (Negative) 07/13/25 17:01 Urine Ketones Negative mg/dL (Negative) 07/13/25 17:01 Urine Blood Trace (Negative) H 07/13/25 17:01 Urine Nitrite Negative (Negative) 07/13/25 17:01 Ur Leukocyte Esterase Moderate (2+) (Negative) H 07/13/25 17:01 Urine RBC 3-5 /HPF (0-2) H 07/13/25 17:01 Urine WBC >50 /HPF (0-5) H 07/13/25 17:01 Ur Squamous Epith Cells 0-2 /HPF (0-2) 07/13/25 17:01 Urine Bacteria None Seen (None Seen) 07/13/25 17:01 Hyaline Casts 0-2 /LPF (0-2) 07/13/25 17:01 Impressions Abdomen/Pelvis CT 07/13/25 15:53 IMPRESSION: Tiny umbilical hernia containing fat. No evidence of inflammation. No other hernia seen. Mild diverticulosis of the colon. No evidence of diverticulitis. Small low-attenuation bilateral renal and splenic lesions. These are difficult to characterize due to small size but probably represent small cysts. Slightly enlarged fatty liver. Pelvic varices. Electronically signed by: Darshana Parker MD 07/13/2025 04:31 PM EDT Discharge Plan Discharge Anticipated Discharge Date/Time: 07/16/25 12:14 Patient Disposition: Home, Self-Care Discharge Diagnosis: urinary tract infection with Group B streptococcus Referrals: Albert Iglesias MD [Primary Care Provider, Medical] Discharge Medications: New amoxicillin 500 mg tablet 500 mg PO Q8H Qty: 12 0RF Continued albuterol sulfate 90 mcg/actuation HFA aerosol inhaler 2 puff inhalation Q4-6H PRN (Reason: shortness of breath or wheezing) Qty: 6.7 0RF amlodipine 5 mg tablet 5 mg PO DAILY Vraylar 1.5 mg capsule 1.5 mg PO DAILY venlafaxine 37.5 mg capsule,extended release 24hr 37.5 mg PO DAILY hydrocortisone 5 mg tablet 15 mg PO DAILY@0800 Rx Instructions: TAKE 3 TABLETS IN MORNING, 1 TABLET IN AFTERNOON, & 1 TABLET IN EVENING UNTIL OTHERWISE DIRECTED esomeprazole magnesium 40 mg capsule,delayed release(DR/EC) 40 mg PO DAILY@0630 rosuvastatin 40 mg tablet 40 mg PO DAILY levothyroxine 150 mcg tablet 150 mcg PO DAILY@0600 tramadol 50 mg tablet 50 mg PO Q12H PRN (Reason: Pain) clonazepam 1 mg tablet 1 mg PO DAILY PRN (Reason: anxiety) clonidine HCl 0.1 mg tablet 0.1 mg PO BID buspirone 5 mg tablet 5 mg PO TID quetiapine 50 mg tablet 50 mg PO BID PRN (Reason: Sleep) metoprolol tartrate 100 mg tablet 100 mg PO BID losartan 100 mg tablet 100 mg PO DAILY venlafaxine 150 mg capsule,extended release 24hr 150 mg PO DAILY hydrocortisone 5 mg tablet 5 mg PO BID@1200,1700 Rx Instructions: TAKE 3 TABLETS IN MORNING, 1 TABLET IN AFTERNOON, & 1 TABLET IN EVENING UNTIL OTHERWISE DIRECTED famotidine [Pepcid] 20 mg tablet 20 mg PO BEDTIME Qty: 90 3RF Discharge Orders: Discharge Order (Routine); Ordered 07/16/25 Ordered By: Gopal Loza Diet: Advance to usual diet Activity on Discharge: As tolerated Stand Alone Forms: Patient Portal Discharge page Print Language: Indonesian Care Plan Goals: cure infection Health Concerns: urinary tract infection with Group B streptococcus Plan of Treatment: amoxicillin 500 mg every 8 hours for 4 days total Please follow up with your primary care doctor within 1 week. Return to the hospital if you experience recurrent or worsening symptoms. Assessment: See Discharge Summary. Patient Instructions: Urinary Tract Infection in Women (ED)
--- NOTE | 2025-07-16 12:29 | MHC.CM.PN ---
PT CLEARED TO DC HOME TODAY WITH [facility] TO TRANSPORT
== END 2025-07-16 14:37 | disposition home or self-care (01) | DRG 463 ==
LOC: HO.ED 20:44 → HO.EDOVER 20:56 → HO.S3 07-14 07:27
PROVIDERS: Hospitalist; Admitting Provider Internal Medicine; Emergency Provider Emergency Medicine; PCP Internal Medicine; Visit Provider Family Medicine
DX: N10 Acute pyelonephritis (principal); E87.21 Acute metabolic acidosis; E03.9 Hypothyroidism, unspecified; I10 Essential (primary) hypertension; K57.30 Diverticulosis of large intestine without perforation or abscess without bleeding; N28.1 Cyst of kidney, acquired; M79.2 Neuralgia and neuritis, unspecified; B95.1 Streptococcus, group B, as the cause of diseases classified elsewhere; E78.5 Hyperlipidemia, unspecified; K21.9 Gastro-esophageal reflux disease without esophagitis; Z85.41 Personal history of malignant neoplasm of cervix uteri; Z96.0 Presence of urogenital implants; Z87.891 Personal history of nicotine dependence; Z79.890 Hormone replacement therapy; Z79.899 Other long term (current) drug therapy
CPT/HCPCS: 36415; 74177; 80048; 80076; 81001; 83605; 83690; 84484; 85025; 87040; 87086; 87147; 99285; J0696; J1171; J1650; J1885; J7120; Q9967

== ENCOUNTER → 2025-07-13 14:38 | Outpatient (BNV) | payer MEDICAID, SELFPAY | PROVIDERS: Emergency Provider Emergency Medicine; PCP Internal Medicine; Visit Provider Radiology Diagnostic Radiology | DX: K42.9 Umbilical hernia without obstruction or gangrene (principal); K57.30 Diverticulosis of large intestine without perforation or abscess without bleeding; I86.2 Pelvic varices; D73.89 Other diseases of spleen; R93.49 Abnormal radiologic findings on diagnostic imaging of other urinary organs | CPT/HCPCS: 74177 ==

== ENCOUNTER → 2025-07-13 20:49 | Outpatient (BNV) | payer MEDICAID, SELFPAY | PROVIDERS: Admitting Provider Internal Medicine; Emergency Provider Emergency Medicine; PCP Internal Medicine; Visit Provider Internal Medicine | DX: R10.9 Unspecified abdominal pain (principal); E87.21 Acute metabolic acidosis | CPT/HCPCS: 99222 ==

== ENCOUNTER → 2025-07-13 20:49 | Outpatient (BNV) | payer MEDICAID, SELFPAY | PROVIDERS: Admitting Provider Internal Medicine; Emergency Provider Emergency Medicine; PCP Internal Medicine; Visit Provider Internal Medicine | DX: R10.9 Unspecified abdominal pain (principal); E87.21 Acute metabolic acidosis; M79.2 Neuralgia and neuritis, unspecified | CPT/HCPCS: 99223; 99233 ==

== ENCOUNTER 2025-08-01 13:07 | Outpatient (REF) | payer MEDICAID, SELFPAY ==
[2025-08-04 00:43] LABS: TS Negative Control Passed; TS Panel A 1; TS Panel B 4; TS Positive Control Passed; TSpotTB Negative (Negative)
== END 2025-08-01 13:08 | disposition home or self-care (01) ==
LOC: HO.CHCLDS 13:07
PROVIDERS: Visit Provider Internal Medicine
DX: Z11.1 Encounter for screening for respiratory tuberculosis (principal)
CPT/HCPCS: 36415; 86481